=== PATIENT | male | born 1955 | race Caucasian/White ===

== ENCOUNTER → 2017-08-19 09:18 | Outpatient (CLI) | payer MEDICARE, SELFPAY ==
--- NOTE | 2017-08-19 09:24 | STE_ITS ---
Reason For Study: Exercise Intolerance, Hypotension Stress Results Protocol: Karl Protocol Maximum Predicted HR: 161 bpm Target HR: 137 bpm% Max imum Predicted HR: 88 % DurationHeart Rate Stage (mm:ss) (bpm) BPCom ment Baseline 64 134/82 No Chest Pain Karl Protocol Stage I 3:00 10 6 136/74No Chest Pain Karl Protocol Stage II 3:00 12 1 184/80No Chest Pain Karl Protocol Stage III 3:00 14 1 178/76No Chest Pain; Mild to Moderate Dyspnea Recovery 88 130/76 No Chest Pain Stress Duration: 9:00 mm:ss Maximum Stress HR: 141 bpmM ETS: 10 Baseline Echocardiogram Findings Stress Echo Wall motion Data Resting WMIntermediate WMStress WM Resting Wall Motion Wall Motion Stress All segments Normal. All segments Hyperkinetic. Ejection Fraction 55 %. Ejection Fraction 70 %. Stress Results Heart rate response: appropriate Blood pressure response: normal BP - appropriate response Arrhythmias: rare PVC / ventricular couplet during exercise Functional capacity: good Stopped secondary to: dyspnea. EKG Data Baseline ECG: NSR. Peak exercise ECG: somatic / motion artifact with no obvious ECG changes. Symptoms with Stress No c/o chest discomfort during exercise / recovery. Interpretation Summary Negative (adequate) Stress Echocardiogram Ordering Physician: Alina Choi Referring Physician: Alek Hawthorne MD Performed By: Shorty Meng RCS
== END ==
LOC: CVS 09:20
PROVIDERS: Family Provider Family Medicine; PCP Family Medicine; Visit Provider Family Medicine
DX: R68.89 Other general symptoms and signs (principal)
CPT/HCPCS: 93017; 93350

== ENCOUNTER 2017-10-18 05:41 | Day surgery (SDC) | payer MEDICARE, SELFPAY ==
[2017-10-18] VITALS (8 sets, daily range): BP systolic 113–176; BP diastolic 82–101; PULSE 57–61; RESP 16–18; TEMP 36.3–36.5; O2SAT 95–99
--- NOTE | 2017-10-18 06:21 | PCM.HP.STD ---
Problem List (1) Screening for intestinal cancer Status: Acute History of Present Illness Date of Admission: 10/18/17 The patient is a 61 year old M who is here via our open access program for screening colonoscopy. The patient states that he is typically on clopidogrel and aspirin for lower extremity peripheral vascular occlusive disease. States that one year ago I performed an operation to reestablish vascular flow to his right lower extremity. He has not had any follow-up with me since then and has not had any testing and he is remained on his clopidogrel. He did stop that 5 days ago. He has remained on the aspirin. He denies any previous colonoscopy. He denies bright red blood per rectum or melena. No abdominal pain. No weight loss. He describes an episode where his older sister just had a have a emergency colon resection for diverticular disease. The patient is a chronic lifelong cigarette smoker and he continues to smoke cigarettes. He has not had any acute weight change. He has not had a venous deep venous thrombosis. He does not have a family history of colon cancer. Past Medical History Allergies No Known Allergies Allergy (Verified 10/17/17 09:24) Home Medications: Ambulatory Orders Medication Instructions Recorded Esomeprazole Mag Trihydrate 20 mg PO DAILY 11/21/16 [Nexium] Lisinopril [Zestril] 10 mg PO DAILY #30 tablet 11/21/16 Aspirin [Aspirin, Baby] 81 mg PO DAILY@0800 11/30/16 Clopidogrel Bisulfate [Plavix] 75 mg PO DAILY #30 tablet 11/30/16 Atorvastatin Calcium [Lipitor] 40 mg PO QHS 10/17/17 Tamsulosin HCl [Flomax] 0.4 mg PO DAILY 10/17/17 Surgical History: - - 11/30/2016 abdominal pelvic right lower extremity arteriogram with turbo Hawk atherectomy and angioplasty for distal right superficial femoral artery occlusion Smoking Status: Current every day smoker Tobacco Use: Cigarettes Review of Systems Constitutional: Denies: Anorexia Cardiovascular: Denies: Chest Pain Respiratory: Reports: - - Chronic nonproductive cough Gastrointestinal: Denies: Abdominal Pain Genitourinary: Denies: Dysuria Neurological: Denies: Balance problems Psychiatric: Denies: Anxiety Endocrine: Denies: Change in Body Habitus VTE Information - Inpt Only VTE Present on Admission: No Patient Problems: Active and Suspected Problems Screening for intestinal cancer (Acute) - Physical Exam General: Alert, Oriented x3, Cooperative, - - Patient appears older than stated age HEENT: Atraumatic Oral: Moist Mucosa Neck: Supple Lungs: - - Notably increased anterior posterior diameter. Clear to auscultation. Diminished respiratory excursion Cardiovascular: Regular rate, Regular Rhythm Abdomen: Bowel Sounds Present, Soft, Non Tender Extremities: - - 3+ bilateral femoral and popliteal pulses Musculoskeletal: No Tenderness to Palpation of Joints or Extremities Neurological: Cranial nerves II-XII grossly intact Psych/Mental Status: Normal Affect Vital Signs Pulse Resp BP Pulse Ox 61 16 146/94 H 97 10/18/17 06:09 10/18/17 06:09 10/18/17 06:09 10/18/17 06:09 Oxygen Delivery Method Room Air Weight: 158 lb 8.198 oz Assessment/Plan All Active Problems Screening for intestinal cancer (Acute) The patient is encouraged to establish a office appointment for PVRs and outpatient follow-up of his peripheral vascular status with re-review of the requirement of his aspirin and clopidogrel Today I discussed with him the technique, benefits, risks and alternatives of a screening colonoscopy. He has had an opportunity to ask and have questions answered including the possibility of biopsy or polypectomy. This point he would like to proceed as noted. Cc: Dr. Steph García M.D., F.A.C.S.
--- NOTE | 2017-10-18 06:30 | COLBX_PTH ---
PATIENT: ERIC KRAUSE LOC: EN U#:[id number] AGE/SX: 61/M ROOM: RE10/18/[address]: Dr. Michelet García MD : 1955 BED: DIS: 10/18/2017 SPEC #: [id number] RECD: 10/18/17 12:48 STATUS: DARON GENNA #: [id number] ARELIS: 10/18/17 06:[address]: Michelet García DEPT: SURGICAL PATHOLOGY RECD BY: Prieto Sharma ENTERED: 10/18/17 13:56 SP TYPE: COLON BX HEATHER DR: Dr. Alina Choi MD Tissues: A - Cecum, NOS B - Transverse colon C - Transverse colon D - Descending colon E - Sigmoid colon biopsy Procedures: Surgery Specimen Level IV HEADER OPERATION: Colonoscopy PRE-OP DIAGNOSIS: Screening TISSUE SUBMITTED: A ? Cecal polyp, B ? Proximal transverse polyp, C ? Distal transverse polyp, D ? Descending polyps (2), E ? Sigmoid polyp MICROSCOPIC DIAGNOSIS A. Cecal polyp, biopsy: Fragments of tubular adenoma. B. Proximal transverse colon polyp, biopsy: Fragments of hyperplastic polyp. Tubular adenoma. See comment. C. Distal transverse colon polyp, biopsy: Fragments of tubular adenoma. D. Descending colon polyps, biopsy: Fragments of tubular adenoma. E. Sigmoid colon polyp, biopsy: Hyperplastic polyp. AM:nellie 10/19/17 COMMENT B. A single fragment contains adenomatous change. The remainder of the specimen consists of fragments of hyperplastic polyp. MICROSCOPIC DESCRIPTION Slides are reviewed. GROSS DESCRIPTION A - Received in fixative is one container labeled with the patient's name and designated cecal polyp. The specimen consists of multiple irregular fragments of light avila soft tissue that in aggregate measure 1 x 0.5 x 0.1 cm. The specimen is totally submitted in one cassette. B - Received in fixative is one container labeled with the patient's name and designated proximal transverse colon. The specimen consists of multiple irregular fragments of light avila soft tissue that in aggregate measure 1.5 x 0.5 x 0.1 cm. The specimen is totally submitted in one cassette. C - Received in fixative is one container labeled with the patient's name and designated distal transverse polyp. The specimen consists of two irregular fragments of light avila soft tissue that in aggregate measure 0.6 x 0.3 x 0.1 cm. The specimen is totally submitted in one cassette. D - Received in fixative is one container labeled with the patient's name and designated descending polyp. The specimen consists of two irregular fragments of light avila soft tissue that in aggregate measure 0.7 x 0.3 x 0.1 cm. The specimen is totally submitted in one cassette. E - Received in fixative is one container labeled with the patient's name and designated sigmoid polyps. The specimen consists of one irregular fragment of light avila soft tissue that measures 0.7 x 0.4 x 0.2 cm. The specimen is totally submitted in one cassette. / SJ:rg 10/18/17 TC:5 CPT: 85398 x5
--- NOTE | 2017-10-18 07:01 | PCM.OPRPT ---
Problem List (1) Screening for intestinal cancer Status: Acute Report of Operation Date of Procedure: 10/18/17 Pre-Operative Diagnosis: Screening for intestinal cancer Post-Operative Diagnosis: Multiple colonic polyps. Sigmoid diverticulosis Surgery/Procedure Performed:: Colonoscopy with multiple cold snare polypectomy and hemostatic clip placement Description of Surgical Findings:: Timeout and informed consent was obtained. 61-year-old gentleman with no previous colonoscopy experience have been taken to the procedure room. He was placed in a left lateral decubitus position. Throughout the procedure he received a total of 100 mg of Demerol and 4 milligrams of versed as intravenous sedation. Because of COPD carbon dioxide was not used but room air was used for insufflation. Digital rectal exam performed. Normal anal tone. Mild hemorrhoidal changes. 2+ smooth prostate. Flexible colonoscope inserted the rectum advanced through the colon with relative ease. Transabdominal pressure was required to get the scope to go to the cecum. Bowel prep was good. The cecum ileocecal valve area was nicely achieved. The scope was carefully withdrawn and then the cecum a sessile 8 mm diameter polyp identified. Cold snare was used to resect and retrieved. The scope was then further withdrawn and the proximal transverse colon a 6 mm polyp identified this too was removed with cold snare and retrieved. The scope was further withdrawn in the distal transverse colon a very similar appearing 6 mm polyp was identified cold snare resected and retrieved. In the descending colon there were additional 2 sessile 6 mm polyps both of these were treated with cold snare resected and retrieved. In the sigmoid colon there was more of this polypoid lesion looking like lax mucosa rather than a true polyp. I took a fraction of this with a cold snare and then placed a hemostatic clip on the base to assure hemostasis. That tissue was retrieved. The scope was withdrawn the rectum retroflex the anorectal verge inspected this was not remarkable excess fluid and air was aspirated free. He was taken to the recovery area in sagittal condition no apparent complication. Impression Sessile polyp of the cecum. Sessile polyp with proximal transverse colon. Sessile polyp of the distal transverse colon. 2 sessile polyps of the descending colon. Polypoid lesion of the sigmoid colon Sigmoid diverticulosis The patient will be notified of pathology results as they become available. Next colonoscopy recommended in 1 year. It is of note that the patient had air rather than carbon dioxide use as the insufflating agent. He performed well with the procedure. Cc: Dr Alina Choi Medications were given at 0634. The scope was inserted 0637. The cecum was reached at 0639. The procedure was completed at 0657. Michelet García M.D., F.A.C.S. Type of Anesthesia:: IV Sedation
== END 2017-10-18 07:55 | disposition home or self-care (01) ==
LOC: EN 05:41 → AC 05:42
PROVIDERS: Family Provider Family Medicine; PCP Family Medicine; Visit Provider Surgery
PROC: 0DJD8ZZ Inspection of Lower Intestinal Tract, Via Natural or Artificial Opening Endoscopic (ICD-10-PCS; CPT 45378; principal; 2017-10-18 06:25)
DX: Z12.11 Encounter for screening for malignant neoplasm of colon (principal); K57.30 Diverticulosis of large intestine without perforation or abscess without bleeding; K63.5 Polyp of colon; J44.9 Chronic obstructive pulmonary disease, unspecified; F17.200 Nicotine dependence, unspecified, uncomplicated
CPT/HCPCS: 45385; 88305; 99152; 99153; J7120

== ENCOUNTER → 2017-12-16 10:32 | Outpatient (CLI) | payer MEDICARE, SELFPAY ==
[2017-12-16 12:59] LABS: AST(SGOT) 14 U/L (15-37); Alanine Aminotransfer ALT/SGPT 26 U/L (16-61); Anion Gap 4 (5-15); BUN 20 mg/dL (7-18); BUN/Creat Ratio 18.3 RATIO (10-20); Calcium,Total 8.9 mg/dL (8.5-10.1); Chloride 107 mmol/L (98-107); Cholesterol 133 mg/dL (200); Creatinine, Serum 1.09 mg/dL (0.70-1.30); EST Glomerular Filtration Rate 73 mL/min (>60); Est Glom Filt Rate - Afr Amer 89 mL/min (>60); Glucose 102 mg/dL (74-106); High Density Lipoprotein 49 mg/dL; Potassium 4.1 mmol/L (3.5-5.1); Sodium Level 138 mmol/L (136-145); Triglycerides 90 mg/dL; Very Low Density Lipoprotein 18 mg/dL (5-40)
== END ==
PROVIDERS: Family Provider Family Medicine; PCP Family Medicine; Visit Provider Family Medicine
DX: I10 Essential (primary) hypertension (principal)
CPT/HCPCS: 36415; 80048; 80061; 84450; 84460

== ENCOUNTER → 2018-04-28 12:02 | Outpatient (CLI) | payer MEDICARE, SELFPAY ==
--- NOTE | 2018-04-28 12:06 | US_ITS ---
STUDY: SCROTUM ULTRASOUND REASON FOR EXAM: Male, 62 years old. Articular swelling. TECHNIQUE: Ultrasound evaluation of the scrotum was performed with color Doppler and static olivarez-scale imaging. COMPARISON: None. FINDINGS: RIGHT TESTICLE INTRATESTICULAR: There is a normal size of the right testicle. The right testicle measures 6 x 3.8 x 3.3 cm. There is a homogenous echotexture. There is normal arterial and normal venous vascularity. There is no demonstrated right testicular mass or cyst. EXTRATESTICULAR: The epididymis is prominent in size. The epididymis head measures 1.4 cm. There is normal vascularity of the epididymis. There is no demonstrated epididymal cystic structure. There is a moderate size hydrocele. There is no demonstrated varicocele. There is no demonstrated extratesticular mass or cyst. LEFT TESTICLE INTRATESTICULAR: There is a normal size of the left testicle. The left testicle measures 5.9 x 3.7 x 2.7 cm. There is a homogenous echotexture. There is normal arterial and normal venous vascularity. There is no demonstrated left testicular mass or cyst. EXTRATESTICULAR: The epididymis is prominent in size. The epididymis head measures 1.5 cm. There is normal vascularity of the epididymis. There is a small cyst in the left femoral head measuring about 4 mm. There is a another large cyst in the left epididymal head measuring about 2 cm. There is a moderate size hydrocele. There is no demonstrated varicocele. There is no demonstrated extratesticular mass or cyst. US/Testicular with Arterial Flow IMPRESSION: 1. No evidence of testicular torsion at the time this examination was performed. 2. Moderate bilateral hydroceles. 3. Large left epididymal cyst. Electronically Signed: Cipriano Crocker MD at 13:41 EST Tel , Service support ,
== END ==
LOC: US 12:05
PROVIDERS: Family Provider Family Medicine; PCP Family Medicine; Referring Provider Family Medicine; Visit Provider Family Medicine
DX: N50.89 Other specified disorders of the male genital organs (principal)
CPT/HCPCS: 76870; 93976

== ENCOUNTER → 2018-05-11 10:48 | Outpatient (CLI) | payer MEDICARE, SELFPAY ==
[2018-05-11 11:58] LABS: PSA,Total - Annual Screen 0.48 ng/mL (0.00-4.00)
== END ==
PROVIDERS: Family Provider Family Medicine; PCP Family Medicine; Referring Provider Nurse Practitioner Adult Health; Visit Provider Nurse Practitioner Adult Health
DX: Z12.5 Encounter for screening for malignant neoplasm of prostate (principal)
CPT/HCPCS: 36415; 84153; G0103

== ENCOUNTER → 2018-11-07 15:20 | Outpatient (CLI) | payer MEDICARE, SELFPAY ==
[2018-11-07 17:52] LABS: AST(SGOT) 15 U/L (15-37); Alanine Aminotransfer ALT/SGPT 27 U/L (16-61); Anion Gap 6 (5-15); BUN 20 mg/dL (7-18); BUN/Creat Ratio 18.3 RATIO (10-20); Calcium,Total 8.7 mg/dL (8.5-10.1); Chloride 107 mmol/L (98-107); Cholesterol 143 mg/dL (200); Creatinine, Serum 1.09 mg/dL (0.70-1.30); EST Glomerular Filtration Rate 73 mL/min (>60); Est Glom Filt Rate - Afr Amer 89 mL/min (>60); Glucose 122 mg/dL (74-106); High Density Lipoprotein 47 mg/dL; Potassium 4.1 mmol/L (3.5-5.1); Sodium Level 139 mmol/L (136-145); Triglycerides 207 mg/dL; Very Low Density Lipoprotein 41 mg/dL (5-40)
== END ==
PROVIDERS: Family Provider Family Medicine; PCP Family Medicine; Referring Provider Family Medicine; Visit Provider Family Medicine
DX: I10 Essential (primary) hypertension (principal); I73.9 Peripheral vascular disease, unspecified
CPT/HCPCS: 36415; 80048; 80061; 84450; 84460

== ENCOUNTER → 2020-02-12 15:47 | Outpatient (CLI) | payer MEDICARE, SELFPAY ==
[2020-02-12 18:41] LABS: AST(SGOT) 15 U/L (15-37); Alanine Aminotransfer ALT/SGPT 34 U/L (16-61); Anion Gap 6 (5-15); BUN 18 mg/dL (7-18); BUN/Creat Ratio 19.3 RATIO (10-20); Calcium,Total 9.1 mg/dL (8.5-10.1); Chloride 106 mmol/L (98-107); Cholesterol 162 mg/dL (200); Creatinine, Serum 0.93 mg/dL (0.70-1.30); EST Glomerular Filtration Rate 87 mL/min (>60); Est Glom Filt Rate - Afr Amer 105 mL/min (>60); Glucose 122 mg/dL (74-106); High Density Lipoprotein 41 mg/dL; Potassium 4.1 mmol/L (3.5-5.1); Sodium Level 136 mmol/L (136-145); Triglycerides 367 mg/dL; Very Low Density Lipoprotein 73 mg/dL (5-40)
== END ==
PROVIDERS: PCP Family Medicine; Visit Provider Family Medicine
DX: I10 Essential (primary) hypertension (principal); E78.5 Hyperlipidemia, unspecified
CPT/HCPCS: 36415; 80048; 80061; 84450; 84460

== ENCOUNTER 2020-07-11 20:14 | Inpatient (IN) | payer MEDICARE, SELFPAY ==
[2020-07-11 20:15] VITALS: BP 99/71; PULSE 122; RESP 18; TEMP 36.6; O2SAT 100; BMI 24.5
--- NOTE | 2020-07-11 20:35 | EKG12_ITS ---
Test Reason : DYSRHYTHMIA Blood Pressure : / mmHG Vent. Rate : 093 BPM Atrial Rate : 093 BPM P-R Int : 144 ms QRS Dur : 088 ms QT Int : 338 ms P-R-T Axes : 082 065 065 degrees QTc Int : 420 ms Normal sinus rhythm Normal ECG Confirmed by BRYSON OCONNOR, GARETH ([id number]), book or script editor GLENIS REDD ([id number]) on 07/14/2020 12:59:59 PM Referred By: BB Confirmed By:GARETH MASSEY MD
--- NOTE | 2020-07-11 20:37 | EX.ED.DYSGE1 ---
HPI History of Present Illness Chief Complaint: GI Bleed Informant: patient Onset/Context/Timing Onset: Yesterday Context: Gradual Onset Timing: Continuous Quality: Weak, dyspnea with exertion Current Severity: Moderate Maximum Severity: Moderate Worsened by: Exertion Relieved by: Rest Associated Symptoms Associated Symptoms: Melena without bright red blood per rectum, nausea, lightheadedness Narrative Narrative: Patient noticed all the symptoms that started yesterday and progressed today. He is on Nexium 20 mg daily and has been compliant with that, he also takes aspirin and Plavix. He has no heart or lung problems that he knows of, but states that he had peripheral arterial disease in his right lower extremity, he had a procedure to remove this, not a bypass, and has been on aspirin and Plavix since. He denies any vomiting. No abdominal pain. No syncope but he has come close to couple times. When he rests he feels a lot better, but still very weak. [facility] Medical History (Updated 07/11/20 @ 22:[address] Edwin Concepcion MD) DVT (deep venous thrombosis) GERD (gastroesophageal reflux disease) Hyperlipidemia Hypertension Home Medications esomeprazole magnesium [Nexium] 20 mg PO DAILY 11/21/16 [History Last Taken 11/30/16] lisinopril [Zestril] 10 mg PO DAILY #30 tab 11/21/16 [Rx Last Taken 11/30/16] aspirin 81 mg PO DAILY@0800 11/30/16 [History Last Taken 11/30/16] clopidogrel 75 mg PO DAILY #30 tablet 11/30/16 [Rx Last Taken 10/13/17] atorvastatin 40 mg PO QHS 10/17/17 [History Last Taken Unknown] tamsulosin 0.4 mg PO DAILY 10/17/17 [History Last Taken Unknown] Allergy/AdvReac Type Severity Reaction Status Date / Time No Known Allergies Allergy Verified 07/11/20 20:17 Social History Smoking Status: Current every day smoker ROS ROS ED Constitutional Constitutional ED: Reports malaise and weakness; Denies chills or fever(s) Eyes Eyes: Denies change in vision or diplopia ENT ENT ED: Denies rhinorrhea or sore throat Cardiovascular Cardiovascular: Denies chest pain or palpitations Respiratory/Chest Respiratory/Chest: Denies cough Gastrointestinal Gastrointestinal: Reports as per HPI and melena; Denies abdominal pain or vomiting Genitourinary Genitourinary ED: Denies dysuria or hematuria Musculoskeletal Musculoskeletal: Denies back pain or neck pain Integumentary Denies abscess or rash Neurologic Neurologic: Denies headache(s), paresthesias or weakness Psychiatric Psychiatric: Denies anxiety or suicidal thoughts EXAM Physical Exam Const Vital Signs: 07/11/20 20:15 07/11/20 21:29 07/11/20 21:50 Temperature 98 F Temperature Source Temporal Pulse Rate 122 H 104 H Pulse Rate [Lying] 93 Pulse Rate [Sitting] 102 H Respiratory Rate 18 20 H Respiratory Pattern Normal Blood Pressure 99/71 Blood Pressure [Lying] 103/73 Blood Pressure [Sitting] 113/72 Blood Pressure Mean 80 Blood Pressure Mean [Lying] 83 Blood Pressure Mean [Sitting] 85 Pulse Ox 100 Oxygen Delivery Method Room Air Positive well nourished and well developed General Appearance ED: well developed and NAD HEENT Reports moist mucous membranes normocephalic and atraumatic Eyes PERRL and EOMs intact bilaterally Neck full ROM and supple Resp normal respiratory effort Auscultation: wheezes expiratory wheezes and throughout; Negative for crackles, rales or rhonchi Cardio regular rate, regular rhythm and no murmurs Rate: tachycardic GI non-tender and non-distended GI Narrative: melanotic stool, no gross blood Auscultation: normoactive bowel sounds Palpation: soft Rectal Exam: heme positive stool Back/Spine no CVA tenderness General Back: other FROM Extremity normal to inspection General Extremety ED: Negative for edema, pulses abnormal or tenderness General Extremity: Negative for edema or pulses abnormal Neuro oriented x3, CN's II-XII intact bilaterally, no sensory deficits noted and gait normal Sensorium / Orientation: awake and alert Motor Exam: strength 5/5 throughout Psych mental status grossly normal and thought process normal Skin no rashes or lesions noted and no wounds MDM MDM MDM Narrative Medical decision making narrative: Work-up is consistent with upper GI bleeding, with significantly elevated BUN and heme positive melanotic stool. His hemoglobin however is excellent at 13.7. The most recent measurement that we have on him is from 2017 at 15.5. Given that these numbers are fairly good, we gave him a liter of fluid and then an albuterol treatment since he had some wheezes, and then did orthostatics which he failed, becoming near syncopal when he stood up so he sat back down. Vital signs with sitting and lying were not bad, but he was very positive clinically. His blood pressure remained stable, he was very dyspneic with just walking across the [place], therefore he was given IV Protonix, fluids, and will be admitted to the hospital. Lab Data Attestation: I reviewed the patient's lab results. Labs: Laboratory Results - last 24 hr 07/11/20 07/11/20 07/11/20 20:25 20:25 20:25 WBC 12.9 H RBC 4.75 Hgb 13.7 Hct 41.1 MCV 86.5 MCH 28.8 MCHC 33.3 RDW Std Deviation 40.3 RDW Coeff of Nikkie 12.8 Plt Count 450 MPV 9.7 Immature Gran % (Auto) 0.800 Neut % (Auto) 58.4 Lymph % (Auto) 32.5 Hill % (Auto) 7.7 Eos % (Auto) 0.4 Baso % (Auto) 0.2 Absolute Neuts (auto) 7.5 Absolute Lymphs (auto) 4.19 Nucleated RBC % 0 Sodium 136 Potassium 4.1 Chloride 105 Carbon Dioxide 23.0 Anion Gap 8 BUN 64 H Creatinine 1.19 Estim Creat Clear Calc 66.46 Est GFR (MDRD) Af Amer 80 Est GFR (MDRD) Non-Af 66 BUN/Creatinine Ratio 53.8 H Glucose 146 H Calcium 9.1 Total Bilirubin 0.30 AST 8 L ALT 23 Alkaline Phosphatase 82 Troponin I < 0.015 Total Protein 7.3 Albumin 3.7 Globulin 3.6 Albumin/Globulin Ratio 1.0 Blood Type O POSITIVE Antibody Screen NEGATIVE Radiography Chest X-Ray - ED: 1 View, Read by ED Physician and No Acute Disease Diagnostic Testing: Radiology Impression Chest X-Ray 07/11/20 21:20 IMPRESSION: Normal x-ray examination of the chest. Electronically Signed: Brooke Adan MD at 21:45 EDT Tel , Service support , EKG Initial EKG: Attestation: I personally reviewed and interpreted this EKG as follows: Interpretation: Sinus Rhythm and No Acute Injury Pattern (normal EKG) Treatment and Re-Evaluation Vital Sign Attestation:: While resting, blood pressure 113/72, heart rate 102, which is improved after IV fluids, I do not think patient needs ICU at this time. Discharge Plan Dx/Rx/DC Orders Clinical Impression: Acute upper gastrointestinal bleeding, Orthostatic hypotension Disposition Disposition: Acute Care Hospital [facility]
[2020-07-11] MEDS: Ondansetron 4 MG/2 ML Vial IV (20:45)
[2020-07-11] MEDS: 0.9% Normal Saline 1,000 ML 1000 ML IV (20:45)
[2020-07-11 20:59] LABS: Absolute Lymphocyte Count 4.19 X10^3/uL (0.83-4.51); Absolute Neutrophil Count 7.5 X10^3/uL (2.0-7.7); Basophil# 0.03 X10^3/uL; Basophil% 0.2 % (0-1); Eosinophil# 0.05 X10^3/uL; Eosinophils% 0.4 % (0-5); Hematocrit 41.1 % (40-54); Hemoglobin 13.7 g/dL (13.0-16.5); Lymphocyte # 4.19 X10^3/ul (0.83-4.51); Lymphocyte % 32.5 % (19-41); Mean Corp Hgb Conc 33.3 g/dL (32-36); Mean Corpuscular Hgb 28.8 pg (27.0-32.0); Mean Corpuscular Volume 86.5 fL (80-94); Mean Platelet Vol. 9.7 fl (6.2-12.0); Monocyte# 0.99 X10^3/uL; Monocyte% 7.7 % (0-10); NRBC Flagged by Analyzer 0 % (0-5); Neutrophil # 7.52 X10^3/uL (2.7-7.7); Neutrophil % 58.4 % (47-70); Platelet Count 450 K/mm3 (150-450); RBC Distribution Width CV 12.8 % (11.6-14.6); RBC Distribution Width SD 40.3 fl (35.1-43.9); Red Blood Count 4.75 M/mm3 (4.6-6.2); White Blood Count 12.9 K/mm3 (4.4-11.0)
[2020-07-11 21:05] LABS: AST(SGOT) 8 U/L (15-37); Alanine Aminotransfer ALT/SGPT 23 U/L (16-61); Albumin, Serum 3.7 g/dL (3.2-5.0); Alkaline Phosphatase 82 U/L (45-117); Anion Gap 8 (5-15); BUN 64 mg/dL (7-18); BUN/Creat Ratio 53.8 RATIO (10-20); Calcium,Total 9.1 mg/dL (8.5-10.1); Chloride 105 mmol/L (98-107); Creatinine, Serum 1.19 mg/dL (0.70-1.30); EST Glomerular Filtration Rate 66 mL/min (>60); Est Glom Filt Rate - Afr Amer 80 mL/min (>60); Estimated Creatinine Clearance 66.46 ml/min; Globulin 3.6 g/dL (2.2-4.2); Glucose 146 mg/dL (74-106); Potassium 4.1 mmol/L (3.5-5.1); Protein, Total 7.3 g/dL (6.4-8.2); Sodium Level 136 mmol/L (136-145)
--- NOTE | 2020-07-11 21:20 | RAD_ITS ---
STUDY: X-RAY CHEST REASON FOR EXAM: Male, 64 years old. sob TECHNIQUE: Single AP portable view of the chest. COMPARISON: None. FINDINGS: The lungs are clear and expanded. There is no demonstrated pleural abnormality. Normal size heart. Normal mediastinum and tariq. Normal visualized pulmonary arteries. Normal visualized aortic arch and descending thoracic aorta. Normal visualized thoracic spine. Normal visualized ribs, clavicles, and shoulders. There is no demonstrated abnormality of the visualized soft tissue structures of the upper abdomen. RAD/Chest 1 View (Portable) IMPRESSION: Normal x-ray examination of the chest. Electronically Signed: Brooke Adan MD at 21:45 EDT Tel , Service support ,
[2020-07-11 21:29] VITALS: PULSE 104; RESP 20
[2020-07-11] MEDS: Albuterol 2.5 MG/3 ML VIAL.NEB. INHALATION (21:29)
[2020-07-11] MEDS: 0.9% Normal Saline 1,000 ML 150 ML IV (21:49)
[2020-07-11 21:50] VITALS: BP 103/73; BP 113/72; PULSE 102; PULSE 93
[2020-07-11] MEDS: Mag Hydrox/Al Hydrox/Simeth 30 ML UDC PO (22:32)
[2020-07-11 22:35] VITALS: BP 109/88; PULSE 91; RESP 16; TEMP 36.6; O2SAT 99
--- NOTE | 2020-07-11 22:37 | PCM.HP.STD ---
[facility] - General General Date of Admission: 07/11/20 HPI Narrative ERIC KRAUSE, is a 64 M who presents with questionable DVT/PAD; GERD; hyperlipidemia; and hypertension who presented to emergency department with a 2-day history of melena. Reportedly he is color blind and could not tell whether there was blood in the stool. Associated with his symptoms is nausea and coffee-ground emesis. Further he has increased dyspnea on exertion above her baseline; lightheadedness and disequilibrium. Of note patient was very dyspneic on exertion the emergency department and was given albuterol inhalation. Also reportedly patient had wheezes on examination. Orthostatic vitals was attempted at the emergency department.. However patient had near syncope and so standing blood pressure could not be obtained. Emergent department doctor reported on rectal examination patient had melena and was occult positive. Patient takes Plavix at home because of history of blood clots in his right leg. He thinks that the blood clots was in his artery and it was extracted although in his medical history DVT is listed. [facility] Medical History DVT (deep venous thrombosis) GERD (gastroesophageal reflux disease) Hyperlipidemia Hypertension Screening for intestinal cancer Home Medications esomeprazole magnesium [Nexium] 20 mg PO DAILY 11/21/16 [History Last Taken 11/30/16] aspirin 81 mg PO DAILY@0800 11/30/16 [History Last Taken 11/30/16] clopidogrel 75 mg PO DAILY #30 tablet 11/30/16 [Rx Last Taken 10/13/17] atorvastatin 40 mg PO QHS 10/17/17 [History Last Taken Unknown] lisinopril [Zestril] 5 mg PO DAILY 07/11/20 [History Last Taken Unknown] Allergy/AdvReac Type Severity Reaction Status Date / Time No Known Allergies Allergy Verified 07/11/20 20:17 Family History Other Heart disease Surgical History History of tonsillectomy Social History Smoking Status: Current every day smoker alcohol intake: current alcohol intake frequency: 3 or more drinks per day Alcohol type: beer, wine, hard liquor and other ROS ROS Narrative 12 point review of system is negative except as stated in HPI. Vital Signs Vital Signs Vital Signs: 07/11/20 20:15 07/11/20 21:29 07/11/20 21:50 Temperature 98 F Temperature Source Temporal Pulse Rate 122 H 104 H Pulse Rate [Lying] 93 Pulse Rate [Sitting] 102 H Respiratory Rate 18 20 H Respiratory Pattern Normal Blood Pressure 99/71 Blood Pressure [Lying] 103/73 Blood Pressure [Sitting] 113/72 Blood Pressure Mean 80 Blood Pressure Mean [Lying] 83 Blood Pressure Mean [Sitting] 85 Pulse Ox 100 Oxygen Delivery Method Room Air Physical Exam Narrative Alert and oriented x3 Nontraumatic; normocephalic Lung clear to auscultate Heart sounds S1-S2. No murmur, gallop or rubs. Abdomen bowel sounds present soft, nontender nondistended Extremity without edema cyanosis or clubbing. Lab / Micro Data Result Diagrams: 07/12/20 01:35 07/12/20 01:35 Labs: Laboratory Results - last 24 hr 07/11/20 07/11/20 07/11/20 20:25 20:25 20:25 WBC 12.9 H RBC 4.75 Hgb 13.7 Hct 41.1 MCV 86.5 MCH 28.8 MCHC 33.3 RDW Std Deviation 40.3 RDW Coeff of Nikkie 12.8 Plt Count 450 MPV 9.7 Immature Gran % (Auto) 0.800 Neut % (Auto) 58.4 Lymph % (Auto) 32.5 [place] % (Auto) 7.7 Eos % (Auto) 0.4 Baso % (Auto) 0.2 Absolute Neuts (auto) 7.5 Absolute Lymphs (auto) 4.19 Nucleated RBC % 0 Sodium 136 Potassium 4.1 Chloride 105 Carbon Dioxide 23.0 Anion Gap 8 BUN 64 H Creatinine 1.19 Estim Creat Clear Calc 66.46 Est GFR (MDRD) Af Amer 80 Est GFR (MDRD) Non-Af 66 BUN/Creatinine Ratio 53.8 H Glucose 146 H Calcium 9.1 Total Bilirubin 0.30 AST 8 L ALT 23 Alkaline Phosphatase 82 Troponin I < 0.015 Total Protein 7.3 Albumin 3.7 Globulin 3.6 Albumin/Globulin Ratio 1.0 Blood Type O POSITIVE Antibody Screen NEGATIVE Micro: Microbiology 07/11/20 20:40 SARS-CoV-2 Antigen (Rapid) - Final Nasal Secretion 07/11/20 20:25 Stool Occult Blood (LISET) - Final Stool Occult Blood Positive Radiology Impression Chest X-Ray 07/11/20 21:20 IMPRESSION: Normal x-ray examination of the chest. Electronically Signed: Brooke Adan MD at 21:45 EDT Tel , Service support , Assessment & Plan Assessment/Plan (1) Acute upper gastrointestinal bleeding: (2) Orthostatic hypotension: (3) Tobacco abuse: (4) Alcoholism: PLAN: Acute upper GI bleed/orthostatic hypotension Hemoglobin presentation was 13.7. Review of records show that hemoglobin on 11/30/2016 was 15.5. Because of patient history of smoking he may have baseline erythrocytosis. BUN elevated at 64. Review of records show that on 02/12/2020 BUN was 18. Creatinine is 1.19. BUN over creatinine is 53.8. Received normal saline bolus at emergency department and started on maintenance infusion. Normal saline 100 mL/h ordered. Received Protonix 40 mg IV at the emergency department. Hold home Nexium. Protonix 40 mg IV twice daily ordered. Keep n.p.o. Trend H&H Avoid chemical thromboprophylaxis. Home Plavix held. General surgery consult. Tobacco abuse Patient smokes pipe Counselled Declined nicotine patch. Alcoholism Drinks about 12 packs of beer on some days. Also drinks wine and liquor. Last time he drank was about 4 days ago. Patient and son who was with patient at the bedside does not think that he will withdrawal. Clinical monitoring. Visit Charges Inpatient E&M: 67625 Init Hosp L3
[2020-07-11 23:04] VITALS: BP 121/69; PULSE 93; RESP 17; TEMP 36.7; O2SAT 93
[2020-07-11 23:07] VITALS: BMI 23.6
[2020-07-11] MEDS: 0.9% Normal Saline 1,000 ML 100 ML IV (23:21)
[2020-07-11 23:32] VITALS: PULSE 89
[2020-07-12] VITALS (15 sets, daily range): BP systolic 86–116; BP diastolic 47–68; PULSE 68–93; RESP 16–18; TEMP 36.2–36.9; O2SAT 94–100; BMI 23.6
--- NOTE | 2020-07-12 | GASB_PTH ---
PATIENT: ERIC KRAUSE LOC: [facility] U#:[id number] AGE/SX: 64/M ROOM: [facility] RE07/11/[address]: Dr. Meghann Dowell MD : 1955 BED: 1 DIS: 07/14/2020 SPEC #: [id number] RECD: 07/12/20 09:36 STATUS: DARON VAIL #: [id number] ARELIS: 07/12/20 00:[address]: Shelia Ricks DEPT: SURGICAL PATHOLOGY RECD BY: Carlito Hawley ENTERED: 07/14/20 07:54 SP TYPE: Gastric Bx OTHR DR: MD Dr. Meghann Hernandez MD Dr. Joseph Agyepong, MD Dr. Tamera Robotham, MD Tissues: A - Gastric mucous membrane B - Gastric mucous membrane Procedures: Surgery Specimen Level IV Comments: @ Ordering doctor for SUIV edited from to @ by DEBBIE at 07/14/20 0950 @ Submitting doctor edited from to @ by RGOOD at 07/14/20 0950 HEADER OPERATION: [place] PRE-OP DIAGNOSIS: Acute upper GI bleeding TISSUE SUBMITTED: A - Antrum biopsy, B - GE junction biopsy MICROSCOPIC DIAGNOSIS A. Antrum, biopsy: Mild gastritis. See microscopic description and comment. B. GE junction, biopsy: Well differentiated invasive adenocarcinoma. See comment. SJ:nellie 07/15/2020 COMMENT A. The results of immunohistochemistry for Helicobacter pylori will be reported separately ([id number]). B. Immunohistochemistry ([id number]) for microsatellite instability will be performed and the results will be reported separately. MICROSCOPIC DESCRIPTION Slides are reviewed. A. The specimen shows fragments of gastric mucosa with chronic inflammatory cell infiltrates in the lamina propria consisting of lymphocytes and plasma cells, consistent with mild chronic gastritis. GROSS DESCRIPTION A - Received in fixative is one container labeled with the patient's name and designated antrum biopsy. The specimen consists of one irregular fragment of light avila soft tissue that measures 0.3 x 0.3 x 0.1 cm. The specimen is totally submitted in one cassette. B - Received in fixative is one container labeled with the patient's name and designated GE junction biopsy. The specimen consists of multiple irregular fragments of light avila soft tissue that in aggregate measure 1 x 0.5 x 0.1 cm. The specimen is totally submitted in one cassette. / SJ:rg 07/14/20 TC:0 CPT: 34402 x2
[2020-07-12 01:41] LABS: Hematocrit 33.6 % (40-54); Hemoglobin 11.3 g/dL (13.0-16.5)
[2020-07-12 02:06] LABS: Anion Gap 6 (5-15); BUN 48 mg/dL (7-18); Chloride 112 mmol/L (98-107); Creatinine, Serum 0.81 mg/dL (0.70-1.30); EST Glomerular Filtration Rate 102 mL/min (>60); Est Glom Filt Rate - Afr Amer 123 mL/min (>60); Estimated Creatinine Clearance 97.63 ml/min; Glucose 110 mg/dL (74-106); Potassium 4.2 mmol/L (3.5-5.1); Sodium Level 139 mmol/L (136-145)
[2020-07-12] MEDS: 0.9% Normal Saline 1,000 ML 100 ML IV ×3 (06:03→19:26)
--- NOTE | 2020-07-12 07:20 | EX.PCM.CON.S ---
Assessment & Plan Assessment/Plan (1) Acute upper gastrointestinal bleeding: (2) Alcoholism: PLAN: Discussed with patient that alcohol can definitely outdo his medication of the generic Nexium 20 mg p.o. daily. Also recommend as patient states he had a history of an ulcer previously he should prior be on 40 mg daily will likely plan to send him home on Protonix 40 mg daily or twice daily depending on his EGD results. I have discussed the above with the patient. I have offered the patient EGD for evaluation. I have explained the risks/benefits of the procedure and described the procedure. I have discussed the risks with the patient, including but not limited to: infection, bleeding, perforation of the GI tract requiring emergency surgery, inability to complete the procedure, injury to any internal organs, complications of anesthesia, etc. - the patient understands and agrees to proceed. I have answered all the patient's questions to the patient's satisfaction and the patient has no further questions. Shelia Ricks M.D. Pager: [phone] [facility] [address] [place] [address], [facility], [address] [place] [address] Office: [phone] HPI Consult Data Date of Consult: 07/12/20 HPI Narrative HPI Narrative: ERIC KRAUSE, is a 64 M who presents to the ER due to black stools x2 days. Patient is color blind unable to to see red well. Unsure if there could have been any red stool with the black or brown stool previously. Patient denies any abdominal pain nausea/vomiting/fever/chills/reflux. Patient did have a colonoscopy in 2018 per patient he had multiple polyps at that time was recommended to come back in a year per patient; however due to financial reasons patient has not had a repeat colonoscopy. Patient does take the generic Nexium 20 mg p.o. daily. However patient also drinks 12 beers daily. Patient states he is on Plavix due to history of right leg DVT status post sounds like angioplasty. [facility] Medical History DVT (deep venous thrombosis) GERD (gastroesophageal reflux disease) Hyperlipidemia Hypertension Screening for intestinal cancer Home Medications esomeprazole magnesium [Nexium] 20 mg PO DAILY 11/21/16 [History Last Taken 11/30/16] aspirin 81 mg PO DAILY@0800 11/30/16 [History Last Taken 11/30/16] clopidogrel 75 mg PO DAILY #30 tablet 11/30/16 [Rx Last Taken 10/13/17] atorvastatin 40 mg PO QHS 10/17/17 [History Last Taken Unknown] lisinopril [Zestril] 5 mg PO DAILY 07/11/20 [History Last Taken Unknown] Allergy/AdvReac Type Severity Reaction Status Date / Time No Known Allergies Allergy Verified 07/11/20 20:17 Family History Other Heart disease Surgical History (Updated 07/12/20 @ 07:[address] Shelia Ricks MD) History of angioplasty of peripheral vessel History of tonsillectomy Social History Smoking Status: Current every day smoker alcohol intake: current alcohol intake frequency: 3 or more drinks per day Alcohol type: beer, wine, hard liquor and other ROS Constitutional Constitutional: Reports daytime sleepiness ENT HEENT: Denies dizziness Cardiovascular Cardiovascular: Denies chest pain Respiratory/Chest Respiratory/Chest: Denies shortness of breath at rest Gastrointestinal Gastrointestinal: Reports melena; Denies abdominal pain, constipation, diarrhea, heartburn or hematemesis Genitourinary Genitourinary: Denies burning urination Musculoskeletal Musculoskeletal: Denies joint pain Integumentary Integumentary: Denies rash Neurologic Neurologic: Denies focal weakness Endocrine Endocrinology: Denies palpitations Hematologic/Lymphatic Hematologic/Lymphatic: Reports anemia; Denies easy bleeding or easy bruising Physical Exam Const alert, oriented x3 and no apparent distress HEENT normocephalic and head/scalp atraumatic Resp normal respiratory effort Cardio regular rate GI soft to palpation and non-tender; Negative for non-distended Palpation: Negative for guarding Extremity no clubbing, cyanosis or edema Neuro CN's II-XII intact bilaterally Psych mental status grossly normal Lab / Micro Data Result Diagrams: 07/12/20 01:35 07/12/20 01:35 Labs: Laboratory Results - last 24 hr 07/11/20 07/11/20 07/11/20 20:25 20:25 20:25 WBC 12.9 H RBC 4.75 Hgb 13.7 Hct 41.1 MCV 86.5 MCH 28.8 MCHC 33.3 RDW Std Deviation 40.3 RDW Coeff of Nikkie 12.8 Plt Count 450 MPV 9.7 Immature Gran % (Auto) 0.800 Neut % (Auto) 58.4 Lymph % (Auto) 32.5 [place] % (Auto) 7.7 Eos % (Auto) 0.4 Baso % (Auto) 0.2 Absolute Neuts (auto) 7.5 Absolute Lymphs (auto) 4.19 Nucleated RBC % 0 Sodium 136 Potassium 4.1 Chloride 105 Carbon Dioxide 23.0 Anion Gap 8 BUN 64 H Creatinine 1.19 Estim Creat Clear Calc 66.46 Est GFR (MDRD) Af Amer 80 Est GFR (MDRD) Non-Af 66 BUN/Creatinine Ratio 53.8 H Glucose 146 H Calcium 9.1 Total Bilirubin 0.30 AST 8 L ALT 23 Alkaline Phosphatase 82 Troponin I < 0.015 Total Protein 7.3 Albumin 3.7 Globulin 3.6 Albumin/Globulin Ratio 1.0 Blood Type O POSITIVE Antibody Screen NEGATIVE 07/12/20 07/12/20 01:35 01:35 WBC RBC Hgb 11.3 L Hct 33.6 L MCV MCH MCHC RDW Std Deviation RDW Coeff of Nikkie Plt Count MPV Immature Gran % (Auto) Neut % (Auto) Lymph % (Auto) [place] % (Auto) Eos % (Auto) Baso % (Auto) Absolute Neuts (auto) Absolute Lymphs (auto) Nucleated RBC % Sodium 139 Potassium 4.2 Chloride 112 H Carbon Dioxide 21.0 Anion Gap 6 BUN 48 H Creatinine 0.81 Estim Creat Clear Calc 97.63 Est GFR (MDRD) Af Amer 123 Est GFR (MDRD) Non-Af 102 BUN/Creatinine Ratio 59.0 H Glucose 110 H Calcium 8.0 L Total Bilirubin AST ALT Alkaline Phosphatase Troponin I Total Protein Albumin Globulin Albumin/Globulin Ratio Blood Type Antibody Screen Micro: Microbiology 07/11/20 20:40 SARS-CoV-2 Antigen (Rapid) - Final Nasal Secretion 07/11/20 20:25 Stool Occult Blood (LISET) - Final Stool Occult Blood Positive Radiology Impression Chest X-Ray 07/11/20 21:20 IMPRESSION: Normal x-ray examination of the chest. Electronically Signed: Brooke Adan MD at 21:45 EDT Tel , Service support , Procedure Criteria Procedure Type: Elective COVID Risk Discussion: The surgeon/proceduralist and patient have discussed in detail the risk of exposure to and/or potential harm posed by the COVID-19 virus with having a surgery/procedure at this time versus the risk of delaying the surgery/procedure. It is not possible to know either the risk of delaying the surgery or procedure or chance of getting an infection with perfect accuracy, but a joint decision was made between the patient and the surgeon/proceduralist to proceed at this time with the scheduled surgery/procedure as indicated on the consent form. Charges/Coding Visit Charges Inpatient E&M: 88429 Init Hosp L2
[2020-07-12 08:11] LABS: Hematocrit 31.7 % (40-54); Hemoglobin 10.6 g/dL (13.0-16.5)
[2020-07-12 08:25] LABS: AST(SGOT) 10 U/L (15-37); Alanine Aminotransfer ALT/SGPT 19 U/L (16-61); Albumin, Serum 2.9 g/dL (3.2-5.0); Alkaline Phosphatase 64 U/L (45-117); Bilirubin, Direct 0.07 mg/dL (0.00-0.30); Globulin 2.7 g/dL (2.2-4.2); Protein, Total 5.6 g/dL (6.4-8.2)
--- NOTE | 2020-07-12 08:35 | IMM_PTH ---
PATIENT: ERIC KRAUSE LOC: [facility] U#:[id number] AGE/SX: 64/M ROOM: [facility] RE07/11/[address]: Dr. Meghann Dowell MD : 1955 BED: 1 DIS: 07/14/2020 SPEC #: [id number] RECD: 07/14/20 09:30 STATUS: DARON REQ #: [id number] ARELIS: 07/12/20 08:[address]: Shelia Ricks DEPT: IMMUNOHISTOCHEMISTRY RECD BY: Brigida Mireles ENTERED: 07/14/20 09:31 SP TYPE: IMMUNO OTHR DR: MD Dr. Meghann Hernandez MD Dr. Joseph Agyepong, MD Tissues: A - Stomach, NOS B - Gastric mucous membrane Procedures: H Pylori (initial) MSH2 (add) MLH-1 (add) MSH6 (add) Anti-PMS2 (add) CK20 (add) CK7 (add) CK8 (add) LA-2 (add) KI-67 (add) P53 (add) Pankeratin (add) HER-2-JANES (initial) PHYSICIAN & [place] [address] SPECIMEN INFORMATION: Tissue Source: A ? Antrum biopsy, B ? GE junction biopsy Clinical Info: Acute upper GI bleeding Specimen Number: [id number] A & B CPT code: 41233 x2, 09031 x12 METHODOLOGY: Deparaffinized sections of prefer/formalin-fixed tissue or PAP/DQ stained slides are incubated with monoclonal/polyclonal antibodies/oligonucleotide probes. Localization is made via biotin free immunoperoxidase method. Appropriate controls are performed and reacted as expected. Results on target cell population are indicated in the following table: RESULTS: ANTIBODY / CLONE RESULT Block A H Pylori (polyclonal) negative Block B AE1-3 (AE1/AE3/PCK26) positive CK7 (OV-TL12/30) positive CK8 (63fqovF38) positive CK20 (KS20.8) positive, rare cells Ki-67 (30-9) positive, high P53 (DO-7) positive LA-2 (SP21) positive CDX2 (NKT4776H) positive MLH-1 (M1) positive MSH2 (25D12) positive MSH6 (44) positive PMS2 (BNN2202) positive Her-2neu (CB11) positive (3+) These tests were developed and their performance characteristics determined by [facility]. They may not have been cleared or approved by the U.S. Food and Drug Administration. The FDA has determined that such clearance or approval is not necessary. INTERPRETATION: A. Antrum biopsy: Negative for Helicobacter pylori organisms. B. GE junction, biopsy: Invasive adenocarcinoma. Result of Microsatellite Instability Study: Negative (no loss of mismatch protein; no microsatellite instability detected). SJ:nellie 07/16/2020
--- NOTE | 2020-07-12 09:07 | OP.CCLET_ITS ---
07/12/2020 [address] [place] [address] Re : Upper GI endoscopy procedure for Juan C Vela Dear Dr. Choi This procedure was performed on Sunday, July 12, 2020. My impressions and recommendations are as follows: Impressions : - Esophageal tumor was found at the gastroesophageal junction. Biopsied. - Erythematous mucosa in the antrum. - Normal examined duodenum. Recommendations : - Await pathology results. - Return patient to hospital [facility] for ongoing care. - Clear liquid diet. - Continue present medications. - Use Protonix (pantoprazole) 40 mg PO daily. My findings are described in the full procedure note, which is enclosed. If I can be of further assistance, please feel free to contact me at Doctor phone number(s): , Work: . Sincerely, MD Shelia Linares MD 07/12/2020 9:07:21 AM This report has been signed electronically.
--- NOTE | 2020-07-12 09:07 | OP.EGD_ITS ---
Patient Name: Juan C eVla Procedure Date: 07/12/2020 8:29 AM Date of : 1955 Age: 64 Procedure: Upper GI endoscopy Indications: Iron deficiency anemia, Melena Providers: Shelia Ricks MD Medicines: Monitored Anesthesia Care Patient Profile: This is a 64 year old male. Complications: No immediate complications. Procedure: Pre-Anesthesia Assessment: - Prior to the procedure, a History and Physical was performed, and patient medications and allergies were reviewed. The patient's tolerance of previous anesthesia was also reviewed. The risks and benefits of the procedure and the sedation options and risks were discussed with the patient. All questions were answered, and informed consent was obtained. Prior Anticoagulants: The patient has taken Plavix (clopidogrel), last dose was 1 day prior to procedure. ASA Grade Assessment: Per anesthesia. After reviewing the risks and benefits, the patient was deemed in satisfactory condition to undergo the procedure. After obtaining informed consent, the endoscope was passed under direct vision. Throughout the procedure, the patient's blood pressure, pulse, and oxygen saturations were monitored continuously. The gastroscope was introduced through the mouth, and advanced to the second part of duodenum. The upper GI endoscopy was accomplished without difficulty. The patient tolerated the procedure well. Scope In: 8:43:48 AM Scope Out: 8:56:34 AM Total Procedure Duration Time 0 hours 12 minutes 46 seconds Findings: A medium-sized, fungating mass with no bleeding was found at the gastroesophageal junction, 38 cm from the incisors. The mass was non-obstructing and 1/4 circumferential. Biopsies were taken with a cold forceps for histology. Mildly erythematous mucosa without bleeding was found in the gastric antrum. Biopsies were taken with a cold forceps for histology. Biopsies were taken with a cold forceps for Helicobacter pylori cultures. The examined duodenum was normal. The cardia and gastric fundus were normal on retroflexion. Impression: - Esophageal tumor was found at the gastroesophageal junction. Biopsied. - Erythematous mucosa in the antrum. - Normal examined duodenum. Recommendation: - Await pathology results. - Return patient to hospital [facility] for ongoing care. - Clear liquid diet. - Continue present medications. - Use Protonix (pantoprazole) 40 mg PO daily. Procedure Code(s): --- Professional --- 57203, Esophagogastroduodenoscopy, flexible, transoral; with biopsy, single or multiple Diagnosis Code(s): --- Professional --- D49.0, Neoplasm of unspecified behavior of digestive system K31.89, Other diseases of stomach and duodenum D50.9, Iron deficiency anemia, unspecified K92.1, Melena (includes Hematochezia) CPT copyright 2017 [employer]. All rights reserved. The codes documented in this report are preliminary and upon footwear sales associate review may be revised to meet current compliance requirements. MD Shelia Linares MD 07/12/2020 9:07:21 AM This report has been signed electronically. Number of Addenda: 0 Note Initiated On: 07/12/2020 8:29 AM
--- NOTE | 2020-07-12 12:12 | CASEMGMT ---
MARLEEN GALE Assessment: Face to Face with pt for initial transition planning/care coordination assessment. RN BALJINDER introduced self and role at [facility], pt voices understanding and consents to assessment. Pt is A/O x4 and answers all questions appropriately at this time. Pt lying in bed in no distress. Care providers, pharmacy, and demographics verified/updated. Admitting Dx:Acute GIB PCP: Steph Specialists: Denies any specialists. Preferred [facility]acy: [facility] Insurance: [facility] Prescription Benefit: no LW/HPOA: Pt denies having a LW/DPOA. LNOK: Maribel Vela; Vishnu Vela, son Living Arrangements: Pt lives with in two story house with 15 steps to enter with a rail on both sides. Pt reports being I in ADL's and denies concerns at home. Transportation: Pt drives self and denies concerns with transportation. DME/HHC/SNF: Pt has a cane at home. Denies any previous HHC or SNF stays. Pt states no concerns with going home at time of dc. Pt states no further concerns/needs. Advised pt to ask CM if any further question/concerns/needs arise, voices understanding. Pt Goal: Home Plan: Home with family support.
--- NOTE | 2020-07-12 13:07 | PCM.PN.HOSP ---
Objective Data Objective Data Vital Signs: Vital Signs Temp Pulse Resp BP Pulse Ox 98.2 F 78 16 113/56 L 100 07/12/20 09:45 07/12/20 11:55 07/12/20 09:45 07/12/20 09:45 07/12/20 09:45 Oxygen Delivery Method Room Air Weight: 164 lb 14.492 oz Body Mass Index (BMI) 23.6 Intake & Output: Intake and Output for Last 24 Hours 07/10/20 07/11/20 07/12/20 23:59 23:59 23:59 Intake Total 1407.5 / 1407.5 1143.33 / 1143.33 Output Total 950 / 950 Balance 1407.5 / 1057.5 193.33 / 193.33 Lab / Micro Data Result Diagrams: 07/12/20 08:01 07/12/20 01:35 Labs: Laboratory Results - last 24 hr 07/11/20 07/11/20 07/11/20 20:25 20:25 20:25 WBC 12.9 H RBC 4.75 Hgb 13.7 Hct 41.1 MCV 86.5 MCH 28.8 MCHC 33.3 RDW Std Deviation 40.3 RDW Coeff of Nikkie 12.8 Plt Count 450 MPV 9.7 Immature Gran % (Auto) 0.800 Neut % (Auto) 58.4 Lymph % (Auto) 32.5 [place] % (Auto) 7.7 Eos % (Auto) 0.4 Baso % (Auto) 0.2 Absolute Neuts (auto) 7.5 Absolute Lymphs (auto) 4.19 Nucleated RBC % 0 Sodium 136 Potassium 4.1 Chloride 105 Carbon Dioxide 23.0 Anion Gap 8 BUN 64 H Creatinine 1.19 Estim Creat Clear Calc 66.46 Est GFR (MDRD) Af Amer 80 Est GFR (MDRD) Non-Af 66 BUN/Creatinine Ratio 53.8 H Glucose 146 H Calcium 9.1 Total Bilirubin 0.30 Direct Bilirubin AST 8 L ALT 23 Alkaline Phosphatase 82 Troponin I < 0.015 Total Protein 7.3 Albumin 3.7 Globulin 3.6 Albumin/Globulin Ratio 1.0 Blood Type O POSITIVE Antibody Screen NEGATIVE 07/12/20 07/12/20 07/12/20 01:35 01:35 08:01 WBC RBC Hgb 11.3 L 10.6 L Hct 33.6 L 31.7 L MCV MCH MCHC RDW Std Deviation RDW Coeff of Nikkie Plt Count MPV Immature Gran % (Auto) Neut % (Auto) Lymph % (Auto) [place] % (Auto) Eos % (Auto) Baso % (Auto) Absolute Neuts (auto) Absolute Lymphs (auto) Nucleated RBC % Sodium 139 Potassium 4.2 Chloride 112 H Carbon Dioxide 21.0 Anion Gap 6 BUN 48 H Creatinine 0.81 Estim Creat Clear Calc 97.63 Est GFR (MDRD) Af Amer 123 Est GFR (MDRD) Non-Af 102 BUN/Creatinine Ratio 59.0 H Glucose 110 H Calcium 8.0 L Total Bilirubin Direct Bilirubin AST ALT Alkaline Phosphatase Troponin I Total Protein Albumin Globulin Albumin/Globulin Ratio Blood Type Antibody Screen 07/12/20 08:01 WBC RBC Hgb Hct MCV MCH MCHC RDW Std Deviation RDW Coeff of Nikkie Plt Count MPV Immature Gran % (Auto) Neut % (Auto) Lymph % (Auto) [place] % (Auto) Eos % (Auto) Baso % (Auto) Absolute Neuts (auto) Absolute Lymphs (auto) Nucleated RBC % Sodium Potassium Chloride Carbon Dioxide Anion Gap BUN Creatinine Estim Creat Clear Calc Est GFR (MDRD) Af Amer Est GFR (MDRD) Non-Af BUN/Creatinine Ratio Glucose Calcium Total Bilirubin 0.30 Direct Bilirubin 0.07 AST 10 L ALT 19 Alkaline Phosphatase 64 Troponin I Total Protein 5.6 L Albumin 2.9 L Globulin 2.7 Albumin/Globulin Ratio Blood Type Antibody Screen Micro: Microbiology 07/11/20 20:40 Nasal Secretion SARS-CoV-2 Antigen (Rapid) - Final 07/11/20 20:25 Stool Stool Occult Blood (LISET) - Final Occult Blood Positive Radiography Diagnostic Testing: Radiology Impression Chest X-Ray 07/11/20 21:20 IMPRESSION: Normal x-ray examination of the chest. Electronically Signed: Brooke Adan MD at 21:45 EDT Tel , Service support ,
--- NOTE | 2020-07-12 13:16 | PN.HOSP_ITS ---
Documented by User: Liz Swartz NP, [employer] 07/12/20 13:29 Subjective Subjective: Patient seen and examined. Underwent EGD this a.m. Asking if he can have a colonoscopy while he is in the hospital. Denies current symptoms or complaints. Objective Data Objective Data Vital Signs: Vital Signs Temp Pulse Resp BP Pulse Ox 98.2 F 78 16 113/56 L 100 07/12/20 09:45 07/12/20 11:55 07/12/20 09:45 07/12/20 09:45 07/12/20 09:45 Oxygen Delivery Method Room Air Weight: 164 lb 14.492 oz Body Mass Index (BMI) 23.6 Intake & Output: Intake and Output for Last 24 Hours 07/10/20 07/11/20 07/12/20 23:59 23:59 23:59 Intake Total 1407.5 / 1407.5 1143.33 / 1143.33 Output Total 950 / 950 Balance 1407.5 / 1057.5 193.33 / 193.33 Lab / Micro Data Result Diagrams: 07/12/20 08:01 07/12/20 01:35 Labs: Laboratory Results - last 24 hr 07/11/20 07/11/20 07/11/20 20:25 20:25 20:25 WBC 12.9 H RBC 4.75 Hgb 13.7 Hct 41.1 MCV 86.5 MCH 28.8 MCHC 33.3 RDW Std Deviation 40.3 RDW Coeff of Nikkie 12.8 Plt Count 450 MPV 9.7 Immature Gran % (Auto) 0.800 Neut % (Auto) 58.4 Lymph % (Auto) 32.5 [place] % (Auto) 7.7 Eos % (Auto) 0.4 Baso % (Auto) 0.2 Absolute Neuts (auto) 7.5 Absolute Lymphs (auto) 4.19 Nucleated RBC % 0 Sodium 136 Potassium 4.1 Chloride 105 Carbon Dioxide 23.0 Anion Gap 8 BUN 64 H Creatinine 1.19 Estim Creat Clear Calc 66.46 Est GFR (MDRD) Af Amer 80 Est GFR (MDRD) Non-Af 66 BUN/Creatinine Ratio 53.8 H Glucose 146 H Calcium 9.1 Total Bilirubin 0.30 Direct Bilirubin AST 8 L ALT 23 Alkaline Phosphatase 82 Troponin I < 0.015 Total Protein 7.3 Albumin 3.7 Globulin 3.6 Albumin/Globulin Ratio 1.0 Blood Type O POSITIVE Antibody Screen NEGATIVE 07/12/20 07/12/20 07/12/20 01:35 01:35 08:01 WBC RBC Hgb 11.3 L 10.6 L Hct 33.6 L 31.7 L MCV MCH MCHC RDW Std Deviation RDW Coeff of Nikkie Plt Count MPV Immature Gran % (Auto) Neut % (Auto) Lymph % (Auto) [place] % (Auto) Eos % (Auto) Baso % (Auto) Absolute Neuts (auto) Absolute Lymphs (auto) Nucleated RBC % Sodium 139 Potassium 4.2 Chloride 112 H Carbon Dioxide 21.0 Anion Gap 6 BUN 48 H Creatinine 0.81 Estim Creat Clear Calc 97.63 Est GFR (MDRD) Af Amer 123 Est GFR (MDRD) Non-Af 102 BUN/Creatinine Ratio 59.0 H Glucose 110 H Calcium 8.0 L Total Bilirubin Direct Bilirubin AST ALT Alkaline Phosphatase Troponin I Total Protein Albumin Globulin Albumin/Globulin Ratio Blood Type Antibody Screen 07/12/20 08:01 WBC RBC Hgb Hct MCV MCH MCHC RDW Std Deviation RDW Coeff of Nikkie Plt Count MPV Immature Gran % (Auto) Neut % (Auto) Lymph % (Auto) [place] % (Auto) Eos % (Auto) Baso % (Auto) Absolute Neuts (auto) Absolute Lymphs (auto) Nucleated RBC % Sodium Potassium Chloride Carbon Dioxide Anion Gap BUN Creatinine Estim Creat Clear Calc Est GFR (MDRD) Af Amer Est GFR (MDRD) Non-Af BUN/Creatinine Ratio Glucose Calcium Total Bilirubin 0.30 Direct Bilirubin 0.07 AST 10 L ALT 19 Alkaline Phosphatase 64 Troponin I Total Protein 5.6 L Albumin 2.9 L Globulin 2.7 Albumin/Globulin Ratio Blood Type Antibody Screen Micro: Microbiology 07/11/20 20:40 Nasal Secretion SARS-CoV-2 Antigen (Rapid) - Final 07/11/20 20:25 Stool Stool Occult Blood (LISET) - Final Occult Blood Positive Radiography Diagnostic Testing: Radiology Impression Chest X-Ray 07/11/20 21:20 IMPRESSION: Normal x-ray examination of the chest. Electronically Signed: Brooke Adan MD at 21:45 EDT Tel , Service support , Physical Exam Const alert, oriented x3 and no apparent distress Orientation / Consciousness: awake, oriented to person, oriented to place and oriented to time HEENT normocephalic and moist oral mucous membranes Eyes PERRL, EOMs intact bilaterally and conjunctivae normal Neck no lymphadenopathy Resp normal respiratory effort and clear to auscultation bilaterally Cardio regular rate, regular rhythm and no murmurs Peripheral Pulses: pulses 2+ throughout GI normal to inspection, nondistended, normoactive bowel sounds, non-tender and non-distended Extremity normal to inspection Skin no rashes or lesions noted Lesions: no lesions Rashes: no rashes Trauma: no lacerations or abrasions Neuro oriented x3 Sensorium / Orientation: awake and alert Psych affect normal Assessment & Plan Assessment/Plan (1) Alcoholism: (2) Acute upper gastrointestinal bleeding: (3) Orthostatic hypotension: PLAN: 1. Acute GI bleed- general surgery consulted. IV PPI. Plavix on hold. 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 No active bleeding or bleeding source noted. Trend CBC. 2. Orthostatic hypotension, secondary to #1-improved. 3. Alcohol dependence- CIWA protocol. Denies withdrawal symptoms. 4. Tobacco dependence- encouraged cessation. 5. PAD- asa, plavix on hold. Continue statin. DVT prophylaxis- SCDs. This patient was seen by DARIAN Chirinos under the supervision of Dr. Ramos. Documented by User: Dr. Fidel Ramos MD 07/12/20 14:34 Subjective Subjective: Patient admitted with upper GI bleed with black stool. Patient was attributing to bismuth sulfate for his black stool at home. EGD showed mass at GE junction but no active bleeding. Patient also has chronic alcohol use disorder and drinks 12 bottles of beer every few days. Objective Data Lab / Micro Data Result Diagrams: 07/12/20 08:01 07/12/20 01:35 Physical Exam Narrative General: Alert, Oriented x3, Cooperative HEENT: Atraumatic, PERRLA, EOMI, Normocephalic Oral: No Gingival or Mucosal Lesions/ Ulcerations Neck: Supple, No JVD, Negative Carotid Bruits Lungs: Air entry diminished in bilateral lung bases. No crepitation/rhonchi Cardiovascular: Regular rate, Regular Rhythm, Normal S1, Normal S2, No murmurs Abdomen: Bowel Sounds Present, Soft, Non Tender, Non-Distended : No renal angle tenderness. No suprapubic tenderness. Extremities: No edema, Capillary Refill Less than 3 Seconds. No tremors Skin: No rashes, No breakdown Musculoskeletal: No Tenderness to Palpation of Joints or Extremities Neurological: Cranial nerves II-XII grossly intact, Deep Tendon Reflexes 2+/4 and Symmetrical, Neuro grossly intact Psych/Mental Status: Normal Affect, Appropriate. Assessment & Plan Assessment/Plan (1) Alcoholism: (2) Acute upper gastrointestinal bleeding: (3) Orthostatic hypotension: PLAN: This patient was seen in conjunction with Liz HINES. I have independently interviewed and examined the patient and reviewed pertinent history, examination findings, laboratory and plan of management. I have reviewed the note and agree with the documented findings with the few additional points. In brief, patient is admitted for upper GI bleed with orthostatic hypotension. Patient had EGD which showed GE junction mass which was biopsied. No active bleeding. Discussed with the surgeon. Patient has history of chronic alcohol use and had EGD about 30 years ago and was found ulcers at that time as per patient. Patient had a screening colonoscopy in October 2017 and found sessile p olyp of cecum, proximal, distal transverse colon and descending and sigmoid colon with sigmoid diverticulosis. Patient continues to drink heavy amount of alcohol about 12 bottles in few days. Currently patient not on DT. 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 García in November 2016. I have discussed my assessment with Liz HINES and orders have been reviewed. Visit Charges Inpatient E&M: 07255 Subs Hosp L2
[2020-07-12 14:35] LABS: Hematocrit 29.4 % (40-54); Hemoglobin 9.8 g/dL (13.0-16.5)
[2020-07-12 20:21] LABS: Hematocrit 28.6 % (40-54); Hemoglobin 9.5 g/dL (13.0-16.5)
[2020-07-12] MEDS: Atorvastatin Calcium 40 MG Tablet PO (22:17)
[2020-07-13] VITALS (11 sets, daily range): BP systolic 100–131; BP diastolic 56–76; PULSE 64–82; RESP 18; TEMP 36.6–36.7; O2SAT 96–99
[2020-07-13 02:01] LABS: Hematocrit 26.7 % (40-54)
[2020-07-13] MEDS: 0.9% Normal Saline 1,000 ML 100 ML IV ×2 (05:32→16:00)
[2020-07-13 06:49] LABS: Hematocrit 27.6 % (40-54); Hemoglobin 9.2 g/dL (13.0-16.5); Mean Corp Hgb Conc 33.3 g/dL (32-36); Mean Corpuscular Hgb 29.1 pg (27.0-32.0); Mean Corpuscular Volume 87.3 fL (80-94); Mean Platelet Vol. 9.6 fl (6.2-12.0); Platelet Count 255 K/mm3 (150-450); RBC Distribution Width CV 12.7 % (11.6-14.6); RBC Distribution Width SD 40.7 fl (35.1-43.9); Red Blood Count 3.16 M/mm3 (4.6-6.2)
[2020-07-13 07:24] LABS: Anion Gap 8 (5-15); BUN 15 mg/dL (7-18); BUN/Creat Ratio 18.8 RATIO (10-20); Calcium,Total 8.1 mg/dL (8.5-10.1); Chloride 108 mmol/L (98-107); EST Glomerular Filtration Rate 104 mL/min (>60); Est Glom Filt Rate - Afr Amer 126 mL/min (>60); Estimated Creatinine Clearance 98.85 ml/min; Glucose 94 mg/dL (74-106); Potassium 4.2 mmol/L (3.5-5.1); Sodium Level 139 mmol/L (136-145)
--- NOTE | 2020-07-13 08:12 | PCM.PN.SRG ---
Subjective Subjective: Patient's EGD did show GE junction mass no obvious bleeding at that time. We will plan for colonoscopy tomorrow as patient last colonoscopy was 2 and 18 and he had 9 polyps at that time was recommended to come back in 1 year. Objective Data Objective Data Vital Signs: Vital Signs Temp Pulse Resp BP Pulse Ox 98 F 64 18 100/58 L 96 07/13/20 02:05 07/13/20 07:00 07/13/20 02:05 07/13/20 02:05 07/13/20 07:04 Oxygen Delivery Method Room Air Weight: 164 lb 14.492 oz Body Mass Index (BMI) 23.6 Intake & Output: Intake and Output for Last 24 Hours 07/11/20 07/12/20 07/13/20 23:59 23:59 23:59 Intake Total 1407.5 / 1407.5 3206.66 / 3446.66 1518.33 / 1518.33 Output Total 1675 / 2125 1600 / 1600 Balance 1407.5 / 1057.5 1531.66 / 1321.66 -81.67 / -81.67 Lab / Micro Data Result Diagrams: 07/13/20 06:13 07/13/20 06:13 Labs: Laboratory Results - last 24 hr 07/12/20 07/12/20 07/12/20 08:01 14:15 20:07 WBC RBC Hgb 9.8 L 9.5 L Hct 29.4 L 28.6 L MCV MCH MCHC RDW Std Deviation RDW Coeff of Nikkie Plt Count MPV Sodium Potassium Chloride Carbon Dioxide Anion Gap BUN Creatinine Estim Creat Clear Calc Est GFR (MDRD) Af Amer Est GFR (MDRD) Non-Af BUN/Creatinine Ratio Glucose Calcium Total Bilirubin 0.30 Direct Bilirubin 0.07 AST 10 L ALT 19 Alkaline Phosphatase 64 Total Protein 5.6 L Albumin 2.9 L Globulin 2.7 07/13/20 07/13/20 07/13/20 01:49 06:13 06:13 WBC 7.0 RBC 3.16 L Hgb 9.0 L 9.2 L Hct 26.7 L 27.6 L MCV 87.3 MCH 29.1 MCHC 33.3 RDW Std Deviation 40.7 RDW Coeff of Nikkie 12.7 Plt Count 255 MPV 9.6 Sodium 139 Potassium 4.2 Chloride 108 H Carbon Dioxide 23.0 Anion Gap 8 BUN 15 Creatinine 0.80 Estim Creat Clear Calc 98.85 Est GFR (MDRD) Af Amer 126 Est GFR (MDRD) Non-Af 104 BUN/Creatinine Ratio 18.8 Glucose 94 Calcium 8.1 L Total Bilirubin Direct Bilirubin AST ALT Alkaline Phosphatase Total Protein Albumin Globulin Micro: Microbiology 07/11/20 20:40 Nasal Secretion SARS-CoV-2 Antigen (Rapid) - Final 07/11/20 20:25 Stool Stool Occult Blood (LISET) - Final Occult Blood Positive Physical Exam Const alert, oriented x3 and no apparent distress HEENT normocephalic and head/scalp atraumatic Resp normal respiratory effort Cardio regular rate GI soft to palpation and non-tender; Negative for non-distended Inspection: Negative for abdominal distention Palpation: Negative for guarding Extremity no clubbing, cyanosis or edema Neuro CN's II-XII intact bilaterally Psych mental status grossly normal Assessment & Plan Assessment/Plan (1) Acute upper gastrointestinal bleeding: (2) Alcoholism: PLAN: Discussed with patient that alcohol can definitely outdo his medication of the generic Nexium 20 mg p.o. daily. Also recommend as patient states he had a history of an ulcer previously he should prior be on 40 mg daily will likely plan to send him home on Protonix 40 mg daily or twice daily depending on his EGD results. I have discussed the above with the patient. I have offered the patient colonoscopy for evaluation. I have explained the risks/benefits of the procedure and described the procedure. I have discussed the risks with the patient, including but not limited to: infection, bleeding, perforation of the GI tract requiring emergency surgery, inability to complete the procedure, injury to any internal organs, complications of anesthesia, etc. - the patient understands and agrees to proceed. I have answered all the patient's questions to the patient's satisfaction and the patient has no further questions. Bowel prep ordered Shelia Ricks M.D. Pager: [phone] [facility] [address] [place] [address], [facility], [address] [place] [address] Office: [phone] Visit Charges Inpatient E&M: 38224 Subs Hosp L2
--- NOTE | 2020-07-13 09:35 | PCM.PN.HOSP ---
Documented by User: Liz Swartz NP, [employer] 07/13/20 09:48 Subjective Subjective: Patient seen and examined. Denies lightheadedness, shortness of breath. Denies abdominal pain. Denies blood in stool, black stools. Plan for colonoscopy in a.m. Objective Data Objective Data Vital Signs: Vital Signs Temp Pulse Resp BP Pulse Ox 97.9 F 69 18 110/67 98 07/13/20 08:00 07/13/20 08:00 07/13/20 08:00 07/13/20 08:00 07/13/20 08:00 Oxygen Delivery Method Room Air Weight: 164 lb 14.492 oz Body Mass Index (BMI) 23.6 Intake & Output: Intake and Output for Last 24 Hours 07/11/20 07/12/20 07/13/20 23:59 23:59 23:59 Intake Total 1407.5 / 1407.5 3206.66 / 3446.66 1885.00 / 1885.00 Output Total 1675 / 2125 1600 / 1600 Balance 1407.5 / 1057.5 1531.66 / 1321.66 285.00 / 285.00 Lab / Micro Data Result Diagrams: 07/13/20 10:00 07/13/20 06:13 Labs: Laboratory Results - last 24 hr 07/12/20 07/12/20 07/13/20 14:15 20:07 01:49 WBC RBC Hgb 9.8 L 9.5 L 9.0 L Hct 29.4 L 28.6 L 26.7 L MCV MCH MCHC RDW Std Deviation RDW Coeff of Nikkie Plt Count MPV Sodium Potassium Chloride Carbon Dioxide Anion Gap BUN Creatinine Estim Creat Clear Calc Est GFR (MDRD) Af Amer Est GFR (MDRD) Non-Af BUN/Creatinine Ratio Glucose Calcium 07/13/20 07/13/20 06:13 06:13 WBC 7.0 RBC 3.16 L Hgb 9.2 L Hct 27.6 L MCV 87.3 MCH 29.1 MCHC 33.3 RDW Std Deviation 40.7 RDW Coeff of Nikkie 12.7 Plt Count 255 MPV 9.6 Sodium 139 Potassium 4.2 Chloride 108 H Carbon Dioxide 23.0 Anion Gap 8 BUN 15 Creatinine 0.80 Estim Creat Clear Calc 98.85 Est GFR (MDRD) Af Amer 126 Est GFR (MDRD) Non-Af 104 BUN/Creatinine Ratio 18.8 Glucose 94 Calcium 8.1 L Micro: Microbiology 07/11/20 20:40 Nasal Secretion SARS-CoV-2 Antigen (Rapid) - Final 07/11/20 20:25 Stool Stool Occult Blood (LISET) - Final Occult Blood Positive Physical Exam Const alert, oriented x3 and no apparent distress Orientation / Consciousness: awake, oriented to person, oriented to place and oriented to time HEENT normocephalic and moist oral mucous membranes Eyes PERRL, EOMs intact bilaterally and conjunctivae normal Neck no lymphadenopathy Resp normal respiratory effort and clear to auscultation bilaterally Cardio regular rate, regular rhythm and no murmurs Peripheral Pulses: pulses 2+ throughout GI normal to inspection, nondistended, normoactive bowel sounds, non-tender and non-distended Extremity normal to inspection Skin no rashes or lesions noted Lesions: no lesions Rashes: no rashes Trauma: no lacerations or abrasions Neuro oriented x3 Sensorium / Orientation: awake and alert Psych affect normal Assessment & Plan Assessment/Plan (1) Acute upper gastrointestinal bleeding: PLAN: 1. Acute GI bleed- general surgery consulted. IV PPI. Plavix on hold. 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 No active bleeding or bleeding source noted. Trend CBC. Plan for colonoscopy in a.m. 2. Orthostatic hypotension, secondary to #1-improved. 3. Alcohol dependence- CIWA protocol. Denies withdrawal symptoms. 4. Tobacco dependence- encouraged cessation. 5. PAD- asa, plavix on hold. Continue statin. DVT prophylaxis- SCDs. This patient was seen by DARIAN Chirinos under the supervision of Dr. Ramos. Documented by User: Dr. Fidel Ramos MD 07/13/20 12:24 Subjective Subjective: No acute symptoms overnight. No abdominal pain. Scheduled for colonoscopy in a.m. tomorrow Objective Data Lab / Micro Data Result Diagrams: 07/13/20 10:00 07/13/20 06:13 Physical Exam Narrative General: Alert, Oriented x3, Cooperative HEENT: Atraumatic, PERRLA, EOMI, Normocephalic Oral: No Gingival or Mucosal Lesions/ Ulcerations Neck: Supple, No JVD, Negative Carotid Bruits Lungs: Air entry equal in bilateral lung bases. No crepitation/rhonchi Cardiovascular: Regular rate, Regular Rhythm, Normal S1, Normal S2, No murmurs Abdomen: Bowel Sounds Present, Soft, Non Tender, Non-Distended : No renal angle tenderness. No suprapubic tenderness. Extremities: No edema, Capillary Refill Less than 3 Seconds. No tremors Skin: No rashes, No breakdown Musculoskeletal: No Tenderness to Palpation of Joints or Extremities Neurological: Cranial nerves II-XII grossly intact, Deep Tendon Reflexes 2+/4 and Symmetrical, Neuro grossly intact Psych/Mental Status: Normal Affect, Appropriate. Assessment & Plan Assessment/Plan (1) Acute upper gastrointestinal bleeding: PLAN: This patient was seen in conjunction with Liz HINES. I have independently interviewed and examined the patient and reviewed pertinent history, examination findings, laboratory and plan of management. I have reviewed the note and agree with the documented findings with the few additional points. In brief, patient is admitted for upper GI bleed with orthostatic hypotension. Patient had EGD which showed GE junction mass which was biopsied. No active bleeding. Discussed with the surgeon. Patient has history of chronic alcohol use and had EGD about 30 years ago and was found ulcers at that time as per patient. Patient had a screening colonoscopy in October 2017 and found sessile polyp of cecum, proximal, distal transverse colon and descending and sigmoid colon with sigmoid diverticulosis. Plan for colonoscopy tomorrow a.m. Bowel prep to start today. Patient continues to drink heavy amount of alcohol about 12 bottles in few days. Currently patient not on DT. 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 García in November 2016. I have discussed my assessment with Liz HINES and orders have been reviewed. Visit Charges Inpatient E&M: 10699 Subs Hosp L2
[2020-07-13 10:15] LABS: Hematocrit 31.4 % (40-54); Hemoglobin 10.1 g/dL (13.0-16.5)
[2020-07-13] MEDS: Bisacodyl 5 MG Tablet 20 MG PO (14:13)
[2020-07-13] MEDS: Polyethylene Glycol 3350 BOWEL PREP PO (16:31)
[2020-07-13] MEDS: Atorvastatin Calcium 40 MG Tablet PO (22:01)
[2020-07-14] VITALS (13 sets, daily range): BP systolic 97–118; BP diastolic 58–77; PULSE 63–74; RESP 16–18; TEMP 36.3–36.6; O2SAT 96–100; BMI 23.6
--- NOTE | 2020-07-14 | COLBX_PTH ---
PATIENT: ERIC KRAUSE LOC: [facility] U#:[id number] AGE/SX: 64/M ROOM: [facility] RE07/11/[address]: Dr. Meghann Dowell MD : 1955 BED: 1 DIS: 07/14/2020 SPEC #: [id number] RECD: 07/14/20 13:21 STATUS: DARON VAIL #: [id number] ARELIS: 07/14/20 00:[address]: Shelia Ricks DEPT: SURGICAL PATHOLOGY RECD BY: Carlito Hawley ENTERED: 07/14/20 13:22 SP TYPE: COLON BX OTHR DR: MD Dr. Meghann Hernandez MD Dr. Joseph Agyepong, MD Dr. Tamera Robotham, MD Tissues: A - Cecum, NOS B - Descending colon C - Sigmoid colon biopsy D - Sigmoid colon biopsy E - Sigmoid colon biopsy F - Rectum, NOS Procedures: Surgery Specimen Level IV Comments: @ Ordering doctor for SUIV edited from to @ by DEBBIE at 07/14/20 1439 @ Submitting doctor edited from to @ by RGOOD at 07/14/20 1439 HEADER OPERATION: Colonoscopy (MAC) PRE-OP DIAGNOSIS: GI bleed TISSUE SUBMITTED: A - Biopsy of cecum polyp, B - Biopsy of descending colon polyp, C - Biopsy of sigmoid colon polyp, D - Biopsy of sigmoid colon polyp #2, E - Biopsy of sigmoid colon polyp #3, F - Biopsy of rectum polyp MICROSCOPIC DIAGNOSIS A. Cecum polyp, biopsy: Tubular adenoma. Focal acute colitis. See microscopic description and comment. B. Descending colon polyp, biopsy: Fragments of tubular adenoma. C. Sigmoid colon polyp, biopsy: Fragments of tubular adenoma. D. Sigmoid colon polyp #2, biopsy: Fragments of colonic mucosa, no pathologic diagnosis. E. Sigmoid colon polyp #3, biopsy: Fragments of colonic mucosa, no pathologic diagnosis. F. Rectum polyp, biopsy: Fragments of hyperplastic polyp. SJ:nellie 07/15/2020 COMMENT Correlation with clinical, endoscopic findings and appropriate follow up are necessary. 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 MICROSCOPIC DESCRIPTION Slides are reviewed. A. The specimen shows fragments of colonic mucosa with one fragment of tubular adenoma. One additional fragment also shows focal crypt abscesses consistent with focal acute colitis. GROSS DESCRIPTION A - Received in fixative is one container labeled with the patient's name and designated biopsy of cecum polyp. The specimen consists of multiple irregular fragments of light avila soft tissue that in aggregate measure 1 x 0.8 x 0.1 cm. The specimen is totally submitted in one cassette. B - Received in fixative is one container labeled with the patient's name and designated biopsy of descending colon polyp. The specimen consists of multiple irregular fragments of light avila soft tissue that in aggregate measure 1 x 0.3 x 0.1 cm. The specimen is totally submitted in one cassette. C - Received in fixative is one container labeled with the patient's name and designated biopsy of sigmoid colon polyp. The specimen consists of multiple irregular fragments of light avila soft tissue that in aggregate measure 1 x 0.3 x 0.1 cm. The specimen is totally submitted in one cassette. D - Received in fixative is one container labeled with the patient's name and designated biopsy of sigmoid colon polyp #2. The specimen consists of multiple irregular fragments of light avila soft tissue that in aggregate measure 0.8 x 0.3 x 0.1 cm. The specimen is totally submitted in one cassette. E - Received in fixative is one container labeled with the patient's name and designated biopsy of sigmoid colon polyp #3. The specimen consists of multiple irregular fragments of light avila soft tissue that in aggregate measure 1 x 0.2 x 0.1 cm. F - Received in fixative is one container labeled with the patient's name and designated biopsy of rectum polyp. The specimen consists of multiple irregular fragments of light avila soft tissue that in aggregate measure 1 x 0.3 x 0.1 cm. The specimen is totally submitted in one cassette. / SJ:rg 07/14/20 TC:1 CPT: 92484 x6
[2020-07-14] MEDS: 0.9% Normal Saline 1,000 ML 100 ML IV (02:26)
[2020-07-14 05:58] LABS: Absolute Lymphocyte Count 2.97 X10^3/uL (0.83-4.51); Basophil# 0.01 X10^3/uL; Basophil% 0.1 % (0-1); Eosinophil# 0.21 X10^3/uL; Eosinophils% 3.1 % (0-5); Hematocrit 27.8 % (40-54); Hemoglobin 9.3 g/dL (13.0-16.5); Lymphocyte # 2.97 X10^3/ul (0.83-4.51); Lymphocyte % 43.7 % (19-41); Mean Corp Hgb Conc 33.5 g/dL (32-36); Mean Corpuscular Volume 86.6 fL (80-94); Mean Platelet Vol. 9.7 fl (6.2-12.0); Monocyte# 0.64 X10^3/uL; Monocyte% 9.4 % (0-10); NRBC Flagged by Analyzer 0 % (0-5); Neutrophil # 2.95 X10^3/uL (2.7-7.7); Neutrophil % 43.4 % (47-70); Platelet Count 286 K/mm3 (150-450); RBC Distribution Width CV 12.8 % (11.6-14.6); Red Blood Count 3.21 M/mm3 (4.6-6.2); White Blood Count 6.8 K/mm3 (4.4-11.0)
[2020-07-14 06:22] LABS: Anion Gap 4 (5-15); BUN 11 mg/dL (7-18); BUN/Creat Ratio 11.2 RATIO (10-20); Calcium,Total 8.2 mg/dL (8.5-10.1); Chloride 110 mmol/L (98-107); Creatinine, Serum 0.98 mg/dL (0.70-1.30); EST Glomerular Filtration Rate 82 mL/min (>60); Est Glom Filt Rate - Afr Amer 100 mL/min (>60); Glucose 97 mg/dL (74-106); Potassium 3.9 mmol/L (3.5-5.1); Sodium Level 140 mmol/L (136-145)
--- NOTE | 2020-07-14 12:27 | OP.COLON_ITS ---
Patient Name: Juan C Vela Procedure Date: 07/14/2020 11:29 AM Date of : 1955 Age: 64 Procedure: Colonoscopy Indications: Heme positive stool, Melena Providers: Shelia Ricks MD Medicines: Monitored Anesthesia Care Patient Profile: This is a 64 year old male. Last Colonoscopy: 3 years ago. Complications: No immediate complications. Procedure: Pre-Anesthesia Assessment: - Prior to the procedure, a History and Physical was performed, and patient medications and allergies were reviewed. The patient's tolerance of previous anesthesia was also reviewed. The risks and benefits of the procedure and the sedation options and risks were discussed with the patient. All questions were answered, and informed consent was obtained. Prior Anticoagulants: The patient has taken Plavix (clopidogrel), last dose was 4 days prior to procedure. ASA Grade Assessment: Per anesthesia. After reviewing the risks and benefits, the patient was deemed in satisfactory condition to undergo the procedure. After I obtained informed consent, the scope was passed under direct vision. Throughout the procedure, the patient's blood pressure, pulse, and oxygen saturations were monitored continuously. The Colonoscope was introduced through the anus and advanced to the cecum, identified by the appendiceal orifice, ileocecal valve and palpation. The colonoscopy was performed without difficulty. The patient tolerated the procedure well. The quality of the bowel preparation was good. Scope In: 11:42:17 AM Scope Withdrawal Time 0 hours 32 minutes 14 seconds Scope Out: 12:18:45 PM Total Procedure Duration Time 0 hours 36 minutes 28 seconds Findings: The perianal and digital rectal examinations were normal. Seven sessile polyps were found in the rectum, sigmoid colon, descending colon and cecum. The polyps were less than 5 mm in size. These polyps were removed with a cold biopsy forceps. Resection and retrieval were complete. No additional abnormalities were found on retroflexion. Impression: - Seven less than 5 mm polyps in the rectum, in the sigmoid colon, in the descending colon and in the cecum, removed with a cold biopsy forceps. Resected and retrieved. Recommendation: - Return patient to [facility] for possible discharge same day. - Resume previous diet. - Continue present medications. - Await pathology results. - Repeat colonoscopy in 3 years for surveillance based on pathology results. Procedure Code(s): --- Professional --- 20119, Colonoscopy, flexible; with biopsy, single or multiple Diagnosis Code(s): --- Professional --- K62.1, Rectal polyp D12.5, Benign neoplasm of sigmoid colon D12.4, Benign neoplasm of descending colon D12.0, Benign neoplasm of cecum R19.5, Other fecal abnormalities K92.1, Melena (includes Hematochezia) CPT copyright 2017 [employer]. All rights reserved. The codes documented in this report are preliminary and upon book mender review may be revised to meet current compliance requirements. MD Shelia Linares MD 07/14/2020 12:26:52 PM This report has been signed electronically. Number of Addenda: 1 Note Initiated On: 07/14/2020 11:29 AM Addendum Number: 1 Addendum Date: 07/14/2020 12:28:34 PM There was also noted to be small sigmoid diverticulosis MD Shelia Linares MD 07/14/2020 12:28:58 PM This report has been signed electronically.
--- NOTE | 2020-07-14 12:27 | OP.CCLET_ITS ---
07/14/2020 Alina Choi [address] [place] [address] Re : Colonoscopy procedure for Juan C Vela Dear Dr. Choi This procedure was performed on Tuesday, July 14, 2020. My impressions and recommendations are as follows: Impressions : - Seven less than 5 mm polyps in the rectum, in the sigmoid colon, in the descending colon and in the cecum, removed with a cold biopsy forceps. Resected and retrieved. Recommendations : - Return patient to hospital [facility] for possible discharge same day. - Resume previous diet. - Continue present medications. - Await pathology results. - Repeat colonoscopy in 3 years for surveillance based on pathology results. My findings are described in the full procedure note, which is enclosed. If I can be of further assistance, please feel free to contact me at Doctor phone number(s): , Work: . Sincerely, MD Shelia Linares MD 07/14/2020 12:26:52 PM This report has been signed electronically.
--- NOTE | 2020-07-14 13:00 | CASEMGMT ---
[facility] palliative screening completed and pt does not meet criteria at this time. SStmartha RN CM
--- NOTE | 2020-07-14 13:09 | PCM.DC ---
Discharge Instructions Diet Discharge Diet: No restrictions Activity Discharge Activity: Return to Normal Activity Dressing / Incision Call your doctor if you observe: Shortness of breath, Dizziness, Chest pain and - (Lightheadedness, blood in stool) Follow Up Care Test Results: Test results from this visit will be discussed in further detail at your follow-up appointment, if applicable. Discharge Plan Admission Admit Date/Time: 07/11/20 22:16 Attending Provider: Meghann Dowell Primary Care Provider: Alina Choi Consulting Providers: Shelia Ricks Discharge Orders/Prescriptions Prescriptions: New pantoprazole [Protonix] 40 mg tablet,delayed release (DR/EC) 40 mg PO DAILY Qty: 30 RF: 0 Continued atorvastatin 40 MG tablet 40 mg PO QHS RF: 0 lisinopril [Zestril] 5 mg tablet 5 mg PO DAILY RF: 0 Discontinued esomeprazole magnesium [Nexium] 40 MG capsule 20 mg PO DAILY RF: 0 aspirin 81 MG tablet,chewable 81 mg PO DAILY@0800 RF: 0 clopidogrel 75 MG tablet 75 mg PO DAILY Qty: 30 RF: 0 Referrals / Follow Up: Alina Choi MD [Primary Care Provider] - In 1 Week Shelia Ricks MD [STAFF PHYSICIAN] - Within 1 Week Disposition Disposition (needs filled in before D/C Order can be placed): Home, self care
--- NOTE | 2020-07-14 13:12 | PCM.DC.SUM ---
Documented by User: Liz Swartz NP, GEOTHERMAL SYSTEM INSTALLER-C 07/14/20 13:18 Providers Date of Admission: 07/11/20 Primary Care Physician: Dr. Alina Choi MD Consultations 07/11/20 23:05 Consult: General Surgery Routine Consulting Provider: Shelia Ricks Reason for Consult: Symptomatic GI bleed EMERGENT Consult: No MD Notified: Yes Date Notified:: 07/11/20 Time Notified: 22:35 Method of Notification: Verbal Reason For Visit: ACUTE GI BLEED Diagnosis Discharge Diagnosis (1) Acute upper gastrointestinal bleeding: Status: Acute Code(s): K92.2 - Gastrointestinal hemorrhage, unspecified Medications at Discharge Home Medications atorvastatin 40 mg PO QHS 10/17/17 lisinopril [Zestril] 5 mg PO DAILY 07/11/20 pantoprazole [Protonix] 40 mg PO DAILY #30 tab 07/14/20 Hospital Course Operations None Procedures Colonoscopy and EGD Summary of Care Provided Minutes Spent on Discharge: 35 Hospital Course: Patient is a 64-year-old male admitted 07/11/2020 due to melena. 1. Acute GI bleed- general surgery consulted. 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 No active bleeding or bleeding source noted. Patient further underwent colonoscopy which demonstrated 7 polyps, removed. No other source of bleeding or abnormalities. Hemoglobin stable at discharge. Continue Protonix 40 mg daily. Follow-up with general surgery for esophageal tumor biopsy results, pending results General surgery will provide appropriate referral. Follow-up with PCP in 1 week. Hold aspirin, Plavix. 2. Orthostatic hypotension, secondary to #1-resolved. 3. Alcohol dependence- CIWA protocol. Denies withdrawal symptoms. 4. Tobacco dependence- encouraged cessation. 5. PAD, questionable DVT history?- asa, plavix on hold. Continue statin. Continue to hold aspirin, Plavix until okay to resume per surgery. Patient is documented to be taking Plavix due to suspected DVT? Follow-up with PCP. Physical Exam Const alert, oriented x3 and no apparent distress Orientation / Consciousness: awake, oriented to person, oriented to place and oriented to time HEENT normocephalic and moist oral mucous membranes Eyes PERRL, EOMs intact bilaterally and conjunctivae normal Neck no lymphadenopathy Resp normal respiratory effort and clear to auscultation bilaterally Cardio regular rate, regular rhythm and no murmurs Peripheral Pulses: pulses 2+ throughout GI normal to inspection, nondistended, normoactive bowel sounds, non-tender and non-distended Extremity normal to inspection Skin no rashes or lesions noted Lesions: no lesions Rashes: no rashes Trauma: no lacerations or abrasions Neuro oriented x3 Sensorium / Orientation: awake and alert Psych affect normal Patient seen and examined prior to discharge. Physical assessment as noted above. Patient is stable for discharge with follow up recommendations as noted above. This patient was seen by DARIAN Chirinos under the supervision of Dr. Dowell. ABG / Lab / Microbiology Data Result Diagrams: 07/14/20 05:04 07/14/20 05:04 Laboratory: Laboratory Results - last 24 hr 07/14/20 07/14/20 05:04 05:04 WBC 6.8 RBC 3.21 L Hgb 9.3 L Hct 27.8 L MCV 86.6 MCH 29.0 MCHC 33.5 RDW Std Deviation 40.0 RDW Coeff of Nikkie 12.8 Plt Count 286 MPV 9.7 Immature Gran % (Auto) 0.300 Neut % (Auto) 43.4 L Lymph % (Auto) 43.7 H [place] % (Auto) 9.4 Eos % (Auto) 3.1 Baso % (Auto) 0.1 Absolute Neuts (auto) 3.0 Absolute Lymphs (auto) 2.97 Nucleated RBC % 0 Sodium 140 Potassium 3.9 Chloride 110 H Carbon Dioxide 26.0 Anion Gap 4 L BUN 11 Creatinine 0.98 Estim Creat Clear Calc 80.70 Est GFR (MDRD) Af Amer 100 Est GFR (MDRD) Non-Af 82 BUN/Creatinine Ratio 11.2 Glucose 97 Calcium 8.2 L Microbiology: Microbiology 07/11/20 20:40 Nasal Secretion SARS-CoV-2 Antigen (Rapid) - Final 07/11/20 20:25 Stool Stool Occult Blood (LISET) - Final Occult Blood Positive D/C Instructions Discharge Diet: No restrictions Discharge Activity: Return to Normal Activity Call your doctor if you observe: Shortness of breath, Dizziness, Chest pain and - (Lightheadedness, blood in stool) Meaningful Use Info Meaningful Use Diagnoses (Choose all that apply): None applicable Discharge Plan Admission Admit Date/Time: 07/11/20 22:16 Attending Provider: Meghann Dowell Primary Care Provider: Alina Choi Consulting Providers: Shelia Ricks Discharge Orders/Prescriptions Prescriptions: New pantoprazole [Protonix] 40 mg tablet,delayed release (DR/EC) 40 mg PO DAILY Qty: 30 RF: 0 Continued atorvastatin 40 MG tablet 40 mg PO QHS RF: 0 lisinopril [Zestril] 5 mg tablet 5 mg PO DAILY RF: 0 Discontinued esomeprazole magnesium [Nexium] 40 MG capsule 20 mg PO DAILY RF: 0 aspirin 81 MG tablet,chewable 81 mg PO DAILY@0800 RF: 0 clopidogrel 75 MG tablet 75 mg PO DAILY Qty: 30 RF: 0 Referrals / Follow Up: Alina Choi MD [Primary Care Provider] - 07/22/20 2:30 pm Shelia Ricks MD [STAFF PHYSICIAN] - 07/21/20 3:00 pm Disposition Disposition (needs filled in before D/C Order can be placed): Home, self care Documented by User: Dr. Meghann Dowell MD 07/15/20 08:26 Providers Date of Admission: 07/11/20 Reason For Visit: ACUTE GI BLEED Medications at Discharge Home Medications atorvastatin 40 mg PO QHS 10/17/17 lisinopril [Zestril] 5 mg PO DAILY 07/11/20 pantoprazole [Protonix] 40 mg PO DAILY #30 tab 07/14/20 ABG / Lab / Microbiology Data Result Diagrams: 07/14/20 05:04 07/14/20 05:04 Discharge Plan Admission Admit Date/Time: 07/11/20 22:16 Attending Provider: Meghann Dowell Primary Care Provider: Alina Choi Consulting Providers: Shelia Ricks Discharge Orders/Prescriptions Prescriptions: New pantoprazole [Protonix] 40 mg tablet,delayed release (DR/EC) 40 mg PO DAILY Qty: 30 RF: 0 Continued atorvastatin 40 MG tablet 40 mg PO QHS RF: 0 lisinopril [Zestril] 5 mg tablet 5 mg PO DAILY RF: 0 Discontinued esomeprazole magnesium [Nexium] 40 MG capsule 20 mg PO DAILY RF: 0 aspirin 81 MG tablet,chewable 81 mg PO DAILY@0800 RF: 0 clopidogrel 75 MG tablet 75 mg PO DAILY Qty: 30 RF: 0 Referrals / Follow Up: Alina Choi MD [Primary Care Provider] - 07/22/20 2:30 pm Shelia Ricks MD [STAFF PHYSICIAN] - 07/21/20 3:00 pm Disposition Disposition (needs filled in before D/C Order can be placed): Home, self care Addendum Addendum: This patient was seen in conjunction with Liz Swartz NP. I have independently interviewed and examined the patient and reviewed pertinent historical, laboratory, and other data. Please refer to her note for patient's presentation, findings, and recommendations. 64-year-old male with multiple comorbidities who comes in with a 2-day history of melena. Patient also had dyspnea on exertion. He was seen in the ED and had a near syncopal episode. Rectal exam in the ED was positive for melena stools. Stool occult blood was positive. Patient is on Plavix for blood clots in his legs. He was admitted to the telemetry floor. General surgery was consulted. EGD was done on 07/12/20 and showed a medium-sized fungating mass with no bleeding was found at the gastrojejunal junction, 38 cm from the incisors, the mass was nonobstructing and one fourth circumferential, this was biopsied. Mild erythematous mucosa without bleeding was found in the gastric antrum. This was also biopsied. Colonoscopy was done on 07/14/20 that showed 7 less than 5 mm polyps in the rectum and the sigmoid and the descending colon and cecum that were removed. Patient was discharged and asked to hold aspirin and Plavix. He was continued on Protonix. He will follow up with general surgery for biopsy results. On the day of discharge, patient was seen and examined. No new complaints. No acute events overnight. Vitals were reviewed -stable Physical Exam: Gen: Comfortable, not pale, not jaundiced, alert oriented x3 CVS:HS I +II, regular, no murmurs RESP: CTA GI: BS present and normal, nontender, no palpable organs EXT:No edema Visit Charges Inpatient E&M: 96266 Disch Hosp
--- NOTE | 2020-07-14 14:16 | PHA.DC.MC ---
Pharmacy Service has performed discharge medication reconciliation and counseling for this patient. 1. PANTOPRAZOLE 40MG PO DAILY The patient's discharge medication list was reviewed for discrepancies and discrepancies were resolved. Prescription for pantoprazole initially sent to [facility] in [place]. Pt request to have medication sent to [facility] due to cost. This [facility] notified [facility] Swartz. Cinda to send new prescription. Pharmacy updated on patient profile. Home Medications atorvastatin 40 mg PO QHS 10/17/17 lisinopril [Zestril] 5 mg PO DAILY 07/11/20 pantoprazole [Protonix] 40 mg PO DAILY #30 tab 07/14/20 The patient was counseled on the following discharge medications and changes in medications for homegoing were reviewed. The Reason for Use, instructions for use, and potential side effects were reviewed for all new medications. The patient's questions regarding all of their medications were answered. The patient was able to verbally demonstrate an understanding of their discharge medications.
--- NOTE | 2020-07-15 13:40 | CASEMGMT ---
RN CM Discharge F/U Phone Call LACE: 11 Strata: 3 Discharge date: 07/14/20 Call date: 07/15/20 Call time: 1341 Attempted to reach pt without success, message left for pt to call this RN CM back if/when able. SStaten RN CM Admission dx: Acute GI Bleed
== END 2020-07-14 14:40 | disposition home or self-care (01) | DRG 378 ==
LOC: ED 22:12 → PCU 22:30
PROVIDERS: Anesthesiology; Nurse Practitioner Family; Surgery; Admitting Provider Hospitalist; Emergency Provider Emergency Medicine; PCP Family Medicine; Visit Provider Internal Medicine
PROC: 0DJ08ZZ Inspection of Upper Intestinal Tract, Via Natural or Artificial Opening Endoscopic (ICD-10-PCS; CPT 43235; principal; 2020-07-12 08:30)
PROC: 0DJD8ZZ Inspection of Lower Intestinal Tract, Via Natural or Artificial Opening Endoscopic (ICD-10-PCS; CPT 45378; principal; 2020-07-14 11:55)
DX: K92.2 Gastrointestinal hemorrhage, unspecified (principal); C16.0 Malignant neoplasm of cardia; I95.1 Orthostatic hypotension; F10.20 Alcohol dependence, uncomplicated; K29.50 Unspecified chronic gastritis without bleeding; D12.0 Benign neoplasm of cecum; D12.4 Benign neoplasm of descending colon; D12.5 Benign neoplasm of sigmoid colon; K62.1 Rectal polyp; I73.9 Peripheral vascular disease, unspecified; F17.210 Nicotine dependence, cigarettes, uncomplicated; Z79.02 Long term (current) use of antithrombotics/antiplatelets; Z86.718 Personal history of other venous thrombosis and embolism
CPT/HCPCS: 36415; 71045; 80048; 80053; 80076; 82274; 84484; 85014; 85018; 85025; 85027; 86850; 86900; 86901; 87426; 88305; 88341; 88342; 93005; 94640; 97802; 99285; J7030; A4216; J2405

== ENCOUNTER → 2020-09-09 13:28 | Outpatient (CLI) | payer MEDICARE, SELFPAY ==
[2020-08-29 09:44] VITALS: BMI 22.5
[2020-09-09 08:16] VITALS: BMI 22.1
[2020-09-09 14:01] VITALS: PULSE 100; PULSE 103; PULSE 104; PULSE 109; PULSE 94; PULSE 99; O2SAT 94; O2SAT 95; O2SAT 96; O2SAT 97
--- NOTE | 2020-09-10 05:22 | PCM.PSN.6M ---
PSN 6 Minute Walk Test 6 Minute Walk Test 6 Minute Walk Test: 6 Minute Walk Test PSN:6-Minute Walk Test Start: 09/09/20 14:00 Freq: Status: Active Protocol: RESP.6MINW Document 09/09/20 14:01 [place] (Rec: 09/09/20 14:02 [place] [id number]) 6 Minute Walk Test Date Performed 09/09/20 Time Performed 13:30 Height 5 ft 10 in Weight: 69.853 kg Weight in Pounds 154.[address]: Karl Mason Assistive device used: None Pre-test Oxygen Delivery Method Room Air Pulse Ox (%) 96 Pulse Rate (60-100 beats/min) 94 Dyspnea Haris Scale (0-10) 0 Exertion Haris Scale (6-20) 6 1st minute Oxygen Delivery Method Room Air Pulse Ox (%) 94 Pulse Rate (60-100 beats/min) 104 H 2nd minute Oxygen Delivery Method Room Air Pulse Ox (%) 95 Pulse Rate (60-100 beats/min) 99 3rd minute Oxygen Delivery Method Room Air Pulse Ox (%) 95 Pulse Rate (60-100 beats/min) 103 H 4th minute Oxygen Delivery Method Room Air Pulse Ox (%) 95 Pulse Rate (60-100 beats/min) 109 H 5th minute Oxygen Delivery Method Room Air Pulse Ox (%) 95 Pulse Rate (60-100 beats/min) 109 H 6th minute Oxygen Delivery Method Room Air Pulse Ox (%) 95 Pulse Rate (60-100 beats/min) 104 H Dyspnea Haris Scale (0-10) 1 Exertion Haris Scale (6-20) 11 Post-test Oxygen Delivery Method Room Air Pulse Ox (%) 97 Pulse Rate (60-100 beats/min) 100 Full Laps Walked 22 Partial Lap, Number of Tiles Walked 21 Total Distance Walked (ft) 1319 Interpretation Interpretation: The patient was able to ambulate 1319 feet over the course of 6 minutes on room air with no assistive devices or breaks. The patient did experience tachycardia as high as 109 bpm, but did not have any significant desaturation. These findings are consistent with a normal walking oximetry. Recommendations Recommendations: No supplemental oxygen is indicated at this time.
== END ==
LOC: PSN 13:32
PROVIDERS: PCP Family Medicine; Referring Provider Internal Medicine Critical Care Medicine; Visit Provider Internal Medicine Critical Care Medicine
DX: Z51.0 Encounter for antineoplastic radiation therapy (principal); Z51.11 Encounter for antineoplastic chemotherapy; C16.0 Malignant neoplasm of cardia; R06.02 Shortness of breath
CPT/HCPCS: 36591; 77386; 80053; 83615; 83735; 85025; 94618; 96367; 96376; 96413; 96417; J7050; J9045; J9267; A4216; J2405; J3490

== ENCOUNTER → 2020-09-11 12:32 | Outpatient (CLI) | payer MEDICARE, SELFPAY ==
[2020-08-29 09:44] VITALS: BMI 22.5
[2020-09-09 08:16] VITALS: BMI 22.1
--- NOTE | 2020-09-11 14:38 | PFTCOMP_ITS ---
COMPLETE PULMONARY FUNCTION TEST INTERPRETATION Brief HPI: Patient is a 64 year old male, currently under the care of myself, who presents to [facility] for complete pulmonary function tests secondary to diagnosis of esophageal cancer. Respiratory therapist reports good effort and reproducible results. Interpretation: Forced expiration spirometry shows a mild large airways obstructive ventilatory defect with an FEV1 of 83% predicted. There is no significant bronchodilator response by strict ATS criteria. Spirograms are of good quality and plateau slowly, indicating slowly emptying areas of the lungs. The respiratory flow volume loop shows decreased expiratory flow rates at high lung volumes consistent with small airways obstruction. Lung volumes by body plethysmography show a normal total lung capacity at 6.38 L, 96% predicted. All other lung volumes are within normal limits. Diffusion capacity by carbon monoxide is normal at 91% predicted. The airway resistance is elevated. No previous pulmonary function tests were available for review. Impression: Irreversible mild large airways obstructive ventilatory defect with preserved lung volumes and diffusion capacity, in a pattern consistent with chronic bronchitis.
== END ==
LOC: PSN 12:32
PROVIDERS: PCP Family Medicine; Referring Provider Internal Medicine Critical Care Medicine; Visit Provider Internal Medicine Critical Care Medicine
DX: R06.02 Shortness of breath (principal)
CPT/HCPCS: 77386; 94060; 94726; 94729

== ENCOUNTER → 2020-10-07 15:00 | Outpatient (CLI) | payer MEDICARE, SELFPAY ==
[2020-10-03 14:25] VITALS: BMI 21.2
--- NOTE | 2020-10-07 14:30 | PET_ITS ---
EXAMINATION: FDG PET-CT INDICATIONS: A 64-year-old male with history of primary esophageal carcinoma presenting for restaging examination. COMPARISON EXAMINATION: FDG PET study dated 08/05/20 INDEX LESION SIZE SUV INTERPRETATION PERSISTENT: distal esophagus, nodular 8.7-mm (frame 145) comp. to 24.5-mm (08/05/20) 2.9 comp. to 11.1 (08/05/20) Fulfills quantitative criteria for viable neoplasm, interim metabolic improvement-significant quantitative partial metabolic response NON-INDEX LESION SIZE SUV INTERPRETATION PERSISTENT: bilateral thoracic perihilum 2.2 (max) comp. to 2.0 (08/05/20) Quantitative criteria for viable neoplasm are not fulfilled, no definitive interim metabolic change NEW: proximal-distal gastric body, segmental Most consistent with physiologic tracer uptake TECHNIQUE: Following the intravenous administration of 13.32 mCi of F-18 deoxyglucose via the left antecubital fossa, multiplanar image acquisitions of the neck, chest, abdomen and pelvis to level of mid thigh, obtained at one hour post radiopharmaceutical administration contemporaneously interpreted with the current CT of the neck, chest, abdomen and pelvis, to level of mid thigh, dated 10/07/20 via coregistration and FDG PET study dated 08/05/20 reveals: BLOOD GLUCOSE LEVEL:?? 109 mg/dl?HEIGHT:?70 inches?WEIGHT: 145 lbs. FINDINGS: 1. Redefined enhanced FDG uptake is noted at the level of the distal esophagus, gastroesophageal junction generating a current calculated maximal standard uptake value of 2.9, compared to 11.1 defined on the FDG PET study dated 10/07/20. The maximal axial diameter of the corresponding metabolic abnormality is 8.7-mm (transverse). 2. Persistent increased glucose metabolism is manifest in the bilateral thoracic perihilum registering a calculated maximal standard uptake value of 2.2, compared to 2.0 defined on the previous examination. Quantitative criteria for viable neoplasm are not fulfilled. 3. An increase in tracer distribution is current visualized in the proximal-distal gastric body, segmental in presentation in the axial plane, generating a calculated maximal standard uptake value of 4.0. 4. Normal physiologic distribution of the radiopharmaceutical is apparent in the hepatic (2.9/3.0) and splenic parenchyma, both renal units, bladder and visualized intestinal tract. The visualized portion of the cerebral cortical-subcortical structures demonstrate symmetric and preserved glucose metabolism. Diffuse radiopharmaceutical concentration is noted in all four quadrants of the abdomen and pelvis. Prominent uptake is defined in the anterior neck, laryngeal structures extending from the anterior commissure to the cricopharyngeus musculature most consistent with physiologic tracer uptake. Feeding tube placement remains apparent in the left lower anterior abdominal wall. Mat-cath placement is noted. Previously defined morphologic-anatomic changes noted on review of CT of the neck, chest, abdomen and pelvis on the FDG PET-CT report dated 08/05/20, are essentially unchanged on the current examination. PET/PET/CT Tumor Base -Thigh Subs IMPRESSION: 1. ABNORMAL EXAMINATION INDICATIVE OF MALIGNANT-VIABLE NEOPLASM. 2. The increase in FDG distribution remaining apparent in the distal esophagus fulfills quantitative criteria for viable neoplasm with single point technique. 3. Facilitated uptake observed in the proximal-distal gastric body is most consistent with physiologic tracer uptake or potentially post-therapeutic change. 4. Enhanced tracer distribution observed in the bilateral thoracic perihilum does not fulfill quantitative criteria for viable neoplasm. (Mark et al, Journal of Clinical Oncology 16:2142, 1998). 5. Overall, compared to the previous FDG PET study dated 08/05/20, there is apparent continued demonstration of viable neoplasm noted at the level of the distal esophagus manifesting a significant interval quantitative partial metabolic response. Electronic Signature Dustin Cardenas D.O. Accurate Quantification of SUVs for this report are calculated using the exclusive [employer], (U.S. Patent No. [id number]). Standardization and correction of the FDG SUV metric exclusively available with [employer] intellectual property, allow for vendor non-specific objective quantitative sequential FDG PET-CT comparison and otherwise unobtainable optimization of the sensitivity and specificity of the examination. Electronically Signed: Dustin Cardenas DO at 11:29 EDT Tel , Service support ,
== END ==
LOC: ONC 15:01
PROVIDERS: PCP Family Medicine; Referring Provider Surgery; Visit Provider Surgery
DX: C15.5 Malignant neoplasm of lower third of esophagus (principal)
CPT/HCPCS: 78815; A9588

== ENCOUNTER → 2021-01-02 12:38 | Outpatient (CLI) | payer MEDICARE, SELFPAY ==
--- NOTE | 2021-01-02 14:10 | SP.MBSS_ITS ---
Modified Barium Swallow - Patient Information Study Date: 01/02/21 Study Time: 13:00 Direct Billable Minutes: 120 Total Minutes procedure & reportin Diagnosis: Dysphagia 13.10 Referring Physician: Alina Choi Reason for Referral: Pt. was referred for an objective videofluoroscopy swallow study due to patient complaints of difficulty swallowing, gagging and food sticking in his throat Medical History: Pt. presents with medical history of esophageal cancer. On 11/06/2020, pt. had his esophagus removed and his stomach stretched and attached to pharynx. Pt. currently received his main source of nutrition through a continuous tube feed and is allowed po intake as tolerated. Current Diet Ordered: diet as tolerated Dentition: Upper Dentures - Pt. did not wear dentures during swallow study due to ill fit Respiratory Status: Oxygenating on Room Air - Penetration-Aspiration Scale Penetration-Aspiration Scale: OBJECTIVE ASSESSMENT OF SWALLOW FUNCTION (QUANTITATIVE ? PER TRIAL): PENETRATION / ASPIRATION SCALE (BABIN): 1 = does not enter airway 2 = enters airway/above vocal folds/ejected 3 = enters airway/above vocal folds/not ejected 4 = enters airway/contacts vocal folds/ejected 5 = enters airway/contacts vocal folds/not ejected 6 = enters airway/below vocal folds/ejected 7 = enters airway/below vocal folds/not ejected despite effort 8 = enters airway/below vocal folds/no effort - Penetration-Aspiration Scale Score Thin Liquid via teaspoon Result: 1= does not enter airway Thin Liquid via teaspoon Trial 2 Result: 1= does not enter airway Thin Liquid via small single sip from cup Result: 1= does not enter airway Thin Liquid via sequential sips from cup Result: 2= enter airway/above vocal folds/ejected - minimal penetration Thin Liquid via single sip from straw Result: 1= does not enter airway Thin Liquid via sequential sips from straw Result: 2= enter airway/above vocal folds/ejected - minimal penetration [place] Thick Liquid via small single sip from cup Result: 1= does not enter airway Honey Thick Liquid via small single sip from cup Result: 1= does not enter airway - unable to determine due to poor positioning Honey Thick Liquid via small single sip from cup Trial 2 Result: 1= does not enter airway Pudding via teaspoon Result: 1= does not enter airway Pudding via teaspoon Trial 2 Result: 1= does not enter airway - esophageal scan Cookie via teaspoon Result: 1= does not enter airway Thin Liquid via small single sip from cup Trial 2 Result: 1= does not enter airway - Oral Phase Labial Seal: No Labial Escape Tongue Control During Bolus Hold: Cohesive bolus between tongue to palatal seal Bolus Preparation/Mastication: Slow prolonged chewing/mashing with complete recollection Bolus Transport/Lingual Motion: Delayed initiation of tongue motion Oral Residue: Residue collection on oral structures - Pharyngeal Phase Initiation of Pharyngeal Swallow: Bolus head in valleculae - with thin liquids Soft Palate Elevation: Trace column of contrast/air between soft palate and pharyngeal wall Laryngeal Elevation: Comp. Superior move thyroid cart w/comp. apprx arytenoid cart-epig pet Anterior Hyoid Excursion: Partial anterior movement Epiglottic Movement: Complete inversion Laryngeal Vestibule Closure at Height of Swallow: Complete; no air/contrast in laryngeal vestibule Pharyngeal Stripping Wave: Present - diminished Pharyngoesophageal Segment Opening: Complete distension and complete duration; no obstruction of flow Tongue Base Retraction: Trace column of contrast between tongue base & post. pharyngeal wall Pharyngeal Residue: Trace residue within or on pharyngeal structures - Esophageal Phase Esophageal Clearance: Esophageal retention w/ retrograde flow through pharyngoesophageal seg - Esophagus has been removed and retrograde flow from stomach - Treatment Strategies Effects of treatment strategies attemped:: Pt. independently implements swallow strategy of second re-swallow to clear oral and pharyngeal residue with success. - Diagnosis/Impression Diagnosis: mild oropharyngeal dysphagia R13.12 Impression: Pt. presents with oral phase dysphagia marked by decreased anterior to posterior transfer of bolus and slow and prolonged mastication resulting in oral residues. Pt. mastication was effective and bolus was fully formed. Pt. presented with pharyngeal phase dysphagia marked by delayed initiation of swallow, decreased anterior hyoid excursion, decreased tongue base retraction and mildly decreased pharyngeal constriction resulting in mild posterior pooling to vallecula with thin liquids and pharyngeal residues. Pt. independently implemented and vocalized need for a second swallow to clear oral and pharyngeal residues. Residuals were cleared with a second re-swallow. Pt. presented with retrograde flow after initial pudding trial that had to be spit out. Pt. presented with hesitance with trialing solid textures due to concerns for choking, and throughout the assessment complained of food being stuck in his throat when pharynx was clear of trialed boluses. Pt. presented with minimal penetration with sequential sips via cup and straw with thin liquids. Penetration was ejected. No aspiration was observed during the study. Pt. remains hesitate and has low confidence in his ability to tolerate solid food textures. Pt. was educated on the results of the MBSs and diet recommendation. - Recommendations Diet: Mechanical Soft Textures - minced and moistened per pt. comfort level; advance as tolerated, Thin Liquids Comment: reflux precautions Compensatory Strategies: Small Bites, Small Sips, Slow Rate, Multiple Swallows, Alternate bites/solids and sips/liquids, Sitting upright, Remain sitting upright for 30 minutes after PO intake Supervision: 1:1 Close Supervision Recommend Repeat Modified Barium Swallow: No Need for Skilled Speech Therapy Services: Yes - Outpatient ST services warrented Comment: Pt. would benefit from outpatient speech therapy to educate patient on diet textures, train safe swallow strategies and advance diet texture as appropriate. Recommended Referrals: GI Consult - as doctor deems appropriate due to reflux concerns Education Completed: 1. Described result of evaluation., 2. Pt understands evaluation & agrees with goals and treatment plan. - Status Active ST Patient: Not Active - Contact Information [facility] Speech Therapy:: [id number] [place], [place] [address] Kizzy Molina M.A., CCC-CLASS C TRUCK DRIVER [email or web address] 01/02/21 14:27
== END ==
LOC: RAD 12:40
PROVIDERS: PCP Family Medicine; Referring Provider Family Medicine; Visit Provider Family Medicine
DX: R13.10 Dysphagia, unspecified (principal)
CPT/HCPCS: 74230; 92611

== ENCOUNTER 2021-06-04 12:41 | Outpatient (CLI) | payer MEDICARE, SELFPAY ==
--- NOTE | 2021-06-04 12:45 | CT_ITS ---
STUDY: CT CHEST WITH CONTRAST REASON FOR EXAM: Male, 65 years old. MONITOR ESOPHAGEAL CANCER RADIATION DOSAGE (If Supplied By Facility): CTDIvol = ( 7.85 ) mGy, DLP = ( 233.94 ) mGycm TECHNIQUE: Transaxial imaging was performed following intravenous administration of IV 100mL Isovue-300. Multiplanar coronal and sagittal images were reformatted. Individualized dose optimization techniques were used for this CT. COMPARISON: None. FINDINGS: A left-sided portacatheter is seen with the tip in the superior vena cava. Emphysematous changes seen in the lungs more prominent in the upper lobes. Mild increased linear markings at the left lung base suggestive of mild scarring. There is no demonstrated pleural abnormality. Normal heart and pericardium. There are multiple small lymph nodes within the mediastinum, which are normal in size and morphology most compatible with reactive lymph hyperplasia. Normal hilar regions. Normal enhanced pulmonary arteries. Normal aorta arch and descending thoracic aorta. There are degenerative changes of the thoracic spine. The patient is status post esophagectomy with gastric pull-through procedure. Fluid is seen within the esophagus/gastric pull-through. CT/Chest WITH Contrast IMPRESSION: Status post esophagectomy with gastric pull-through procedure. Emphysematous changes. Mild degree of increased linear markings at the left lung base suggestive of mild scarring. Electronically Signed: Satnam Sapp MD at 13:35 EDT ,
[2021-06-04] MEDS: 0.9% Saline Lock 10 ML Syringe IV (12:55)
[2021-06-04 13:01] LABS: CREATININE FINGERSTICK 1.3 mg/dL (0.70-1.30); EGFR FINGERSTICK > 60.0000 mL/min (>60)
== END 2021-06-04 23:59 | disposition home or self-care (01) ==
LOC: CT 12:44
PROVIDERS: PCP Family Medicine; Referring Provider Internal Medicine Medical Oncology; Visit Provider Internal Medicine Medical Oncology
DX: C15.9 Malignant neoplasm of esophagus, unspecified (principal); Z93.4 Other artificial openings of gastrointestinal tract status
CPT/HCPCS: 71260; Q9967; A4216

== ENCOUNTER 2021-10-07 23:08 | Emergency (ER) | payer MEDICARE, SELFPAY ==
[2021-10-07 23:08] VITALS: BP 176/87; PULSE 58; RESP 15; TEMP 36.8; O2SAT 97; BMI 18.6
[2021-10-07 23:48] LABS: Absolute Lymphocyte Count 0.91 X10^3/uL (0.83-4.51); Absolute Neutrophil Count 8.4 X10^3/uL (2.0-7.7); Basophil# 0.01 X10^3/uL; Basophil% 0.1 % (0-1); Eosinophil# 0.03 X10^3/uL; Eosinophils% 0.3 % (0-5); Lymphocyte # 0.91 X10^3/ul (0.83-4.51); Lymphocyte % 9.2 % (19-41); Mean Corp Hgb Conc 32.5 g/dL (32-36); Mean Corpuscular Hgb 26.9 pg (27.0-32.0); Mean Corpuscular Volume 82.6 fL (80-94); Mean Platelet Vol. 9.7 fl (6.2-12.0); Monocyte# 0.52 X10^3/uL; Monocyte% 5.3 % (0-10); NRBC Flagged by Analyzer 0 % (0-5); Neutrophil # 8.36 X10^3/uL (2.7-7.7); Neutrophil % 84.7 % (47-70); Platelet Count 227 K/mm3 (150-450); RBC Distribution Width CV 15.1 % (11.6-14.6); RBC Distribution Width SD 45.7 fl (35.1-43.9); Red Blood Count 4.84 M/mm3 (4.6-6.2); White Blood Count 9.9 K/mm3 (4.4-11.0)
--- NOTE | 2021-10-07 23:51 | CT_ITS ---
STUDY: CT CHEST, ABDOMEN T PELVIS WITH CONTRAST REASON FOR EXAM: Male, 65 years old. Esophageal cancer with possible obstruction RADIATION DOSAGE (If Supplied By Facility): CTDIvol = ( 11.45 ) mGy, DLP = ( 894.44 ) mGycm TECHNIQUE: Transaxial imaging was performed following intravenous administration of IV 100mL Isovue-300. Individualized dose optimization techniques were used for this CT. COMPARISON: No relevant priors. FINDINGS: CHEST Mild centrilobular emphysema in both lungs. There is no demonstrated pleural abnormality. Normal heart and pericardium. Normal mediastinum. Normal hilar regions. Normal unenhanced pulmonary arteries. Normal aorta arch and descending thoracic aorta. Normal osseous structures. There is a large diaphragmatic hernia on the left side containing parts of the stomach, small bowel and colon without evidence of incarceration. ABDOMEN The visualized lung bases are unremarkable. The visualized portions of the heart are within normal limits. Normal liver. Normal gallbladder and extrahepatic biliary system. Normal spleen. Normal pancreas. Normal bilateral adrenal glands. Normal right kidney. Normal left kidney. Normal visualized stomach. Normal small intestine. Normal colon. There is non-visualization of the appendix. There is diffuse atherosclerotic calcification of the abdominal aorta, without a demonstrated aneurysm. Normal inferior vena cava. Normal retroperitoneum. Normal abdominal wall. Normal osseous structures. PELVIS Normal urinary bladder. Normal visualized small intestine. Normal visualized colon. There is no pelvic fluid. There is no pelvic lymphadenopathy or mass lesion. Normal visualized pelvic arteries. Normal abdominal wall. Normal osseous structures. CT/CT Chest, Abd, Pel w/Contrast IMPRESSION: There is a large diaphragmatic hernia on the left side containing parts of the stomach, small bowel and colon without evidence of incarceration. Electronically Signed: Jeremy Horvath MD at 0:57 EDT ,
[2021-10-08] MEDS: Morphine 4 MG/ML Syringe IV (00:01)
[2021-10-08] MEDS: 0.9% Normal Saline 1,000 ML 999 ML IV (00:02)
[2021-10-08] MEDS: Ondansetron 4 MG/2 ML Vial IV (00:03)
[2021-10-08 00:05] LABS: Anion Gap 8 (5-15); BUN 15 mg/dL (7-18); BUN/Creat Ratio 15.9 RATIO (10-20); Calcium,Total 8.9 mg/dL (8.5-10.1); Chloride 112 mmol/L (98-107); Creatinine, Serum 0.94 mg/dL (0.70-1.30); EST Glomerular Filtration Rate 86 mL/min (>60); Est Glom Filt Rate - Afr Amer 104 mL/min (>60); Estimated Creatinine Clearance 67.09 ml/min; Glucose 137 mg/dL (74-106); Potassium 3.3 mmol/L (3.5-5.1); Sodium Level 141 mmol/L (136-145)
[2021-10-08 00:15] LABS: AST(SGOT) 18 U/L (15-37); Alanine Aminotransfer ALT/SGPT 22 U/L (16-61); Albumin, Serum 3.6 g/dL (3.2-5.0); Alkaline Phosphatase 118 U/L (45-117); Bilirubin, Direct 0.12 mg/dL (0.00-0.30); Globulin 3.2 g/dL (2.2-4.2); Lipase 40 U/L (73-393); Protein, Total 6.8 g/dL (6.4-8.2)
[2021-10-08 00:26] LABS: Lactic Acid 1.8 mmol/L (0.4-1.9)
[2021-10-08] MEDS: HYDROmorphone 1 MG/ML Syringe IV (00:37)
[2021-10-08] MEDS: fentaNYL 100 MCG/2 ML Ampul 50 MCG IV (01:28)
--- NOTE | 2021-10-08 01:55 | EX.ED.DYSGE1 ---
HPI History of Present Illness Chief Complaint: Abd Pain Narrative Narrative: Patient is a 65-year-old male with past medical history of esophageal cancer status post esophageal resection and also has COPD. Patient states he was at home when he was eating dinner about 3 hours prior to arrival and developed generalized abdominal discomfort with bouts of vomiting. He states that he could not even swallow fluid or his pills without developing retching/vomiting. He states with his history of cancer as well as surgery he is concerned for a blockage and therefore comes in for evaluation [facility] Medical History (Updated 10/08/21 @ 01:[address] Sammy Wang, ) DVT (deep venous thrombosis) Encounter for chemotherapy management GERD (gastroesophageal reflux disease) Hernia, diaphragmatic Hyperlipidemia Hypertension Screening for intestinal cancer Smoker Weight loss Allergy/AdvReac Type Severity Reaction Status Date / Time No Known Allergies Allergy Verified 10/07/21 23:14 Family History Other Heart disease Surgical History H/O colonoscopy H/O endoscopy History of angioplasty of peripheral vessel History of esophagectomy History of tonsillectomy Social History adopted: No household members: spouse number of children: 5 current occupational status: retired and disabled current occupational exposures/hazards: No Smoking Status: Current some day smoker tobacco type: cigarettes Tobacco: How many years used: 40 how long ago did patient quit smokin WEEKS alcohol intake: former details: HEAVY DRINKER OFF AND ON do you feel safe at home: Yes ROS ROS ED Constitutional Constitutional ED: Denies chills or fever(s) ENT ENT ED: Denies rhinorrhea Cardiovascular Cardiovascular: Denies chest pain Respiratory/Chest Respiratory/Chest: Denies cough or dyspnea Gastrointestinal Gastrointestinal: Reports abdominal pain, nausea and vomiting; Denies diarrhea Genitourinary Genitourinary ED: Denies dysuria Musculoskeletal Musculoskeletal: Denies myalgias Integumentary Denies rash Neurologic Neurologic: Denies headache(s) Hematologic/Lymphatic Hematologic/Lymphatic: Denies easy bleeding or easy bruising EXAM Physical Exam Const Vital Signs: 10/07/21 23:08 10/08/21 02:09 Temperature 98.3 F Temperature Source Temporal Pulse Rate 58 L 50 L Respiratory Rate 15 18 Blood Pressure 176/87 H 151/86 H Blood Pressure Mean 116 Pulse Ox 97 96 Oxygen Delivery Method Room Air Positive cachectic General Appearance ED: cachectic Nutritional Appearance: cachectic HEENT Reports dry mucous membranes Mouth ED: Yes dry mucous membranes Mouth: dry mucous membranes Eyes PERRL and EOMs intact bilaterally Neck supple Chest Wall palpation of chest normal Resp normal respiratory effort Resp Narrative: Mild diffuse wheeze consistent with history of COPD but no signs of respiratory distress Cardio regular rhythm Rate: bradycardia and other Other Details: Radial pulses are plus 2 out of 4 bilaterally are equal and symmetric GI non-distended GI Narrative: Abdomen is soft and nondistended with hypoactive bowel sounds. There is mild diffuse pain on palpation without voluntary guarding or rigidity. No pulsatile mass Auscultation: hypoactive bowel sounds Palpation: soft Extremity normal to inspection Neuro oriented x3 and CN's II-XII intact bilaterally Sensorium / Orientation: alert Psych mental status grossly normal Skin no rashes or lesions noted and No skin turgor normal MDM MDM MDM Narrative Medical decision making narrative: Patient presented to the ER hypertensive but otherwise afebrile. With the sudden onset of his symptoms and his previous esophageal cancer status postresection there is concern he is developed some type of bowel obstruction and with his reported diaphragmatic hernia there is also concern he developed a an incarcerated internal hernia. Therefore elected to perform basic labs with CT of the chest abdomen and pelvis. Labs revealed no clinically significant findings and CT scan showed diaphragmatic hernia with contents in the chest wall but no signs of obstruction perforation or infection. On reevaluation the patient is resting comfortably and reports resolution of symptoms. He was able to tolerate an oral challenge without difficulty. Therefore at this time with resolution of his symptoms and a negative work-up I do not feel he needs to be kept in the hospital and is otherwise safe for discharge Lab Data Attestation: I reviewed the patient's lab results. Labs: Laboratory Results - last 24 hr 10/07/21 10/07/21 10/07/21 23:43 23:43 23:43 WBC 9.9 RBC 4.84 Hgb 13.0 Hct 40.0 MCV 82.6 MCH 26.9 L MCHC 32.5 RDW Std Deviation 45.7 H RDW Coeff of [place] 15.1 H Plt Count 227 MPV 9.7 Immature Gran % (Auto) 0.400 Neut % (Auto) 84.7 H Lymph % (Auto) 9.2 L [place] % (Auto) 5.3 Eos % (Auto) 0.3 Baso % (Auto) 0.1 Absolute Neuts (auto) 8.4 H Absolute Lymphs (auto) 0.91 Nucleated RBC % 0 Sodium 141 Potassium 3.3 L Chloride 112 H Carbon Dioxide 21.0 Anion Gap 8 BUN 15 Creatinine 0.94 Estim Creat Clear Calc 67.09 Est GFR (MDRD) Af Amer 104 Est GFR (MDRD) Non-Af 86 BUN/Creatinine Ratio 15.9 Glucose 137 H Lactic Acid Calcium 8.9 Total Bilirubin 0.40 Direct Bilirubin 0.12 AST 18 ALT 22 Alkaline Phosphatase 118 H Total Protein 6.8 Albumin 3.6 Globulin 3.2 Lipase 40 L 10/07/21 23:56 WBC RBC Hgb Hct MCV MCH MCHC RDW Std Deviation RDW Coeff of Nik[place] Plt Count MPV Immature Gran % (Auto) Neut % (Auto) Lymph % (Auto) [place] % (Auto) Eos % (Auto) Baso % (Auto) Absolute Neuts (auto) Absolute Lymphs (auto) Nucleated RBC % Sodium Potassium Chloride Carbon Dioxide Anion Gap BUN Creatinine Estim Creat Clear Calc Est GFR (MDRD) Af Amer Est GFR (MDRD) Non-Af BUN/Creatinine Ratio Glucose Lactic Acid 1.8 Calcium Total Bilirubin Direct Bilirubin AST ALT Alkaline Phosphatase Total Protein Albumin Globulin Lipase Radiography Diagnostic Testing: Clinical Impression(s) from Imaging Studies Chest/Abdomen/Pelvis CT 10/07/21 23:51 IMPRESSION: There is a large diaphragmatic hernia on the left side containing parts of the stomach, small bowel and colon without evidence of incarceration. Electronically Signed: Jeremy Horvath MD at 0:57 EDT , Discharge Plan Triage Chief Complaint: Abd Pain ED Provider: Sammy Wang Dx/Rx/DC Orders Clinical Impression: Diaphragmatic hernia, Nausea with vomiting Instructions: ED Diet for Vomiting or ..., ED Vomiting (Adult) Primary Care Provider: Alina Choi Referrals: Alina Choi MD [Primary Care Provider] - Activity Restrictions/Additional Instructions: Please continue your medications as previously directed and return to the ER should you have any further concerns or worsening of symptoms Disposition Disposition: Home, Self Care Discharge Date/Time: 10/08/21 02:10
[2021-10-08 02:09] VITALS: BP 151/86; PULSE 50; RESP 18; O2SAT 96
== END 2021-10-08 02:10 | disposition home or self-care (01) ==
PROVIDERS: Emergency Provider Emergency Medicine; PCP Family Medicine; Visit Provider Emergency Medicine
DX: K44.9 Diaphragmatic hernia without obstruction or gangrene (principal); J44.9 Chronic obstructive pulmonary disease, unspecified; I10 Essential (primary) hypertension; R11.2 Nausea with vomiting, unspecified; F17.210 Nicotine dependence, cigarettes, uncomplicated; E78.5 Hyperlipidemia, unspecified; Z85.01 Personal history of malignant neoplasm of esophagus; Z90.49 Acquired absence of other specified parts of digestive tract
CPT/HCPCS: 36591; 71260; 74177; 80048; 80076; 83605; 83690; 85025; 96361; 96374; 96375; 99282; J7030; Q9967; A4216; J2405

== ENCOUNTER → 2021-10-27 | Outpatient (CLI) | payer MEDICARE, SELFPAY ==
[2021-10-27 16:33] LABS: Cholesterol 157 mg/dL (200); High Density Lipoprotein 45 mg/dL; Triglycerides 73 mg/dL; Very Low Density Lipoprotein 15 mg/dL (5-40)
== END | disposition home or self-care (01) ==
LOC: MFPLAB 11:27
PROVIDERS: PCP Family Medicine; Visit Provider Family Medicine
DX: E78.5 Hyperlipidemia, unspecified (principal)
CPT/HCPCS: 36415; 80061

== ENCOUNTER → 2021-11-23 | Outpatient (CLI) | payer MEDICARE, SELFPAY ==
--- NOTE | 2021-11-23 07:53 | CT_ITS ---
STUDY: CT CHEST T ABDOMEN WITH CONTRAST REASON FOR EXAM: Male, 65 years old. Known esophageal cancer, restaging RADIATION DOSAGE (If Supplied By Facility): CTDIvol = ( 8.67 ) mGy, DLP = ( 730.86 ) mGycm TECHNIQUE: Transaxial imaging was performed following intravenous administration of IV 100mL Isovue-370. Individualized dose optimization techniques were used for this CT. COMPARISON: 10/08/2021 FINDINGS: CHEST Lung windows show stable underlying emphysema without a superimposed process. Specifically, no organized infiltrate, no suspicious noncalcified mass or nodule. There is no demonstrated pleural abnormality. Normal heart and pericardium. There are calcifications of the coronary arteries. Normal mediastinum. Normal hilar regions. Normal unenhanced pulmonary arteries. Normal aorta arch and descending thoracic aorta. Normal osseous structures. The patient has history of esophageal CA and has undergone esophageal pull-through surgery. Stable dilatation of the visualized esophagus with stable hiatal hernia. There is debris within the visualized esophagus likely a combination of reflux and motility issues. No new suspicious mass lesion or interval change since the previous study. ABDOMEN Normal liver. Normal gallbladder and extrahepatic biliary system. Normal spleen. Normal pancreas. Normal bilateral adrenal glands. Normal right kidney. Normal left kidney. Again, the patient has undergone esophageal pull-through surgery and there is a stable retrocardiac hiatal hernia with evidence of GE reflux. No suspicious mass or adenopathy in the GE junction. Normal small intestine. Normal colon. There is non-visualization of the appendix. There is diffuse atherosclerotic calcification of the abdominal aorta, without a demonstrated aneurysm. Normal inferior vena cava. Normal retroperitoneum. Normal abdominal wall. There are diffuse degenerative changes of the visualized lumbar spine. CT/CT Chest AND Abd W/ Contrast IMPRESSION: Underlying emphysema without a superimposed pulmonary process or suspicious noncalcified mass or nodule. No suspicious adenopathy Calcified coronary vessels Stable postsurgical changes consistent with esophageal pull-through surgery. Debris noted within the visualized esophagus likely combination of reflux and motility issues. No suspicious solid organ abnormality No free intraperitoneal fluid, air, or suspicious adenopathy Degenerative bony changes Electronically Signed: Uriel Beltre MD at 8:53 EDT ,
--- NOTE | 2021-11-23 07:53 | CT_ITS ---
STUDY: CT SOFT TISSUE NECK WITH CONTRAST REASON FOR EXAM: Male, 65 years old. restaging esophageal ca RADIATION DOSAGE (If Supplied By Facility): CTDIvol = ( 8.67 ) mGy, DLP = ( 730.86 ) mGycm TECHNIQUE: The patient was scanned in a multi-detector CT scanner. High resolution transaxial imaging was performed following intravenous administration of IV 100mL Isovue-370. Sagittal and coronal images were reconstructed. Individualized dose optimization techniques were used for this CT. COMPARISON: Previous PET studies FINDINGS: The esophagus is again noted to be dilated with postsurgical changes noted in the upper esophagus likely from an esophageal pull-through. There is debris within the esophagus suggesting reflux and/or motility issues likely related to the surgery. Normal bilateral parotid glands. Normal bilateral base filler spaces. Normal bilateral parapharyngeal spaces. Normal bilateral carotid spaces. Normal bilateral sublingual and submandibular glands and spaces. Normal visualized nasopharynx. Normal retropharyngeal space. Normal perivertebral space. Normal visualized bilateral faucial tonsils. The visualized tongue, tongue base and oropharynx are normal. The visualized cervical lymph nodes (levels I-) are within normal size limits, and maintain normal morphology. There is no demonstrated solid or cystic mass lesion. There is no abnormal contrast enhancement. Normal epiglottis, bilateral vallecula and hypopharynx. The pre-epiglottic and paraglottic adipose spaces are normal. Normal visualized bilateral piriform sinuses, aryepiglottic folds, vocal cords, and arytenoid-cricoid articulations. Normal subglottic trachea. Normal bilateral lobes of the thyroid gland. Normal visualized paranasal sinuses. There is multilevel degenerative changes of the cervical spine. CT/Soft Tissue Neck WITH Contrast IMPRESSION: Nonspecific dilatation of the visualized esophagus with postsurgical changes noted in the lower neck/upper chest likely from esophageal pull-through surgery. There is debris within the esophagus suggesting a likely combination of reflux and/or motility issues. No suspicious enhancing lesion, no suspicious bulky adenopathy. No CT evidence of an acute inflammatory process, or disruption of the fat planes Degenerative bony changes Electronically Signed: Uriel Beltre MD at 8:48 EDT ,
[2021-11-23] MEDS: 0.9% Saline Lock 10 ML Syringe IV (08:17)
[2021-11-23 08:21] LABS: CREATININE FINGERSTICK < 0.9 mg/dL (0.70-1.30); EGFR FINGERSTICK > 60.0000 mL/min (>60)
== END | disposition home or self-care (01) ==
LOC: CT 07:52
PROVIDERS: PCP Family Medicine; Referring Provider Internal Medicine Medical Oncology; Visit Provider Internal Medicine Medical Oncology
DX: C15.9 Malignant neoplasm of esophagus, unspecified (principal)
CPT/HCPCS: 70491; 71260; 74160; Q9967; A4216

== ENCOUNTER → 2022-05-24 | Outpatient (CLI) | payer MEDICARE, SELFPAY ==
--- NOTE | 2022-05-24 07:45 | CT_ITS ---
STUDY: CT CHEST T ABDOMEN WITH CONTRAST REASON FOR EXAM: Male, 66 years old. MONITOR ESOPHAGEAL CA- IV ONLY. 65 pound weight loss. RADIATION DOSAGE (If Supplied By Facility): CTDIvol = ( 8.07 ) mGy, DLP = ( 441.36 ) mGycm TECHNIQUE: Transaxial imaging was performed following intravenous administration of IV 100mL Isovue-370. Multiplanar coronal and sagittal images were reformatted. Individualized dose optimization techniques were used for this CT. COMPARISON: Comparison is made with prior study dated November 24, 2019 FINDINGS: A left-sided Port-A-Cath is seen with the tip in the superior vena cava. CHEST Hyperinflation. Diffuse emphysematous changes worse in the upper lobes with centrilobular emphysema. No pulmonary nodules are seen. Stable mild linear scarring at the left lung base. There is no demonstrated pleural abnormality. There are calcifications of the coronary arteries. Normal mediastinum. Normal hilar regions. Normal unenhanced pulmonary arteries. Normal aorta arch and descending thoracic aorta. There are multi-level degenerative changes of the thoracic spine. Once again, the patient is status post esophageal pull-through surgery. Stable dilatation of the visualized portion of esophagus. Stable appearance of the ischial hernia. Stable hypodensity in the peripheral aspect of the spleen. ABDOMEN Normal liver. Normal gallbladder and extrahepatic biliary system. Stable well-defined hypodensity in the peripheral aspect of the spleen along its inferior portion. Normal pancreas. Normal bilateral adrenal glands. Normal right kidney. Normal left kidney. Status post gastric pull-through examination. Normal small intestine. Normal colon. The appendix is visualized and appears normal. There is diffuse atherosclerotic calcification of the abdominal aorta, without a demonstrated aneurysm. Normal inferior vena cava. Normal retroperitoneum. Normal abdominal wall. There are diffuse degenerative changes of the visualized lumbar spine. CT/CT Chest AND Abd W/ Contrast IMPRESSION: Stable examination. Electronically Signed: Satnam Sapp MD at 14:47 EDT ,
[2022-05-24] MEDS: 0.9% Saline Lock 10 ML Syringe IV (08:15)
[2022-05-24 08:25] LABS: CREATININE FINGERSTICK < 0.9 mg/dL (0.70-1.30); EGFR FINGERSTICK > 60.0000 mL/min (>60)
== END | disposition home or self-care (01) ==
LOC: CT 07:45
PROVIDERS: PCP Family Medicine; Visit Provider Internal Medicine Medical Oncology
DX: C15.9 Malignant neoplasm of esophagus, unspecified (principal)
CPT/HCPCS: 71260; 74160; Q9967; A4216

== ENCOUNTER → 2022-11-24 | Outpatient (CLI) | payer MEDICARE, SELFPAY ==
--- NOTE | 2022-11-24 07:56 | CT_ITS ---
STUDY: CT CHEST WITH CONTRAST REASON FOR EXAM: Male, 66 years old. MONITOR ESOPHAGEAL CA RADIATION DOSAGE (If Supplied By Facility): CTDIvol = ( 88.86 ) mGy, DLP = ( 177.87 ) mGycm TECHNIQUE: Transaxial imaging was performed following intravenous administration of IV 100mL Isovue-300. Multiplanar coronal and sagittal images were reformatted. Individualized dose optimization techniques were used for this CT. COMPARISON: Comparison is made with prior study of May 24, 2022. FINDINGS: CHEST A left-sided portacatheter is seen with the tip in the superior vena cava. Hyperinflation. Once again, there is evidence of emphysematous changes more prominent in the upper lobes. No pulmonary nodule or mass lesion is seen. Stable mild linear scarring at the left lung base. There is no demonstrated pleural abnormality. There are calcifications of the coronary arteries. Normal mediastinum. Normal hilar regions. Normal unenhanced pulmonary arteries. Normal aorta arch and descending thoracic aorta. There are multi-level degenerative changes of the thoracic spine. Once again, the patient is status post gastric esophageal pull-through surgery for resection. Stable appearance of the newly created esophagus. Moderate-sized hiatal hernia. There has been no change. CT/Chest WITH Contrast IMPRESSION: Stable examination. Electronically Signed: Satnam Sapp MD at 15:01 EDT ,
[2022-11-24] MEDS: 0.9% Saline Lock 10 ML Syringe IV (08:22)
[2022-11-24 08:30] LABS: CREATININE FINGERSTICK 1.4 mg/dL (0.70-1.30)
== END | disposition home or self-care (01) ==
LOC: CT 07:55
PROVIDERS: PCP Family Medicine; Referring Provider Internal Medicine Medical Oncology; Visit Provider Internal Medicine Medical Oncology
DX: C15.5 Malignant neoplasm of lower third of esophagus (principal)
CPT/HCPCS: 71260; Q9967; A4216

== ENCOUNTER → 2023-05-23 | Outpatient (CLI) | payer MEDICARE, SELFPAY ==
--- NOTE | 2023-05-23 07:54 | CT_ITS ---
STUDY: CT CHEST T ABDOMEN WITH CONTRAST REASON FOR EXAM: Male, 67 years old. MONITOR ESOPHAGEAL CA-IV ONLY RADIATION DOSAGE (If Supplied By Facility): CTDIvol = ( 9.25 ) mGy, DLP = ( 444.10 ) mGycm TECHNIQUE: Transaxial imaging was performed following intravenous administration of IV 100mL Isovue-370. Multiplanar coronal and sagittal images were reformatted. Individualized dose optimization techniques were used for this CT. COMPARISON: Comparison is made with prior study dated November 24, 2022. FINDINGS: CHEST A left-sided portacatheter is seen with the tip in the superior vena cava. Hyperinflation. Emphysematous changes with centrilobular emphysema more prominent in the upper lobes. No pulmonary infiltration or mass lesion is seen. Stable mild linear scarring at the left lung base. There is no demonstrated pleural abnormality. There are calcifications of the coronary arteries. Normal mediastinum. Normal hilar regions. Normal unenhanced pulmonary arteries. There is atherosclerotic calcification of the aortic arch. There are multi-level degenerative changes of the thoracic spine. The patient is status post gastric pull-through surgical procedure due to esophageal carcinoma. This is unchanged. ABDOMEN Normal liver. Normal gallbladder and extrahepatic biliary system. Stable cystic changes in the spleen. There is diffuse atrophy of the pancreas. Normal bilateral adrenal glands. Normal right kidney. Normal left kidney. Status post gastric pull-through examination for esophageal carcinoma. Normal small intestine. Fecal material is seen throughout the colon. The appendix is visualized and appears normal. There is diffuse atherosclerotic calcification of the abdominal aorta, without a demonstrated aneurysm. Normal inferior vena cava. Normal retroperitoneum. Normal abdominal wall. There are degenerative changes of the visualized lumbar spine. Loss of the normal lumbar lordosis. CT/CT Chest AND Abd W/ Contrast IMPRESSION: Status post gastric pull-through examination for esophageal carcinoma. This is unchanged. Hyperinflation and emphysema of the lungs. Stable cystic changes seen in the spleen. Electronically Signed: Satnam Sapp MD at 13:24 EDT ,
[2023-05-23] MEDS: 0.9% Saline Lock 10 ML Syringe IV (08:13)
[2023-05-23 08:21] LABS: CREATININE FINGERSTICK < 1.0 mg/dL (0.70-1.30); EGFR FINGERSTICK > 60.0000 mL/min (>60)
== END | disposition home or self-care (01) ==
PROVIDERS: PCP Family Medicine; Referring Provider Internal Medicine Medical Oncology; Visit Provider Internal Medicine Medical Oncology
DX: C15.5 Malignant neoplasm of lower third of esophagus (principal)
CPT/HCPCS: 71260; 74160; Q9967; A4216

== ENCOUNTER → 2024-05-21 | Outpatient (CLI) | payer MEDICARE, SELFPAY ==
--- NOTE | 2024-05-21 08:30 | CT_ITS ---
PROCEDURE: CT CHEST AND ABDOMEN WITH CONTRAST REASON FOR EXAM: MONITOR-HX OF ESOPHAGEAL CA. TECHNIQUE: Contiguous axial scans of 2.5 mm slice thicknesses. Sagittal and coronal reconstruction images were obtained. One or more dose reduction techniques were used (e.g., automated exposure control, adjustment of mA and/or kv according to patient size, use of iterative reconstruction technique). CONTRAST: ISOVUE-300 AMOUNT INJECTED: 99 ML. COMPARISON: CT CHEST AND ABDOMEN DATED 05/23/2023. FINDINGS: CT CHEST: Mediastinum: Postoperative findings are noted related to gastric pull-through procedure. Lymph nodes: No mediastinal, hilar, or axillary lymphadenopathy. Heart and Vasculature: Normal heart size. No pericardial effusion. Thoracic aorta and pulmonary arteries are unremarkable. Lungs and Airways: Centrilobular emphysematous changes are redemonstrated. Pleura: No pleural effusion. No pneumothorax. CT ABDOMEN: Liver: Small subcentimeter hypodense nodules are scattered throughout the liver. Gallbladder: Unremarkable. Spleen: Hypodense areas are redemonstrated in the spleen. Pancreas: Unremarkable. Adrenals: Unremarkable. Kidneys: Unremarkable. Bowel: Visualized loops of bowel in the upper abdomen are unremarkable. Lymph nodes: No suspicious lymph node enlargement at the upper abdomen. Vasculature: Severe atherosclerotic calcific disease of the aortoiliac arteries. Peritoneum / Retroperitoneum: No ascites or free air at the upper abdomen. Anterior abdominal wall: Unremarkable. Bones: Multilevel spondylosis. Multilevel degenerative disc disease. CT/CT Chest AND Abd W/ Contrast IMPRESSION: 1. Status post gastric pull-through procedure is redemonstrated and is stable. 2. Centrilobular emphysematous changes are redemonstrated. 3. Subcentimeter nodules in the liver most likely cysts. 4. Hypodense areas in the spleen, cysts or hemangiomas. 5. Other nonacute findings detailed above. Reading Location: [facility]
== END | disposition home or self-care (01) ==
LOC: CT 07:57
PROVIDERS: PCP Family Medicine; Referring Provider Internal Medicine Medical Oncology; Visit Provider Internal Medicine Medical Oncology
DX: C15.5 Malignant neoplasm of lower third of esophagus (principal)
CPT/HCPCS: 71260; 74160; Q9967; A4216

== ENCOUNTER → 2024-07-12 | Outpatient (CLI) | payer MEDICARE, SELFPAY ==
--- NOTE | 2024-07-12 06:43 | ECHODONC_ITS ---
Reason For Study Reason For Study: ANTINEOPLASTIC CHEMO Procedure This was a 2D Doppler, Color Flow transthoracic echocardiogram. Myocardial strain analysis was performed in this exam to aid in the assessment of cardiac function. Exam performed in department. Left Ventricle Normal LV size. Left ventricular systolic function is normal. The left ventricular ejection fraction is 60 %. No regional wall motion abnormalities noted. Right Ventricle Normal RV size. Normal systolic function. Atria Normal left atrium. Normal right atrium. Mitral Valve Normal mitral valve. Tricuspid Valve Normal tricuspid valve. Aortic Valve Trisinus/trileaflet aortic valve. Pulmonic Valve Normal pulmonic valve. Great Vessels Normal aortic root. The pulmonary artery is normal size. Normal inferior vena cava. Pericardium/Pleural No pericardial effusion. MMode/2D Measurements & Calculations LVIDd: 4.3 cm IVSd: 0.77 cm LAV(MOD- bp): 51.8 ml LVIDs: 3.1 cm LVPWd: 0.79 cm LAV(MOD- bp) Indexed: 31.4 ml/m2 RVDd: 2.6 cm FS: 26.0 % LAV(MOD- sp2): 50.3 ml LAV(MOD- sp4): 51.2 ml SV(MOD- sp4): 41.8 ml LVAd ap4: 25.9 cm2 LVAd ap2: 27.2 cm2 LVLd ap4: 7.9 cm LVLd ap2: 8.0 cm SI(MOD- sp4): 25.4 ml/m2 EDV(MOD-sp4): 73.4 ml EDV(MOD-sp2): 80.4 ml EDV(sp4-el): 71.9 ml EDV(sp2-el): 78.7 ml LVAs ap4: 15.1 cm2 LVAs ap2: 15.5 cm2 LVLs ap4: 6.3 cm LVLs ap2: 6.2 cm ESV(MOD-sp4): 31.6 ml ESV(MOD-sp2): 34.5 ml ESV(sp4-el): 30.9 ml ESV(sp2-el): 32.9 ml EF(MOD-sp4): 57.0 % EF(MOD-sp2): 57.1 % EF(sp4-el): 57.1 % SV(MOD-sp2): 45.9 ml SV(sp4-el): 41.1 ml LA A4 area: 17.8 cm2 SI(MOD-sp2): 27.8 ml/m2 LA dimension(2D): 3.2 cm TAPSE: 2.2 cm RA A4 area: 13.1 cm2 Time Measurements MV dec time: 0.21 sec Doppler Measurements & Calculations MV E max dimitri: 88.0 cm/sec Lat Peak E' Dimitri: 11.0 cm/sec Med Peak E' Dimitri: 10.9 cm/sec MV A max dimitri: 69.7 cm/sec E/E' lat: 8.0 E/E' med: 8.1 MV E/A: 1.3 MV V2 max: 95.8 cm/sec MV P1/2t max dimitri: 93.8 cm/sec Ao V2 max: 123.7 cm/sec MV max P.7 mmHg MV P1/2t: 65.0 msec Ao max P.1 mmHg MV V2 mean: 41.8 cm/sec MV dec slope: 423.1 cm/sec2 Ao V2 mean: 84.3 cm/sec MV mean P.96 mmHg Ao mean P.2 mmHg MV V2 VTI: 33.5 cm MVA(P1/2t): 3.4 cm2 Ao V2 VTI: 34.4 cm AV (velocity ratio): 0.66 LV V1 max: 102.9 cm/sec PA V2 max: 62.3 cm/sec TR max dimitri: 224.7 cm/sec LV V1 max P.2 mmHg PA V2 mean: 39.7 cm/sec TR max P.2 mmHg LV V1 mean P.2 mmHg LV V1 mean: 69.6 cm/sec LV V1 VTI: 22.8 cm ECHO/ONC Echo Complete Interpretation Summary Normal LV size. Left ventricular systolic function is normal. The left ventricular ejection fraction is 60 %. The global longitudinal strain is normal. The global longitudinal strain = -18. 1 % (normal). Ordering Physician: Ric Lockhart Referring Physician: HETAL PCP Performed By: Kayla Clemons RDCS, RVT
== END | disposition home or self-care (01) ==
LOC: CVS 06:43
PROVIDERS: Referring Provider Internal Medicine Cardiovascular Disease; Visit Provider Internal Medicine Cardiovascular Disease
DX: I34.0 Nonrheumatic mitral (valve) insufficiency (principal)
CPT/HCPCS: 93306; 93356

== ENCOUNTER 2024-10-18 18:26 | Emergency (ER) | payer MEDICARE, SELFPAY ==
[2024-10-18 18:29] VITALS: BP 175/99; PULSE 86; RESP 18; TEMP 36.9; O2SAT 100; BMI 16.5
--- NOTE | 2024-10-18 19:19 | US_ITS ---
PROCEDURE: LEFT LOWER EXTREMITY VENOUS DUPLEX IMAG/LIMITED/UNI 10/18/2024 REASON FOR EXAM: Left leg pain/swelling TECHNIQUE: Venous Doppler ultrasound of the left lower extremity. COMPARISON: None. FINDINGS: No intraluminal echogenicity to suggest the presence of a deep venous thrombosis. Appropriate respiratory variation, augmentation and venous compression is noted. US/Venous Duplex Imag/Limited/Uni IMPRESSION: No evidence for DVT in the left lower extremity. Reading Location: [id number]
--- NOTE | 2024-10-18 20:28 | ED.VIS.LOWEX ---
HPI History of Present Illness HPI Narrative: Patient is a 68-year-old male presenting to the emergency department for left leg pain. Patient has a past medical history as below including peripheral vascular disease and DVTs. Patient states that over the past few weeks the pain is worsened in his leg and he thinks he has a blood clot. Denies any swelling to the leg. States that when he is at rest his leg does not hurt but when he ambulates he does have some pain in the back of his leg. Denies any injuries to his leg. Denies any midline back pain. Denies any fever or chills. Denies any urinary or bowel incontinence or retention. Denies any saddle anesthesia. Chief Complaint: Lower Extremity Injury [facility] Medical History Chronic deep vein thrombosis (DVT) PVD (peripheral vascular disease) Opacity of lung on imaging study Leukopenia Stage 1 mild COPD by GOLD classification SOB (shortness of breath) Gastroesophageal cancer Primary adenocarcinoma of distal third of esophagus Alcoholism Orthostatic hypotension Hernia, diaphragmatic Weight loss Encounter for chemotherapy management GERD (gastroesophageal reflux disease) Hyperlipidemia Hypertension Home Medications ?Medication ?Instructions ?Recorded ?Last Taken ?Type lidocaine-prilocaine 2.5 %-2.5 % 1 applic topical ONCE PRN port 04/09/24 Unknown Rx topical cream access 30 days #30 grams Allergy/AdvReac Type Severity Reaction Status Date / Time No Known Allergies Allergy Verified 10/18/24 18:29 Family History Father Heart disease COPD (chronic obstructive pulmonary disease) Mother Heart disease Surgical History History of carpal tunnel surgery Hx of hernia repair History of esophagectomy History of angioplasty of peripheral vessel History of tonsillectomy Social History adopted: No household members: spouse number of children: 5 current occupational status: retired and disabled current occupational exposures/hazards: No Smoking Status: Current every day smoker tobacco type: cigarettes Tobacco: How many years used: 40 how long ago did patient quit smokin WEEKS alcohol intake: former details: HEAVY DRINKER OFF AND ON substance use type: marijuana do you feel safe at home: Yes ROS ROS ED ROS Narrative See HPI EXAM Physical Exam Narrative Exam Narrative: Vital signs: Reviewed General: Alert and oriented. No acute distress, cachectic appearing HEENT: Head is normocephalic and atraumatic, sinuses nontender, pupils equal round and reactive. Nares are patent. Oropharynx and throat exams normal. Neck: Supple without lymphadenopathy nontender Cardiovascular: Regular rate and rhythm, no murmurs. No rubs or gallops. Normal S1 and S2 Respiratory: Clear to auscultation bilaterally. No wheezes, rales, rhonchi Abdominal: Soft and nontender. Normal bowel sounds. No guarding or rebound. Nonsurgical abdomen Extremities: Extremities are nonedematous. Pulses were slightly difficult to feel in the DP and PT bilaterally, Doppler was used with a strong pulse bilaterally heard. Sensation intact in the bilateral lower extremities. Motor intact in bilateral lower extremities. No midline thoracic or lumbar spinal tenderness to palpation. No step-offs or deformities. No erythema or warmth to the leg. No paleness to the leg. Temperature of both feet and legs feel the same. Skin: No rash or redness. Neurological: Cranial nerves II through XII are grossly intact. Normal strength and sensation. Normal cerebellar function The rest of the physical exam is unremarkable Const Vital Signs: 10/18/24 18:29 10/18/24 20:35 Temperature 98.4 F 98.2 F Temperature Source Temporal Pulse Rate 86 77 Respiratory Rate 18 17 Blood Pressure 175/99 H 144/89 H Blood Pressure Mean 124 107 Pulse Ox 100 99 Oxygen Delivery Method Room Air MDM MDM MDM Narrative Medical decision making narrative: Patient is a 68-year-old male presenting to the emergency department for left leg pain. Patient was seen and examined. Vitals are stable. Patient resting bed comfortably no acute distress. Differential includes but is not limited to: DVT, peripheral artery disease, ischemic limb Patient has mild to no pain at rest. There are no signs of acute ischemic limb. Pulses were strong on Doppler. Sensation intact. Feet are not cool to the touch. Venous ultrasound shows no evidence of DVT. Patient had no trauma to the leg. No midline back pain or red flag back pain signs. With the patient's description of the pain worsening with any ambulation it is likely peripheral vascular disease. I instructed the patient to follow-up with his vascular surgeon as soon as possible and gave him strict return precautions. Patient discharged from the Emergency Department. I do not feel that the patient's evaluation reveals any acute reason for admission at this time. I instructed them to either follow-up with their primary care physician or promptly return to the Emergency Department for reevaluation should symptoms worsen or new symptoms develop. I explained what symptoms would indicate the need to return to the emergency department. Shared decision making was used. The patient voiced understanding of the treatment plan and is agreeable with it. Clinical impression Leg pain Peripheral vascular disease Radiography Diagnostic Testing: Clinical Impression(s) from Imaging Studies Venous Duplex 10/18/24 19:19 IMPRESSION: No evidence for DVT in the left lower extremity. Reading Location: [facility] Discharge Plan Triage Chief Complaint: Lower Extremity Injury ED Provider: Silvia Velasquez Dx/Rx/DC Orders Clinical Impression: Peripheral vascular disease Instructions: ED Peripheral Artery Disease (PAD) Prescriptions: No Action lidocaine-prilocaine 2.5-2.5 % cream 1 applic topical ONCE PRN (Reason: port access) 30 Days Qty: 30 2RF Primary Care Provider: Care Physician,No Primary Referrals: Michelet García MD [Med Staff - Active Staff] - 1 Day Care Physician,No Primary [Primary Care Provider] - Activity Restrictions/Additional Instructions: Call your vascular surgeon tomorrow to see if they have any available appointments. Your evaluation in the Emergency Department did not reveal any acute reason for admission. However, I want to emphasize that you may be early in the course of a disease process or illness even if it is not present. For this reason you should follow-up within 24 hours for reevaluation with either your primary care physician or if necessary back here in the Emergency Department. You should return to the Emergency Department immediately if your symptoms worsen or new symptoms develop. Print Language: Bahamian Disposition Disposition: Home, Self Care Discharge Date/Time: 10/18/24 20:36
[2024-10-18 20:35] VITALS: BP 144/89; PULSE 77; RESP 17; TEMP 36.8; O2SAT 99
== END 2024-10-18 20:36 | disposition home or self-care (01) ==
PROVIDERS: Emergency Provider Student in an Organized Health Care Education/Training Program; Visit Provider Student in an Organized Health Care Education/Training Program
DX: I73.9 Peripheral vascular disease, unspecified (principal); F17.210 Nicotine dependence, cigarettes, uncomplicated
CPT/HCPCS: 93971; 99282

== ENCOUNTER → 2024-11-02 | Outpatient (CLI) | payer MEDICARE, SELFPAY ==
--- NOTE | 2024-11-02 10:50 | ART_ITS ---
Reason For Study Reason For Study: Claudication Procedure A bilateral lower extremity continuous wave Doppler with analog waveform analysis,segmental pressures,and ankle brachial indexes without exercise. Left Segmental Pressures Left brachial= 144mmHg. Left high thigh = 107mmHg. Left low thigh = 100mmHg. Left calf = 91mmHg. Left posterior tibial artery = 83mmHg. Left dorsalis pedis artery = 74mmHg. Left digit = 25 mmHg. The left dorsalis pedis waveforms are biphasic. The left posterior tibial artery waveforms are monophasic. Right Segmental Pressures Right brachial= 139mmHg. Right posterior tibial artery = 140mmHg. Right dorsalis pedis artery = 158mmHg. Right digit = 126 mmHg. The right dorsalis pedis waveforms are triphasic. The right posterior tibial artery waveforms are triphasic. Indices The right ankle brachial index by the dorsalis pedis is 1.10. The right ankle brachial index by the posterior tibial artery is 0.97. The right digital-brachial index is 0.88. The left ankle brachial index by the dorsalis pedis is 0.51. The left ankle brachial index by the posterior tibial artery is 0.58. The left digital-brachial index is 0.17. VL/Lower Ext Art Exam w/o Exercis Interpretation Summary Right FACUNDO 1.1, normal. TBI and Doppler/PVR waveforms of the right leg normal at rest. Left FACUNDO 0.58, moderate arterial insufficiency. Doppler/PVR waveforms and segme ntal pressures reveal aorto-iliac disease. Ordering Physician: Navya Chaudhari Performed By: DENEEN BENJAMIN T
== END | disposition home or self-care (01) ==
PROVIDERS: Referring Provider Physician Assistant; Visit Provider Physician Assistant
DX: I73.9 Peripheral vascular disease, unspecified (principal)
CPT/HCPCS: 93923

== ENCOUNTER → 2024-12-10 | Outpatient (CLI) | payer MEDICARE, SELFPAY ==
[2024-12-10] MEDS: 0.9 % NaCl (Sterile) Posiflush 10 mL IV (14:30)
--- NOTE | 2024-12-10 14:37 | CT_ITS ---
PROCEDURE: CTA ABD W/RUNOFF W/WO CONTRAST 12/10/2024 REASON FOR EXAM: LLE ATHEROSCLEROSIS WITH CLAUDICATION TECHNIQUE: Procedure Code: [id number] Modality: CT Procedure: CTA ABD W/RUNOFF W/WO CONTRAST Multiplanar Sagittal and Coronal images were obtained. 3D and or MIPS post processing was performed CONTRAST: Isovue 370 VOLUME: 100 mL One or more dose reduction techniques were used (e.g., Automated exposure control, adjustment of the mA and/or kV according to patient size, use of iterative reconstruction technique). RADIATION DOSE SUMMARY: CTDlvol: 20 mGy DLP: 927 mGycm COMPARISON: May 21, 2024 FINDINGS: Aorta: The timing and quality of the contrast bolus is diagnostic. There is no evidence of aortic rupture aortic dissection. No aneurysm is seen. Severe calcified and noncalcified atherosclerotic plaque is shown. Thoracoabdominal aorta is 20 mm Infrarenal aorta is 18 mm Aorta above the bifurcation: 15 mm Iliac Arteries: Severe plaque is present bilaterally. No dissection, aneurysm is seen. Complete thrombosis is present involving left common iliac artery primarily from soft plaque. This extends into the external iliac artery. The deep iliac artery is thrombosed. Flow-limiting stenosis is seen over a short segment of the proximal right common iliac artery. The remainder is atherosclerotic but patent without flow-limiting stenosis. Heavy atherosclerotic plaque is shown at the right deep iliac artery and there is likely flow limitation there. Celiac: Circumferential plaque of the origin is 50-69% stenosis. SMA: Mild plaque. No stenosis. WHITLEY : Patent. Right Renal: Patent Left Renal: Patent Lower Extremity Runoff (Bilateral): Common Femoral Arteries: Short segment atherosclerotic plaque bilaterally is 50- 69% stenotic. Superficial Femoral Arteries: Irregular plaque is shown along the length of the superficial femoral arteries bilaterally. Short segment stenosis in the left proximal thigh is likely flow-limiting a few cm beyond the takeoff of the profunda. Profunda Femoris Arteries: Patent in the proximal thigh. The more distal portions are not well seen. Popliteal Arteries: Atherosclerosis without stenosis. Tibial and Peroneal Arteries: Atherosclerotic plaque. Small caliber but patent. Distal Runoff: Very small caliber. Extravascular Findings: Gastric pull-through. In the liver, adrenals, pancreas, kidneys are unremarkable. Complex cyst involving the spleen is 2.3 x 2.1 cm and benign. No free fluid, free air or mass. Bowel loops are not dilated. Urinary bladder is unremarkable. Prostate is unremarkable. CT/CTA Abd w/Runoff W/WO Contrast IMPRESSION: 1. Advanced atherosclerotic plaque. 50-69% stenosis celiac axis 2. Complete thrombosis left common iliac, left external iliac, left deep iliac . Likely flow-limiting stenosis right deep iliac. 50-69% stenosis common femoral arteries bilaterally. 3. Short segment stenosis proximal thigh superficial femoral artery Reading Location: [id number]
[2024-12-10] MEDS: 0.9% Saline Lock 10 ML Syringe IV (14:40)
== END | disposition home or self-care (01) ==
LOC: CT 14:18
PROVIDERS: Referring Provider Physician Assistant; Visit Provider Physician Assistant
DX: I70.212 Atherosclerosis of native arteries of extremities with intermittent claudication, left leg (principal)
CPT/HCPCS: 75635; Q9967; A4216

== ENCOUNTER 2025-02-25 13:00 | Inpatient (IN) | payer MEDICARE, SELFPAY ==
--- NOTE | 2025-02-15 07:12 | EKG12_ITS ---
Test Reason : PREOP Blood Pressure : */* mmHG Vent. Rate : 50 BPM Atrial Rate : 50 BPM P-R Int : 156 ms QRS Dur : 94 ms QT Int : 420 ms P-R-T Axes : 82 76 73 degrees QTcB Int : 382 ms Sinus bradycardia Otherwise normal ECG Confirmed by MAIRA OCONNOR, REJI ([id number]), commissioning editor BARRY RHOADES ([id number]) on 02/18/2025 6:13:14 AM Referred By: ELENI Confirmed By: REJI RAO MD
[2025-02-15 08:06] LABS: Hematocrit 45.7 % (40-54); Hemoglobin 14.6 g/dL (13.0-16.5); Mean Corp Hgb Conc 31.9 g/dL (32-36); Mean Corpuscular Volume 88.7 fL (80-94); Mean Platelet Vol. 10.5 fl (6.2-12.0); Platelet Count 258 K/mm3 (150-450); RBC Distribution Width CV 13.7 % (11.6-14.6); RBC Distribution Width SD 44.6 fl (35.1-43.9); Red Blood Count 5.15 M/mm3 (4.6-6.2); White Blood Count 5.6 K/mm3 (4.4-11.0)
[2025-02-15 08:25] LABS: Prothrombin Time (Protime)PT. 13.6 SECONDS (11.7-14.9)
[2025-02-15 08:26] LABS: Partial Thromboplast Time 28.2 Seconds (24.1-36.2)
[2025-02-15 08:39] LABS: Anion Gap 10 (5-15); BUN 14 mg/dL (4-19); BUN/Creat Ratio 13.8 RATIO (10-20); Calcium,Total 9.0 mg/dL (7.6-11.0); Carbon Dioxide 26.5 mmol/L (21.0-32.0); Chloride 106 mmol/L (98-108); Glucose 141 mg/dL (70-99); Potassium 4.1 mmol/L (3.3-5.1)
[2025-02-15 08:40] LABS: AST(SGOT) 18 U/L (<=37); Alanine Aminotransfer ALT/SGPT 6 U/L (<=46); Albumin, Serum 4.0 g/dL (3.4-4.8); Alkaline Phosphatase 111 U/L (40-129); Bilirubin, Direct 0.11 mg/dL (0.00-0.30); Globulin 3.2 g/dL (2.2-4.2)
--- NOTE | 2025-02-15 15:31 | PAT.ANESEVAL ---
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 When Was Last Pacemaker Check QUESTION #4 FULL TEXT: You/Your Family Experience fever (hyperthermia) with Anesthesia Last Oral Intake Last Oral intake: Last Oral Intake NPO since Meds taken in AM with sips of water? Meds patient instructed to take am of surgery PONV PONV - insect control inspector: PONV - insect control inspector Female No 02/11/25 08:22 HX of Motion Sickness No 02/11/25 08:22 HX of N/V After Surgery No 02/11/25 08:22 Non-Smoker No 02/11/25 08:22 Duration of Surgery greater Yes 02/11/25 08:22 than 60 minutes Number of Risk Factors 1 02/11/25 08:22 PONV Score Low Risk 02/11/25 08:22 Height & Weight Height & Weight: Anesthesia: Height & Weight Height 5 ft 10 in 10/18/24 18:29 Respiratory Assessment Respiratory Assessment - insect control inspector: Respiratory Tract Infection Hx - insect control inspector Hx Respiratory Tract Infection No 02/11/25 08:22 STOP Sleep Apnea STOP Sleep Apnea - insect control inspector: STOP Sleep Apnea - insect control inspector Hx Hypertension Yes: H/O, NO MEDS NOW, 02/11/25 08:22 CONTROLLED Hx Sleep Apnea No 02/11/25 08:22 CPAP No 02/11/25 08:22 BIPAP Do you snore loudly (louder No 02/11/25 08:22 than talking or can be heard Do you often feel tired/ No 02/11/25 08:22 fatigued/ sleepy during daytime? Has anyone observed you stop No 02/11/25 08:22 breathing during sleep? STOP Results Negative 02/11/25 08:22 QUESTION #5 FULL TEXT : Do you snore loudly (louder than talking or can be heard through closed doors)? 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 Specify any problems Hx of Preganancy in last 3 N/A 02/11/25 08:22 Months Nurse Filling Out Transfusion [facility]WIN 02/11/25 08:22 & Questions: Date: 02/11/25 02/11/25 08:22 Time: 08:26 02/11/25 08:22 Patient unable to answer at this time (ie. confused, unrespo /Reproduction History /Reproductive History - insect control inspector: /Reproductive Hx- insect control inspector Hx Now Gestational Age (in weeks): EDC: Hx Hx Para Hx Section SAB Does the father of the baby or his family experience fever w Father of the baby Malignant Hypertension history comment [facility] Medical History (Updated 02/11/25 @ 08:38 by Marina Castillo) Wears glasses Wears dentures Marijuana use Easy bruising Back pain Difficulty swallowing History of ulceration Smoker Shortness of breath on exertion Leg cramps History of stress test History of echocardiogram Cardiology follow-up encounter Chronic deep vein thrombosis (DVT) PVD (peripheral vascular disease) Opacity of lung on imaging study Leukopenia Hernia, diaphragmatic Stage 1 mild COPD by GOLD classification Weight loss SOB (shortness of breath) Encounter for chemotherapy management Gastroesophageal cancer Primary adenocarcinoma of distal third of esophagus Alcoholism Orthostatic hypotension GERD (gastroesophageal reflux disease) Hyperlipidemia Hypertension Home Medications ?Medication ?Instructions ?Recorded ?Last Taken ?Type clopidogrel 75 mg tablet (Plavix) 75 mg PO DAILY BLOOD THINNER #90 01/16/25 Unknown Rx tabs Allergy/AdvReac Type Severity Reaction Status Date / Time No Known Allergies Allergy Verified 02/11/25 08:20 Family History Father Heart disease COPD (chronic obstructive pulmonary disease) Mother Heart disease Surgical History (Updated 02/11/25 @ 08:38 by Marina Castillo) History of colonoscopy History of surgery History of carpal tunnel surgery Hx of hernia repair History of esophagectomy History of angioplasty of peripheral vessel History of tonsillectomy Social History adopted: No household members: spouse number of children: 5 current occupational status: retired and disabled current occupational exposures/hazards: No Smoking Status: Heavy Smoker (>10/day) Tobacco: How many years used: 40 how long ago did patient quit smokin WEEKS alcohol intake: former details: HEAVY DRINKER OFF AND ON substance use type: marijuana do you feel safe at home: Yes Audit: Pertinent Findings Pertinent Findings EKG Perinent findings: Sinus bradycardia. Consider old anterior infarct. Poor R wave progression. Echo (EF%) pertinent findings: 07/12/2024. EF 60%. Normal size and function. Consult pertinent findings: Cardiology 07/06/2024. Generalized atherosclerosis. Obtain echo. Recommendation Anesthesia Recommendation Anesthesia recommendation: OPTIMIZED for anesthesia
[2025-02-25] VITALS (23 sets, daily range): BP systolic 86–164; BP diastolic 0–108; PULSE 47–87; RESP 11–18; TEMP 36.1–36.7; O2SAT 96–100; BMI 17.0; BMI 16.9
--- OUTSIDE RECORDS SUMMARY | 2025-02-25 05:37 | XMS RPT_ITS | CCD ---
Author Organization [facility] Care Team Providers Care Equine Intern Name Role Phone Alina Choi Primary Care Provider [phone] Joselito OCONNOR, Anirudh Unavailable [phone] Mark Gold MD Unavailable Dr. Alina Choi Primary Care Provider Dr. Alina Choi Referring Provider Dr. Mark Combs Attending Provider Alina Choi Primary Care Provider [phone] Anirudh Yee MD Unavailable [phone] Mark Gold MD Unavailable EDIS CALL Attending Unavailable ALINA CHOI Primary Care Unavailable EDIS CALL Referring Unavailable EDIS CALL Attending Unavailable ALINA CHOI Primary Care Unavailable Dr. Alina Choi Primary Care Provider Dr. Alina Choi Referring Provider Dr. Mark Combs Attending Provider Alina Choi Primary Care Provider [phone] ALINA CHOI Primary Care Unavailable LIZ PRITCHETT Referring Unavailable ALINA CHOI Primary Care Unavailable ALINA CHOI Primary Care Unavailable Dr. Alina Choi MD Primary Care Provider [phone] Dr. Mark Combs MD Attending Provider Dr. Mark Combs MD Referring Provider [phone] Tony Bynum DO Attending Provider Dr. Tony Bynum DO Referring Provider Steph OCONNOR, Dr. Alina Grider Referring Provider Fletcher DO, Dr. Jimenez Attending Provider Fletcher DO, Dr. Jimenez Referring Provider Richy OCONNOR, Dr. Larios Attending Provider Care Physician, No Primary Primary Care Provider Unavailable Richy OCONNOR, Dr. Larios Referring Provider Steph OCONNOR, Dr. Alina Grider Referring Provider Steph OCONNOR, Dr. Alina Grider Primary Care Provider Fletcher DO, Dr. Jimenez Attending Provider Falcon DO, Dr. Jimenez Referring Provider Dr. Silvia Velasquez MD Emergency Provider Unavailab le Care Physician, No Primary Referring Provider Un available Navya Nye Attending Provider Care Physician, No Primary Primary Care Provider Unavailable Richy OCONNOR, Dr. Larios Attending Provider Eva OCONNOR, Dr. Vega Attending Provider Unavailab le Navya Nye Referring Provider Dr. Joon Koch MD Attending Provider Steph OCONNOR, Dr. Alina Grider Primary Care Provider Falcon , Dr. Jimenez Attending Provider Falcon , Dr. Jimenez Referring Provider Care Physician, No Primary Primary Care Physicia n Unavailable Dr. Silvia Velasquez MD Attending Physician Unavaila ble Eva OCONNOR, Dr. Vega Emergency Department Physici an Unavailable Navya Nye Attending Physician Dr. Joon Koch MD Attending Physician Steph OCONNOR, Dr. Alina Grider Primary Care Physician Fletcher HIDALGO, Dr. Jimenez Attending Physician Dr. Alina Choi MD Primary Care Physician Dr. Tony Bynum DO Attending Physician Dr. Tony Bynum DO Referring Provider [phone] Alina Choi S Primary Care Unavailable Tony Bynum Attending Unavailable Tony Bynum Referring Unavailable Fara, Navya Attending Unavailable Chaudhari, Navya Referring Unavailable Care Physician, No Primary Primary Care Unava ilable Jolliff, Alina S Primary Care Unavailable Prah, Mark Attending Unavailable Prah, Mark Referring Unavailable RichyRic morales Attending Unavailable Richy, Cary Referring Unavailable Care Physician, No Primary Primary Care Unava ilable Care Physician, No Primary Primary Care Unava ilable Chaudhari, Navya Attending Unavailable Chaudhari, Navya Referring Unavailable Silvia Velasquez Attending Unavailable Care Physician, No Primary Primary Care Unava ilable Jolliff, Alina S Primary Care Unavailable Jolliff, Alina S Referring Unavailable Prah, Mark Attending Unavailable Jolliff, Alina S Referring Unavailable Richy, Ric Attending Unavailable Care Physician, No Primary Primary Care Unava ilable Chaudhari, Navya Referring Unavailable Joon Koch Attending Unavailable Care Physician, No Primary Primary Care Unava ilable Richy, Ric Attending Unavailable Care Physician, No Primary Primary Care Unava ilable Joon Koch Attending Unavailable Care Physician, No Primary Referring Unava ilable Care Physician, No Primary Primary Care Unava ilable Care Physician, No Primary Primary Care Unava ilable Chaudhari, Navya Attending Unavailable Care Physician, No Primary Referring Unava ilable Chaudhari, Navya Attending Unavailable Care Physician, No Primary Referring Unava ilable Medications Current Medications Medication Drug Class(es) Dates Sig (Normalized) Sig (Original) [id number] 200 actuat albuterol 0.09 mg/actuat metered dose inhaler (18 sources) beta2-Adrenergic Agonist Start: 05-11-2023 take 2 puff(s) by inhalation every four hours as needed for wheezing albuterol HFA (PROVENTIL HFA, VENTOLIN HFA) 90 mcg/actuation inhaler Inhale 2 Puffs as instructed every 4 hours as needed for wheezing/shortnes s of breath. 8 g 05/11/2023 Active Start: 05-24-2022 take 2 puff(s) by in halation every six hours as needed for wheezing albuterol HFA (PROVENTIL HFA, VENTOLIN HFA) 90 mcg/actuation inhaler Indications: Acute cough Inhale 2 Puffs as instructed every 6 hours as needed for wheezing/shortness of breath. 1 Each 05/24/2022 Active Start: 01-13-2021 take 2 puff(s) by in halation every six hours as needed albuterol HFA (PROVENTIL HFA, VENTOLIN HFA) 90 mcg/actuation inhaler inhale 2 (TWO) puffs EVERY 6 HOURS NEEDED 0 01/13/2021 Active Comment on above: inhale 2 (TWO) puffs EVERY 6 HOURS NEEDED Inhale 2 Puffs as in structed every 6 hours as needed for wheezing/shortness of breath. Inhale 2 Puffs as in structed every 4 hours as needed for wheezing/shortness of breath. amoxicillin 80 mg/ml / clavulanate 11.4 mg/ml oral suspension (4 sources) Penicillin-class Antibacterial Start: End: take 11 mL by mouth twice daily amoxicillin-clavula aspen acid (AUGMENTIN) 400-57 mg/5 mL suspension Take 11 mL by mouth two times a day for 5 days. 110 mL 03/16/2024 03/21/2024 Active Start: 04-26-2022 End: 05-06-2022 take 11 mL by mouth twice daily amoxicillin-clavulanate (AUGMENTIN) 400- 57 mg/5 mL suspension Take 11 mL by mouth twice daily for 10 days. 220 mL 0 04/26/2022 05/06/2022 Active Start: 04-23-2022 End: 04-30-2022 take 1 tablet by mouth twice daily amoxicillin-clavulanic acid (AUGMENTIN) 875-125 mg per tablet Take 1 tablet by mouth twice daily for 7 days. 14 tablet 0 04/23/2022 04/26/2022 Discontinued Comment on above: Take 1 tablet by mary twice daily for 7 days. Take 11 mL by mouth twice daily for 10 days. amylase [id number] unt / lipase 24606 unt / protease [id number] unt delayed release oral capsule (15 sources) Start: End: take 1 capsule by mouth at bedtime bshvlr-mdeflspx-ueqz ase (CREON) 36,000-114,000- 180,000 unit delayed release capsule Indications: Esophageal adenocarcinoma (HCC) , Severe protein-calorie malnutrition (HCC) , Esophageal dysphagia Take 1 capsule by mouth with meals and at bedtime. 120 capsule 2 04/29/2021 Active Comment on above: Take 1 capsule by mo [facility] with meals and at bedtime. atorvastatin 40 mg oral tablet (17 sources) HMG-CoA Reductase Inhibitor take 1 tablet by mouth once daily atorvastatin (LIPITOR) 40 mg tablet Take 40 mg by mouth once daily. Active Comment on above: Take 40 mg by mouth once daily. cilostazol 50 mg oral tablet (4 sources) Phosphodiesterase 3 Inhibitor Start: 025 End: 025 take 1 tablet by mouth twice daily dronabinol 5 mg oral capsule (13 sources) Cannabinoid Start: take 1 capsule by mouth twice daily before mealtime dronabinol (MARINOL) 5 mg capsule Indications: Esophageal adenocarcinoma (HCC) , Severe protein-calorie malnutrition (HCC) , Esophageal dysphagia , Nicotine use disorder Take 1 capsule by mouth twice daily before meals for 90 days. 60 capsule 2 02/03/2021 Active Comment on above: Take 1 capsule by [facility] twice daily before meals for 90 days. Inhalational Spacing Device (1 source) Start: End: Inhalational Spacing Device 1 Device one time only for 1 dose. 1 Each 0 05/11/2023 05/11/2023 Active Comment on above: 1 Device one time on ly for 1 dose. iv contrast (will be provided with radiology test) (2 sources) Start: 023 End: 023 iv contrast (will be provided with radiology test) Indications: Esophageal adenocarcinoma (HCC) , Status post repair of paraesophageal diaphragmatic hernia , H/O esophagectomy CT Chest ABD/PEL-Inject, intravenously, once for 1 dose.No IV access, insert saline lock prior to the beginning of sedation, infusion, injection of imaging exam. Discontinue saline lock post exam. If Pt. has a central line or IVAD, may access for administration according to line specific nursing protocol. Once exam is complete flush line and de-access according to line specific nursing protocol in the CT contrast administration guidelines link. 1 Each 0 11/17/2022 11/18/2022 Active Start: 06-25-2021 End: 06-26-2021 iv contrast (will be provide d with radiology test) Indications: Esophageal adenocarcinoma (HCC) , H/O esophagectomy , Diaphragmatic hernia without obstruction or gangrene CT ABD/PEL -Inject, intravenously, once for 1 dose.No IV access, insert saline lock prior to the beginning of sedation, infusion, injection of imaging exam. Discontinue saline lock post exam. If Pt. has a central line or IVAD, may access for administration according to line specific nursing protocol. Once exam is complete flush line and de-access according to line specific nursing protocol in the CT contrast administration guidelines link. 1 Each 0 06/25/2021 06/26/2021 Active Comment on above: CT ABD/PEL -Inject, intravenously, once for 1 dose.No IV access, insert saline lock prior to the beginning of sedation, infusion, injection of imaging exam. Discontinue saline lock post exam. If Pt. has a central line or IVAD, may access for administration according to line specific nursing protocol. Once exam is complete flush line and de-access according to line specific nursing protocol in the CT contrast administration guidelines link. CT Chest ABD/PEL-Inj ect, intravenously, once for 1 dose.No IV access, insert saline lock prior to the beginning of sedation, infusion, injection of imaging exam. Discontinue saline lock post exam. If Pt. has a central line or IVAD, may access for administration according to line specific nursing protocol. Once exam is complete flush line and de-access according to line specific nursing protocol in the CT contrast administration guidelines link. lisinopril 5 mg oral tablet (17 sources) Angiotensin Converting Enzyme Inhibitor Start: 021 take 1 tablet by mouth once daily lisinopril (ZESTRIL, PRINIVIL) 5 mg tablet Take 5 mg by mouth once daily. 02/04/2021 Active Comment on above: Take 5 mg by mouth o nce daily. megestrol acetate 40 mg oral tablet (15 sources) Progestin Start: 022 End: 023 megestrol (MEGACE) 40 mg tablet Indications: Esophageal adenocarcinoma (HCC) , Severe protein-calorie malnutrition (HCC) , Esophageal dysphagia TAKE 1/2 (ONE-HALF) OF A TABLET TWICE DAILY 30 tablet 3 03/10/2021 Active Comment on above: TAKE 1/2 (ONE-HALF) OF A TABLET TWICE DAILY ondansetron 8 mg disintegrating oral tablet (17 sources) Serotonin-3 Receptor Antagonist Start: take 1 tablet by mouth every eight hours as needed ondansetron orally disintegrating (ZOFRAN ODT) 8 mg disintegrating tablet Take 8 mg by mouth every 8 hours as needed for nausea/vomiting. 09/24/2020 Active Comment on above: Take 8 mg by mouth e very 8 hours as needed for nausea/vomiting. pantoprazole 40 mg delayed release oral tablet (20 sources) Proton Pump Inhibitor Start: End: pantoprazole (PROTONIX) 2 mg/mL oral liquid Indications: Esophageal adenocarcinoma (HCC) , Severe protein-calorie malnutrition (HCC) , Esophageal dysphagia Take 20 mL by mouth DAILY (6 AM). 600 mL 2 04/29/2021 07/28/2021 Active Start: 07-14-2020 take 1 tablet by mary once daily pantoprazole DR (PROTONIX) 40 mg tablet Take 40 mg by mouth once daily. 07/14/2020 Active Comment on above: Take 20 mL by mouth DAILY (6 AM). Take 40 mg by mouth once daily. polyethylene glycol 3350 56447 mg powder for oral solution (1 source) Osmotic Laxative Start: 10-20-19 End: 10-27-19 polyethylene glycol 3350 (MIRALAX, GLYCOLAX) 17 gram packet Take 1 Packet by mouth twice daily for 7 days. Dissolve dose in 4 - 8 ounces of liquid and take as directed. 14 Packet 0 10/19/2021 10/26/2021 Active Comment on above: Take 1 Packet by mary twice daily for 7 days. Dissolve dose in 4 - 8 ounces of liquid and take as directed. prednisoLONE 3 mg/ml oral solution (1 source) Corticosteroid Start: 05-11-19 End: 05-16-19 take 18.2 mL by mouth once daily prednisoLONE sodium phosphate (ORAPRED) 15 mg/5 mL (3 mg/mL) oral liquid Take 18.2 mL by mouth once daily for 5 days. 91 mL 0 05/11/2023 05/16/2023 Active Comment on above: Take 18.2 mL by mout h once daily for 5 days. Completed/Discontinued Medications Medication Drug Class(es) Dates Sig (Normalized) Sig (Original) 8 hr acetaminophen 650 mg extended release oral tablet (12 sources) Start: 07-31-2020 End: 08-14-2020 take 1 tablet by mouth every twelve hours Acetaminophen (Tylenol Arthritis Pain) 650 mg tablet extended release Discontinued 650 mg PO Q12H July 31, 2020 12:00am August 14, 2020 3:26pm aspirin 81 mg chewable tablet (12 sources) Platelet Aggregation Inhibitor, Nonsteroidal Anti-inflammatory Drug Start: 11-30-2016 End: 07-14-2020 take 1 tablet by mouth once daily Aspirin 81 MG tablet,chewable Discontinued 81 mg PO DAILY@0800 November 30, 2016 12:00am July 14, 2020 1:11pm [facility] azithromycin 40 mg/ml oral suspension (10 sources) Macrolide Antimicrobial Start: 07-23-2023 End: 05-28-2024 Azithromycin (Zithromax) 200 mg/5 mL suspension for reconstitution Discontinued 0 PO .COMPLEX 40 0 July 23, 2023 12:00am May 28, 2024 9:36am take 12.5 mL (500 mg) by mouth today (day 1), then 6.25 mL (250 mg) daily for 4 days (days 2-5) PO Start: 05-11-2023 End: 05-16-2023 take 12.5 mL by mouth once daily, then take 6.8 mL by mouth once daily azithromycin (ZITHROMAX) 200 mg/5 mL suspension Take 12.5 mL by mouth once daily for 1 day, THEN 6.8 mL once daily for 4 days. 39.7 mL 0 05/11/2023 05/16/2023 Active Start: 04-23-2022 End: 04-28-2022 take 2 tablets by mouth once daily, then take 1 tablet by mouth once daily azithromycin (ZITHROMAX) 250 mg tablet Take 2 tablets by mouth once daily for 1 day, THEN 1 tablet once daily for 4 days. 6 tablet 0 04/23/2022 04/28/2022 Active Comment on above: Take 2 tablets by mo uth once daily for 1 day, THEN 1 tablet once daily for 4 days. Take 12.5 mL by mout h once daily for 1 day, THEN 6.8 mL once daily for 4 days. clopidogrel 75 mg oral tablet (20 sources) P2Y12 Platelet Inhibitor Start: 7 End: take 1 tablet by mouth once daily Clopidogrel 75 MG tablet Discontinued 75 mg PO DAILY 30 November 30, 2016 12:00am July 14, 2020 1:11pm started on d/t blood clot in leg Comment on above: Take 75 mg by mouth once daily. docusate sodium 100 mg oral capsule (20 sources) Start: End: take 1 capsule by mouth twice daily Docusate Sodium 100 mg capsule Discontinued 100 mg PO TWICE A DAY August 14, 2020 12:00am August 29, 2020 10:32am take 1 capsule by mouth once richard ly docusate sodium (COLACE) 100 mg capsule Take 100 mg by mouth once daily. Active Comment on above: Take 100 mg by mouth once daily. 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 08/14/2020 Active Comment on above: Apply to affected ar ea. Tiotropium-Olodaterol (12 sources) Anticholinergic, beta2-Adrenergic Agonist Start: 08-29-2020 End: 01-13-2021 Tiotropium-Olodaterol (Stiolto Respimat) 2.5-2.5 mcg/actuation mist Discontinued 2 NMA INHALATION DAILY 4 August 29, 2020 12:00am January 13, 2021 12:18pm Start: 08-29-2020 End: 01-13-2021 Tiotropium-Olodaterol (Stiol to Respimat) 2.5-2.5 mcg/actuation mist Discontinued 2 NMA INHALATION DAILY August 29, 2020 12:00am January 13, 2021 12:18pm Start: 08-29-2020 End: 01-13-2021 Tiotropium-Olodaterol (Stiol to Respimat) 2.5-2.5 mcg/actuation mist Discontinued 2 PUFF INHALATION DAILY August 29, 2020 12:00am January 13, 2021 12:18pm oxyCODONE hydrochloride 5 mg oral capsule (12 sources) Opioid Agonist Start: 07-31-2020 End: 08-14-2020 take 1 capsule by mouth every eight hours as needed Oxycodone 5 mg capsule Discontinued 5 mg PO Q8H as needed 0 July 31, 2020 12:00am August 14, 2020 3:26pm predniSONE 10 mg oral tablet (7 sources) Start: 07-23-2023 End: 05-28-2024 Prednisone 10 mg tablet Discontinued 10 mg PO .COMPLEX 30 0 July 23, 2023 12:00am May 28, 2024 9:36am Take 4 pills for 3 days, 3 pills for 3 days, 2 pills for 3 days, take 1 pill for 3 days Problems Active Problems Problem Classification Problem Date Documented Da te Episodic/Chronic Abdominal hernia (20 sources) Diaphragmatic hernia; Translations: [Diaphragmatic hernia without obstruction or gangrene] Onset: Episodic Alcohol-related disorders (12 sources) Alcoholism; Translations: [Alcohol dependence, uncomplicated] 07-11-2020 Chronic Cancer of esophagus (20 sources) Adenocarcinoma of esophagus; Translations: [Malignant neoplasm of esophagus, unspecified] Onset: 1 Chronic Cancer of stomach (18 sources) 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 Started weekly Taxol and Carboplatin on 08/18/2020 with Radiation therapy. Finished C5 chemotherapy on 09/15/2020 and Radiation therapy on 09/23/2020. Tolerated therapy. Had laparoscopic esophagectomy on 11/06/2020. Pathology shows ypT0 N0.CT 11/23/2021 show no evidence of disease, + surgical changes, + diaphragmatic hernia resolved after repair.CT c/a 05/24/2022 reviewed, no evidence of metastatic disease.Comes for follow up.CT c/a on 05/21/2024 shows no evidence of metastatic disease, CBC and chemistry reviewed and WNL.No evidence of disease clinically. Chronic obstructive pulmonary disease and bronchiectasis (12 sources) Mild chronic obstructive pulmonary disease; Translations: [Chronic obstructive pulmonary disease, unspecified] 10-10-2020 Chronic Diseases of white blood cells (13 sources) Leukopenia; Translations: [Decreased white blood cell count, unspecified] 05-27-2022 Chronic Comment on above: No abnormal cells. Disorders of lipid metabolism (20 sources) Hyperlipidemia; Translations: [Hyperlipidemia, unspecified] Onset: 1 07-22-2020 Chronic Disorders of teeth and jaw (1 source) Infection of tooth; Translations: [Periapical abscess without sinus] 03-16-2024 Episodic Esophageal disorders (20 sources) Gastro-esophageal reflux disease with esophagitis; Translations: [Gastroesophageal reflux disease with esophagitis] Onset: 1 07-22-2020 Chronic Esophageal disorders (1 source) Esophageal disorders; Translations: [Gastroesophageal reflux disease with esophagitis, unspecified whether hemorrhage] Onset: 1 Essential hypertension (20 sources) Hypertensive disorder; Translations: [Essential (primary) hypertension] Onset: 1 07-22-2020 Chronic Gastrointestinal hemorrhage (12 sources) Acute upper gastrointestinal hemorrhage; Translations: [Gastrointestinal hemorrhage, unspecified] 07-11-2020 Episodic Heart valve disorders (1 source) Nonrheumatic mitral (valve) insufficiency; Translations: [Nonrheumatic mitral (valve) insufficiency] Onset: 5 Chronic Maintenance chemotherapy; radiotherapy (12 sources) Patient encounter status; Translations: [Encounter for antineoplastic chemotherapy] 08-18-2020 Chronic Nausea and vomiting (13 sources) Nausea and vomiting; Translations: [Nausea with vomiting, unspecified] 10-16-2021 Episodic Nutritional deficiencies (18 sources) Malnutrition (calorie); Translations: [Moderate protein-calorie malnutrition] Onset: 1 11-07-2020 Chronic Other aftercare (1 source) Encounter for adjustment and management of vascular access device; Translations: [Encounter for adjustment and management of vascular access device] Onset: 5 Episodic Other circulatory disease (12 sources) Orthostatic hypotension; Translations: [Orthostatic hypotension] 07-11-2020 Episodic Other connective tissue disease (1 source) Pain in left leg; Translations: [Pain in left leg] Onset: 5 Episodic Other gastrointestinal disorders (1 source) Other dysphagia; Translations: [Esophageal dysphagia] Onset: 3 Episodic Other lower respiratory disease (12 sources) Dyspnea; Translations: [Shortness of breath] 08-29-2020 Episodic Other lower respiratory disease (3 sources) Cough; Translations: [Acute cough] Episodic Other lower respiratory disease (8 sources) Abnormal findings on diagnostic imaging of lung; Translations: [Other nonspecific abnormal finding of lung field] 05-25-2023 Episodic Comment on above: CT c/a on 05/23/2023 reviewed, + scarring LLL, no evidence of metastatic disease. Other lower respiratory disease (2 sources) Other nonspecific abnormal finding of lung field; Translations: [Other nonspecific abnormal finding of lung field] 05-18-2023 Episodic Other lower respiratory disease (2 sources) Cough; Translations: [Acute cough] 05-24-2022 Episodic Other nutritional; endocrine; and metabolic disorders (12 sources) Loss of appetite; Translations: [Anorexia] 09-01-2020 Episodic Comment on above: Improving. Other nutritional; endocrine; and metabolic disorders (5 sources) Weight loss; Translations: [Abnormal weight loss] 09-15-2020 Episodic Other nutritional; endocrine; and metabolic disorders (7 sources) Weight decreased; Translations: [Abnormal weight loss] 09-15-2020 Episodic Comment on above: Had loose stools ove r the weekend, may be due to Ensure. Other screening for suspected conditions (not mental disorders or infectious disease) (1 source) Imaging of thorax abnormal; Translations: [Abnormal findings on diagnostic imaging of other specified body structures] 05-11-2023 Chronic Other screening for suspected conditions (not mental disorders or infectious disease) (12 sources) Patient encounter status; Translations: [Encounter for screening for malignant neoplasm of intestinal tract, unspecified] 07-11-2020 Episodic Other upper respiratory infections (1 source) Acute upper respiratory infection; Translations: [Acute upper respiratory infection, unspecified] 05-11-2023 Episodic Peripheral and visceral atherosclerosis (20 sources) Atherosclerosis of artery ; Translations: [Unspecified atherosclerosis] Onset: 5 07-06-2024 Chronic Phlebitis; thrombophlebitis and thromboembolism (20 sources) Chronic deep venous thrombosis of thigh; Translations: [Chronic embolism and thrombosis of unspecified deep veins of unspecified proximal lower extremity] Onset: 1 07-22-2020 Chronic Pneumonia (except that caused by tuberculosis or sexually transmitted disease) (7 sources) Pneumonia; Translations: [Pneumonia, unspecified organism] 07-23-2023 Episodic Residual codes; unclassified (5 sources) History of esophagectomy; Translations: [Other specified postprocedural states] Episodic Residual codes; unclassified (6 sources) Tobacco user; Translations: [Tobacco use] 07-11-2020 Episodic Residual codes; unclassified (3 sources) History of hernia repair; Translations: [Other specified postprocedural states] Episodic Substance-related disorders (19 sources) Nicotine dependence; Translations: [Nicotine dependence, unspecified, uncomplicated] Onset: 1 07-28-2020 Chronic Unclassified (1 source) Acute cough; Translations: [Acute cough] Onset: 4 Past or Other Problems Problem Classification Problem Date Documented Da te Episodic/Chronic Other gastrointestinal disorders (5 sources) Esophageal dysphagia; Translations: [Other dysphagia] Onset: 12-13-2022 12-13-2022 Episodic Other lower respiratory disease (1 source) Shortness of breath; Translations: [Shortness of breath] Onset: 07-06-2024 Episodic Results Test Name Value Interpretation Reference Range Facility CTA Abd w/Runoff W/WO Sera cheek 12-10-2024 CTA Abd w/Runoff W/WO Contrast [facility] Imaging [place] [place] [address] CTA Abd w/Runoff W/WO Contrast MR#: [id number] Acct: [id number] Name: ERIC VELA Rep #: [id number] : 1955 68 From: Victorino Mora MD PCP: Care Physician,No Primary Status: REG CLI Study: CTA Abd w/Runoff W/WO Contrast Date of Exam: 1 Exam# [id number] Ordering Dr: Navya Chaudhari PROCEDURE: CTA ABD W/RUNOFF W/WO CONTRAST 12/10/2024 REASON FOR EXAM: LLE ATHEROSCLEROSIS WITH CLAUDICATION TECHNIQUE: Procedure Code: [id number] Modality: CT Procedure: CTA ABD W/RUNOFF W/WO CONTRAST Multiplanar Sagittal and Coronal images were obtained. 3D and or MIPS post processing was performed CONTRAST: Isovue 370 VOLUME: 100 mL One or more dose reduction techniques were used (e.g., Automated exposure control, adjustment of the mA and/or kV according to patient size, use of iterative reconstruction technique). RADIATION DOSE SUMMARY: CTDlvol: 20 mGy DLP: 927 mGycm COMPARISON: May 21, 2024 FINDINGS: Aorta: The timing and quality of the contrast bolus is diagnostic. There is no evidence of aortic rupture aortic dissection. No aneurysm is seen. Severe calcified and noncalcified atherosclerotic plaque is shown. Thoracoabdominal aorta is 20 mm Infrarenal aorta is 18 mm Aorta above the bifurcation: 15 mm Iliac Arteries: Severe plaque is present bilaterally. No dissection, aneurysm is seen. Complete thrombosis is present involving left common iliac artery primarily from soft plaque. This extends into the external iliac artery. The deep iliac artery is thrombosed. Flow-limiting stenosis is seen over a short segment of the proximal right common iliac artery. The remainder is atherosclerotic but patent without flow-limiting stenosis. Heavy atherosclerotic plaque is shown at the right deep iliac artery and there is likely flow limitation there. Celiac: Circumferential plaque of the origin is 50-69% stenosis. SMA: Mild plaque. No stenosis. WHITLEY : Patent. Right Renal: Patent Left Renal: Patent Lower Extremity Runoff (Bilateral): Common Femoral Arteries: Short segment atherosclerotic plaque bilaterally is 50-69% stenotic. Superficial Femoral Arteries: Irregular plaque is shown along the length of the superficial femoral arteries bilaterally. Short segment stenosis in the left proximal thigh is likely flow-limiting a few cm beyond the takeoff of the profunda. Profunda Femoris Arteries: Patent in the proximal thigh. The more distal portions are not well seen. Popliteal Arteries: Atherosclerosis without stenosis. Tibial and Peroneal Arteries: Atherosclerotic plaque. Small caliber but patent. Distal Runoff: Very small caliber. Extravascular Findings: Gastric pull-through. In the liver, adrenals, pancreas, kidneys are unremarkable. Complex cyst involving the spleen is 2.3 x 2.1 cm and benign. No free fluid, free air or mass. Bowel loops are not dilated. Urinary bladder is unremarkable. Prostate is unremarkable. CT/CTA Abd w/Runoff W/WO Contrast IMPRESSION: 1. Advanced atherosclerotic plaque. 50-69% stenosis celiac axis 2. Complete thrombosis left common iliac, left external iliac, left deep iliac. Likely flow- limiting stenosis right deep iliac. 50-69% stenosis common femoral arteries bilaterally. 3. Short segment stenosis proximal thigh superficial femoral artery Reading Location: [id number] CC: NAZ Almanzar; No Primary Care Physician Service Center Assistant: Signed Normal [facility] MR/BMS.BVSon 11-21-2024 MR/BMS.BVS [facility] [address] [place] [address]. [address] [place] [address] OFFICE VISIT Date of Service: 11/21/24 MR#: [id number] Acct: [id number] Name: ERIC VELA Gideon Rep #: [id number] : 1955 Provider: NAZ Almanzar Age/Sex: 68/M Location: BMS.BVS Status: Signed Intake Vital Signs 10/18/24 18:29 11/21/24 15:34 Height 5 ft 10 in Weight: 115 lb BP 135/86 H Blood Pressure Location Lt radial Position Sitting Respiration 16 Pulse 78 Pulse Source Monitor Temp 98.4 F Temp Source Temporal Pulse Oximetry (%) 98 Oxygen Delivery Method room air Intake Visit Reasons: 6-8 WK FU Is patient in pain?: Yes Allergies No Known Allergies Allergy (Verified 11/21/24 15:35) Medications ???Medication ???Instructions ???Recorded ???Confirmed ???Type lidocaine-prilocaine 2.5 %-2.5 % 1 applic topical ONCE PRN port 05/2911/21/24 Rx topical cream access 30 days #30 grams cilostazol 50 mg tablet 100 mg (2 x 50 mg) PO BID #60 tabs 11/21/24 11/21/24 Rx Have you fallen in the past year?: Yes PFSH Medical History Chronic deep vein thrombosis (DVT) PVD (peripheral vascular disease) Opacity of lung on imaging study Leukopenia Stage 1 mild COPD by GOLD classification SOB (shortness of breath) Gastroesophageal cancer Primary adenocarcinoma of distal third of esophagus Alcoholism Orthostatic hypotension Hernia, diaphragmatic Weight loss Encounter for chemotherapy management GERD (gastroesophageal reflux disease) Hyperlipidemia Hypertension Surgical History History of carpal tunnel surgery Hx of hernia repair History of esophagectomy History of angioplasty of peripheral vessel History of tonsillectomy Family History Father Heart disease COPD (chronic obstructive pulmonary disease) Mother Heart disease Social History (Updated 11/21/24 @ 15:34 by Maritza Avalos) adopted: No household members: spouse number of children: 5 current occupational status: retired and disabled current occupational exposures/hazards: No Smoking Status: Heavy Smoker (>10/day) Tobacco: How many years used: 40 how long ago did patient quit smokin WEEKS alcohol intake: former details: HEAVY DRINKER OFF AND ON substance use type: marijuana do you feel safe at home: Yes HPI HPI HPI: ERIC VELA, is a 68 M who presents to the office today for follow-up regarding his PAD. He reports he has had no improvement in his LLE claudication with cilostazol to this point, if anything it is worse. He reports he fell the other day trying to carry groceries into his house because his LLE was so fatigued that he couldn't lift it to make the step. He has been having severe nocturnal leg cramps though this is occurring equally bilaterally and notably he has no recurrent RLE claudication and he does have known degenerative disc disease as well as admittedly does not stay well hydrated. He does sleep at an incline due to s/p partial esophagectomy and gastrectomy and often will sleep on the incline on his stomach which can aggravate his back. Recall that has remotely had prior R SFA atherectomy/angioplasty by Dr. García in 2017 and his RLE claudication has remained resolved ever since. Pre-procedure arterial study showed R FACUNDO 0.48 with monophasic waveforms and L FACUNDO 0.94 with triphasic waveforms; post-procedure arterial study (2016) R FACUNDO 1.0, L FACUNDO 0.95. He'd had no follow-up after this until his last OV here. We did obtain updated LEAS which demonstrated R FACUNDO 1.1 with triphasic waveforms and L FACUNDO 0.58 with bi/monophasic waveforms. He does continue to smoke. ROS General General: Yes weight change; No appetite, fatigue, colon cancer, breast cancer or weakness HEENT HEENT: Yes difficulty swallowing; No eye injury, eye surgery, swollen glands or hoarseness Endo Endocrine: No thyroid disease, diabetes mellitus, thyroid cancer, Hair loss, heat intolerance or cold intolerance Skin Skin: No rash or changing moles Musc Musculoskeletal: Yes back problems; No arthritis, rheumatoid arthritis, gout or joint pain Cardio Cardiovascular: Yes high blood pressure; No murmur, pacemaker, heart disease, atrial fibrillation, heart attack, heart stent, palpitations, shortness of breath with exertion or chest pain Psych Psychiatric: No depression, anxiety or hearing voices Resp Respiratory: Yes shortness of breath, No sleep apnea, No cough, No COPD, No asthma, Yes emphysema and No wheezing Gastro Gastrointestinal: Yes abdominal pain, No nausea or vomiting, No diarrhea, No constipation, No blood in stool, No acid reflux, No hemorrhoids, Yes ulcers, No gal (more content not included)... Normal [facility] Arterial study reportOrdered By: Joon Koch on 11-06-2024 Noninvasive arteriosclerosis study report [facility] [address] [place] [address] Lower Ext Art Exam w/o Exercis 11/02/24 1051 MR#: [id number] Acct: [id number] Name: ERIC VELA Rep #:[id number] : 1955 68 From: Joon Lynne Attending Dr: NAZ Almanzar Stat us: REG CLI Ordering Dr: Navya Chaudhari Date: Location: [facility] Sex: M C Admitted: Reason For Study Reason For Study: Claudication Procedure A bilateral lower extremity continuous wave Doppler with analog waveform analysis,segmental pressures,and ankle brachial indexes without exercise. Left Segmental Pressures Left brachial= 144mmHg. Left high thigh = 107mmHg. Left low thigh = 100mmHg. Left calf = 91mmHg. Left posterior tibial artery = 83mmHg. Left dorsalis pedis artery = 74mmHg. Left digit = 25 mmHg. The left dorsalis pedis waveforms are biphasic. The left posterior tibial artery waveforms are monophasic. Right Segmental Pressures Right brachial= 139mmHg. Right posterior tibial artery = 140mmHg. Right dorsalispedis artery = 158mmHg. Right digit = 126 mmHg. The right dorsalis pedis waveforms are triphasic. The right posterior tibial artery waveforms are triphasic. Indices The right ankle brachial index by the dorsalis pedis is 1.10. The right ankle brachial index by the posterior tibial artery is 0.97. The right digital-brachial index is 0.88. The left ankle brachial index by the dorsalis pedis is 0.51. The left ankle brachial index by the posterior tibial artery is 0.58. The left digital-brachial index is 0.17. VL/Lower Ext Art Exam w/o Exercis Interpretation Summary Right FACUNDO 1.1, normal. TBI and Doppler/PVR waveforms of the right leg normal at rest. Left FACUNDO 0.58, moderate arterial insufficiency. Doppler/PVR waveforms and segmental pressures reveal aorto-iliac disease. Ordering Physician: Navya Chaudhari Performed By: DENEEN BENJAMIN RVT 11/06/24 161 Date _ Joon Koch MD CC: NAZ Almanzar; No Primary Care Physician ~ Date Dictated: 11/02/24 1051 Date Transcribed: 11/06/241611 Service Center Assistant: Signed [facility] Work Phone: Lower Ext Art Exam w/o Exerc corin 11-02-2024 Lower Ext Art Exam w/o Exercis [facility] [address] [place] [address] Lower Ext Art Exam w/o Exercis 11/02/24 105 MR#: [id number] Acct: [id number] Name: ERIC VELA Rep #: [id number] : 1955 68 From: Joon Koch MD Attending Dr: NAZ Almanzar Status: REG CLI Ordering Dr: Navya Chaudhari Date: 11/02/24 Location: [facility] Sex: M C Admitted: Reason For Study Reason For Study: Claudication Procedure A bilateral lower extremity continuous wave Doppler with analog waveform analysis,segmental pressures,and ankle brachial indexes without exercise. Left Segmental Pressures Left brachial= 144mmHg. Left high thigh = 107mmHg. Left low thigh = 100mmHg. Left calf = 91mmHg. Left posterior tibial artery = 83mmHg. Left dorsalis pedis artery = 74mmHg. Left digit = 25 mmHg. The left dorsalis pedis waveforms are biphasic. The left posterior tibial artery waveforms are monophasic. Right Segmental Pressures Right brachial= 139mmHg. Right posterior tibial artery = 140mmHg. Right dorsalis pedis artery = 158mmHg. Right digit = 126 mmHg. The right dorsalis pedis waveforms are triphasic. The right posterior tibial artery waveforms are triphasic. Indices The right ankle brachial index by the dorsalis pedis is 1.10. The right ankle brachial index by the posterior tibial artery is 0.97. The right digital-brachial index is 0.88. The left ankle brachial index by the dorsalis pedis is 0.51. The left ankle brachial index by the posterior tibial artery is 0.58. The left digital-brachial index is 0.17. VL/Lower Ext Art Exam w/o Exercis Interpretation Summary Right FACUNDO 1.1, normal. TBI and Doppler/PVR waveforms of the right leg normal at rest. Left FACUNDO 0.58, moderate arterial insufficiency. Doppler/PVR waveforms and segmental pressures reveal aorto-iliac disease. Ordering Physician: Navya Chaudhari Performed By: DENEEN BENJAMIN RVT 11/06/24 1612 Date Joon Koch MD CC: NAZ Almanzar; No Primary Care Physician Date Dictated: 11/02/24 1051 Date Transcribed: 11/06/241611 Service Center Assistant: Signed Normal [facility] MR/BMS.Dennys 10-23-2024 MR/BMS.BVS [facility] [address] [place] [address] OFFICE VISIT Date of Service: 10/23/24 MR#: [id number] Acct: [id number] Name: ERIC VELA Gideon Rep #: [id number] : 1955 Provider: NAZ Almanzar Age/Sex: 68/M Location: [facility] Status: Signed Intake Vital Signs 07/06/24 10:19 10/18/24 18:29 10/23/24 09:13 Height 5 ft 10 in 5 ft 10 in Weight: 112 lb 8 oz BP 143/81 H Blood Pressure Location Lt radial Position Sitting Respiration 16 Pulse 60 Pulse Source Monitor Temp 97.5 F L Temp Source Temporal Pulse Oximetry (%) 100 Oxygen Delivery Method room air Intake Visit Reasons: Left Leg Pain - Dr. Egan Pt Is patient in pain?: Yes Allergies No Known Allergies Allergy (Verified 10/23/24 09:16) Medications ???Medication ???Instructions ???Recorded ???Confirmed ???Type lidocaine-prilocaine 2.5 %-2.5 % 1 applic topical ONCE PRN port 05/2910/23/24 Rx topical cream access 30 days #30 grams Have you fallen in the past year?: No PFSH Medical History Chronic deep vein thrombosis (DVT) PVD (peripheral vascular disease) Opacity of lung on imaging study Leukopenia Stage 1 mild COPD by GOLD classification SOB (shortness of breath) Gastroesophageal cancer Primary adenocarcinoma of distal third of esophagus Alcoholism Orthostatic hypotension Hernia, diaphragmatic Weight loss Encounter for chemotherapy management GERD (gastroesophageal reflux disease) Hyperlipidemia Hypertension Surgical History History of carpal tunnel surgery Hx of hernia repair History of esophagectomy History of angioplasty of peripheral vessel History of tonsillectomy Family History Father Heart disease COPD (chronic obstructive pulmonary disease) Mother Heart disease Social History (Updated 10/23/24 @ 09:13 by Maritza Avalos) adopted: No household members: spouse number of children: 5 current occupational status: retired and disabled current occupational exposures/hazards: No Smoking Status: Heavy Smoker (>10/day) Tobacco: How many years used: 40 how long ago did patient quit smokin WEEKS alcohol intake: former details: HEAVY DRINKER OFF AND ON substance use type: marijuana do you feel safe at home: Yes HPI HPI HPI: ERIC VELA, is a 68 M who presents to the office today for evaluation of PAD with claudication. He has remotely had prior R SFA atherectomy/angioplasty by Dr. García in 2017. Pre-procedure arterial study showed R FACUNDO 0.48 with monophasic waveforms and L FACUNDO 0.94 with triphasic waveforms; post- procedure arterial study R FACUNDO 1.0, L FACUNDO 0.95. He has had no routine vascular follow-up since 2017 in our system. He was seen in the ER 10/18/24 for LLE claudication; venous doppler was obtained which was negative, no other imaging performed. He reports that over the last few months he has developed progressive LLE claudication to the point that he can only walk about 300 feet before he has to stop and rest due to cramping/aching/burning pain from his thigh down. He reports he can barely make it to his mailbox to get his mail. He does not have any rest pain, nocturnal pain, or wounds. He has not noticed any significant discoloration. His feet and hands are both frequently cold, this has been ongoing many years and stable. He reports that his current LLE symptoms are very similar to what he had in his RLE prior to intervention in 2017. Overall, his RLE has been improved since then, he has had some mild RLE symptoms as well recently but nothing compared to the LLE. He reports no prior LLE or further RLE interventions, has not had any vascular f/u since then. He is a current smoker, about 1 ppd. His history is otherwise significant for esophageal cancer s/p partial esophagectomy and gastrectomy, chemo, and radiation continues to follow with oncology for surveillance. He reports no history of coronary interventions, CVA/TIA, or DVT/PE. He does have swallowing difficulties secondary to his esophagectomy and gastrectomy which limits his abilities to take pills; he can take medications crushed in applesauce. ROS General General: Yes weight change; No appetite, fatigue, colon cancer, breast cancer or weakness HEENT HEENT: Yes difficulty swallowing; No eye injury, eye surgery, swollen glands or hoarseness Endo Endocrine: No thyroid disease, diabetes mellitus, thyroid cancer, Hair loss, heat intolerance or cold intolerance Skin Skin: No rash or changing moles Musc Musculoskeletal: Yes back problems; No arthritis, rheumatoid arthritis, gout or joint pain Cardio Cardiovascular: Yes high blo (more content not included)... Normal [facility] Emergency Department Summary on 10-18-2024 Emergency Department Summary [facility] Medical Records Department [address] [place] [address] Emergency Department Summary 10/18/24 MR#: [id number] Acct: [id number] Name: ERIC VELA Rep #: [id number] : 1955 68 From: Silvia Velasquez MD PCP: Care Physician,No Primary Status:DEP ER Location: ED HPI History of Present Illness HPI Narrative: Patient is a 68-year-old male presenting to the emergency department for left leg pain. Patient has a past medical history as below including peripheral vascular disease and DVTs. Patient states that over the past few weeks the pain is worsened in his leg and he thinks he has a blood clot. Denies any swelling to the leg. States that when he is at rest his leg does not hurt but when he ambulates he does have some pain in the back of his leg. Denies any injuries to his leg. Denies any midline back pain. Denies any fever or chills. Denies any urinary or bowel incontinence or retention. Denies any saddle anesthesia. Chief Complaint: Lower Extremity Injury PFSH PFSH Medical History Chronic deep vein thrombosis (DVT) PVD (peripheral vascular disease) Opacity of lung on imaging study Leukopenia Stage 1 mild COPD by GOLD classification SOB (shortness of breath) Gastroesophageal cancer Primary adenocarcinoma of distal third of esophagus Alcoholism Orthostatic hypotension Hernia, diaphragmatic Weight loss Encounter for chemotherapy management GERD (gastroesophageal reflux disease) Hyperlipidemia Hypertension Home Medications ???Medication ???Instructions ???Recorded ???Last Taken ???Type lidocaine-prilocaine 2.5 %-2.5 % 1 applic topical ONCE PRN port 05/29 Unknown Rx topical cream access 30 days #30 grams Allergy/AdvReac Type Severity Reaction Status Date / Time No Known Allergies Allergy Verified 10/18/24 18:29 Family History Father Heart disease COPD (chronic obstructive pulmonary disease) Mother Heart disease Surgical History History of carpal tunnel surgery Hx of hernia repair History of esophagectomy History of angioplasty of peripheral vessel History of tonsillectomy Social History adopted: No household members: spouse number of children: 5 current occupational status: retired and disabled current occupational exposures/hazards: No Smoking Status: Current every day smoker tobacco type: cigarettes Tobacco: How many years used: 40 how long ago did patient quit smokin WEEKS alcohol intake: former details: HEAVY DRINKER OFF AND ON substance use type: marijuana do you feel safe at home: Yes ROS ROS ED ROS Narrative See HPI EXAM Physical Exam Narrative Exam Narrative: Vital signs: Reviewed General: Alert and oriented. No acute distress, cachectic appearing HEENT: Head is normocephalic and atraumatic, sinuses nontender, pupils equal round and reactive. Nares are patent. Oropharynx and throat exams normal. Neck: Supple without lymphadenopathy nontender Cardiovascular: Regular rate and rhythm, no murmurs. No rubs or gallops. Normal S1 and S2 Respiratory: Clear to auscultation bilaterally. No wheezes, rales, rhonchi Abdominal: Soft and nontender. Normal bowel sounds. No guarding or rebound. Nonsurgical abdomen Extremities: Extremities are nonedematous. Pulses were slightly difficult to feel in the DP and PT bilaterally, Doppler was used with a strong pulse bilaterally heard. Sensation intact in the bilateral lower extremities. Motor intact in bilateral lower extremities. No midline thoracic or lumbar spinal tenderness to palpation. No step-offs or deformities. No erythema or warmth to the leg. No paleness to the leg. Temperature of both feet and legs feel the same. Skin: No rash or redness. Neurological: Cranial nerves II through XII are grossly intact. Normal strength and sensation. Normal cerebellar function The rest of the physical exam is unremarkable Const Vital Signs: 10/18/24 18:29 10/18/24 20:35 Temperature 98.4 F 98.2 F Temperature Source Temporal Pulse Rate 86 77 Respiratory Rate 18 17 Blood Pressure 175/99 H 144/89 H Blood Pressure Mean 124 107 Pulse Ox 100 99 Oxygen Delivery Method Room Air MDM MDM MDM Narrative Medical decision making narrative: Patient is a 68-year-old male presenting to the emergency department for left leg pain. Patient was seen and examined. Vitals are stable. Patient resting bed comfortably no acute distress. Differential includes but is not limited to: DVT, peripheral artery disease, ischemic limb Patient has mild to no pain at rest. There are no signs of acute ischemic limb. Pulses were st (more content not included)... Normal [facility] Venous Duplex Imag/Limited/U nion 10-18-2024 Venous Duplex Imag/Limited/Uni [facility] Imaging Services [address] [place] [address] Venous Duplex Imag/Limited/Uni MR#: [id number] Acct: [id number] Name: ERIC VELA Rep #: [id number] : 1955 M 68 From: Douglas Bearden MD PCP: Care Physician,No Primary Status: PRE ER Study: Venous Duplex Imag/Limited/Uni Date of Exam: 0 10/18/24 Exam# [id number] Ordering Dr: Silvia Velasquez MD PROCEDURE: LEFT LOWER EXTREMITY VENOUS DUPLEX IMAG/LIMITED/UNI 10/18/2024 REASON FOR EXAM: Left leg pain/swelling TECHNIQUE: Venous Doppler ultrasound of the left lower extremity. COMPARISON: None. FINDINGS: No intraluminal echogenicity to suggest the presence of a deep venous thrombosis. Appropriate respiratory variation, augmentation and venous compression is noted. US/Venous Duplex Imag/Limited/Uni IMPRESSION: No evidence for DVT in the left lower extremity. Reading Location: [facility] CC: Dr. Silvia Velasquez MD; No Primary Care Physician Service Center Assistant: Signed Normal [facility] Echocardiogram study reportO rdered By: Ric Lockhart on 07-12-2024 Study report [facility] [address] [place] [address] ONC Echo Complete 07/12/24 0657 MR#: [id number] Acct: [id number] Name: ERIC VELA Rep #:[id number] : 1955 68 From: Ric Lynne Attending Dr: Dr. Ric Lockhart MD S tatus: REG CLI Ordering Dr: Ric Lockhart MD Date: 10/29 Location: [facility] Sex: M C Admitted: Reason For Study Reason For Study: ANTINEOPLASTIC CHEMO Procedure This was a 2D Doppler, Color Flow transthoracic echocardiogram. Myocardial strain analysis was performed in this exam to aid in the assessment of cardiac function. Exam performed in department. Left Ventricle Normal LV size. Left ventricular systolic function is normal. The left ventricular ejection fraction is 60 %. No regional wall motion abnormalities noted. Right Ventricle Normal RV size. Normal systolic function. Atria Normal left atrium. Normal right atrium. Mitral Valve Normal mitral valve. Tricuspid Valve Normal tricuspid valve. Aortic Valve Trisinus/trileaflet aortic valve. Pulmonic Valve Normal pulmonic valve. Great Vessels Normal aortic root. The pulmonary artery is normal size. Normal inferior vena cava. Pericardium/Pleural No pericardial effusion. MMode/2D Measurements & Calculations LVIDd: 4.3 cm IVSd: 0.77 cm LAV(MOD-bp): 51.8 ml LVIDs: 3.1 cm LVPWd: 0.79 cm LAV(MOD-bp) Indexed: 31.4 ml/m2 RVDd: 2.6 cm FS: 26.0 % LAV(MOD-sp2): 50.3 ml LAV(MOD-sp4): 51.2 ml SV(MOD-sp4): 41.8 ml LVAd ap4: 25.9 cm2 LVAd ap2: 27.2 cm2 LVLd ap4: 7.9 cm LVLd ap2: 8.0 cm SI(MOD-sp4): 25.4 ml/m2 EDV(MOD-sp4): 73.4 ml EDV(MOD-sp2): 80.4 ml EDV(sp4-el): 71.9 ml EDV(sp2-el): 78.7 ml LVAs ap4: 15.1 cm2 LVAs ap2: 15.5 cm2 LVLs ap4: 6.3 cm LVLs ap2: 6.2 cm ESV(MOD-sp4): 31.6 ml ESV(MOD-sp2): 34.5 ml ESV(sp4-el): 30.9 ml ESV(sp2-el): 32.9 ml EF(MOD-sp4): 57.0 % EF(MOD-sp2): 57.1 % EF(sp4-el): 57.1 % SV(MOD-sp2): 45.9 ml SV(sp4-el): 41.1 ml LA A4 area: 17.8 cm2 SI(MOD-sp2): 27.8 ml/m2 __ LA dimension(2D): 3.2 cm TAPSE: 2.2 cm RA A4 area: 13.1 cm2 Time Measurements MV dec time: 0.21 sec Doppler Measurements & Calculations MV E max nadira: 88.0 cm/sec Lat Peak E' Nadira: 11.0 cm/sec Med Peak E' Nadira: 10.9 cm/sec MV A max nadira: 69.7 cm/sec E/E' lat: 8.0 E/E' med: 8.1 MV E/A: 1.3 MV V2 max: 95.8 cm/sec MV P1/2t max nadira: 93.8 cm/sec Ao V2 max: 123.7 cm/sec MV max P.7 mmHg MV P1/2t: 65.0 msec Ao max P.1 mmHg MV V2 mean: 41.8 cm/sec MV dec slope: 423.1 cm/sec2 Ao V2 mean: 84.3 cm/sec MV mean P.96 mmHg Ao mean P.2 mmHg MV V2 VTI: 33.5 cm MVA(P1/2t): 3.4 cm2 Ao V2 VTI: 34.4 cm AV (velocity ratio): 0.66 __ LV V1 max: 102.9 cm/sec PA V2 max: 62.3 cm/sec TR max nadira: 224.7 cm/sec LV V1 max P.2 mmHg PA V2 mean: 39.7 cm/sec TR max P.2 mmHg LV V1 mean P.2 mmHg LV V1 mean: 69.6 cm/sec LV V1 VTI: 22.8 cm ECHO/ONC Echo Complete Interpretation Summary Normal LV size. Left ventricular systolic function is normal. The left ventricular ejection fraction is 60 %. The global longitudinal strain is normal. The global longitudinal strain = -18.1% (normal). Ordering Physician: Ric Lockhart Referring Physician: HETAL PCP Performed By: Kayla Clemons, MIKALCS, RVT 07/12/24 1440 Date _ Ric Lockhart MD CC: Dr. Ric Lockhart MD; No Primary Care Physician ~ Date Dictated: 07/12/24656 Date Transcribed: 07/12/24 1440 Service Center Assistant: Signed [facility] Work Phone: ONC Echo Completeon 07-13-19 ONC Echo Complete [facility] [address] [place] [address] ONC Echo Complete 07/12/24656 MR#: [id number] Acct: [id number] Name: ERIC VELA Rep #: [id number] : 1955 68 From: Ric Lockhart MD Attending Dr: Dr. Ric Lockhart MD Status: [facility] Ordering Dr: Ric Lockhart MD Date: 07/12/24 Location: [facility] Sex: M C Admitted: Reason For Study Reason For Study: ANTINEOPLASTIC CHEMO Procedure This was a 2D Doppler, Color Flow transthoracic echocardiogram. Myocardial strain analysis was performed in this exam to aid in the assessment of cardiac function. Exam performed in department. Left Ventricle Normal LV size. Left ventricular systolic function is normal. The left ventricular ejection fraction is 60 %. No regional wall motion abnormalities noted. Right Ventricle Normal RV size. Normal systolic function. Atria Normal left atrium. Normal right atrium. Mitral Valve Normal mitral valve. Tricuspid Valve Normal tricuspid valve. Aortic Valve Trisinus/trileaflet aortic valve. Pulmonic Valve Normal pulmonic valve. Great Vessels Normal aortic root. The pulmonary artery is normal size. Normal inferior vena cava. Pericardium/Pleural No pericardial effusion. MMode/2D Measurements Calculations LVIDd: 4.3 cm IVSd: 0.77 cm LAV(MOD-bp): 51.8 ml LVIDs: 3.1 cm LVPWd: 0.79 cm LAV(MOD-bp) Indexed: 31.4 ml/m2 RVDd: 2.6 cm FS: 26.0 % LAV(MOD-sp2): 50.3 ml LAV(MOD-sp4): 51.2 ml SV(MOD-sp4): 41.8 ml LVAd ap4: 25.9 cm2 LVAd ap2: 27.2 cm2 LVLd ap4: 7.9 cm LVLd ap2: 8.0 cm SI(MOD-sp4): 25.4 ml/m2 EDV(MOD-sp4): 73.4 ml EDV(MOD-sp2): 80.4 ml EDV(sp4-el): 71.9 ml EDV(sp2-el): 78.7 ml LVAs ap4: 15.1 cm2 LVAs ap2: 15.5 cm2 LVLs ap4: 6.3 cm LVLs ap2: 6.2 cm ESV(MOD-sp4): 31.6 ml ESV(MOD-sp2): 34.5 ml ESV(sp4-el): 30.9 ml ESV(sp2-el): 32.9 ml EF(MOD-sp4): 57.0 % EF(MOD-sp2): 57.1 % EF(sp4-el): 57.1 % SV(MOD-sp2): 45.9 ml SV(sp4-el): 41.1 ml LA A4 area: 17.8 cm2 SI(MOD-sp2): 27.8 ml/m2 LA dimension(2D): 3.2 cm TAPSE: 2.2 cm RA A4 area: 13.1 cm2 Time Measurements MV dec time: 0.21 sec Doppler Measurements Calculations MV E max nadira: 88.0 cm/sec Lat Peak E' Nadira: 11.0 cm/sec Med Peak E' Nadira: 10.9 cm/sec MV A max nadira: 69.7 cm/sec E/E' lat: 8.0 E/E' med: 8.1 MV E/A: 1.3 MV V2 max: 95.8 cm/sec MV P1/2t max nadira: 93.8 cm/sec Ao V2 max: 123.7 cm/sec MV max P.7 mmHg MV P1/2t: 65.0 msec Ao max P.1 mmHg MV V2 mean: 41.8 cm/sec MV dec slope: 423.1 cm/sec2 Ao V2 mean: 84.3 cm/sec MV mean P.96 mmHg Ao mean P.2 mmHg MV V2 VTI: 33.5 cm MVA(P1/2t): 3.4 cm2 Ao V2 VTI: 34.4 cm AV (velocity ratio): 0.66 LV V1 max: 102.9 cm/sec PA V2 max: 62.3 cm/sec TR max nadira: 224.7 cm/sec LV V1 max P.2 mmHg PA V2 mean: 39.7 cm/sec TR max P.2 mmHg LV V1 mean P.2 mmHg LV V1 mean: 69.6 cm/sec LV V1 VTI: 22.8 cm ECHO/ONC Echo Complete Interpretation Summary Normal LV size. Left ventricular systolic function is normal. The left ventricular ejection fraction is 60 %. The global longitudinal strain is normal. The global longitudinal strain = -18.1 % (normal). Ordering Physician: Ric Lockhart Referring Physician: NO PCP Performed By: Kayla Clemons, [place], RVT 07/12/24 1440 Date Ric Lockhart MD CC: Dr. Ric Lcokhart MD; No Primary Care Physician Date Dictated: 07/12/2457 Date Transcribed: 07/12/24 144 Service Center Assistant: Signed Normal [facility] 12 Lead EKG performed by [facility] on 07-06-2024 12 Lead EKG performed [place] [address] [place] [address] 12 Lead EKG performed by [facility] 07/06/24 1019 MR#: [id number] Acct: [id number] Name: ERIC VELA Rep #: [id number] : 1955 68 From: Ric Lockhart MD Attending Dr: Dr. Ric Lockhart MD Status: DEP Lizzy MB Ordering Dr: Ric Lockhart MD Date: 07/06/24 Location: [facility] Sex: M C Admitted: BMS/12 Lead EKG performed by [facility] ECG Report Interpretation Sinus Bradycardia -Poor R-wave progression -nonspecific -consider old anterior infarct. BORDERLINEElectronically signed on 07/09/2024 at 17:33 by Ric Lockhart [employer] Version [id number] 07/09/24 1736 Date Ric Lockhart MD CC: No Primary Care Physician Date Dictated: 07/06/24 1019 Date Transcribed: 07/06/24 1019 Service Center Assistant: CO Signed Normal [facility] Cardiology Visit Reporton Cardiology Visit Report [facility] [address] [place] [address] OFFICE VISIT Date of Service: 07/06/24 MR#: [id number] Acct: [id number] Name: ERIC VELA Rep #: [id number] : 1955 Provider: Dr. Ric Lockhart MD Age/Sex: 68/M Location: [facility] Status: Signed HPI HPI History of Present Illness Details: 68-year-old man with a history of gastroesophageal cancer status post esophagectomy at [facility] in November 2020. He has been seeing the oncologist and has been on standard therapy. The plan is to continue him with observation he has no evidence of disease clinically. He denies any chest pain or shortness of breath or paroxysmal nocturnal dyspnea pedal edema a CT scan of his chest and abdomen demonstrated atherosclerotic calcification especially of the descending aorta. 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 He has had no dizziness or diaphoresis no near-syncope or syncope. His physical exam is unremarkable his electrocardiogram demonstrates sinus bradycardia with a rate of 55 bpm. 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 Accompanied by: Significant Other Is patient in pain?: No Allergies No Known Allergies Allergy (Verified 07/06/24 10:25) Medications ???Medication ???Instructions ???Recorded ???Confirmed ???Type lidocaine-prilocaine 2.5 %-2.5 % 1 applic topical ONCE PRN port 05/2907/06/24 Rx topical cream access 30 days #30 grams Have you fallen in the past year?: No PFSH Medical History Chronic deep vein thrombosis (DVT) PVD (peripheral vascular disease) Opacity of lung on imaging study Leukopenia Stage 1 mild COPD by GOLD classification SOB (shortness of breath) Gastroesophageal cancer Primary adenocarcinoma of distal third of esophagus Alcoholism Orthostatic hypotension Hernia, diaphragmatic Weight loss Encounter for chemotherapy management GERD (gastroesophageal reflux disease) Hyperlipidemia Hypertension Surgical History History of carpal tunnel surgery Hx of hernia repair History of esophagectomy History of angioplasty of peripheral vessel History of tonsillectomy Family History Father Heart disease COPD (chronic obstructive pulmonary disease) Mother Heart disease Social History adopted: No household members: spouse number of children: 5 current occupational status: retired and disabled current occupational exposures/hazards: No Smoking Status: Current some day smoker tobacco type: cigarettes Tobacco: How many years used: 40 how long ago did patient quit smokin WEEKS alcohol intake: former details: HEAVY DRINKER OFF AND ON substance use type: marijuana do you feel safe at home: Yes ROS Const Const: Positive for fatigue; Negative for weakness, headache(s), daytime sleepiness or difficulty sleeping ENT ENT: Negative for headache(s), dizziness or Nosebleed/epistaxis Cardio Chest Pain: No Palpitations: No Edema: None Resp Respiratory: Positive for SOB with activity; Negative for SOB at rest, SOB orthopnea SOB lying down or Cough GI GI: Negative nausea, vomiting or heartburn Neuro Neuro: Negative for dizziness, lightheadedness, near syncope, headache(s) or weakness Endo Endo: Positive for fatigue Cardiology Exam Const Appearance: cooperative, healthy appearing, no acute distress, well developed and well groomed Nutritional Appearance: average body habitus and well nourished Orientation: alert, awake and oriented x3 Head Head: normal to inspection, normocephalic and atraumatic Ears: hearing grossly normal bilaterally and external ears normal Nose: external nose normal, nares normal, nasal mucous membranes and turbinates normal, septum normal and no nasal discharge Face and Sinus: face symmetric Mouth: oral mucosae normal, tongue normal, oropharynx normal and moist mucous membranes Teeth and gingiva: dentition normal Throat: posterior oropharynx normal, tonsils normal and uvula midline Eyes General: appearance normal, both eyes and all related structures Eyelids: eyelids normal Conjunctivae: conjunctivae normal Pupils: PERRL, normal by confrontation and accommodation normal EOM: EOM intact bilaterally Neck Neck: normal visual inspection, trachea midline and no JVD JVD: +5 Carotids: normal carotid up (more content not included)... Normal [facility] Oncology Visit Reporton 05-06 Oncology Visit Report [facility] [address] [place] [address] OFFICE VISIT Date of Service: 05/28/24 0936 MR#: [id number] Acct: [id number] Name: ERIC VELA Rep #: [id number] : 1955 From: Mark Combs MD Age/Sex: 68/M Location: [facility] Status: Signed HPI Subjective Date of Service 05/28/24 Chief Complaint F/u for Lower esophageal/GEJ cancer. History of Present Illness 68 y.o.man 07/11/2020: Patient was admitted for melena without bright red blood per rectum as well as nausea and lightheadedness. 07/12/2020: EGD was performed. This demonstrated a medium-sized fungating mass with no bleeding found at the GE junction 38 cm from the incisors. The mass was nonobstructing and covered about one fourth of the circumference. Biopsies were taken. Mildly erythematous mucosa without bleeding is found in the gastric antrum and biopsies were also taken, cardia and gastric fundus normal on retroflexion. Pathology demonstrated well-differentiated invasive adenocarcinoma. Gastric antrum biopsy showed mild gastritis. 07/14/2020: Patient underwent colonoscopy. On colonoscopy there were 7 polyps all less than 5 mm in the rectum and sigmoid colon as well as in the descending colon and in the cecum they were removed with cold biopsy forceps resected and retrieved. Pathology demonstrated evidence for tubular adenomas with no evidence of other malignancy. 07/23/2020: Patient was seen by general surgery at [facility] [place]. Plan was made to complete staging with CT and PET scans as well as consideration laparoscopy. 07/26/2020 - 07/29/2020: Patient was admitted to the hospital due to findings on EGD which showed esophageal mass. During hospitalization patient had a Mediport placement completed as well as J- tube placement completed. 07/26/2020: CT chest with contrast was performed. There is noted to be slight thickening of the distal esophagus just above the GE junction. There is a 2 mm subpleural nodule in the left upper lobe and recommend continued follow-up in the future. 07/26/2020: CT abdomen/pelvis with contrast was performed. This demonstrated 2 low-attenuation lesions within the spleen measuring 1.7 and 0.7 cm, these measure slightly greater than fluid density. Recommend further characterization with contrast-enhanced MRI of the abdomen. No other evidence of disease identified. 08/18/2020 Started chemotherapy and radiation therapy. Got C1 weekly Taxol and Carboplatin. 08/25/2020. Got C2 weekly Taxol + Carboplatin. 09/01/2020 Got C3 09/09/2020 Got C4 09/15/2020 Got C5. 09/23/2020 Finished Radiation therapy. 11/06/2020 Had transhiatal esophagectomy at [facility], Pathology showed ypT0 N0. 06/04/2021 CT showed L diaphragmatic hernia with no evidence of disease. 10/08/2022 He had Diaphragmatic hernia repair on 10/08/2021 at [facility]. 11/25/2021 He is on observation. On observation. 12/01/2022 On observation, 05/18/2023 On observation, came for follow up because CXR at [facility] on 05/11/2023 showed L lower lobe density. 05/23/2023 CT showed no evidence of disease. 05/28/2024 Comes for follow up after CT[facility] Medical History Hernia, diaphragmatic Smoker Weight loss Encounter for chemotherapy management GERD (gastroesophageal reflux disease) Hyperlipidemia Hypertension DVT (deep venous thrombosis) Screening for intestinal cancer Surgical History History of esophagectomy H/O colonoscopy H/O endoscopy History of angioplasty of peripheral vessel History of tonsillectomy Family History Other Heart disease Social History adopted: No household members: spouse number of children: 5 current occupational status: retired and disabled current occupational exposures/hazards: No Smoking Status: Current some day smoker tobacco type: cigarettes Tobacco: How many years used: 40 how long ago did patient quit smokin WEEKS alcohol intake: former details: HEAVY DRINKER OFF AND ON do you feel safe at home: Yes Intake Vital Signs 07/23/23 11:25 05/28/24 09:39 05/28/24 09:42 Height 5 ft 10 in 5 ft 10 in 5 ft 10 in Weight: 55.508 kg BMI 17.5 BP 137/85 H Blood Pressure Location Rt brachial Position Sitting Respiration 18 Pulse 52 L Pulse Source Monitor Temp 98.4 F Temperature Source Temporal Artery Pulse Oximetry (%) 100 Oxygen Delivery Method room air Intake Is patient in pain?: No Allergies No Known Allergies Allergy (Verified 05/28/24 09:38) Medications ???Medication ???Instructions ???Recorded ???Confirmed ???Type lidoc (more content not included)... Normal [facility] Absolute lymphocyte countOrd ered By: Mark Combs on 05-21-2024 Lymphocytes Auto (Unsp spec) [#/Vol] 1.17 10*3/uL 0.83-4.51 [facility] Absolute neutrophil countOrd ered By: Mark Combs on 05-21-2024 Neutrophils (Bld) [#/Vol] 5.2 10*3/uL 2.0-7.7 [facility] Anion gap in Serum or Plasma Ordered By: Mark Guzmáncarroll on 05-21-2024 Anion gap [Moles/Vol] 10 mmol/L 5- [facility] Automated lymphocyte count a s percentage of total leukocytesOrdered By: Mark Guzmáncarroll on 05-21-2024 Lymphocytes/100 WBC Auto (Unsp spec) 16.0 % Low - [facility] BUN/creatinine ratioOrdered By: [facility] on 05-21-2024 Urea nitrogen/Creatinine [Mass ratio] 16.8 mg/mg 10- [facility] Basophil percentageOrdered B y: Mark Guzmáncarroll on 05-21-2024 Basophils/100 WBC (Bld) 0.3 % 0- [facility] Bilirubin, totalOrdered By: Mark Ariellecarroll on 05-21-2024 Bilirubin [Mass/Vol] 0.23 mg/dL 0.00-1.30 [facility] CBC W/Diff, Automatedon 05-05 Absolute Lymph 1.17 X10 3/uL Normal 0.83-4.51 [facility] Comment on above: Performed By: #### L 100.0100, L504.2610, L500.4050 #### [facility] [address] [place], [address] Absolute Neut 5.2 X10 3/uL Normal 2.0-7.7 [facility] Comment on above: Performed By: #### L 100.0100, L504.2610, L500.4050 #### [facility] [address] [place], [address] Basophils/100 WBC (Bld) 0.3 % Normal 0-1 [facility] Comment on above: Performed By: #### L 100.0100, L504.2610, L500.4050 #### [facility] [address] [place], [address] Eosinophils/100 WBC (Bld) 1.0 % Normal 0-5 [facility] Comment on above: Performed By: #### L 100.0100, L504.2610, L500.4050 #### [facility] [address] [place], [address] Erythrocyte distribution width (RBC) [Ratio] 14.2 % Normal 11.6-14.6 [facility] Comment on above: Performed By: #### L 100.0100, L504.2610, L500.4050 #### [facility] [address] [place], [address] Hematocrit (Bld) [Volume fraction] 41.5 % Normal 40-54 [facility] Comment on above: Performed By: #### L 100.0100, L504.2610, L500.4050 #### [facility] [address] [place], [address] Hemoglobin (Bld) [Mass/Vol] 13.7 g/dL Normal 13.0-16.5 [facility] Comment on above: Performed By: #### L 100.0100, L504.2610, L500.4050 #### [facility] [address] [place], [address] IG% 0.100 Normal 0.0-0.9 [facility] Comment on above: Result Comment: IG% - Immature Granulocytes (promyelocytes, myelocytes and metamyelocytes) > 1% indicates that a LEFT SHIFT is Present. Performed By: #### L 100.0100, L504.2610, L500.4050 #### [facility] [address] [place], [address] Lymphocytes/100 WBC (Bld) 16.0 % Low 19-41 [facility] Comment on above: Performed By: #### L 100.0100, L504.2610, L500.4050 #### [facility] [address] [place], [address] MCH (RBC) [Entitic mass] 27.9 pg Normal 27.0-32.0 [facility] Comment on above: Performed By: #### L 100.0100, L504.2610, L500.4050 #### [facility] [address] [place], [address] MCHC (RBC) [Mass/Vol] 33.0 g/dL Normal 32-36 [facility] Comment on above: Performed By: #### L 100.0100, L504.2610, L500.4050 #### [facility] [address] [place], [address] MCV (RBC) [Entitic vol] 84.5 fL Normal 80-94 [facility] Comment on above: Performed By: #### L 100.0100, L504.2610, L500.4050 #### [facility] [address] [place], [address] Monocytes/100 WBC (Bld) 12.0 % High 0-10 [facility] Comment on above: Performed By: #### L 100.0100, L504.2610, L500.4050 #### [facility] [address] [place], [address] Neutrophils/100 WBC (Bld) 70.6 % High 47-70 [facility] Comment on above: Performed By: #### L 100.0100, L504.2610, L500.4050 #### [facility] [address] [place], [address] Nucleated RBC (Bld) [#/Vol] 0 10*3/uL Normal 0-5 [facility] Comment on above: Performed By: #### L 100.0100, L504.2610, L500.4050 #### [facility] [address] [place], [address] Platelet mean volume (Bld) [Entitic vol] 9.4 fL Normal 6.2-12.0 [facility] Comment on above: Performed By: #### L 100.0100, L504.2610, L500.4050 #### [facility] [address] [place], [address] Platelets (Bld) [#/Vol] 243 10*3/uL Normal 150-450 [facility] Comment on above: Performed By: #### L 100.0100, L504.2610, L500.4050 #### [facility] [address] [place], [address] RBC (Bld) [#/Vol] 4.91 10*6/uL Normal 4.6-6.2 [facility] Comment on above: Performed By: #### L 100.0100, L504.2610, L500.4050 #### [facility] [address] [place], [address] RDW SD 43.6 fl Normal 35.1-43.9 [facility] Comment on above: Performed By: #### L 100.0100, L504.2610, L500.4050 #### [facility] [address] [place], [address] WBC (Bld) [#/Vol] 7.3 10*3/uL Normal 4.4-11.0 [facility] Comment on above: Performed By: #### L 100.0100, L504.2610, L500.4050 #### [facility] [address] [place], [address] CT Chest AND Abd W/ Contrast on 05-21-2024 CT Chest AND Abd W/ Contrast [facility] Imaging Services [address] [place] [address] CT Chest AND Abd W/ Contrast MR#: [id number] Acct: [id number] Name: ERIC VELA Rep #: [id number] : 1955 M 68 From: Joon Hutchison MD PCP: Dr. Alina Choi MD Status: REG CLI Study: CT Chest AND Abd W/ Contrast Date of Exam: Exam# [id number] Ordering Dr: Mark Combs MD PROCEDURE: CT CHEST AND ABDOMEN WITH CONTRAST REASON FOR EXAM: MONITOR-HX OF ESOPHAGEAL CA. TECHNIQUE: Contiguous axial scans of 2.5 mm slice thicknesses. Sagittal and coronal reconstruction images were obtained. One or more dose reduction techniques were used (e.g., automated exposure control, adjustment of mA and/or kv according to patient size, use of iterative reconstruction technique). CONTRAST: ISOVUE-300 AMOUNT INJECTED: 99 ML. COMPARISON: CT CHEST AND ABDOMEN DATED 05/23/2023. FINDINGS: CT CHEST: Mediastinum: Postoperative findings are noted related to gastric pull-through procedure. Lymph nodes: No mediastinal, hilar, or axillary lymphadenopathy. Heart and Vasculature: Normal heart size. No pericardial effusion. Thoracic aorta and pulmonary arteries are unremarkable. Lungs and Airways: Centrilobular emphysematous changes are redemonstrated. Pleura: No pleural effusion. No pneumothorax. CT ABDOMEN: Liver: Small subcentimeter hypodense nodules are scattered throughout the liver. Gallbladder: Unremarkable. Spleen: Hypodense areas are redemonstrated in the spleen. Pancreas: Unremarkable. Adrenals: Unremarkable. Kidneys: Unremarkable. Bowel: Visualized loops of bowel in the upper abdomen are unremarkable. Lymph nodes: No suspicious lymph node enlargement at the upper abdomen. Vasculature: Severe atherosclerotic calcific disease of the aortoiliac arteries. Peritoneum / Retroperitoneum: No ascites or free air at the upper abdomen. Anterior abdominal wall: Unremarkable. Bones: Multilevel spondylosis. Multilevel degenerative disc disease. CT/CT Chest AND Abd W/ Contrast IMPRESSION: 1. Status post gastric pull-through procedure is redemonstrated and is stable. 2. Centrilobular emphysematous changes are redemonstrated. 3. Subcentimeter nodules in the liver most likely cysts. 4. Hypodense areas in the spleen, cysts or hemangiomas. 5. Other nonacute findings detailed above. Reading Location: [facility] CC: Dr. Alina Choi MD; Dr. Mark Combs MD Service Center Assistant: Signed Normal [facility] Carbon dioxide, total [Moles /volume] in Central venous bloodOrdered By: Mark Combs on 05-21-2024 CO2 [Moles/Vol] 22.1 mmol/L 21.0-32.0 [facility] Chloride assayOrdered By: Magdalena Combs on 05-21-2024 Chloride [Moles/Vol] 106 mmol/L 98-108 [facility] Comprehensive Metabolic Prof ilon 05-21-2024 BUN/CRE 16.8 RATIO Normal 10-20 [facility] Comment on above: Performed By: #### L 100.0100, L504.2610, L500.4050 #### [facility] Laboratory [address] [place], [address] Urea nitrogen [Mass/Vol] 15 mg/dL Normal 4-19 [facility] Comment on above: Performed By: #### L 100.0100, L504.2610, L500.4050 #### [facility] [address] [place], [address] Eosinophil percentageOrdered By: Mark Combs on 05-21-2024 Eosinophils/100 WBC (Bld) 1.0 % 0-5 [facility] Erythrocyte distribution wid th ratioOrdered By: Mark Combs on 05-21-2024 Erythrocyte distribution width (RBC) [Ratio] 14.2 % 11.6-14.6 [facility] Erythrocyte distribution wid th standard deviationOrdered By: Mark Combs on 05-21-2024 Erythrocyte distribution width (RBC) [Entitic vol] 43.6 fL 35.1-43.9 [facility] Erythrocyte distribution width (RBC) [Ratio] 43.6 fl 35.1-43.9 [facility] Estimation of creatinine erlin aranceOrdered By: Mark Combs on 05-21-2024 Estimated Creatinine Clearance Calc 65.96 ml/min 50-250 [facility] GFR/1.73 sq M.predicted christel g non-blacks MDRD (S/P/Bld) [Vol rate/Area]Ordered By: Mark Combs on 05-21-2024 Estimated GFR (MDRD) Non-Af Amer 95 >60 [facility] Comment on above: mL/min/1.73m2 CKD-EP I Creatinine Equation (2020) Glomerular filtration rate ( GFR) estimation/1.73 sq m using serum, plasma, or whole bOrdered By: Mark Combs on 05-21-2024 GFR/1.73 sq M.predicted among non-blacks MDRD (S/P/Bld) [Vol rate/Area] 95 mL/min/{1.73_m2} >60 [facility] Comment on above: mL/min/1.73m2 CKD-EP I Creatinine Equation (2020) Hematocrit Auto (Bld) [Volum e fraction]Ordered By: Mark Combs on 05-21-2024 Hematocrit (Bld) [Volume fraction] 41.5 % 40-54 [facility] Hemoglobin measurementOrdere d By: Mark Combs on 05-21-2024 Hemoglobin (Bld) [Mass/Vol] 13.7 g/dL 13.0-16.5 [facility] Immature granulocytes/100 WB C Auto (Bld)Ordered By: Mark Combs on 05-21-2024 Immature granulocytes/100 WBC (Bld) 0.100 % 0.0-0.9 [facility] Comment on above: IG% - Immature Granu locytes (promyelocytes, myelocytes and metamyelocytes) > 1% indicates that a LEFT SHIFT is Present. LDHon 05-21-2024 LDH 121 U/L Normal 87-241 [facility] Comment on above: Order Comment: 1 Performed By: #### L 100.0100, L504.2610, L500.4050 #### [facility] [address] [facility] [place], [place], [id number] Laboratory - Chemistry and C hemistry - challengeOrdered By: Mark Combs on 05-21-2024 AST [Catalytic activity/Vol] 15 U/L <38 [facility] Lactate dehydrogenase (LDH) measurementOrdered By: Mark Combs on 05-21-2024 LDH [Catalytic activity/Vol] 121 U/L 87-241 [facility] Lymphocytes Auto (Unsp spec) [#/Vol]Ordered By: Mark Combs on 05-21-2024 Lymphocytes (Bld) [#/Vol] 1.17 10*3/uL 0.83-4.51 [facility] Lymphocytes/100 WBC Auto (Un sp spec)Ordered By: Mark Combs on 05-21-2024 Lymphocytes/100 WBC (Bld) 16.0 % Low 19-41 [facility] MCV (mean corpuscular volume ) determinationOrdered By: Mark Combs on 05-21-2024 MCV (RBC) [Entitic vol] 84.5 fL 80-94 [facility] Mean corpuscular hemoglobin (MCH) determinationOrdered By: Mark Combs on 05-21-2024 MCH (RBC) [Entitic mass] 27.9 pg 27.0-32.0 [facility] Mean corpuscular hemoglobin concentration (MCHC) determinationOrdered By: Mark Combs on 05-21-2024 MCHC (RBC) [Mass/Vol] 33.0 g/dL 32-36 [facility] Mean platelet volume determi nationOrdered By: Mark Combs on 05-21-2024 Platelet mean volume (Bld) [Entitic vol] 9.4 fL 6.2-12.0 [facility] Monocyte percentageOrdered B y: Mark Combs on 05-21-2024 Monocytes/100 WBC (Bld) 12.0 % High 0-10 [facility] Neutrophil percentageOrdered By: Mark Combs on 05-21-2024 Neutrophils/100 WBC (Bld) 70.6 % High 47-70 [facility] Nucleated red blood cell per centageOrdered By: Mark Combs on 05-21-2024 Nucleated RBC/100 WBC (Bld) [Ratio] 0 % 0-5 [facility] Platelet countOrdered By: Magdalena Combs on 05-21-2024 Platelets (Bld) [#/Vol] 243 10*3/uL 150-450 [facility] Potassium (Unsp spec) [Mass/ Vol]Ordered By: Mark Combs on 05-21-2024 Potassium [Moles/Vol] 3.9 mmol/L 3.3-5.1 [facility] Potassium measurement (mass/ volume)Ordered By: Mark Combs on 03-17-2025 Potassium (Unsp spec) [Mass/Vol] 3.9 mmol/L 3.3-5.1 [facility] RBC Auto (Bld) [#/Vol]Ordere d By: Mark Combs on 05-21-2024 RBC (Bld) [#/Vol] 4.91 10*6/uL 4.6-6.2 [facility] Serum creatinine measurement (mass/volume)Ordered By: Mark Combs on 05-21-2024 Creatinine [Mass/Vol] 0.88 mg/dL 0.70-1.20 [facility] Serum globulin measurementOr dered By: Mark Combs on 05-21-2024 Globulin (S) [Mass/Vol] 2.8 g/dL 2.2-4.2 [facility] Serum glucose measurement (m ass/volume)Ordered By: Mark Combs on 05-21-2024 Glucose [Mass/Vol] 90 mg/dL 70-99 [facility] Serum or plasma alanine schultz otransferase (ALT) measurementOrdered By: Mark Combs on 05-21-2024 ALT [Catalytic activity/Vol] 7 U/L <47 [facility] Serum or plasma albumin tara urement (mass/volume)Ordered By: Mark Combs on 05-21-2024 Albumin [Mass/Vol] 3.9 g/dL 3.4-4.8 [facility] Serum or plasma albumin/glob ulin mass ratioOrdered By: Mark Combs on 05-21-2024 Albumin/Globulin [Mass ratio] 1.4 {ratio} 0.9-2.4 [facility] Serum or plasma alkaline patricia sphatase measurementOrdered By: Mark Combs on 05-21-2024 ALP [Catalytic activity/Vol] 114 U/L 40-129 [facility] Serum or plasma calcium tara urement (mass/volume)Ordered By: Mark Combs on 05-21-2024 Calcium [Mass/Vol] 8.9 mg/dL 7.6-11.0 [facility] Serum or plasma urea nitroge n measurement (mass/volume)Ordered By: Mark Combs on 05-21-2024 Urea nitrogen [Mass/Vol] 15 mg/dL 4-19 [facility] Sodium levelOrdered By: Mandeep Combs on 05-21-2024 Sodium [Moles/Vol] 137 mmol/L 133-145 [facility] Total proteinOrdered By: Bienvenido eid Ariellecarroll on 05-21-2024 Protein [Mass/Vol] 6.7 g/dL 5.9-8.4 [facility] White blood cell (WBC) count Ordered By: Mark Lauryn on 05-21-2024 WBC (Bld) [#/Vol] 7.3 10*3/uL 4.4-11.0 [facility] CNOVon 03-16-2024 CNOV Office Visit ([facility] ) -- ERIC VELA ([id number]) 1955 M Date Time Provider Department 03/16/24 2:45 PM MICHAEL ROGERS [facility] [place] During your visit today, we recorded the following information about you: Temperature Pulse Respiration Blood pressure 98.5 degrees 100/minute 22/minute 165/90 Weight 53.8 kg Michael Rogers PA 03/16/2024 2:35 PM Signed This note was created using Emunamedicariter. Subjective Eric Vela is a 68 year old male. HPI 68-year-old male presents for concern for dental infection. Patient states he has a broken front tooth which he broke about a month ago. He states it has had increased pain for the past 3 days. He states several weeks ago he took amoxicillin and started hurting and the pain resolved, but now it has returned. He does have a dental appointment next week. He states that he has no drainage from the area. It is difficult to eat due to pain. No fevers. No difficulty swallowing or breathing. No other complaint. 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 MEDICATIONS amoxicillin-clavulanic acid (AUGMENTIN) 400-57 mg/5 mL suspension Take 11 mL by mouth two times a day for 5 days. albuterol HFA (PROVENTIL HFA, VENTOLIN HFA) 90 mcg/actuation inhaler Inhale 2 Puffs as instructed every 4 hours as needed for wheezing/shortness of breath. (Patient not taking: Reported on 03/16/2024) albuterol HFA (PROVENTIL HFA, VENTOLIN HFA) 90 mcg/actuation inhaler Inhale 2 Puffs as instructed every 6 hours as needed for wheezing/shortness of breath. (Patient not taking: Reported on 03/16/2024) jhnpxk-zynvthsh-lnabans (CREON) 36,000-114,000- 180,000 unit delayed release capsule Take 1 capsule by mouth with meals and at bedtime. (Patient not taking: Reported on 12/13/2022) megestrol (MEGACE) 40 mg tablet TAKE 1/2 (ONE-HALF) OF A TABLET TWICE DAILY (Patient not taking: Reported on 12/13/2022) lisinopril (ZESTRIL, PRINIVIL) 5 mg tablet Take 5 mg by mouth once daily. (Patient not taking: Reported on 05/24/2022) dronabinol (MARINOL) 5 mg capsule Take 1 capsule by mouth twice daily before meals for 90 days. (Patient not taking: Reported on 02/25/2021) docusate sodium (COLACE) 100 mg capsule Take 100 mg by mouth once daily. (Patient not taking: Reported on 05/24/2022) lidocaine-prilocaine (EMLA) 2.5-2.5 % cream Apply to affected area. (Patient not taking: Reported on 05/24/2022) ondansetron orally disintegrating (ZOFRAN ODT) 8 mg disintegrating tablet Take 8 mg by mouth every 8 hours as needed for nausea/vomiting. (Patient not taking: Reported on 05/24/2022) pantoprazole DR (PROTONIX) 40 mg tablet Take 40 mg by mouth once daily. (Patient not taking: Reported on 05/24/2022) atorvastatin (LIPITOR) 40 mg tablet Take 40 mg by mouth once daily. (Patient not taking: Reported on 05/24/2022) clopidogrel (PLAVIX) 75 mg tablet Take 75 mg by mouth once daily. (Patient not taking: Reported on 05/24/2022) FAMILY HISTORY Problem Relation Age of Onset Hypertension Mother Heart disease Mother heart ablations Cancer Father Skin cancer Heart disease Father Emphysema Father Social History Tobacco Use Smoking status: Every Day Current packs/day: 0.25 Average packs/day: 0.3 packs/day for 40.0 years (10.0 ttl pk-yrs) Types: Cigarettes Start date: 07/05/2021 Smokeless tobacco: Never Vaping Use Vaping status: Never Used Substance Use Topics Alcohol use: Not Currently Alcohol/week: 6.0 standard drinks of alcohol Types: 6 Cans of Beer (12oz) per week Comment: Hasn't drank for over a month 07/13/2020 Drug use: Not Currently Frequency: 7.0 times per week Types: Marijuana Comment: last use yesterday Review of Systems Constitutional: Negative for chills and fever. HENT: Positive for dental problem. Negative for congestion and sore throat. Respiratory: Negative for cough and shortness of breath. Gastrointestinal: Negative for diarrhea and vomiting. Objective BP 165/90 Pulse 100 Temp 36.9 ?C (98.5 ?F) Resp 22 Wt 53.8 kg (118 lb 9.7 oz) SpO2 98% BMI 17.02 kg/m? Physical Exam Vitals and nursing note reviewed. Constitutional: General: He is not in acute distress. Appearance: Normal appearance (more content not included)... Normal [facility] Basophil percentageOrdered B y: Mark Combs on 05-23-2023 Basophil percentage < 1.0 mg/dL 0.70-1.30 [facility] No Panel InformationOrdered By: Mark Combs on 05-23-2023 Bedside Estimated GFR (eGFR) > 60.0000 mL/min >60 [facility] Absolute lymphocyte countOrd ered By: Mark Combs on 05-20-2023 Lymphocytes Auto (Unsp spec) [#/Vol] 1.23 10*3/uL 0.83-4.51 [facility] Automated lymphocyte count a s percentage of total leukocytesOrdered By: Mark Combs on 05-20-2023 Lymphocytes/100 WBC Auto (Unsp spec) 16.7 % 19-41 [facility] Basophil percentageOrdered B y: Mark Combs on 05-20-2023 Basophils/100 WBC (Bld) 0.5 % 0-1 [facility] Bilirubin [Mass/Vol] 0.40 mg/dL 0.20-1.00 [facility] Comment on above: For patients on eltr ombopag therapy, use of Dimension [place] TBIL is not recommended. Chloride [Moles/Vol] 107 mmol/L 98-107 [facility] Eosinophils/100 WBC (Bld) 1.2 % 0-5 [facility] Glucose [Mass/Vol] 180 mg/dL 74-106 [facility] Comment on above: Fasting Glucose resu lt greater than or equal to 126 mg/dL suggests DIABETES MELLITUS per A.D.A. criteria. Hemoglobin (Bld) [Mass/Vol] 12.1 g/dL 13.0-16.5 [facility] LDH [Catalytic activity/Vol] 110 U/L 87-241 [facility] Monocytes/100 WBC (Bld) 11.8 % 0-10 [facility] Neutrophils (Bld) [#/Vol] 5.1 10*3/uL 2.0-7.7 [facility] Neutrophils/100 WBC (Bld) 68.8 % 47-70 [facility] Potassium [Moles/Vol] 3.7 mmol/L 3.5-5.1 [facility] Protein [Mass/Vol] 6.5 g/dL 6.4-8.2 [facility] Sodium [Moles/Vol] 137 mmol/L 136-145 [facility] WBC (Bld) [#/Vol] 7.4 10*3/uL 4.4-11.0 [facility] Determination of erythrocyte mean corpuscular volume (MCV)Ordered By: Mark Guzmáncarroll on 05-20-2023 MCV (RBC) [Entitic vol] 82.0 fL 80-94 [facility] Erythrocyte distribution wid th ratioOrdered By: Mark Combs on 05-20-2023 Erythrocyte distribution width (RBC) [Ratio] 15.0 % 11.6-14.6 [facility] Erythrocyte distribution wid th standard deviationOrdered By: Mark Combs on 05-20-2023 Erythrocyte distribution width (RBC) [Entitic vol] 44.0 fL 35.1-43.9 [facility] Estimated glomerular filtrat ion rate (GFR) AmericanOrdered By: Mark Combs on 05-20-2023 Estimated GFR (MDRD) Amer 99 mL/min >60 [facility] Comment on above: GFR Calc Ferritin measurementOrdered By: Mark Combs on 05-20-2023 Ferritin [Mass/Vol] 46 ng/mL 26-388 [facility] Folic acid measurementOrdere d By: Mark Combs on 05-20-2023 Folate 3.60 ng/mL 3.1-55.4 [facility] Hematocrit Auto (Bld) [Volum e fraction]Ordered By: Mark Combs on 05-20-2023 Hematocrit (Bld) [Volume fraction] 38.7 % 40-54 [facility] Immature granulocytes/100 WB C Auto (Bld)Ordered By: Mark Combs on 05-20-2023 Immature granulocytes/100 WBC (Bld) 1.000 % 0.0-0.9 [facility] Comment on above: IG% - Immature Granu locytes (promyelocytes, myelocytes and metamyelocytes) > 1% indicates that a LEFT SHIFT is Present. Iron (Unsp spec) [Mass/Mass] Ordered By: Mark Combs on 05-20-2023 Iron [Mass/Vol] 37 ug/dL Low 65-175 [facility] Iron measurement (mass/mass) Ordered By: Mark Combs on 05-20-2023 Iron (Unsp spec) [Mass/Mass] 37 ug/dL Low 65-175 [facility] Iron saturation [Mass fracti on]Ordered By: Mark Combs on 05-20-2023 Iron Saturation 13.9 % Low 15.0-55.0 [facility] Laboratory - Chemistry and C hemistry - challengeOrdered By: Mark Combs on 05-20-2023 Albumin/Globulin [Mass ratio] 0.7 {ratio} 0.9-2.4 [facility] ALP [Catalytic activity/Vol] 98 U/L 45-117 [facility] ALT [Catalytic activity/Vol] 13 U/L 16-61 [facility] CO2 [Moles/Vol] 24.0 mmol/L 21.0-32.0 [facility] Globulin (S) [Mass/Vol] 3.9 g/dL 2.2-4.2 [facility] Urea nitrogen/Creatinine [Mass ratio] 14.3 mg/mg 10-20 [facility] Laboratory - Hematology and Cell countsOrdered By: Mark Combs on 05-20-2023 MCH (RBC) [Entitic mass] 25.6 pg 27.0-32.0 [facility] MCHC (RBC) [Mass/Vol] 31.3 g/dL 32-36 [facility] Nucleated RBC/100 WBC (Bld) [Ratio] 0 % 0-5 [facility] Platelet mean volume (Bld) [Entitic vol] 9.1 fL 6.2-12.0 [facility] Platelets (Bld) [#/Vol] 390 10*3/uL 150-450 [facility] No Panel InformationOrdered By: Mark Combs on 05-20-2023 Estimated Creatinine Clearance Calc 60.39 ml/min [facility] Estimated GFR (MDRD) Non-Af Amer 82 mL/min >60 [facility] Comment on above: Non- GFR Calc RBC Auto (Bld) [#/Vol]Ordere d By: Mark Combs on 05-20-2023 RBC (Bld) [#/Vol] 4.72 10*6/uL 4.6-6.2 [facility] Serum or plasma calcium tara urement (mass/volume)Ordered By: Mark Combs on 05-20-2023 Calcium [Mass/Vol] 8.2 mg/dL 8.5-10.1 [facility] Serum or plasma carcinoembry onic antigen measurement (mass/volume)Ordered By: Mark Combs on 05-20-2023 Carcinoembryonic Ag [Mass/Vol] 2.8 ng/mL 0.0-4.7 [facility] Comment on above: Nonsmokers <3.9 Smok ers <5.6[employer] Electrochemiluminescence Immunoassay(ECLIA)Values obtained with different assay methods or kitscannot be used interchangeably. Results cannot beinterpreted as absolute evidence of the presence orabsence of malignant disease.Performed at: [facility] [id number] Director: Asad Urena PhD, Phone: [phone] Serum or plasma creatinine m easurement (mass/volume)Ordered By: Mark Comsb on 05-20-2023 Creatinine [Mass/Vol] 0.98 mg/dL 0.70-1.30 [facility] Comment on above: The validity of the calculated GFR & GFRAA in patients over 70 years has not been determined. Clinical correlation is essential. Serum or plasma iron saturat ion measurement (mass fraction)Ordered By: Mark Combs on 05-20-2023 Iron saturation [Mass fraction] 13.9 % Low 15.0-55.0 [facility] Serum or plasma urea nitroge n measurement (mass/volume)Ordered By: Mark Combs on 05-20-2023 Urea nitrogen [Mass/Vol] 14 mg/dL 7-18 [facility] TIBCOrdered By: aMrk Combs on 05-20-2023 Total Iron Binding Capacity 267 ug/dL 250-450 [facility] Thin prep Papanicolaou smear with manual screeningOrdered By: Mark Combs on 05-20-2023 Thin prep Papanicolaou smear with manual screening 2.6 g/dL 3.2-5.0 [facility] Thin prep Papanicolaou smear with manual screening 9 U/L 15-37 [facility] Thin prep Papanicolaou smear with manual screening 6 5-15 [facility] Vitamin B12 measurementOrder ed By: Mark Combs on 05-20-2023 Cobalamin (Vitamin B12) [Mass/Vol] 214 pg/mL 211-911 [facility] CNOVon 05-11-2023 CNOV Office Visit ([facility] ) -- ERIC VELA ([id number]) 1955 M Date Time Provider Department 05/11/23 11:30 AM LIZ PRITCHETTJEMIMA During your visit today, we recorded the following information about you: Temperature Pulse Respiration Blood pressure 97.2 degrees 85/minute 18/minute 122/78 Weight 54.6 kg Liz Pritchett APRN.CNP 05/11/2023 12:37 PM Signed This note was created using Emunamedicariter. Subjective Eric Vela is a 67 year old male. 67 year old male with HTN, GERD, esophageal CA (3 years remission), asthma/COPD presents for illness. Acute onset 2 weeks ago + cough +productive +green sputum +chest congestion +headache + fever Denies hemoptysis Denies CP Denies feelings of dizziness and lightheaded +tobacco usage +cannabis usage Has home albuterol He is scheduled for CT imaging next week related to his history of esophageal carcinoma. The history is provided by the patient. 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 Cough This is a new problem. The current episode started more than 1 week ago. The problem occurs constantly. The problem has been gradually worsening. The cough is Productive of sputum. There has been no fever. Associated symptoms include chills, rhinorrhea, shortness of breath and wheezing. Pertinent negatives include no chest pain, no sweats, no weight loss, no ear congestion, no ear pain, no headaches, no sore throat, no myalgias and no eye redness. He has tried nothing for the symptoms. The treatment provided no relief. He is a smoker. His past medical history is significant for COPD and asthma. His past medical history does not include bronchitis, pneumonia, bronchiectasis or emphysema. PAST MEDICAL HISTORY Diagnosis Date COPD (chronic obstructive pulmonary disease) (HCC) DVT of popliteal vein (HCC) 2018 Essential hypertension GERD (gastroesophageal reflux disease) Hyperlipemia Malignant neoplasm of overlapping sites of esophagus (HCC) PAST SURGICAL HISTORY Procedure Laterality Date COLONOSCOPY GEN ANES 2020 X2 2017 AND 2020 EGD - BALLOON DILATION <30MM 01/22/2021 EGD W/O BRSH SPEC VARICIES INJ 2020 PAST SURGICAL HISTORY OF 07/2020 Laparoscopic jejunostomy tube placement with mediport PAST SURGICAL HISTORY OF 11/2020 ESOPHAGECTOMY REVISE MEDIAN N/CARPAL TUNNEL SURG Left IN EARLY 1999' TONSILLECTOMY AND ADENOIDECTOMY A CHILD ALLERGIES Patient has no known allergies. MEDICATIONS prednisoLONE sodium phosphate (ORAPRED) 15 mg/5 mL (3 mg/mL) oral liquid Take 18.2 mL by mouth once daily for 5 days. azithromycin (ZITHROMAX) 200 mg/5 mL suspension Take 12.5 mL by mouth once daily for 1 day, THEN 6.8 mL once daily for 4 days. albuterol HFA (PROVENTIL HFA, VENTOLIN HFA) 90 mcg/actuation inhaler Inhale 2 Puffs as instructed every 4 hours as needed for wheezing/shortness of breath. Inhalational Spacing Device 1 Device one time only for 1 dose. albuterol HFA (PROVENTIL HFA, VENTOLIN HFA) 90 mcg/actuation inhaler Inhale 2 Puffs as instructed every 6 hours as needed for wheezing/shortness of breath. ouredb-zoyqlgsl-ngaqmgx (CREON) 36,000-114,000- 180,000 unit delayed release capsule Take 1 capsule by mouth with meals and at bedtime. (Patient not taking: Reported on 12/13/2022) megestrol (MEGACE) 40 mg tablet TAKE 1/2 (ONE-HALF) OF A TABLET TWICE DAILY (Patient not taking: Reported on 12/13/2022) lisinopril (ZESTRIL, PRINIVIL) 5 mg tablet Take 5 mg by mouth once daily. (Patient not taking: Reported on 05/24/2022) dronabinol (MARINOL) 5 mg capsule Take 1 capsule by mouth twice daily before meals for 90 days. (Patient not taking: Reported on 02/25/2021) docusate sodium (COLACE) 100 mg capsule Take 100 mg by mouth once daily. (Patient not taking: Reported on 05/24/2022) lidocaine-prilocaine (EMLA) 2.5-2.5 % cream Apply to affected area. (Patient not taking: Reported on 05/24/2022) ondansetron orally disintegrating (ZOFRAN ODT) 8 mg disintegrating tablet Take 8 mg by mouth every 8 hours as needed for nausea/vomiting. (Patient not taking: Reported on 05/24/2022) pantoprazole DR (PROTONIX) 40 mg tablet Take 40 mg by mouth once daily. (Patient not taking: Reported on 05/24/2022) atorvastatin (LIPITOR) 40 mg tablet Take 40 mg by mouth once daily. (Patient not taking: Reported on 05/24/2022) clopidogrel (PLAVIX) 75 mg tablet Take 75 mg by mouth once daily. (Patient not taking: Reported on 05/24/2022) FAMILY HISTORY Problem Relation Age of Onset Hypertension Mother Heart disease Mother heart ablations Cancer Father Skin cancer Heart disease Father Emphysema Father Social History Tobacco Use Smoking status: Every Day Packs/day: 0.25 Years: 40.00 Additional pack years: 0.00 Total pack years: 10.00 Types: Cigarettes Start date: 07/05/2021 Smokeless tobacco: Never Vaping Use Vaping Use: Never used Substance Use Topic (more content not included)... Normal [facility] XR CHEST 2V FRONTAL/LATon XR CHEST 2V FRONTAL/LAT * * *Final Report* * * DATE OF EXAM: May 11 2023 12:05PM WOX [id number] - XR CHEST 2V FRONTAL/LAT / PROCEDURE REASON: Acute cough * * * * Physician Interpretation * * * * EXAMINATION: CHEST RADIOGRAPH (2 VIEW FRONTAL and LATERAL) CLINICAL HISTORY: Acute cough MQ: XC2_6 EXAM DATE/TIME: 05/11/2023 12:05 PM COMPARISON: 05/24/2022. RESULT: Lines, tubes, and devices: A left portacatheter remains in place. Lungs and pleura: There is bilateral pulmonary emphysema. There are increased bronchovascular markings in both lower lungs suggestive of mild pulmonary fibrosis. Chronic changes of bronchitis in the left lower lung cannot be excluded. There is a small metallic foreign body in the anterior aspect of the left lower chest. No consolidation. No lung mass. No pleural effusion. No pneumothorax. Cardiomediastinal silhouette: Normal cardiomediastinal silhouette. Bones and soft tissues: Unremarkable. IMPRESSION: Chronic and nonspecific parenchymal changes in the lung bases and predominantly on the left. A follow-up exam is recommended. Service Center Assistant: SHANE Transcribe Date/Time: May 11 2023 12:07P Dictated by : NIMISHA MIMS MD This examination was interpreted and the report reviewed and electronically signed by: NIMISHA MIMS MD on May 11 2023 12:09PM EST [id number] Normal [facility] XR Chest PA and Lateralon IMPRESSION: Chronic and nonspecific parenchymal changes in the lung bases and predominantly on the left. A follow-up exam is recommended. Service Center Assistant: SHANE Transcribe Date/Time: May 11 2023 12:07P Dictated by : NIMISHA MIMS MD This examination was interpreted and the report reviewed and electronically signed by: NIMISHA MIMS MD on May 11 2023 12:09PM EST DIVISION OF RADIOLOGY * * *Final Report* * * DATE OF EXAM: May 11 2023 12:05PM WOX [id number] - XR CHEST 2V FRONTAL/LAT / PROCEDURE REASON: Acute cough * * * * Physician Interpretation * * * * EXAMINATION: CHEST RADIOGRAPH (2 VIEW FRONTAL & LATERAL) CLINICAL HISTORY: Acute cough MQ: XC2_6 EXAM DATE/TIME: 05/11/2023 12:05 PM COMPARISON: 05/24/2022. RESULT: Lines, tubes, and devices: A left portacatheter remains in place. Lungs and pleura: There is bilateral pulmonary emphysema. There are increased bronchovascular markings in both lower lungs suggestive of mild pulmonary fibrosis. Chronic changes of bronchitis in the left lower lung cannot be excluded. There is a small metallic foreign body in the anterior aspect of the left lower chest. No consolidation. No lung mass. No pleural effusion. No pneumothorax. Cardiomediastinal silhouette: Normal cardiomediastinal silhouette. Bones and soft tissues: Unremarkable. DIVISION OF RADIOLOGY Provider, [facility] - 05/11/2023 * * *Final Report* * * DATE OF EXAM: May 11 2023 12:05PM WOX [id number] - XR CHEST 2V FRONTAL/LAT / PROCEDURE REASON: Acute cough * * * * Physician Interpretation * * * * EXAMINATION: CHEST RADIOGRAPH (2 VIEW FRONTAL & LATERAL) CLINICAL HISTORY: Acute cough MQ: XC2_6 EXAM DATE/TIME: 05/11/2023 12:05 PM COMPARISON: 05/24/2022. RESULT: Lines, tubes, and devices: A left portacatheter remains in place. Lungs and pleura: There is bilateral pulmonary emphysema. There are increased bronchovascular markings in both lower lungs suggestive of mild pulmonary fibrosis. Chronic changes of bronchitis in the left lower lung cannot be excluded. There is a small metallic foreign body in the anterior aspect of the left lower chest. No consolidation. No lung mass. No pleural effusion. No pneumothorax. Cardiomediastinal silhouette: Normal cardiomediastinal silhouette. Bones and soft tissues: Unremarkable. IMPRESSION IMPRESSION: Chronic and nonspecific parenchymal changes in the lung bases and predominantly on the left. A follow-up exam is recommended. Service Center Assistant: PSCMac Transcribe Date/Time: May 11 2023 12:07P Dictated by : NIMISHA MIMS MD This examination was interpreted and the report reviewed and electronically signed by: NIMISHA MIMS MD on May 11 2023 12:09PM EST [facility] Radiology Study observation (narrative) [facility] XR Chest PA and LateralOrder ed By: [facility] Provider on 05-11-2023 [facility] ANES POSTPROC EVALon 023 ANES POSTPROC EVAL HNO ID: [id number] Author: Makr Jeffery MD Service: Anesthesiology Author Type: Physician Type: Anesthesia Postprocedure Evaluation Filed: 12/13/2022 10:24 AM Note Text: POST ANESTHESIA EVALUATION NOTE : 1955 Procedure Summary Date: 12/13/22 Room / Location: MD ENDO Anesthesia Start: 813 Anesthesia Stop: 841 Procedure: EGD - THERAPEUTIC, EUS, OR TUBE INTERVENTIONS Diagnosis: Esophageal dysphagia (Dysphagia) Scheduled Providers: Edis Call MD Responsible Provider: Mark Jeffery MD Anesthesia Type: MAC ASA Status: 3 Anesthesia Type: MAC Last Vitals Vitals Value Taken Time BP 113/76 12/13/22 0854 Temp 36.4 ?C (97.5 ?F) 12/13/22 0838 Pulse 52 12/13/22 0854 Resp 20 12/13/22 0854 SpO2 97 % 12/13/22 0854 Post Anesthesia Patient Status Patient Evaluation: bedside. Pulmonary Status: breathing comfortably on supplemental oxygen Cardiovascular Status: stable. Intraoperative Events: no significant anesthesia events Recommendation: continue current plan of care. Anesthesia Observations No Documentation SIGNATURE: Mark Jeffery MD PATIENT NAME: Eric Vela DATE: December 13, 2022 TIME: 10:24 AM CSN: [id number] Normal [facility] ANES PRE-OPon 12-13-2022 ANES PRE-OP HNO ID: [id number] Author: Mark Jeffery MD Service: Anesthesiology Author Type: Physician Type: Anesthesia Preprocedure Evaluation Filed: 12/13/2022 8:18 AM Note Text: ANESTHESIOLOGY DAY OF SURGERY NOTE : 1955 Procedure Information Date/Time: 12/13/22 08 Scheduled providers: Edis Call MD Procedure: EGD - THERAPEUTIC, EUS, OR TUBE INTERVENTIONS Location: [facility] Estimated body mass index is 17.79 kg/m? as calculated from the following: Height as of this encounter: 177.8 cm (5' 10). Weight as of this encounter: 56.2 kg (124 lb). Most recent hematocrit and potassium results: Hematocrit 35.3 10/19/2021 Hematocrit (POCT) 36 11/06/2020 Potassium 4.0 10/19/2021 Potassium (POCT) 4.7 11/06/2020 Relevant Problems CARDIO (+) Chronic deep vein thrombosis (DVT) of proximal vein of lower extremity (HCC) (+) Hypertension GI (+) Gastroesophageal reflux disease with esophagitis (+) Hiatal hernia I - PHYSICAL EVALUATION AIRWAY Patient intubated: No. Tracheostomy tube not present Mallampati: III. TM distance: >3 FB. Neck ROM: full ROM without neurological symptoms. Mouth opening: adequate. Short neck: no. Thick neck: no Newton present: yes DENTAL Normal dental observations. II - ANESTHESIA PLAN ASA Score: 3 Anesthetic Plan: MAC NPO Status: adequate Beta Beverly Administration of chronic beta beverly medication not planned. Reasons for not administering beta beverly perioperatively: other Monitoring Plan Monitoring plan: standard ASA. Post Procedure Analgesic Plan Postoperative analgesic plan: parenteral or oral opioids and per surgical service. Informed Consent Anesthetic risks, benefits, alternatives, personnel and consent discussed: yes. Patient / Responsible Green Party agrees to proceed: yes Patient / Surrogate agrees to blood products: blood products not planned Discussed the possibility of lip / dental damage: yes Vitals Value Taken Time BP 145/83 12/13/22 0741 Pulse 48 10/09/23 0741 Resp 15 12/13/22740 Temp 36.7 ?C (98.1 ?F) 12/13/22740 SpO2 100 % 12/13/22740 Outpatient Medications as of 12/13/2022 Medication Sig - albuterol HFA (PROVENTIL HFA, VENTOLIN HFA) 90 mcg/actuation inhaler Inhale 2 Puffs as instructed every 6 hours as needed for wheezing/shortness of breath. - utgwpc-qvqgwupd-ztyxdze (CREON) 36,000-114,000- 180,000 unit delayed release capsule Take 1 capsule by mouth with meals and at bedtime. (Patient not taking: Reported on 12/13/2022) - megestrol (MEGACE) 40 mg tablet TAKE 1/2 (ONE-HALF) OF A TABLET TWICE DAILY (Patient not taking: Reported on 12/13/2022) - lisinopril (ZESTRIL, PRINIVIL) 5 mg tablet Take 5 mg by mouth once daily. (Patient not taking: Reported on 05/24/2022) - dronabinol (MARINOL) 5 mg capsule Take 1 capsule by mouth twice daily before meals for 90 days. (Patient not taking: Reported on 02/25/2021) - docusate sodium (COLACE) 100 mg capsule Take 100 mg by mouth once daily. (Patient not taking: Reported on 05/24/2022) - lidocaine-prilocaine (EMLA) 2.5-2.5 % cream Apply to affected area. (Patient not taking: Reported on 05/24/2022) - ondansetron orally disintegrating (ZOFRAN ODT) 8 mg disintegrating tablet Take 8 mg by mouth every 8 hours as needed for nausea/vomiting. (Patient not taking: Reported on 05/24/2022) - pantoprazole DR (PROTONIX) 40 mg tablet Take 40 mg by mouth once daily. (Patient not taking: Reported on 05/24/2022) - atorvastatin (LIPITOR) 40 mg tablet Take 40 mg by mouth once daily. (Patient not taking: Reported on 05/24/2022) - clopidogrel (PLAVIX) 75 mg tablet Take 75 mg by mouth once daily. (Patient not taking: Reported on 05/24/2022) Facility-Administered Medications as of 12/13/2022 Medication Dose Route Frequency - lactated ringers iv infusion 30 mL/hr INTRAVENOUS CONTINUOUS I have interviewed and examined the patient. I have reviewed the medical record and/or the pre-anesthesia evaluation, pertinent labs, and test results. This contains updated information obtained within 48 hours of Surgery/Procedure. SIGNATURE: Mark Jeffery MD PATIENT NAME: Eric Vela DATE: December 13, 2022 TIME: 8:11 AM CSN: [id number] Normal [facility] EGD - THERAPEUTIC, EUS, OR T UBE INTERVENTIONSon 12-13-2022 [facility] HISTORY PHYSICALon HISTORY PHYSICAL HNO ID: [id number] Author: Mamta Jimenez APRN.DRAFTING DETAILER Service: ? Author Type: Nurse Practitioner Type: HANDP Filed: 12/13/2022 8:06 AM Note Text: HISTORY AND PHYSICAL EXAMINATION SERVICE DATE: 12/13/2022 SERVICE TIME: 7:38 AM PRIMARY CARE PHYSICIAN: Alina Choi MD REASON FOR VISIT: Eric Vela is a 66 year old male who is scheduled for EGD at the request of Dr. Call for routine HANDP. The reason for this visit is to perform a comprehensive review of the patient's past medical history, assess their current health status and obtain any additional testing required based on anesthesia guidelines. We will also identify any potential anesthesia problems or contraindications to the planned procedure. The patient has the following: ACTIVE PROBLEM LIST Hypertension Hyperlipidemia Gastroesophageal Reflux Disease With Esophagitis Chronic Deep Vein Thrombosis (Dvt) of Proximal Vein of Lower Extremity (Hcc) Esophageal Cancer (Hcc) Nicotine use disorder, F17.2 Esophageal Adenocarcinoma (Hcc) Malnutrition of Moderate Degree (Hcc) Hiatal Hernia Subjective CHIEF COMPLAINT: Dysphagia HPI: Patient is a 66 year old male who presents to endo for the above procedure. Pt complaint of difficulty swallowing solids and liquids. His last EGD was 1 year ago with dilation. He has a H/O esophageal cancer. Denies abdominal pain, Nausea, vomiting, constipation, diarrhea, hemtochezia at this time. Patient agrees to proceed with procedure. PAST MEDICAL HISTORY Diagnosis Date COPD (chronic obstructive pulmonary disease) (HCC) DVT of popliteal vein (HCC) 2017 Essential hypertension GERD (gastroesophageal reflux disease) Hyperlipemia Malignant neoplasm of overlapping sites of esophagus (HCC) PAST SURGICAL HISTORY Procedure Laterality Date COLONOSCOPY GEN ANES 2020 X2 2017 AND 2020 EGD - BALLOON DILATION <30MM 01/22/2021 EGD W/O BRSH SPEC VARICIES INJ 2020 PAST SURGICAL HISTORY OF 07/2020 Laparoscopic jejunostomy tube placement with mediport PAST SURGICAL HISTORY OF 11/2020 ESOPHAGECTOMY REVISE MEDIAN N/CARPAL TUNNEL SURG Left IN EARLY TONSILLECTOMY AND ADENOIDECTOMY A CHILD FAMILY HISTORY Problem Relation Age of Onset Hypertension Mother Heart disease Mother heart ablations Cancer Father Skin cancer Heart disease Father Emphysema Father SOCIAL HISTORY: Social History Tobacco Use Smoking status: Every Day Packs/day: 0.25 Years: 40.00 Additional pack years: 0.00 Total pack years: 10.00 Types: Cigarettes Start date: 07/05/2021 Smokeless tobacco: Never Substance Use Topics Alcohol use: Not Currently Alcohol/week: 15.0 standard drinks of alcohol Types: 6 Cans of Beer (12oz) per week Comment: Hasn't drank for over a month 07/13/2020 Drug use: Not Currently Types: Marijuana Comment: not for a month Prior to Admission medications as of 12/13/22 0738 Medication Sig Last Dose Taking albuterol HFA (PROVENTIL HFA, VENTOLIN HFA) 90 mcg/actuation inhaler Inhale 2 Puffs as instructed every 6 hours as needed for wheezing/shortness of breath. sqskid-nkcfurvr-rlgidhz (CREON) 36,000-114,000- 180,000 unit delayed release capsule Take 1 capsule by mouth with meals and at bedtime. Patient not taking: Reported on 12/13/2022 Not Taking megestrol (MEGACE) 40 mg tablet TAKE 1/2 (ONE-HALF) OF A TABLET TWICE DAILY Patient not taking: Reported on 12/13/2022 Not Taking lisinopril (ZESTRIL, PRINIVIL) 5 mg tablet Take 5 mg by mouth once daily. Patient not taking: Reported on 05/24/2022 dronabinol (MARINOL) 5 mg capsule Take 1 capsule by mouth twice daily before meals for 90 days. Patient not taking: Reported on 02/25/2021 docusate sodium (COLACE) 100 mg capsule Take 100 mg by mouth once daily. Patient not taking: Reported on 05/24/2022 lidocaine-prilocaine (EMLA) 2.5-2.5 % cream Apply to affected area. Patient not taking: Reported on 05/24/2022 ondansetron orally disintegrating (ZOFRAN ODT) 8 mg disintegrating tablet Take 8 mg by mouth every 8 hours as needed for nausea/vomiting. Patient not taking: Reported on 05/24/[address] (PROTONIX) 40 mg tablet Take 40 mg by mouth once daily. Patient not taking: Reported on 05/24/2022 atorvastatin (LIPITOR) 40 mg tablet Take 40 mg by mouth once daily. Patient not taking: Reported on 05/24/2022 clopidogrel (PLAVIX) 75 mg tablet Take 75 mg by mouth once daily. Patient not taking: Reported on 05/24/2022 No medication comments found. ALLERGIES No Known Allergies REVIEW OF SYSTEMS: PAIN ASSESSMENT: Pain Pain Level: 0 Pain Assessment: Assessment Tool: Verbal (Numeric Rating or Visual Analog Scale) General: Denies fever, chills, and unexpected weight change. Neuro: Denies dizziness and headaches. Respiratory: SOB/exertion or productive cough. +COPD, +smoker Cardiovascular: Denies CP and palpitations. +HTN, +HLD GI: see HPI : Denies dysuria. Endocrine: No history (more content not included)... Normal [facility] Upper GI endoscopyon 023 Upper GI endoscopy [facility] Gastrointestinal Endoscopy Patient Name: Eric Vela Procedure Date: 12/13/2022 7:48 AM Date of : 1955 Admit Type: Outpatient Room: [place] [address] Gender: Male Note Status: Finalized Attending MD: Edis Call MD Procedure: Upper GI endoscopy Indications: Dysphagia, Personal history of malignant esophageal neoplasm Providers: Edis Call MD Patient Profile: Refer to note in patient chart for documentation of history and physical. Referring Physician: Edis Call MD (Referring MD) Medicines: Monitored Anesthesia Care Complications: No immediate complications. Procedure: Pre-Anesthesia Assessment: - Meredith Protocol: - Pre-procedure Verification: Prior to the procedure, the patient's identity was verified by full name and date of . The patient's identity was verified on all pertinent medical records, including History and Physical and pre-anesthesia assessment. Also prior to the procedure, a History and Physical was performed, and patient medications, allergies and sensitivities were reviewed. The patient's tolerance of previous anesthesia was reviewed. The patient is competent. The risks and benefits of the procedure and the sedation options and risks were discussed with the patient. All questions were answered and informed consent was obtained. - Marking: The endoscopic procedure was visually marked on a patient wrist band delineating the patient name, proposed procedure and endoscopist's initials. - Time-Out: Prior to the start of the procedure, the patient's identification, proposed procedure, accurate signed consent, correctly labeled images and records, and need for prophylactic antibiotics were verified by the physician, the nurse, the bench machine operator and the nail technician teacher in the endoscopy suite. - This assessment was completed at 08:00 AM, prior to the administration of sedation. After obtaining informed consent, the endoscope was passed under direct vision. Throughout the procedure, the patient's blood pressure, pulse, and oxygen saturations were monitored continuously. The Endoscope was introduced through the mouth, and advanced to the duodenal bulb. I was present and participated during the entire procedure, including non-guzman portions, and during the administration and monitoring of Moderate Sedation. The upper GI endoscopy was accomplished with ease. The patient tolerated the procedure well. Moderate Sedation: An independent trained observer was present and continuously monitored the patient. Exam was performed under monitored anesthesia care (MAC) Findings: Anastomosis at approximately 18 cm with slight stricture and scar. No obvious signs of recurrence A TTS dilator was passed through the scope. Dilation with a 15-16.5-18 mm anastomotic balloon dilator was performed. Estimated blood loss was minimal. Gastric conduit was normal with no significant retained fluid/food. Pylorus was widely patent The in the duodenum was normal. Estimated Blood Loss: Estimated blood loss was minimal. Impression: - Normal. - No specimens collected. - Esophageal stenosis. Dilated. Recommendation: - Written discharge instructions were provided to the patient. - Resume previous diet. - The patient is not currently taking anticoagulant or antiplatelet agents. Procedure Code(s): --- Professional --- 03898, Esophagogastroduodenoscopy , flexible, transoral; with transendoscopic balloon dilation of esophagus (less than 30 mm diameter) --- Technical --- 30508, Esophagogastroduodenoscopy , flexible, transoral; with transendoscopic balloon dilation of esophagus (less than 30 mm diameter) CPT copyright 2020 [employer]. All rights reserved. The codes documented in this report are preliminary and upon combat systems operator mine warfare review may be revised to meet current compliance requirements. Attending Participation: I personally performed the entire procedure. Scope In: 8:19:13 AM Scope Out: 8:31:54 AM MD Edis Kingsley MD 12/13/2022 8:45:18 AM This report has been signed electronically by Edis Call MD Number of Addenda: 0 Note Initiated On: 12/13/2022 7:48 AM Normal [facility] Basophil percentageOrdered B y: Mark Combs on 11-24-2022 Creatinine [Mass/Vol] 1.4 mg/dL 0.70-1.30 [facility] Laboratory - Chemistry and C hemistry - challengeOrdered By: Mark Combs on 11-24-2022 GFR/1.73 sq M.predicted among non-blacks MDRD (S/P/Bld) [Vol rate/Area] 52.0000 mL/min/{1.73_m2} >60 [facility] Absolute lymphocyte countOrd ered By: Dr. Combs on 05-27-2022 Lymphocytes Auto (Unsp spec) [#/Vol] 1.21 10*3/uL 0.83-4.51 [facility] Basophil percentageOrdered B y: Dr. Combs on 05-27-2022 Basophils/100 WBC (Bld) 0.6 % 0-1 [facility] Bilirubin [Mass/Vol] 0.40 mg/dL 0.20-1.00 [facility] Comment on above: For patients on eltr ombopag therapy, use of Dimension [place] TBIL is not recommended. Chloride [Moles/Vol] 107 mmol/L 98-107 [facility] Eosinophils/100 WBC (Bld) 2.6 % 0-5 [facility] Glucose [Mass/Vol] 96 mg/dL 74-106 [facility] LDH [Catalytic activity/Vol] 144 U/L 87-241 [facility] Neutrophils (Bld) [#/Vol] 1.8 10*3/uL 2.0-7.7 [facility] Neutrophils/100 WBC (Bld) 50.5 % 47-70 [facility] Potassium [Moles/Vol] 4.1 mmol/L 3.5-5.1 [facility] Protein [Mass/Vol] 7.4 g/dL 6.4-8.2 [facility] Sodium [Moles/Vol] 140 mmol/L 136-145 [facility] WBC (Bld) [#/Vol] 3.5 10*3/uL 4.4-11.0 [facility] Blood erythrocytes count (nu mber/volume)Ordered By: Dr. Combs on 05-27-2022 RBC (Bld) [#/Vol] 5.20 10*6/uL 4.6-6.2 [facility] Blood hemoglobin measurement (mass/volume)Ordered By: Dr. Combs on 05-27-2022 Hemoglobin (Bld) [Mass/Vol] 13.3 g/dL 13.0-16.5 [facility] Blood lymphocytes/100 leukoc ytesOrdered By: Dr. Combs on 05-27-2022 Lymphocytes/100 WBC (Bld) 34.8 % 19-41 [facility] Blood monocytes/100 leukocyt esOrdered By: Dr. Combs on 05-27-2022 Monocytes/100 WBC (Bld) 11.2 % 0-10 [facility] Blood platelet mean volumeOr dered By: Dr. Combs on 05-27-2022 Platelet mean volume (Bld) [Entitic vol] 9.3 fL 6.2-12.0 [facility] Determination of erythrocyte mean corpuscular volume (MCV)Ordered By: Dr. Combs on 05-27-2022 MCV (RBC) [Entitic vol] 81.5 fL 80-94 [facility] Hematocrit Auto (Bld) [Volum e fraction]Ordered By: Dr. Combs on 05-27-2022 Hematocrit (Bld) [Volume fraction] 42.4 % 40-54 [facility] Laboratory - Chemistry and C hemistry - challengeOrdered By: Dr. Combs on 05-27-2022 ALP [Catalytic activity/Vol] 150 U/L 45-117 [facility] ALT [Catalytic activity/Vol] 18 U/L 16-61 [facility] CO2 [Moles/Vol] 28.0 mmol/L 21.0-32.0 [facility] Globulin (S) [Mass/Vol] 3.9 g/dL 2.2-4.2 [facility] Urea nitrogen/Creatinine [Mass ratio] 13.3 mg/mg 10-20 [facility] Laboratory - Hematology and Cell countsOrdered By: Dr. Combs on 05-27-2022 Erythrocyte distribution width (RBC) [Entitic vol] 47.5 fL 35.1-43.9 [facility] Erythrocyte distribution width (RBC) [Ratio] 16.0 % 11.6-14.6 [facility] Immature granulocytes/100 WBC (Bld) 0.300 % 0.0-0.9 [facility] Comment on above: IG% - Immature Granu locytes (promyelocytes, myelocytes and metamyelocytes) > 1% indicates that a LEFT SHIFT is Present. MCH (RBC) [Entitic mass] 25.6 pg 27.0-32.0 [facility] Nucleated RBC/100 WBC (Bld) [Ratio] 0 % 0-5 [facility] MCHC Auto (RBC) [Mass/Vol]Or dered By: Dr. Combs on 05-27-2022 MCHC (RBC) [Mass/Vol] 31.4 g/dL 32-36 [facility] No Panel InformationOrdered By: Dr. Combs on 05-27-2022 Estimated Creatinine Clearance Calc 75.01 ml/min [facility] Estimated GFR (MDRD) Amer 109 mL/min >60 [facility] Comment on above: GFR Calc Estimated GFR (MDRD) Non-Af Amer 90 mL/min >60 [facility] Comment on above: Non- GFR Calc Platelets bldOrdered By: Dr. Combs on 05-27-2022 Platelets (Bld) [#/Vol] 268 10*3/uL 150-450 [facility] Serum or plasma albumin tara urement (mass/volume)Ordered By: Dr. Combs on 05-27-2022 Albumin [Mass/Vol] 3.5 g/dL 3.2-5.0 [facility] Serum or plasma albumin/glob ulin mass ratioOrdered By: Dr. Combs on 05-27-2022 Albumin/Globulin [Mass ratio] 0.9 {ratio} 0.9-2.4 [facility] Serum or plasma calcium tara urement (mass/volume)Ordered By: Dr. Combs on 05-27-2022 Calcium [Mass/Vol] 9.3 mg/dL 8.5-10.1 [facility] Serum or plasma creatinine m easurement (mass/volume)Ordered By: Dr. Combs on 05-27-2022 Creatinine [Mass/Vol] 0.90 mg/dL 0.70-1.30 [facility] Comment on above: The validity of the calculated GFR & GFRAA in patients over 70 years has not been determined. Clinical correlation is essential. Serum or plasma urea nitroge n measurement (mass/volume)Ordered By: Dr. Combs on 05-27-2022 Urea nitrogen [Mass/Vol] 12 mg/dL 7-18 [facility] Thin prep Papanicolaou smear with manual screeningOrdered By: Dr. Combs on 05-27-2022 Thin prep Papanicolaou smear with manual screening 15 U/L 15-37 [facility] Thin prep Papanicolaou smear with manual screening 5 5-15 [facility] Basophil percentageOrdered B y: Dr. Combs on 05-24-2022 Basophil percentage < 0.9 mg/dL 0.70-1.30 [facility] No Panel InformationOrdered By: Dr. Combs on 05-24-2022 Bedside Estimated GFR (eGFR) > 60.0000 mL/min >60 [facility] XR Chest PA and Lateralon IMPRESSION: Interval improvement of patchy opacities in the lower lung. Service Center Assistant: PSCB Transcribe Date/Time: May 24 2022 9:43A Dictated by : TOMMY LAUREN MD This examination was interpreted and the report reviewed and electronically signed by: TOMMY LAUREN MD on May 24 2022 10:00AM [facility] DIVISION OF RADIOLOGY * * *Final Report* * * DATE OF EXAM: May 24 2022 9:20AM WOX 5291 - XR CHEST 2V FRONTAL/LAT / PROCEDURE REASON: Acute cough * * * * Physician Interpretation * * * * EXAMINATION: CHEST RADIOGRAPH (2 VIEW FRONTAL & LATERAL) CLINICAL HISTORY: Acute cough MQ: XC2_6 EXAM DATE/TIME: 05/24/2022 9:20 AM COMPARISON: Chest x-ray on 04/23/2022 RESULT: Lines, tubes, and devices: No change in position of left chest port catheter. Lungs and pleura: Interval improvement of patchy opacities in the lower lung, visualized on patient's chest x-ray on 04/23/2022. No lung mass. No pleural effusion. No pneumothorax. Cardiomediastinal silhouette: Normal cardiomediastinal silhouette. Bones and soft tissues: Unremarkable. DIVISION OF RADIOLOGY Provider, Martine [facility] - 05/24/2022 * * *Final Report* * * DATE OF EXAM: May 24 2022 9:20AM WOX 5291 - XR CHEST 2V FRONTAL/LAT / PROCEDURE REASON: Acute cough * * * * Physician Interpretation * * * * EXAMINATION: CHEST RADIOGRAPH (2 VIEW FRONTAL & LATERAL) CLINICAL HISTORY: Acute cough MQ: XC2_6 EXAM DATE/TIME: 05/24/2022 9:20 AM COMPARISON: Chest x-ray on 04/23/2022 RESULT: Lines, tubes, and devices: No change in position of left chest port catheter. Lungs and pleura: Interval improvement of patchy opacities in the lower lung, visualized on patient's chest x-ray on 04/23/2022. No lung mass. No pleural effusion. No pneumothorax. Cardiomediastinal silhouette: Normal cardiomediastinal silhouette. Bones and soft tissues: Unremarkable. IMPRESSION IMPRESSION: Interval improvement of patchy opacities in the lower lung. Service Center Assistant: SHANE Transcribe Date/Time: May 24 2022 9:43A Dictated by : TOMMY LAUREN MD This examination was interpreted and the report reviewed and electronically signed by: TOMMY LAUREN MD on May 24 2022 10:00AM EST [facility] Radiology Study observation (narrative) [facility] XR Chest PA and LateralOrder ed By: Ccf Provider on 05-24-2022 [facility] XR CHEST 2V FRONTAL/LATon [facility] XR Chest PA and Lateralon IMPRESSION: There is a small opacity overlying the lower thoracic spine on the lateral radiograph, which may represent a combination of atelectasis or scarring or pneumonia. Service Center Assistant: SHANE Transcribe Date/Time: Apr 23 2022 1:24P Dictated by : PASHA ROSA MD This examination was interpreted and the report reviewed and electronically signed by: PASHA ROSA MD on Apr 23 2022 1:27PM [facility] DIVISION OF RADIOLOGY * * *Final Report* * * DATE OF EXAM: Apr 23 2022 12:50PM WOX 5291 - XR CHEST 2V FRONTAL/LAT / PROCEDURE REASON: Acute cough * * * * Physician Interpretation * * * * EXAMINATION: CHEST RADIOGRAPH (2 VIEW FRONTAL & LATERAL) CLINICAL HISTORY: Acute cough MQ: XC2_6 EXAM DATE/TIME: 04/23/2022 12:50 PM COMPARISON: 10/12/2021 RESULT: Lines, tubes, and devices: Left-sided Port-A-Cath in place with the tip projecting over the SVC.. Lungs and pleura: Small opacity overlying the lower thoracic spine on the lateral radiograph. No pleural effusion. No pneumothorax. Unchanged curvilinear density projecting of the left lower lung anteriorly. Cardiomediastinal silhouette: Normal cardiomediastinal silhouette. Bones and soft tissues: Degenerative changes are present within the thoracic spine. DIVISION OF RADIOLOGY Provider, [facility] - 04/23/2022 * * *Final Report* * * DATE OF EXAM: Apr 23 2022 12:50PM WOX 5291 - XR CHEST 2V FRONTAL/LAT / PROCEDURE REASON: Acute cough * * * * Physician Interpretation * * * * EXAMINATION: CHEST RADIOGRAPH (2 VIEW FRONTAL & LATERAL) CLINICAL HISTORY: Acute cough MQ: XC2_6 EXAM DATE/TIME: 04/23/2022 12:50 PM COMPARISON: 10/12/2021 RESULT: Lines, tubes, and devices: Left-sided Port-A-Cath in place with the tip projecting over the SVC.. Lungs and pleura: Small opacity overlying the lower thoracic spine on the lateral radiograph. No pleural effusion. No pneumothorax. Unchanged curvilinear density projecting of the left lower lung anteriorly. Cardiomediastinal silhouette: Normal cardiomediastinal silhouette. Bones and soft tissues: Degenerative changes are present within the thoracic spine. IMPRESSION IMPRESSION: There is a small opacity overlying the lower thoracic spine on the lateral radiograph, which may represent a combination of atelectasis or scarring or pneumonia. Service Center Assistant: PSCB Transcribe Date/Time: Apr 23 2022 1:24P Dictated by : PASHA ROSA MD This examination was interpreted and the report reviewed and electronically signed by: PASHA ROSA MD on Apr 23 2022 1:27PM EST [facility] Radiology Study observation (narrative) [facility] XR Chest PA and LateralOrder ed By: Ccf Provider on 04-23-2022 [facility] Basophil percentageon 2021 Cholesterol [Mass/Vol] 157 mg/dL <200 [facility] Work Phone: Comment on above: <200 mg/dL Desirable 200-240 mg/dL Borderline >240 mg/dL High Risk Triglyceride [Mass/Vol] 73 mg/dL <199 [facility] Work Phone: Comment on above: The drugs N-Acetylcy steine and Metamizole may falsely depress this assay.Serum Triglycerides Reference Interval Normal <150 mg/dL Borderline high 150 - 199 mg/dL High 200 - 499 mg/dL Very High > or = 500 mg/dL Serum or plasma cholesterol in HDL measurement (mass/volume)on 10-27-2021 Cholesterol in HDL [Mass/Vol] 45 mg/dL >40 [facility] Work Phone: Comment on above: The drugs N-Acetylcy steine and Metamizole may falsely depress this assay. Reference Range HDL <40 mg/dL Low HDL Cholesterol HDL >or= 60 mg/dL High HDL Cholesterol Serum or plasma cholesterol in VLDL measurement (mass/volume)on 10-27-2021 Cholesterol in VLDL [Mass/Vol] 15 mg/dL 5-40 [facility] Work Phone: Serum or plasma low density lipoprotein (LDL) cholesterol measurement (mass/volume)on 10-27-2021 Cholesterol in LDL [Mass/Vol] 97 mg/dL 0-130 [facility] Work Phone: Absolute lymphocyte counton 10-07-2021 Lymphocytes Auto (Unsp spec) [#/Vol] 0.91 10*3/uL 0.83-4.51 [facility] Work Phone: Basophil percentageon 2021 Lactate [Moles/Vol] 1.8 mmol/L 0.4-2.0 [facility] Work Phone: [phone] Basophils/100 WBC (Bld) 0.1 % 0-1 [facility] Work Phone: Bilirubin [Mass/Vol] 0.40 mg/dL 0.20-1.00 [facility] Work Phone: Comment on above: For patients on eltr ombopag therapy, use of Dimension [place] TBIL is not recommended. Chloride [Moles/Vol] 112 mmol/L 98-107 [facility] Work Phone: Eosinophils/100 WBC (Bld) 0.3 % 0-5 [facility] Work Phone: Glucose [Mass/Vol] 137 mg/dL 74-106 [facility] Work Phone: Comment on above: Fasting Glucose resu lt greater than or equal to 126 mg/dL suggests DIABETES MELLITUS per A.D.A. criteria. Neutrophils (Bld) [#/Vol] 8.4 10*3/uL 2.0-7.7 [facility] Work Phone: Neutrophils/100 WBC (Bld) 84.7 % 47-70 [facility] Work Phone: [phone] Potassium [Moles/Vol] 3.3 mmol/L 3.5-5.1 [facility] Work Phone: Protein [Mass/Vol] 6.8 g/dL 6.4-8.2 [facility] Work Phone: Sodium [Moles/Vol] 141 mmol/L 136-145 [facility] Work Phone: WBC (Bld) [#/Vol] 9.9 10*3/uL 4.4-11.0 [facility] Work Phone: Blood erythrocytes count (nu mber/volume)on 10-07-2021 RBC (Bld) [#/Vol] 4.84 10*6/uL 4.6-6.2 [facility] Work Phone: Blood hemoglobin measurement (mass/volume)on 10-07-2021 Hemoglobin (Bld) [Mass/Vol] 13.0 g/dL 13.0-16.5 [facility] Work Phone: Blood lymphocytes/100 leukoc yteson 10-07-2021 Lymphocytes/100 WBC (Bld) 9.2 % 19-41 [facility] Work Phone: Blood monocytes/100 leukocyt eson 10-07-2021 Monocytes/100 WBC (Bld) 5.3 % 0-10 [facility] Work Phone: Blood platelet mean volumeon 10-07-2021 Platelet mean volume (Bld) [Entitic vol] 9.7 fL 6.2-12.0 [facility] Work Phone: Determination of erythrocyte mean corpuscular volume (MCV)on 10-07-2021 MCV (RBC) [Entitic vol] 82.6 fL 80-94 [facility] Work Phone: Direct bilirubinon 2 Bilirubin.direct [Mass/Vol] 0.12 mg/dL 0.00-0.30 [facility] Work Phone: Hematocrit Auto (Bld) [Volum e fraction]on 10-07-2021 Hematocrit (Bld) [Volume fraction] 40.0 % 40-54 [facility] Work Phone: Laboratory - Chemistry and C hemistry - challengeon 10-07-2021 ALP [Catalytic activity/Vol] 118 U/L 45-117 [facility] Work Phone: ALT [Catalytic activity/Vol] 22 U/L 16-61 [facility] Work Phone: CO2 [Moles/Vol] 21.0 mmol/L 21.0-32.0 [facility] Work Phone: Globulin (S) [Mass/Vol] 3.2 g/dL 2.2-4.2 [facility] Work Phone: Lipase [Catalytic activity/Vol] 40 U/L 73-393 [facility] Work Phone: Urea nitrogen/Creatinine [Mass ratio] 15.9 mg/mg 10-20 [facility] Work Phone: Laboratory - Hematology and Cell countson 10-07-2021 Erythrocyte distribution width (RBC) [Entitic vol] 45.7 fL 35.1-43.9 [facility] Work Phone: Erythrocyte distribution width (RBC) [Ratio] 15.1 % 11.6-14.6 [facility] Work Phone: Immature granulocytes/100 WBC (Bld) 0.400 % 0.0-0.9 [facility] Work Phone: Comment on above: IG% - Immature Granu locytes (promyelocytes, myelocytes and metamyelocytes) > 1% indicates that a LEFT SHIFT is Present. MCH (RBC) [Entitic mass] 26.9 pg 27.0-32.0 [facility] Work Phone: Nucleated RBC/100 WBC (Bld) [Ratio] 0 % 0-5 [facility] Work Phone: MCHC Auto (RBC) [Mass/Vol]on 10-07-2021 MCHC (RBC) [Mass/Vol] 32.5 g/dL 32-36 [facility] Work Phone: No Panel Informationon 10-07 Estimated Creatinine Clearance Calc 67.09 ml/min [facility] Work Phone: Estimated GFR (MDRD) Amer 104 mL/min >60 [facility] Work Phone: Comment on above: GFR Calc Estimated GFR (MDRD) Non-Af Amer 86 mL/min >60 [facility] Work Phone: Comment on above: Non- GFR Calc Platelets bldon 10-07-2021 Platelets (Bld) [#/Vol] 227 10*3/uL 150-450 [facility] Work Phone: Serum or plasma albumin tara urement (mass/volume)on 10-07-2021 Albumin [Mass/Vol] 3.6 g/dL 3.2-5.0 [facility] Work Phone: Serum or plasma calcium tara urement (mass/volume)on 10-07-2021 Calcium [Mass/Vol] 8.9 mg/dL 8.5-10.1 [facility] Work Phone: Serum or plasma creatinine m easurement (mass/volume)on 10-07-2021 Creatinine [Mass/Vol] 0.94 mg/dL 0.70-1.30 [facility] Work Phone: Comment on above: The validity of the calculated GFR & GFRAA in patients over 70 years has not been determined. Clinical correlation is essential. Serum or plasma urea nitroge n measurement (mass/volume)on 10-07-2021 Urea nitrogen [Mass/Vol] 15 mg/dL 7-18 [facility] Work Phone: Thin prep Papanicolaou smear with manual screeningon 10-07-2021 Thin prep Papanicolaou smear with manual screening 18 U/L 15-37 [facility] Work Phone: Thin prep Papanicolaou smear with manual screening 8 5-15 [facility] Work Phone: CREATININE BLDon 06-30-2021 Creatinine [Mass/Vol] 0.95 mg/dL 0.73 - 1.22 mg/dL [facility] Estimated Glomerular Filtration Rate 90 mL/min/1.73m >=60 mL/min/1.[address] [facility] CT ABD/PEL W IVCONon 022 [facility] Absolute lymphocyte counton 06-09-2021 Lymphocytes Auto (Unsp spec) [#/Vol] 0.98 10*3/uL 0.83-4.51 [facility] Work Phone: Basophil percentageon 2021 Basophils/100 WBC (Bld) 0.3 % 0-1 [facility] Work Phone: Bilirubin [Mass/Vol] 0.40 mg/dL 0.20-1.00 [facility] Work Phone: Comment on above: For patients on eltr ombopag therapy, use of Dimension [place] TBIL is not recommended. Chloride [Moles/Vol] 110 mmol/L 98-107 [facility] Work Phone: Eosinophils/100 WBC (Bld) 2.1 % 0-5 [facility] Work Phone: [phone] Glucose [Mass/Vol] 101 mg/dL 74-106 [facility] Work Phone: Comment on above: Fasting Glucose resu lt from 100 to 125 mg/dL suggests IMPAIRED HOMEOSTASIS per A.D.A. criteria. Neutrophils (Bld) [#/Vol] 1.9 10*3/uL 2.0-7.7 [facility] Work Phone: Neutrophils/100 WBC (Bld) 56.6 % 47-70 [facility] Work Phone: Potassium [Moles/Vol] 3.6 mmol/L 3.5-5.1 [facility] Work Phone: Protein [Mass/Vol] 6.7 g/dL 6.4-8.2 [facility] Work Phone: Sodium [Moles/Vol] 141 mmol/L 136-145 [facility] Work Phone: WBC (Bld) [#/Vol] 3.4 10*3/uL 4.4-11.0 [facility] Work Phone: Blood erythrocytes count (nu mber/volume)on 06-09-2021 RBC (Bld) [#/Vol] 4.77 10*6/uL 4.6-6.2 [facility] Work Phone: Blood hemoglobin measurement (mass/volume)on 06-09-2021 Hemoglobin (Bld) [Mass/Vol] 12.8 g/dL 13.0-16.5 [facility] Work Phone: Blood lymphocytes/100 leukoc yteson 06-09-2021 Lymphocytes/100 WBC (Bld) 28.7 % 19-41 [facility] Work Phone: Blood monocytes/100 leukocyt eson 06-09-2021 Monocytes/100 WBC (Bld) 12.0 % 0-10 [facility] Work Phone: Blood platelet mean volumeon 06-09-2021 Platelet mean volume (Bld) [Entitic vol] 9.1 fL 6.2-12.0 [facility] Work Phone: Determination of erythrocyte mean corpuscular volume (MCV)on 06-09-2021 MCV (RBC) [Entitic vol] 83.0 fL 80-94 [facility] Work Phone: Hematocrit Auto (Bld) [Volum e fraction]on 06-09-2021 Hematocrit (Bld) [Volume fraction] 39.6 % 40-54 [facility] Work Phone: Laboratory - Chemistry and C hemistry - challengeon 06-09-2021 ALP [Catalytic activity/Vol] 125 U/L 45-117 [facility] Work Phone: ALT [Catalytic activity/Vol] 21 U/L 16-61 [facility] Work Phone: CO2 [Moles/Vol] 26.0 mmol/L 21.0-32.0 [facility] Work Phone: Globulin (S) [Mass/Vol] 3.3 g/dL 2.2-4.2 [facility] Work Phone: Urea nitrogen/Creatinine [Mass ratio] 16.2 mg/mg 10-20 [facility] Work Phone: Laboratory - Hematology and Cell countson 06-09-2021 Erythrocyte distribution width (RBC) [Entitic vol] 46.1 fL 35.1-43.9 [facility] Work Phone: Erythrocyte distribution width (RBC) [Ratio] 15.2 % 11.6-14.6 [facility] Work Phone: Immature granulocytes/100 WBC (Bld) 0.300 % 0.0-0.9 [facility] Work Phone: Comment on above: IG% - Immature Granu locytes (promyelocytes, myelocytes and metamyelocytes) > 1% indicates that a LEFT SHIFT is Present. MCH (RBC) [Entitic mass] 26.8 pg 27.0-32.0 [facility] Work Phone: Nucleated RBC/100 WBC (Bld) [Ratio] 0 % 0-5 [facility] Work Phone: MCHC Auto (RBC) [Mass/Vol]on 06-09-2021 MCHC (RBC) [Mass/Vol] 32.3 g/dL 32-36 [facility] Work Phone: No Panel Informationon 06-09 Estimated Creatinine Clearance Calc 73.55 ml/min [facility] Work Phone: Estimated GFR (MDRD) Amer 106 mL/min >60 [facility] Work Phone: Comment on above: GFR Calc Estimated GFR (MDRD) Non-Af Amer 88 mL/min >60 [facility] Work Phone: Comment on above: Non- GFR Calc Platelets bldon 06-09-2021 Platelets (Bld) [#/Vol] 250 10*3/uL 150-450 [facility] Work Phone: Serum or plasma albumin tara urement (mass/volume)on 06-09-2021 Albumin [Mass/Vol] 3.4 g/dL 3.2-5.0 [facility] Work Phone: Serum or plasma albumin/glob ulin mass ratioon 06-09-2021 Albumin/Globulin [Mass ratio] 1.0 {ratio} 0.9-2.4 [facility] Work Phone: Serum or plasma calcium tara urement (mass/volume)on 06-09-2021 Calcium [Mass/Vol] 8.3 mg/dL 8.5-10.1 [facility] Work Phone: Serum or plasma creatinine m easurement (mass/volume)on 06-09-2021 Creatinine [Mass/Vol] 0.93 mg/dL 0.70-1.30 [facility] Work Phone: Comment on above: The validity of the calculated GFR & GFRAA in patients over 70 years has not been determined. Clinical correlation is essential. Serum or plasma urea nitroge n measurement (mass/volume)on 06-09-2021 Urea nitrogen [Mass/Vol] 15 mg/dL 7-18 [facility] Work Phone: Thin prep Papanicolaou smear with manual screeningon 06-09-2021 Thin prep Papanicolaou smear with manual screening 16 U/L 15-37 [facility] Work Phone: Thin prep Papanicolaou smear with manual screening 5 5-15 [facility] Work Phone: Thin prep Papanicolaou smear with manual screening 117 U/L 87-241 [facility] Work Phone: Pathologist review [place] (Unsp spec) [Interp]on 09-22-2020 Differential Pathologist's Review Reviewed [facility] Comment on above: Previous reported re sult: May foll Edited by: RGOOD on 09/23/20:1237Leukopenia and neutropenia. Clinical correlation necessary.Praneeth Allred M.D. 09/23/20 AMENDED REPORT 09/23/20 1237 PATH REV previously reported as: Brigette landry Review by pathologistdaija 09-04 Pathologist review [place] (Unsp spec) [Interp] Reviewed [facility] Comment on above: Previous reported re sult: May foll Edited by: RGOOD on 09/23/20:1237Leukopenia and neutropenia. Clinical correlation necessary.Praneeth Allred M.D. 09/23/20 AMENDED REPORT 09/23/20 1237 PATH REV previously reported as: Brigette landry Blood manual differential co mment interpretation (narrative result)on 09-15-2020 Manual differential comment [place] (Bld) [Interp] See comment [facility] Comment on above: LYMPHOPENIA NOTED Blood platelet adequacy dete ction by light microscopyon 09-15-2020 Platelets LM Ql (Bld) ADEQUATE ADEQ [facility] Laboratory - Chemistry and C hemistry - challengeon 09-15-2020 Magnesium [Mass/Vol] 1.8 mg/dL 1.6-2.6 [facility] [place] Manual differential comment [place] (Bld) [Interp]on 09-15-2020 Differential Comment See comment [facility] Comment on above: LYMPHOPENIA NOTED Platelets LM Ql (Bld)on 09-04 Platelet Estimate ADEQUATE ADEQ [facility] RBC morphologyon 09-15-2020 RBC morphology finding Nom (Bld) NORM C+C NORMAL NORM C&C [facility] RBC morphology finding Nom ( Bld)on 09-15-2020 Red Blood Cell Morphology NORM C+C NORMAL NORM C&C [facility] Serum or plasma carcinoembry onic antigen measurement (mass/volume)on 08-14-2020 Carcinoembryonic Ag [Mass/Vol] 3.8 ng/mL 0.0-4.7 [facility] Comment on above: Nonsmokers <3.9 Smok ers <5.6[employer] Electrochemiluminescence Immunoassay(ECLIA)Values obtained with different assay methods or kitscannot be used interchangeably. Results cannot beinterpreted as absolute evidence of the presence orabsence of malignant disease.Performed at: [employer] [id number] Director: Asad Urena PhD, Phone: [phone] Vital Signs Date Time Vital Sign Value Performing Clinician Facility 11-21-2024 15:34-0400 Body temperature 98.4 [degF] No Primary Care Physician [facility] 11-21-2024 15:34-0400 Body weight 52.16 kg No Primary Care Physician [facility] 11-21-2024 15:34-0400 Diastolic blood pressure 86 mm[Hg] No Primary Care Physician [facility] 11-21-2024 15:34-0400 Heart rate 78 /min No Primary Care Physician [facility] 11-21-2024 15:34-0400 Respiratory rate 16 /min No Primary Care Physician [facility] 11-21-2024 15:34-0400 SaO2% (BldA) [Mass fraction] 98 % No Primary Care Physician [facility] 11-21-2024 15:34-0400 Systolic blood pressure 135 mm[Hg] No Primary Care Physician [facility] 10-23-2024 09:13-0400 Body temperature 97.5 [degF] Dr. Alina Choi MD Work Phone: [facility] 10-23-2024 09:13-0400 Body weight 51.[address] Alina Choi MD Work Phone: [facility] 10-23-2024 09:13-0400 Diastolic blood pressure 81 mm[Hg] Dr. Alina Choi MD Work Phone: [facility] 10-23-2024 09:13-0400 Heart rate 60 /min Dr. Alina Choi MD Work Phone: [facility] 10-23-2024 09:13-0400 Respiratory rate 16 /min Dr. Alina Choi MD Work Phone: [facility] 10-23-2024 09:13-0400 SaO2% (BldA) [Mass fraction] 100 % Dr. Alina Choi MD Work Phone: [facility] 10-23-2024 09:13-0400 Systolic blood pressure 143 mm[Hg] Dr. Alina Choi MD Work Phone: [facility] 10-18-2024 20:35-0400 Body temperature 98.2 [degF] Dr. Alina Choi MD Work Phone: [facility] 10-18-2024 20:35-0400 Diastolic blood pressure 89 mm[Hg] Dr. Alina Choi MD Work Phone: [facility] 10-18-2024 20:35-0400 Heart rate 77 /min Dr. Alina Choi MD Work Phone: [facility] 10-18-2024 20:35-0400 Respiratory rate 17 /min Dr. Alina Choi MD Work Phone: [facility] 10-18-2024 20:35-0400 SaO2% (BldA) [Mass fraction] 99 % Dr. Alina Choi MD Work Phone: [facility] 10-18-2024 20:35-0400 Systolic blood pressure 144 mm[Hg] Dr. Alina Choi MD Work Phone: 4(981)430-057533 [place] [address] 10-18-2024 18:29-0400 Body height 177.[address] Alina Choi MD Work Phone: 3(297)143-356133 [place] [address] 10-18-2024 18:29-0400 Body mass index (BMI) [Ratio] 16.5 kg/m2 Dr. Alina Choi MD Work Phone: 9(396)650-226033 [place] [address] 10-18-2024 18:29-0400 Body weight 52.[address] Alina Choi MD Work Phone: 1(127)619-637533 [place] [address] 07-06-2024 10:19-0400 Body height 177.[address] Alina Choi MD Work Phone: 3(450)313-712533 [place] [address] 07-06-2024 10:19-0400 Body mass index (BMI) [Ratio] 17.2 kg/m2 Dr. Alina Choi MD Work Phone: 3(144)004-546633 [place] [address] 07-06-2024 10:19-0400 Body weight 54.[address] Alina Choi MD Work Phone: 5(199)156-999721 [place] [address] 07-06-2024 10:19-0400 Diastolic blood pressure 78 mm[Hg] Dr. Alina Choi MD Work Phone: 6(619)491-214133 [place] [address] 07-06-2024 10:19-0400 Heart rate 48 /min Dr. Alina Choi MD Work Phone: 8(680)066-886433 [place] [address] 07-06-2024 10:19-0400 Respiratory rate 16 /min Dr. Alina Choi MD Work Phone: 5(128)895-614221 [place] [address] 07-06-2024 10:19-0400 Systolic blood pressure 147 mm[Hg] Dr. Alina Choi MD Work Phone: [facility] 05-28-2024 09:42-0400 Body height 177.[address] Alina Choi MD Work Phone: [facility] 05-28-2024 09:39-0400 Body mass index (BMI) [Ratio] 17.5 kg/m2 Dr. Alina Choi MD Work Phone: [facility] 05-28-2024 09:39-0400 Body temperature 98.4 [degF] Dr. Alina Choi MD Work Phone: [facility] 05-28-2024 09:39-0400 Body weight 55.[address] Alina Choi MD Work Phone: [facility] 05-28-2024 09:39-0400 Diastolic blood pressure 85 mm[Hg] Dr. Alina Choi MD Work Phone: [facility] 05-28-2024 09:39-0400 Heart rate 52 /min Dr. Alina Choi MD Work Phone: [facility] 05-28-2024 09:39-0400 Respiratory rate 18 /min Dr. Alina Choi MD Work Phone: [facility] 05-28-2024 09:39-0400 SaO2% (BldA) [Mass fraction] 100 % Dr. Alina Choi MD Work Phone: [facility] 05-28-2024 09:39-0400 Systolic blood pressure 137 mm[Hg] Dr. Alina Cohi MD Work Phone: [facility] 03-16-2024 14:25-0500 Body mass index (BMI) [Ratio] 17.02 kg/m2 Michael CHILDS Work Phone: [facility] 03-16-2024 14:25-0500 Body temperature 98.49 [degF] Michael CHILDS Work Phone: [facility] 03-16-2024 14:25-0500 Body weight 53.8 kg Krislyn Aberegg PA Work Phone: [facility] 03-16-2024 14:25-0500 Diastolic blood pressure 90 mm[Hg] Krislyn Aberegg PA Work Phone: [facility] 03-16-2024 14:25-0500 Heart rate 100 /min Krislyn Aberegg PA Work Phone: [facility] 03-16-2024 14:25-0500 Respiratory rate 22 /min Krislyn Aberegg PA Work Phone: [facility] 03-16-2024 14:25-0500 SaO2% (BldA) [Mass fraction] 98 % Krislyn Aberegg PA Work Phone: [facility] 03-16-2024 14:25-0500 Systolic blood pressure 165 mm[Hg] Krislyn Aberegg PA Work Phone: [facility] 05-25-2023 15:01-0400 Body height 177.[address] Alina Choi Work Phone: [facility] 05-25-2023 15:01-0400 Body mass index (BMI) [Ratio] 17.9 kg/m2 Dr. Alina Choi Work Phone: [facility] 05-25-2023 15:01-0400 Body temperature 98.4 [degF] Dr. Alina Choi Work Phone: [facility] 05-25-2023 15:01-0400 Body weight 56.[address] Alina Choi Work Phone: [facility] 05-25-2023 15:01-0400 Diastolic blood pressure 72 mm[Hg] Dr. Alina Choi Work Phone: [facility] 05-25-2023 15:01-0400 Heart rate 87 /min Dr. Alina Choi Work Phone: [facility] 05-25-2023 15:01-0400 Respiratory rate 18 /min Dr. Alina Choi Work Phone: [facility] 05-25-2023 15:01-0400 SaO2% (BldA) [Mass fraction] 97 % Dr. Alina Choi Work Phone: [facility] 05-25-2023 15:01-0400 Systolic blood pressure 119 mm[Hg] Dr. Alina Choi Work Phone: [facility] 05-18-2023 09:41-0400 Body mass index (BMI) [Ratio] 17.9 kg/m2 Dr. Alina Choi Work Phone: [facility] 05-18-2023 09:41-0400 Body temperature 98 [degF] Dr. Alina Choi Work Phone: [facility] 05-18-2023 09:41-0400 Body weight 56.[address] Alina Choi Work Phone: [facility] 05-18-2023 09:41-0400 Diastolic blood pressure 85 mm[Hg] Dr. Alina Choi Work Phone: [facility] 05-18-2023 09:41-0400 Heart rate 69 /min Dr. Alina Choi Work Phone: [facility] 05-18-2023 09:41-0400 Respiratory rate 18 /min Dr. Alina Choi Work Phone: [facility] 05-18-2023 09:41-0400 SaO2% (BldA) [Mass fraction] 98 % Dr. Alina Choi Work Phone: [facility] 05-18-2023 09:41-0400 Systolic blood pressure 165 mm[Hg] Dr. Alina Choi Work Phone: [facility] 05-11-2023 11:35-0500 Body temperature 97.2 [degF] Liz Pritchett APRN.CNP Work Phone: [facility] 05-11-2023 11:35-0500 Body weight 54.61 kg Liz Pritchett [employer]ING DETAILER Work Phone: [facility] 05-11-2023 11:35-0500 Diastolic blood pressure 78 mm[Hg] Liz Pritchett [employer]AFTING DETAILER Work Phone: [facility] 05-11-2023 11:35-0500 Heart rate 85 /min Liz Pritchett [employer]AFTING DETAILER Work Phone: [facility] 05-11-2023 11:35-0500 Respiratory rate 18 /min Liz Pritchett [employer]AFTING DETAILER Work Phone: [facility] 05-11-2023 11:35-0500 SaO2% (BldA) [Mass fraction] 98 % Liz Pritchett [employer].DRAFTING DETAILER Work Phone: [facility] 05-11-2023 11:35-0500 Systolic blood pressure 122 mm[Hg] Liz Pritchett [employer]ER [employer]AFTING DETAILER Work Phone: [facility] 12-13-2022 08:54-0400 Diastolic blood pressure 76 mm[Hg] Edis Call MD Work Phone: [facility] 12-13-2022 08:54-0400 Heart rate 52 /min Edis Call MD Work Phone: [facility] 12-13-2022 08:54-0400 Respiratory rate 20 /min Edis Call MD Work Phone: [facility] 12-13-2022 08:54-0400 SaO2% (BldA) [Mass fraction] 97 % Edis Call MD Work Phone: [facility] 12-13-2022 08:54-0400 Systolic blood pressure 113 mm[Hg] Edis Call MD Work Phone: [facility] 12-13-2022 08:38-0400 Body temperature 97.5 [degF] Edis Call MD Work Phone: [facility] 12-13-2022 07:41-0400 Body height 177.8 cm Edis Call MD Work Phone: [facility] 12-13-2022 07:41-0400 Body weight 56.25 kg Edis Call MD Work Phone: [facility] 05-27-2022 11:30-0400 Body height 177.[address] Alina Choi Work Phone: [facility] 05-27-2022 11:26-0400 Body mass index (BMI) [Ratio] 18.1 kg/m2 Dr. Alina Choi Work Phone: [facility] 05-27-2022 11:26-0400 Body temperature 98.2 [degF] Dr. Alina Choi Work Phone: [facility] 05-27-2022 11:26-0400 Body weight 57.[address] Alina Choi Work Phone: [facility] 05-27-2022 11:26-0400 Diastolic blood pressure 91 mm[Hg] Dr. Alina Choi Work Phone: [facility] 05-27-2022 11:26-0400 Heart rate 60 /min Dr. Alina Choi Work Phone: [facility] 05-27-2022 11:26-0400 Respiratory rate 17 /min Dr. Alina Choi Work Phone: [facility] 05-27-2022 11:26-0400 SaO2% (BldA) [Mass fraction] 98 % Dr. Alina Choi Work Phone: [facility] 05-27-2022 11:26-0400 Systolic blood pressure 158 mm[Hg] Dr. Alina Choi Work Phone: [facility] 04-23-2022 12:18-0500 Body temperature 97.2 [degF] Deirdre Enciso APRN.DRAFTING DETAILER Work Phone: [facility] 04-23-2022 12:18-0500 Body weight 54.34 kg Deirdre Enciso APRN.DRAFTING DETAILER Work Phone: [facility] 04-23-2022 12:18-0500 Diastolic blood pressure 84 mm[Hg] Deirdre Praisler-Wood [employer].[facility] Work Phone: [facility] 04-23-2022 12:18-0500 Heart rate 100 /min Deirdre Praisler-Wood [employer].[facility] Work Phone: [facility] 04-23-2022 12:18-0500 Respiratory rate 20 /min Deirdre Praisler-Wood [employer]AFTING DETAILER Work Phone: [facility] 04-23-2022 12:18-0500 SaO2% (BldA) [Mass fraction] 98 % Deirdre Praisler-Wood [employer].[facility] Work Phone: [facility] 04-23-2022 12:18-0500 Systolic blood pressure 120 mm[Hg] Deirdre Praisler-Wood [employer].[facility] Work Phone: [facility] 11-05-2021 13:09-0400 Body height 177.8 cm Anirudh Yee MD Work Phone: [facility] 11-05-2021 13:09-0400 Body weight 55.7 kg Anirudh Yee MD Work Phone: [facility] 10-08-2021 02:09-0400 Diastolic blood pressure 86 mm[Hg] [facility] Work Phone: 10-08-2021 02:09-0400 Heart rate 50 /min [facility] Work Phone: 10-08-2021 02:09-0400 Respiratory rate 18 /min [facility] Work Phone: 10-08-2021 02:09-0400 SaO2% (BldA) [Mass fraction] 96 % [facility] Work Phone: 10-08-2021 02:09-0400 Systolic blood pressure 151 mm[Hg] [facility] Work Phone: 10-07-2021 23:08-0400 Body height 177.8 cm [facility] Work Phone: 10-07-2021 23:08-0400 Body mass index (BMI) [Ratio] 18.6 kg/m2 [facility] Work Phone: 10-07-2021 23:08-0400 Body temperature 98.3 [degF] [facility] Work Phone: 10-07-2021 23:08-0400 Body weight 58.96 kg [facility] Work Phone: 12-01-2020 10:05-0400 Body mass index (BMI) [Ratio] 20.2 kg/m2 [facility] 12-01-2020 10:05-0400 Body weight 63.95 kg [facility] 09-15-2020 13:22-0400 Diastolic blood pressure 77 mm[Hg] [facility] 09-15-2020 13:22-0400 Heart rate 85 /min [facility] 09-15-2020 13:22-0400 Respiratory rate 16 /min [facility] 09-15-2020 13:22-0400 SaO2% (BldA) [Mass fraction] 97 % [facility] 09-15-2020 13:22-0400 Systolic blood pressure 110 mm[Hg] [facility] Encounters Encounter Date Encounter Type Care Provider Facility Start: 01-16-2025 ambulatory Joon Koch Facility:[facility] Start: 12-21-2024 ambulatory Alina Choi Facility: [facility] Start: 12-21-[address] Tony Romo on [facility] Start: 12-10-2024 End: 12-10-2024 ambulatory No Primary Care Physician -[facility] Start: 12-10-2024 End: 12-10-2024 Patient encounter procedure Navya Chaudhari PA -[facility] Work Phone: Start: 12-10-2024 End: 12-10-2024 ambulatory Navya Chaudhari Facility:[facility] Start: 11-21-2024 End: 11-21-2024 Patient encounter procedure Navya CHILDS -[facility] Work Phone: Start: 11-21-2024 End: 11-21-2024 ambulatory No Primary Care Physician -[facility] Start: 11-07-[address] Tony Romo on DO -[facility] Start: 11-02-2024 Non-patient / Non-visit Dr. Joon swann MD -[facility] Start: 11-02-2024 End: 11-02-2024 ambulatory No Primary Care Physician -[facility] Services Start: 11-02-2024 End: 11-02-2024 Patient encounter procedure Navya CHILDS -[facility] Work Phone: Start: 11-02-2024 End: 11-02-2024 ambulatory No Primary Care Physician Facility:[facility] Start: 10-23-2024 End: 10-23-2024 Patient encounter procedure Navya CHILDS -[facility] Work Phone: Start: 10-23-2024 End: 10-23-[address] Alina Choi MD Work Phone: -[facility] Start: 10-18-2024 End: 10-18-2024 Emergency department patient visit Dr. Alina Choi MD Work Phone: -Emergency Department Work Phone: Start: 09-26-[address] Tony Romo on DO -[facility] Start: 07-12-2024 Non-patient / Non-visit Dr. Shaan OCONNOR -[facility] Start: 07-12-2024 End: 07-12-[address] Alina Choi MD Work Phone: [facility] Work Phone: Start: 07-12-2024 End: 07-12-[address] Ric Lockhart MD -Cardiovascular Services Work Phone: Start: 07-12-2024 End: 07-12-2024 ambulatory Ric Lockhart Facility:[facility] Start: 07-06-2024 End: 07-06-[address] Ric Lockhart MD -[facility] Work Phone: Start: 07-06-2024 End: 07-06-2024 ambulatory Alina Choi Facility:[facility] Start: 07-04-[address] Tony Romo on [facility] Start: 05-28-2024 End: 05-28-[address] Mark Combs MD -[facility] Work Phone: Start: 05-28-2024 End: 05-28-2024 ambulatory Alina Choi Facility:[facility] Start: 05-21-[address] Tony Romo on [facility] Start: 05-21-2024 End: 05-21-[address] Alina Choi MD Work Phone: [facility] Work Phone: Start: 05-21-2024 End: 05-21-[address] Mark Combs MD -[facility] Work Phone: Start: 05-21-2024 End: 05-21-2024 ambulatory Alina Choi Facility:[facility] Start: 03-16-2024 End: 03-16-2024 Patient encounter procedure Michael CHILDS Work Phone: [facility] Comment on above: Dental infection (Pr imary Dx) Start: 03-16-2024 End: 03-16-2024 ambulatory ALINA CHOI Facility:[facility] Start: 05-25-2023 End: 05-25-[address] Alina Choi Work Phone: [facility] Work Phone: Start: 05-23-2023 End: 05-23-[address] Alina Choi Work Phone: [facility] Work Phone: Start: 05-23-2023 End: 05-23-[address] Alina Choi Work Phone: [facility] Work Phone: Start: 05-20-[address] Alina rudd Work Phone: [facility] Start: 05-18-2023 End: 05-18-[address] Alina Choi Work Phone: [facility] Work Phone: Start: 05-11-2023 End: 05-11-2023 Subsequent hospital visit by physician Xr [facility] Work Phone: Radiology Comment on above: Acute cough [R05.1] Start: 05-11-2023 End: 05-11-2023 ambulatory ALINA CHOI Facility:[facility] Start: 05-11-2023 End: 05-11-2023 Patient encounter procedure Liz Pritchett APRN.CNP Work Phone: [facility] Comment on above: Acute cough (Primary Dx); Abnormal finding on chest xray; URI, acute Start: 12-13-2022 Encounter for other preprocedural examination EDIS CALL [facility] Start: 12-13-2022 ambulatory EDIS CALL Facil ity:[facility] Start: 12-13-2022 End: 12-13-2022 Preprocedural examination done Edis Call MD Work Phone: [facility] Work Phone: Start: 12-13-2022 End: 12-13-2022 Subsequent hospital visit by physician Edis Call MD Work Phone: [facility] Comment on above: Esophageal dysphagia [R13.19] Start: 12-02-2022 End: 12-03-2022 ambulatory EDIS CALL Facility:[facility] Start: 11-24-2022 End: 11-24-2022 ambulatory [facility] Work Phone: Start: 11-24-2022 End: 11-24-2022 Patient encounter procedure [facility] Work Phone: Start: 11-17-2022 Orders Only Edis sherman MD Work Phone: [facility] Comment on above: Nausea; Esophageal adenocarcinoma (HCC); Status post repair of paraesophageal diaphragmatic hernia; H/O esophagectomy Start: 09-30-2022 Registered Recurring [facility] Start: 05-27-[address] Alina rudd Work Phone: [facility] Start: 05-27-2022 End: 05-27-[address] Alina Choi Work Phone: [facility] Start: 05-24-2022 End: 05-24-2022 Subsequent hospital visit by physician Xr [facility] Work Phone: Radiology Comment on above: Acute cough [R05.1] Start: 05-24-2022 End: 05-24-[address] Alina Choi Work Phone: [facility] Work Phone: Start: 05-24-2022 End: 05-24-[address] Alina Choi Work Phone: [facility] Start: 04-26-2022 Telephone encounter Deirdre Jean Baptiste APRN.DRAFTING DETAILER Work Phone: [facility] Comment on above: Medication Problem Start: 04-23-2022 End: 04-23-2022 Subsequent hospital visit by physician Xr [facility] Work Phone: Radiology Comment on above: Acute cough [R05.1] Start: 04-23-2022 End: 04-23-2022 Patient encounter procedure Deirdre Enciso APRN.DRAFTING DETAILER Work Phone: [facility] Comment on above: Acute cough (Primary Dx) Start: 11-05-2021 End: 11-05-2021 Patient encounter procedure Anirudh Yee MD Work Phone: [facility] Comment on above: Status post repair o f paraesophageal diaphragmatic hernia (Primary Dx); Esophageal adenocarcinoma (HCC) Start: 10-27-2021 End: 10-27-2021 ambulatory [facility] Work Phone: Start: 10-27-2021 End: 10-27-2021 Patient encounter procedure [facility] Start: 10-26-2021 End: 10-26-2021 Nursing evaluation of patient and report Nurse Alen Acc 374 Work Phone: [facility] Comment on above: S/P hernia repair (P rimary Dx) Start: 10-07-2021 End: 10-08-2021 Emergency department patient visit [facility]-Emergency Department Start: 09-01-2021 Registered Recurring [facility] Start: 07-02-2021 End: 07-02-2021 ambulatory Anirudh Yee MD Work Phone: [facility] Comment on above: Diaphragmatic hernia without obstruction or gangrene (Primary Dx); Esophageal adenocarcinoma (HCC); H/O esophagectomy Start: 07-02-2021 End: 07-02-2021 Telemedicine consultation with patient Anirudh Yee MD Work Phone: [facility] Start: 06-30-2021 End: 06-30-2021 ambulatory Lab/[place] [facility] Work Phone: Hematology/Oncology Comment on above: Esophageal adenocarc inoma (HCC); H/O esophagectomy; Diaphragmatic hernia without obstruction or gangrene Start: 06-30-2021 End: 06-30-2021 Subsequent hospital visit by physician Ct Prep [facility] Wstr Cat Scan Comment on above: Esophageal adenocarc inoma (HCC) [C15.9] Start: 06-29-2021 Telephone encounter Alek brown DO Work Phone: Hematology/Oncology Comment on above: Appointment Start: 06-25-2021 End: 06-25-2021 ambulatory Anirudh Yee MD Work Phone: [facility] Comment on above: Diaphragmatic hernia without obstruction or gangrene (Primary Dx); Esophageal adenocarcinoma (HCC); H/O esophagectomy Start: 06-25-2021 End: 06-25-2021 Telemedicine consultation with patient Anirudh Yee MD Work Phone: [facility] Procedures Date Procedure Procedure Detail Performing Clinician Start: 12-10-2024 CT of abdominal aorta with contrast No Primary Care Physician Start: 07-06-2024 Evaluation of diagnostic study results Dr. Alina Choi MD Work Phone: Start: 05-21-[address] Alina rudd MD Work Phone: Start: 05-21-2024 CT of thorax and abdomen with contrast Dr. Alina Choi MD Work Phone: Start: 05-23-2023 CT of chest and abdomen Dr. Alina Choi Work Phone: Start: 05-20-[address] Alina andrews MD Work Phone: Comment on above: Nonsmokers <3.9 Smokers <5.6Roche [employer] st[employer] Electrochemiluminescence Immunoassay(ECLIA)Values obtained with different assay methods or kitscannot be used interchangeably. Results cannot beinterpreted as absolute evidence of the presence orabsence of malignant disease.Performed at: [place] [id number] Director: Asad Urena PhD, Phone: [phone] Start: 05-20-[address] Alina Lynne Work Phone: Start: 05-20-2023 Measurement of renal function Dr. Alina luque MD Work Phone: Comment on above: GFR Calc Start: 05-20-2023 Total iron binding capacity measurement Dr. Alina Choi MD Work Phone: Start: 05-11-2023 Radiologic exam chest 2 views Liz Ri ggs [employer] Work Phone: Start: 12-13-2022 Esophagoscp rig transoral hypopharynx crv esoph Edis Call MD Work Phone: Start: 11-24-2022 CT of thorax with contrast Start: 05-24-2022 Radiologic exam chest 2 views Cuca Cowan [employer] Work Phone: Start: 05-24-2022 CT of chest and abdomen Dr. Alina Choi Work Phone: Start: 04-23-2022 Radiologic exam chest 2 views Deirdre Ariellefredy Jean Baptiste [employer] Work Phone: Start: 10-07-2021 CT of chest and abdomen Start: 06-30-2021 Ct abdomen & pelvis w/contrast material Anirudh Yee MD Work Phone: Start: 06-30-2021 Creatinine blood Anirudh Yee MD Work Phone: Start: 08-05-2020 Positron emission tomography with computed tomography Start: 07-14-2020 Colonoscopy Anirudh Yee MD Work Phone: Plan of Treatment Date Care Activity Detail Author Start: 12-10-2024 Venous catheter care management [facility] Start: 10-19-2024 DIABETES SCREEN DIABETES SCREEN [facility] Start: 10-19-2024 Diabetes Screening Diabetes Screenin g [facility] Start: 10-18-2024 [facility] Start: 05-21-2024 Venous catheter care management [facility] Start: 05-10-2024 BP Controlled (<130/80) BP Controlle d (<130/80) [facility] Start: 03-07-2024 Advance Directive Discussion Advance Directive Discussion [facility] Start: 11-22-2023 DIABETES SCREEN DIABETES SCREEN [facility] Start: 11-10-2023 Venous catheter care management [facility] Start: 11-06-2023 Covid-19 Vaccine ( season) Covid-19 Vaccine () [facility] Start: 11-06-2023 Covid-19 Vaccine () Covid-19 Vaccine () [facility] Start: 11-06-2023 Influenza vaccination Influenza Vacc ine (#1) [facility] Start: 05-23-2023 Venous catheter care management [facility] Start: 03-07-2023 Advance Directive Discussion Advance Directive Discussion [facility] Start: 03-07-2023 Depression Assessment Depression Ass essment [facility] Start: 11-24-2022 Peripherally inserte d central catheter care [facility] Start: 11-17-2022 End: 01-17-2023 CREATININE BLD CREATININE BLD Lab Routine Esophageal adenocarcinoma (HCC) Status post repair of paraesophageal diaphragmatic hernia H/O esophagectomy Expected: 11/17/2022, Expires: 01/17/2023 [facility] Work Phone: Comment on above: Expected: 11/17/2022 , Expires: 01/17/2023 Start: 11-05-2022 Influenza vaccination Influenza Vacc ine (#1) [facility] Start: 05-24-2022 Venous catheter care management [facility] Start: 03-07-2022 DEPRESSION ASSESSMENT DEPRESSION ASS ESSMENT [facility] Start: 11-05-2021 [facility] Start: 09-24-2021 Influenza vaccination LUNG CANCER SC REENING [facility] Start: 07-14-2021 Colonoscopy COLONOSCOPY [facility] Start: 07-14-2021 COLORECTAL CANCER SCREENING COLORECTAL CANCER SCREENING [facility] Start: 06-25-2021 End: 08-25-2021 CREATININE BLD CREATININE BLD Lab Routine Esophageal adenocarcinoma (HCC) H/O esophagectomy Diaphragmatic hernia without obstruction or gangrene Expected: 06/25/2021, Expires: 08/25/2021 [facility] Work Phone: Comment on above: Expected: 06/25/2021 , Expires: 08/25/2021 Start: 10-22-2020 Venous catheter care management [facility] Start: 09-15-2020 Vital signs measurements [facility] Start: 09-09-2020 Vital signs measurements [facility] Start: 09-01-2020 Vital signs measurements [facility] Start: 08-25-2020 Venous catheter care management [facility] Start: 08-25-2020 Vital signs measurements [facility] Start: 08-18-2020 Vital signs measurements [facility] Start: 2017 RSV Vaccine (1 - 1-d ose 60+ series) RSV Vaccine (1 - 1-dose 60+ series) [facility] Start: 2017 RSV Vaccine (1 - Ris k 60-74 years 1-dose series) RSV Vaccine (1 - Risk 60-74 years 1-dose series) [facility] Start: 2012 PROSTATE CANCER SCREENING DISCUSSION PROSTATE CANCER SCREENING DISCUSSION [facility] Start: 2012 Prostate specific antigen measurement Prostate Cancer Screening Discussion [facility] Start: 12-19-2007 SHINGRIX VACCINE (1 of 2) SHINGRIX VACCINE (1 of 2) [facility] Start: 2002 COLOGUARD (FIT-DNA) COLOGUARD (FIT-D NA) [facility] Start: 2002 Colonoscopy COLONOSCOPY [facility] Start: 2002 COLORECTAL CANCER SCREENING COLORECTAL CANCER SCREENING [facility] Start: [address] COLONOGRAPHY [facility] Start: 2002 FECAL OCCULT BLOOD FECAL OCCULT BLOO D [facility] Start: 2002 Screening for malign ant neoplasm of colon [facility] Start: 2002 SIGMOIDOSCOPY SIGMOIDOSCOPY [facility] Start: 1992 Lipid 1996 panel - Serum or Plasma Lipid Screening [facility] Start: 1992 Lipid panel Lipid Screening [facility] Start: 1992 LIPID SCREEN LIPID SCREEN [facility] Start: 1976 Pneumococcal Vaccine : 50+ (1 of 2 - PCV) Pneumococcal Vaccine: 50+ (1 of 2 - PCV) [facility] Start: 1976 Urine microalbumin profile [facility] Start: 12-19-1975 ANNUAL PCP TEAM CAN LINE EXAMINER ASPEN DISEASE VISIT ANNUAL PCP TEAM CHRONIC DISEASE VISIT [facility] Start: 12-19-1975 Anxiety Screening Anxiety Screening [facility] Start: 12-19-1975 BP CONTROLLED (<130/80) BP CONTROLLE D (<130/80) [facility] Start: 12-19-1975 Depression Screening Depression Scre ening [facility] Start: 12-19-1975 HEPATITIS C SCREENING HEPATITIS C [facility] Start: 12-19-1975 Hepatitis C screening Hepatitis C [facility] Start: 12-19-1975 HIV SCREENING HIV SCREENING [facility] Start: 12-19-1975 HIV screening HIV Screening [facility] Start: 1969 Adult depression screening assessment DEPRESSION SCREENING [facility] Start: 12-19-1963 PNEUMOCOCCAL (1 - PCV) PNEUMOCOCCAL (1 - PCV) [facility] Start: 12-19-1963 Pneumococcal vaccination Pneumococcal Vaccine (1 - PCV) [facility] Start: 12-19-1963 Pneumococcal Vaccine : 65+ (1 of 2 - PCV) Pneumococcal Vaccine: 65+ (1 of 2 - PCV) [facility] Start: 1962 COVID-19 VACCINE (1) COVID-19 VACCIN E (1) [facility] Start: 06-18-1958 COVID-19 VACCINE (#1) COVID-19 VACCI NE (#1) [facility] Start: 1957 Abdominal aortic aneurysm screening Abdominal Aortic Aneurysm Screening [facility] End: 07-25-2022 Ct abdomen & pelvis w/contrast material CT ABD/PEL W IVCON Radiology Routine Esophageal adenocarcinoma (HCC) H/O esophagectomy Diaphragmatic hernia without obstruction or gangrene 1 Occurrences starting 06/25/2021 until 07/25/2022 [facility] Work Phone: Comment on above: 1 Occurrences starti ng 06/25/2021 until 07/25/2022 End: 12-17-2023 Ct abdomen & pelvis w/contrast material CT ABD/PEL W IVCON Radiology Routine Esophageal adenocarcinoma (HCC) Status post repair of paraesophageal diaphragmatic hernia H/O esophagectomy 1 Occurrences starting 11/17/2022 until 12/17/2023 [facility] Work Phone: Comment on above: 1 Occurrences starti ng 11/17/2022 until 12/17/2023 End: 12-17-2023 CT CHEST W IVCON CT CHEST W IVCON Radiology Routine Esophageal adenocarcinoma (HCC) Status post repair of paraesophageal diaphragmatic hernia H/O esophagectomy 1 Occurrences starting 11/17/2022 until 12/17/2023 [facility] Work Phone: Comment on above: 1 Occurrences starti ng 11/17/2022 until 12/17/2023 Patient Education [facility] Work Phone: Patient referral [facility] Work Phone: [facility] Payers Date Payer Category Payer Medicare [id number] 2020 Self-pay [id number] 2020 Unknown [id number] 2016 Medicare MEDICARE MEDICAR E A AND B [id number] 2016-Present [phone] [address] [address] [place] [address] Medicare [id number] 2016 Medicare [id number] 2016 Medicare [id number] Unknown [id number] Unknown [id number] Unknown [id number] Unknown [id number] Unknown [id number] Unknown [id number] Unknown [id number] Unknown [id number] Unknown [id number] Unknown [id number] Unknown [id number] Unknown [id number] Unknown [id number] Social History Date Type Detail Facility Start: 07-23-2020 End: 02-25-2021 Tobacco smoking status NHIS Ex-smoker [facility] End: 07-15-2020 History of tobacco use Current smoker [facility] Start: 07-05-2021 End: 07-15-2020 History of tobacco use Cigarette Smoker [facility] Start: 07-23-2020 End: 12-01-2022 Cigarettes smoked current (pack per day) - Reported 1 [facility] Start: 07-23-2020 End: 03-16-2024 Tobacco use and exposure Smokeless tobacco non-user [facility] Start: 04-29-2021 End: 03-16-2024 Alcohol intake Ex-drinker (finding) [facility] Start: 08-13-2020 History SDOH Alcohol Comment Hasn't drank for over a month 07/13/2020 [facility] Start: 1955 Sex Assigned At Not on file C [facility] Start: 06-15-2021 End: 11-05-2021 Exposure to SARS-CoV-2 (event) Not sure [facility] Start: 10-07-2021 Tobacco smoking stat us OKIS Unknown if ever smoked [facility] Start: 07-11-2020 Cigarettes [facility] Start: 1955 Sex Assigned At Male W [facility] Start: 11-05-2021 End: 10-18-2024 Tobacco smoking status OKIS Smokes tobacco daily [facility] Start: 05-24-2022 End: 12-01-2022 Tobacco use panel [facility] National Score (1-10 0), lower number is lower risk 49 [facility] Start: 10-07-2021 End: 06-25-2024 Tobacco smoking status NHIS Current some day smoker [facility] Start: 05-30-2024 Sex Male (finding) [facility] Start: 10-23-2024 End: 11-21-2024 Tobacco smoking status NHIS Current Heavy tobacco smoker [facility] Medical Equipment Procedure Code Equipment Code Equipment Origin al Text Equipment Identifier Dates Port Chronoflex Powerport Isp Mri 8fr Titanium Implantable Infusion - [id number] Start: 07-28-2020 Tube Shailesh Secur-L ok 18fr Standard Silicone Natural Rubber Jejunostomy - [id number] Start: 11-20-2020 Mesh Bio-A Synth etic 10x7cm Surgical Reinforcement Hernia Repair - [id number] Start: 10-08-2021 Clinical Notes 06-25-2021 to 12-14-2024 Note Date & Type Note Facility 12-14-2024 Radiology Diagnostic study note [facility] Imaging Services [address] [place] [address] CTA Abd w/Runoff W/WO Contrast MR#: [id number] Acct: [id number] Name: ERIC VELA Rep #: [id number] : 1955 M 68 From: Johnathan Mora MD PCP: Care Physician,No Primary Status: REG CLI Study:CTA Abd w/Runoff W/WO Contrast Date of Exam: 12/10/24 Exam# [id number] Ordering Dr: Mick Chaudhari PROCEDURE: CTA ABD W/RUNOFF W/WO CONTRAST 12/10/2024 REASON FOR EXAM: LLE ATHEROSCLEROSIS WITH CLAUDICATION TECHNIQUE: Procedure Code: [id number] Modality: CT Procedure: CTA ABD W/RUNOFF W/WO CONTRAST Multiplanar Sagittal and Coronal images were obtained. 3D and or MIPS post processing was performed CONTRAST: Isovue 370 VOLUME: 100 mL One or more dose reduction techniques were used (e.g., Automated exposure control, adjustment of the mA and/or kV according to patient size, use of iterative reconstruction technique). RADIATION DOSE SUMMARY: CTDlvol: 20 mGy DLP: 927 mGycm COMPARISON: May 21, 2024 FINDINGS: Aorta: The timing and quality of the contrast bolus is diagnostic. There is no evidence of aortic rupture aortic dissection. No aneurysm is seen. Severe calcified and noncalcified atherosclerotic plaque is shown. Thoracoabdominal aorta is 20 mm Infrarenal aorta is 18 mm Aorta above the bifurcation: 15 mm Iliac Arteries: Severe plaque is present bilaterally. No dissection, aneurysm is seen. 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 This extends into the external iliac artery. The deep iliac artery is thrombosed. Flow-limiting stenosis is seen over a short segment of the proximal right commoniliac artery. The remainder is atherosclerotic but patent without flow-limiting stenosis. Heavy atherosclerotic plaque is shown at the right deep iliac artery and there is likely flow limitation there. Celiac: Circumferential plaque of the origin is 50-69% stenosis. SMA: Mild plaque. No stenosis. WHITLEY : Patent. Right Renal: Patent Left Renal: Patent Lower Extremity Runoff (Bilateral): Common Femoral Arteries: Short segment atherosclerotic plaque bilaterally is 50-69% stenotic. Superficial Femoral Arteries: Irregular plaque is shown along the length of the superficial femoral arteries bilaterally. Short segment stenosis in the left proximal thigh is likely flow-limiting a few cm beyond the takeoff of the profunda. Profunda Femoris Arteries: Patent in the proximal thigh. The more distal portions are not well seen. Popliteal Arteries: Atherosclerosis without stenosis. Tibial and Peroneal Arteries: Atherosclerotic plaque. Small caliber but patent. Distal Runoff: Very small caliber. Extravascular Findings: Gastric pull-through. In the liver, adrenals, pancreas, kidneys are unremarkable. Complex cyst involving the spleen is 2.3 x 2.1 cm and benign. No free fluid, free air or mass. Bowel loops are not dilated. Urinary bladder is unremarkable. Prostate is unremarkable. CT/CTA Abd w/Runoff W/WO Contrast IMPRESSION: 1. Advanced atherosclerotic plaque. 50-69% stenosis celiac axis 2. Complete thrombosis left common iliac, left external iliac, left deep iliac. Likely flow-limiting stenosis right deep iliac. 50-69% stenosis common femoral arteries bilaterally. 3. Short segment stenosis proximal thigh superficial femoral artery Reading Location: [id number] CC: NAZ Almanzar; No Primary Care Physician ~ Service Center Assistant: Signed [facility] 10-23-2024 Evaluation note Diagnosis Onset Date Resolution Claudication acute October 23, 2024 8:55am PAD (peripheral artery disease) acute October 23 8:55am [facility] Work Phone: 1(751) 117-347708-19-2025 Evaluation note* Diagnosis Onset Date Resolution Status Admit Date Claudication acute October 23, 2024 8:55am PAD (peripheral artery disease) acute October 23 8:55am Claudication acute November 212024 3:13pm PAD (peripheral artery disease) acute November 21, 2024 3:13pm [facility] Work Phone: 1(484) 194-731608-14-2025 Radiology Diagnostic study note [facility] Imaging Services [address] [place], [place] [address] Venous Duplex Imag/Limited/Uni MR#: [id number] Acct: [id number] Name: ERIC VELA Rep #: [id number] : 1955 M 68 From: [facility] karely Bearden MD PCP: Care Physician,No Primary Status: PRE ER Study:Venous Duplex Imag/Limited/Uni Date of Exam: 10/18/24 Exam# [id number] Ordering Dr: Reilly Velasquez MD PROCEDURE: LEFT LOWER EXTREMITY VENOUS DUPLEX IMAG/LIMITED/UNI 10/18/2024 REASON FOR EXAM: Left leg pain/swelling TECHNIQUE: Venous Doppler ultrasound of the left lower extremity. COMPARISON: None. FINDINGS: No intraluminal echogenicity to suggest the presence of a deep venous thrombosis. Appropriate respiratory variation, augmentation and venous compression is noted. US/Venous Duplex Imag/Limited/Uni IMPRESSION: No evidence for DVT in the left lower extremity. Reading Location: [id number] CC: Dr. Silvia Velasquez MD; No Primary Care Physician ~ Service Center Assistant: Signed [facility]05-02-2025 Evaluation note* Diagnosis Onset Date Resolution Status Admit Date Atherosclerosis acute July 06, 2024 10:16am [facility] Work Phone: 1(431) 507-934403-24-2025 Evaluation note* Diagnosis Onset Date Resolution Status Admit Date Gastroesophageal cancer chronic M arch 2024 8:50am [facility] Work Phone: 1(257) 558-826303-24-2025 Evaluation note* Diagnosis Onset Date Resolution Status Admit Date Gastroesophageal cancer chronic M arch 2024 8:50am Atherosclerosis acute July 06, 2024 10:16am [facility] Work Phone: [phone] Radiology Diagnostic study note [facility] Imaging Services [address] [place] [address] CT Chest AND Abd W/ Contrast MR#: [id number] Acct: [id number] Name: ERIC VELA Rep #: [id number] : 1955 M 68 From: Capri Hutchison MD PCP: Dr. Alina Choi MD Status: REG CLI Study:CT Chest AND Abd W/ Contrast Date of Ex am: 05/21/24 Exam# [id number] Ordering Dr: Bienvenido Combs MD PROCEDURE: CT CHEST AND ABDOMEN WITH CONTRAST REASON FOR EXAM: MONITOR-HX OF ESOPHAGEAL CA. TECHNIQUE: Contiguous axial scans of 2.5 mm slice thicknesses. Sagittal and coronal reconstruction images wereobtained. One or more dose reduction techniques were used (e.g., automated exposure control, adjustment of mAand/or kv according to patient size, use of iterative reconstruction technique). CONTRAST: ISOVUE-300 AMOUNT INJECTED: 99 ML. COMPARISON: CT CHEST AND ABDOMEN DATED 05/23/2023. FINDINGS: CT CHEST: Mediastinum: Postoperative findings are noted related to gastric pull-through procedure. Lymph nodes: No mediastinal, hilar, or axillary lymphadenopathy. Heart and Vasculature: Normal heart size. No pericardial effusion. Thoracic aorta and pulmonary arteries are unremarkable. Lungs and Airways: Centrilobular emphysematous changes are redemonstrated. Pleura: No pleural effusion. No pneumothorax. CT ABDOMEN: Liver: Small subcentimeter hypodense nodules are scattered throughout the liver. Gallbladder: Unremarkable. Spleen: Hypodense areas are redemonstrated in the spleen. Pancreas: Unremarkable. Adrenals: Unremarkable. Kidneys: Unremarkable. Bowel: Visualized loops of bowel in the upper abdomen are unremarkable. Lymph nodes: No suspicious lymph node enlargement at the upper abdomen. Vasculature: Severe atherosclerotic calcific disease of the aortoiliac arteries. Peritoneum / Retroperitoneum: No ascites or free air at the upper abdomen. Anterior abdominal wall: Unremarkable. Bones: Multilevel spondylosis. Multilevel degenerative disc disease. CT/CT Chest AND Abd W/ Contrast IMPRESSION: 1. Status post gastric pull-through procedure is redemonstrated and is stable. 2. Centrilobular emphysematous changes are redemonstrated. 3. Subcentimeter nodules in the liver most likely cysts. 4. Hypodense areas in the spleen, cysts or hemangiomas. 5. Other nonacute findings detailed above. Reading Location: [facility] CC: Dr. Alina Choi MD; Dr. Mark Combs MD ~ Service Center Assistant: Signed [facility]01-10-2025 NoteHNO ID: [id number] Author: MICHAEL ROGERS PA Service: ? Author Type: Physician Logistics Manager Type: Progress Notes Filed: 03/16/2024 14:35 Note Text: This note was created using Emunamedicariter. Subjective [place]ela is a 68 year old male. HPI 68-year-old male presents for concern for dental infection. Patient states he has a broken front tooth which he broke about a month ago. He states it has had increased pain for the past 3 days. He states several weeks ago he took amoxicillin and started hurting and the pain resolved, but now it has returned. He does have a dental appointment next week. He states that he has no drainage from the area. It is difficult to eat due to pain. No fevers. No difficulty swallowing or breathing. No other complaint. 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 MEDICATIONS amoxicillin-clavulanic acid (AUGMENTIN) 400-57 mg/5 mL suspension Take 11 mL by mouth two times a day for 5 days. albuterol HFA (PROVENTIL HFA, VENTOLIN HFA) 90 mcg/actuation inhaler Inhale 2 Puffs as instructed every 4 hours as needed for wheezing/shortness of breath. (Patient not taking: Reported on 03/16/2024) albuterol HFA (PROVENTIL HFA, VENTOLIN HFA) 90 mcg/actuation inhaler Inhale 2 Puffs as instructed every 6 hours as needed for wheezing/shortness of breath. (Patient not taking: Reported on 03/16/2024) ytuucy-mvapevjz-gjosaid (CREON) 36,000-114,000- 180,000 unit delayed release capsule Take 1 capsule by mouth with meals and at bedtime. (Patient not taking: Reported on 12/13/2022) megestrol (MEGACE) 40 mg tablet TAKE 1/2 (ONE-HALF) OF A TABLET TWICE DAILY (Patient not taking: Reported on 12/13/2022) lisinopril (ZESTRIL, PRINIVIL) 5 mg tablet Take 5 mg by mouth once daily. (Patient not taking: Reported on 05/24/2022) dronabinol (MARINOL) 5 mg capsule Take 1 capsule by mouth twice daily before meals for 90 days. (Patient not taking: Reported on 02/25/2021) docusate sodium (COLACE) 100 mg capsule Take 100 mg by mouth once daily. (Patient not taking: Reported on 05/24/2022) lidocaine-prilocaine (EMLA) 2.5-2.5 % cream Apply to affected area. (Patient not taking: Reported on 05/24/2022) ondansetron orally disintegrating (ZOFRAN ODT) 8 mg disintegrating tablet Take 8 mg by mouth every 8 hours as needed for nausea/vomiting. (Patient not taking: Reported on 05/24/2022) pantoprazole DR (PROTONIX) 40 mg tablet Take 40 mg by mouth once daily. (Patient not taking: Reported on 05/24/2022) atorvastatin (LIPITOR) 40 mg tablet Take 40 mg by mouth once daily. (Patient not taking: Reported on 05/24/2022) clopidogrel (PLAVIX) 75 mg tablet Take 75 mg by mouth once daily. (Patient not taking: Reported on 05/24/2022) FAMILY HISTORY Problem Relation Age of Onset Hypertension Mother Heart disease Mother heart ablations Cancer Father Skin cancer Heart disease Father Emphysema Father Social History Tobacco Use Smoking status: Every Day Current packs/day: 0.25 Average packs/day: 0.3 packs/day for 40.0 years (10.0 ttl pk-yrs) Types: Cigarettes Start date: 07/05/2021 Smokeless tobacco: Never Vaping Use Vaping status: Never Used Substance Use Topics Alcohol use: Not Currently Alcohol/week: 6.0 standard drinks of alcohol Types: 6 Cans of Beer (12oz) per week Comment: Hasn't drank for over a month 07/13/2020 Drug use: Not Currently Frequency: 7.0 times per week Types: Marijuana Comment: last use yesterday Review of Systems Constitutional: Negative for chills and fever. HENT: Positive for dental problem. Negative for congestion and sore throat. Respiratory: Negative for cough and shortness of breath. Gastrointestinal: Negative for diarrhea and vomiting. Objective BP 165/90 Pulse 100 Temp 36.9 ?C (98.5 ?F) Resp 22 Wt 53.8 kg (118 lb 9.7 oz) SpO2 98% BMI 17.02 kg/m? Physical Exam Vitals and nursing note reviewed. Constitutional: General: He is not in acute distress. Appearance: Normal appearance. He is not toxic-appearing. HENT: Nose: Nose normal. Mouth/Throat: Mouth: Mucous membranes are moist. Dentition: Abnormal dentition. Dental tenderness and dental caries present. No dental abscesses. Comments: Patient has many missing teeth. Remaining teeth have decay and abnormal (more content not included)...[facility]01-10-2025 History of Present illness Narrative* Michael Rogers PA - 03/16/2024 2:32 PM EST This note was created using NoteWriter. Subjective Eric Vela is a 68 year old male. HPI 68-year-old male presents for concern for dental infection. Patient states he has a broken front tooth which he broke about a month ago. He states it has had increased pain for the past 3 days. He states several weeks ago he took amoxicillin and started hurting and the pain resolved, but now ithas returned. He does have a dental appointment next week. He states that he has no drainage from the area. It is difficult to eat due to pain. No fevers. No difficulty swallowing or breathing. No other complaint. 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 MEDICATIONS amoxicillin-clavulanic acid (AUGMENTIN) 400-57 mg/5 mL suspension Take 11 mL by mouth two times a day for 5 days. albuterol HFA (PROVENTIL HFA, VENTOLIN HFA) 90 mcg/actuation inhaler Inhale 2 Puffs as instructed every 4 hours as needed for wheezing/shortness of breath. (Patient not taking: Reported on 03/16/2024) albuterol HFA (PROVENTIL HFA, VENTOLIN HFA) 90 mcg/actuation inhaler Inhale 2 Puffs as instructed every 6 hours as needed for wheezing/shortness of breath. (Patient not taking: Reported on 03/16/2024) yenjqu-fbvwvqzj-bosrtpo (CREON) 36,000-114,000- 180,000 unit delayed release capsule Take 1 capsuleby mouth with meals and at bedtime. (Patient not taking: Reported on 12/13/2022) megestrol (MEGACE) 40 mg tablet TAKE 1/2 (ONE-HALF) OF A TABLET TWICE DAILY (Patient not taking: Reported on 12/13/2022) lisinopril (ZESTRIL, PRINIVIL) 5 mg tablet Take 5 mg by mouth once daily. (Patient not taking: Reported on 05/24/2022) dronabinol (MARINOL) 5 mg capsule Take 1 capsule by mouth twice daily before meals for 90 days. (Patient not taking: Reported on 02/25/2021) docusate sodium (COLACE) 100 mg capsule Take 100 mg by mouth once daily. (Patient not taking: Reported on 05/24/2022) lidocaine-prilocaine (EMLA) 2.5-2.5 % cream Apply to affected area. (Patient not taking: Reported on 05/24/2022) ondansetron orally disintegrating (ZOFRAN ODT) 8 mg disintegrating tablet Take 8 mg by mouth every 8 hours as needed for nausea/vomiting. (Patient not taking: Reported on 05/24/2022) pantoprazole DR (PROTONIX) 40 mg tablet Take 40 mg by mouth once daily. (Patient not taking: Reported on 05/24/2022) atorvastatin (LIPITOR) 40 mg tablet Take 40 mg by mouth once daily. (Patient not taking: Reported on 05/24/2022) clopidogrel (PLAVIX) 75 mg tablet Take 75 mg by mouth once daily. (Patient not taking: Reported on 05/24/2022) FAMILY HISTORY Problem Relation Age of Onset Hypertension Mother Heart disease Mother heart ablations Cancer Father Skin cancer Heart disease Father Emphysema Father Social History Tobacco Use Smoking status: Every Day Current packs/day: 0.25 Average packs/day: 0.3 packs/day for 40.0 years (10.0 ttl pk-yrs) Types: Cigarettes Start date: 07/05/2021 Smokeless tobacco: Never Vaping Use Vaping status: Never Used Substance Use Topics Alcohol use: Not Currently Alcohol/week: 6.0 standard drinks of alcohol Types: 6 Cans of Beer (12oz) per week Comment: Hasn't drank for over a month 07/13/2020 Drug use: Not Currently Frequency: 7.0 times per week Types: Marijuana Comment: last use yesterday Review of Systems Constitutional: Negative for chills and fever. HENT: Positive for dental problem. Negative for congestion and sore throat. Respiratory: Negative for cough and shortness of breath. Gastrointestinal: Negative for diarrhea and vomiting. Objective BP 165/90 Pulse 100 Temp 36.9 C (98.5 F) Resp 22 Wt 53.8 kg (118 lb 9.7 oz) SpO2 98% BMI 17.02 kg/m Physical Exam Vitals and nursing note reviewed. Constitutional: General: He is not in acute distress. Appearance: Normal appearance. He is not toxic-appearing. HENT: Nose: Nose normal. Mouth/Throat: Mouth: Mucous membranes are moist. Dentition: Abnormal dentition. Dental tenderness and dental caries present. No dental abscesses. Comments: Patient has many missing teeth. Remaining teeth have decay and abnormal dentition. Tooth #23 is broken with decay. Surrounding gingival erythema. No drainable abscess. Tender to touch. No tongue or floor mouth swelling. No trismus. Eyes: Conjunctiva/sclera: Conjunctivae normal. Cardiovascular: Rate and Rhythm: Normal rate and regular rhythm. Pulmonary: Effort: Pulmonary effort is normal. Breath sounds: Normal breath sounds. Skin: General: Skin is warm and dry. Neurological: Mental Status: He is alert. Assessment and Plan ASSESSMENT/PLAN: 1. Dental infection - ICD9: 522.4, ICD10: K04.7 -Rx for Augmentin. Patient prefers liquid, unable to swallow pills due to history of esophageal cancer -Follow-up with dentist this week as scheduled Diagnosis and treatment plan were discussed and questions were answered to the patient's satisfaction. Pt acknowledged understanding of concepts and follow up plan. Specific signs and symptoms that would indicate the need for higher level of care were discussed in detail warranting prompt ER evaluation. NAZ Vital [facility] Instructions* Patient Instructions* Liz Pritchett APRN.CNP - 05/11/2023 12:27 PM EST PLEASE FOLLOW UP RELATED TO THE ABNORMAL XRAY FINDINGS documented in this encounterOhio[facility] History of Present illness Narrative* Linda Jones RT(R) - 05/11/2023 11:50 AM EST Radiology Service Progress Note PATIENT NAME: Eric Vela DATE OF SERVICE: May 11, 2023 TIME: 12:00 PM PATIENT IDENTITY VERIFICATION COMPLETED USING TWO (2) IDENTIFIERS: Name and Date of confirmedby patient verbally. FALL SCREENING: Has the patient had 2 falls in the last year or 1 fall with injury or currently using an Ambulatory Assistive Device (Walker, Cane, Wheelchair, Crutches, etc.)? No PATIENT GENDER DATA: Male PATIENT RELEVANT IMPLANT DATA REVIEWED: Not Applicable PATIENT PRESENTS WITH AN IMPLANTABLE OR ATTACHED WELDING MACHINE TENDER: No RADIOLOGY DEPARTMENT: General X-ray: Exam(s) Completed: Chest X-Ray PERIPHERAL IV DATA: Not applicable SIGNED BY: RT Roselyn(R) May 11, 2023 12:00 PM documented in this encounterOhio[facility]24 NoteHNO ID: [id number] Author: LINDA JONES RT(R) Service: Radiology Author Type: Technologist Type: Progress Notes Filed: 05/11/2023 12:05 Note Text: Radiology Service Progress Note PATIENT NAME: Eric Vela DATE OF SERVICE: May 11, 2023 TIME: 12:00 PM PATIENT IDENTITY VERIFICATION COMPLETED USING TWO (2) IDENTIFIERS: Name and Date of confirmed by patient verbally. FALL SCREENING: Has the patient had 2 falls in the last year or 1 fall with injury or currently using an Ambulatory Assistive Device (Walker, Cane, Wheelchair, Crutches, etc.)? No PATIENT GENDER DATA: Male PATIENT RELEVANT IMPLANT DATA REVIEWED: Not Applicable PATIENT PRESENTS WITH AN IMPLANTABLE OR ATTACHED WELDING MACHINE TENDER: No RADIOLOGY DEPARTMENT: General X-ray: Exam(s) Completed: Chest X-Ray PERIPHERAL IV DATA: Not applicable SIGNED BY: RT Roselyn(R) May 11, 2023 12:00 [facility]03-06-2024 NoteHNO ID: [id number] Author: LIZ PRITCHETT APRN.DRAFTING DETAILER Service: ? Author Type: Nurse Practitioner Type: Progress Notes Filed: 05/11/2023 12:37 Note Text: This note was created using NoteWriter. Subjective Eric Vela is a 67 year old male. 67 year old male with HTN, GERD, esophageal CA (3 years remission), asthma/COPD presents for illness. Acute onset 2 weeks ago + cough +productive +green sputum +chest congestion +headache + fever Denies hemoptysis Denies CP Denies feelings of dizziness and lightheaded +tobacco usage +cannabis usage Has home albuterol He is scheduled for CT imaging next week related to his history of esophageal carcinoma. The history is provided by the patient. 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 Cough This is a new problem. The current episode started more than 1 week ago. The problem occurs constantly. The problem has been gradually worsening. The cough is Productive of sputum. There has been no fever. Associated symptoms include chills, rhinorrhea, shortness of breath and wheezing. Pertinent negatives include no chest pain, no sweats, no weight loss, no ear congestion, no ear pain, no headaches, no sore throat, no myalgias and no eye redness. He has tried nothing for the symptoms. The treatment provided no relief. He is a smoker. His past medical history is significant for COPD and asthma. His past medical history does not include bronchitis, pneumonia, bronchiectasis or emphysema. PAST MEDICAL HISTORY Diagnosis Date COPD (chronic obstructive pulmonary disease) (HCC) DVT of popliteal vein (HCC) 2018 Essential hypertension GERD (gastroesophageal reflux disease) Hyperlipemia Malignant neoplasm of overlapping sites of esophagus (HCC) PAST SURGICAL HISTORY Procedure Laterality Date COLONOSCOPY GEN ANES 2020 X2 2018 AND 2020 EGD - BALLOON DILATION <30MM 01/22/2021 EGD W/O BRSH SPEC VARICIES INJ 2020 PAST SURGICAL HISTORY OF 07/2020 Laparoscopic jejunostomy tube placement with mediport PAST SURGICAL HISTORY OF 11/2020 ESOPHAGECTOMY REVISE MEDIAN N/CARPAL TUNNEL SURG Left IN EARLY 1999' TONSILLECTOMY AND ADENOIDECTOMY A CHILD ALLERGIES Patient has no known allergies. MEDICATIONS prednisoLONE sodium phosphate (ORAPRED) 15 mg/5 mL (3 mg/mL) oral liquid Take 18.2 mL by mouth once daily for 5 days. azithromycin (ZITHROMAX) 200 mg/5 mL suspension Take 12.5 mL by mouth once daily for 1 day, THEN 6.8 mL once daily for 4 days. albuterol HFA (PROVENTIL HFA, VENTOLIN HFA) 90 mcg/actuation inhaler Inhale 2 Puffs as instructed every 4 hours as needed for wheezing/shortness of breath. Inhalational Spacing Device 1 Device one time only for 1 dose. albuterol HFA (PROVENTIL HFA, VENTOLIN HFA) 90 mcg/actuation inhaler Inhale 2 Puffs as instructed every 6 hours as needed for wheezing/shortness of breath. wpfafi-gkenjokm-gldaixc (CREON) 36,000-114,000- 180,000 unit delayed release capsule Take 1 capsule by mouth with meals and at bedtime. (Patient not taking: Reported on 12/13/2022) megestrol (MEGACE) 40 mg tablet TAKE 1/2 (ONE-HALF) OF A TABLET TWICE DAILY (Patient not taking: Reported on 12/13/2022) lisinopril (ZESTRIL, PRINIVIL) 5 mg tablet Take 5 mg by mouth once daily. (Patient not taking: Reported on 05/24/2022) dronabinol (MARINOL) 5 mg capsule Take 1 capsule by mouth twice daily before meals for 90 days. (Patient not taking: Reported on 02/25/2021) docusate sodium (COLACE) 100 mg capsule Take 100 mg by mouth once daily. (Patient not taking: Reported on 05/24/2022) lidocaine-prilocaine (EMLA) 2.5-2.5 % cream Apply to affected area. (Patient not taking: Reported on 05/24/2022) ondansetron orally disintegrating (ZOFRAN ODT) 8 mg disintegrating tablet Take 8 mg by mouth every 8 hours as needed for nausea/vomiting. (Patient not taking: Reported on 05/24/2022) pantoprazole DR (PROTONIX) 40 mg tablet Take 40 mg by mouth once daily. (Patient not taking: Reported on 05/24/2022) atorvastatin (LIPITOR) 40 mg tablet Take 40 mg by mouth once daily. (Patient not taking: Reported on 05/24/2022) clopidogrel (PLAVIX) 75 mg tablet Take 75 mg by mouth once daily. (Patient not taking: Reported on 05/24/2022) FAMILY HISTORY Problem Relation Age of Onset Hypertension Mother Heart disease Mother heart ablations Cancer Father Skin cancer Heart disease Father Emphysema Father Social History Tobacco Use Smoking status: Every Day Packs/day: 0.25 Years: 40.00 Additional pack years: 0.00 Total pack years: 10.00 Types: Cigarettes Start date: 07/05/2021 Smokeless tobacco: Never Vaping Use Vaping Use: Never used Substance Use Topics Alcohol use: Not Currently Alcohol/week: 6.0 standard drinks of alcohol Types: 6 Cans of Beer (12oz) per week Comment: Hasn't drank for over a month 07/13/2020 Drug use: Not Currently Frequency: 7.0 times per week Types: Marijuana Comment: last use yesterday Review of Systems (more content not included)...[facility] 05-11-2023 History of Present illness Narrative* Liz Pritchett APRN.DRAFTING DETAILER - 05/11/2023 11:40 AM EST This note was created using Emunamedicariter. Subjective Eric Vela is a 67 year old male. 67 year old male with HTN, GERD, esophageal CA (3 years remission), asthma/COPD presents for illness. Acute onset 2 weeks ago + cough +productive +green sputum +chest congestion +headache + fever Denies hemoptysis Denies CP Denies feelings of dizziness and lightheaded +tobacco usage +cannabis usage Has home albuterol He is scheduled for CT imaging next week related to his history of esophageal carcinoma. The history is provided by the patient. 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 Cough This is a new problem. The current episode started more than 1 week ago. The problem occurs constantly. The problem has been gradually worsening. The cough is Productive of sputum. There has been no fever. Associated symptoms include chills, rhinorrhea, shortness of breath and wheezing. Pertinent negatives include no chest pain, no sweats, no weight loss, no ear congestion, no ear pain, no headaches, no sore throat, no myalgias and no eye redness. He has tried nothing for the symptoms. The treatment provided no relief. He is a smoker. His past medical history is significant for COPD and asthma. His past medical history does not include bronchitis, pneumonia, bronchiectasis or emphysema. 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 MEDICATIONS prednisoLONE sodium phosphate (ORAPRED) 15 mg/5 mL (3 mg/mL) oral liquid Take 18.2 mL by mouth oncedaily for 5 days. azithromycin (ZITHROMAX) 200 mg/5 mL suspension Take 12.5 mL by mouth once daily for 1 day, THEN 6.8 mL once daily for 4 days. albuterol HFA (PROVENTIL HFA, VENTOLIN HFA) 90 mcg/actuation inhaler Inhale 2 Puffs as instructed every 4 hours as needed for wheezing/shortness of breath. Inhalational Spacing Device 1 Device one time only for 1 dose. albuterol HFA (PROVENTIL HFA, VENTOLIN HFA) 90 mcg/actuation inhaler Inhale 2 Puffs as instructed every 6 hours as needed for wheezing/shortness of breath. ltlwxe-pvqaawsq-ekftaib (CREON) 36,000-114,000- 180,000 unit delayed release capsule Take 1 capsuleby mouth with meals and at bedtime. (Patient not taking: Reported on 12/13/2022) megestrol (MEGACE) 40 mg tablet TAKE 1/2 (ONE-HALF) OF A TABLET TWICE DAILY (Patient not taking: Reported on 12/13/2022) lisinopril (ZESTRIL, PRINIVIL) 5 mg tablet Take 5 mg by mouth once daily. (Patient not taking: Reported on 05/24/2022) dronabinol (MARINOL) 5 mg capsule Take 1 capsule by mouth twice daily before meals for 90 days. (Patient not taking: Reported on 02/25/2021) docusate sodium (COLACE) 100 mg capsule Take 100 mg by mouth once daily. (Patient not taking: Reported on 05/24/2022) lidocaine-prilocaine (EMLA) 2.5-2.5 % cream Apply to affected area. (Patient not taking: Reported on 05/24/2022) ondansetron orally disintegrating (ZOFRAN ODT) 8 mg disintegrating tablet Take 8 mg by mouth every 8 hours as needed for nausea/vomiting. (Patient not taking: Reported on 05/24/2022) pantoprazole DR (PROTONIX) 40 mg tablet Take 40 mg by mouth once daily. (Patient not taking: Reported on 05/24/2022) atorvastatin (LIPITOR) 40 mg tablet Take 40 mg by mouth once daily. (Patient not taking: Reported on 05/24/2022) clopidogrel (PLAVIX) 75 mg tablet Take 75 mg by mouth once daily. (Patient not taking: Reported on 05/24/2022) FAMILY HISTORY Problem Relation Age of Onset Hypertension Mother Heart disease Mother heart ablations Cancer Father Skin cancer Heart disease Father Emphysema Father Social History Tobacco Use Smoking status: Every Day Packs/day: 0.25 Years: 40.00 Additional pack years: 0.00 Total pack years: 10.00 Types: Cigarettes Start date: 07/05/2021 Smokeless tobacco: Never Vaping Use Vaping Use: Never used Substance Use Topics Alcohol use: Not Currently Alcohol/week: 6.0 standard drinks of alcohol Types: 6 Cans of Beer (12oz) per week Comment: Hasn't drank for over a month 07/13/2020 Drug use: Not Currently Frequency: 7.0 times per week Types: Marijuana Comment: last use yesterday Review of Systems Constitutional: Positive for chills. Negative for weight loss. HENT: Positive for congestion and rhinorrhea. Negative for ear pain and sore throat. Eyes: Negative for redness. Respiratory: Positive for cough, chest tightness, shortness of breath and wheezing. Cardiovascular: Negative for chest pain. Gastrointestinal: Negative for abdominal pain, diarrhea, nausea and vomiting. Musculoskeletal: Negative for myalgias. Skin: Negative for color change, pallor, rash and wound. Allergic/Immunologic: Negative for environmental allergies, food allergies and immunocompromised state. Neurological: Negative for headaches. Hematological: Negative for adenopathy. Does not bruise/bleed easily. Psychiatric/Behavioral: Negative for agitation and behavioral problems. Objective BP 122/78 Pulse 85 Temp 36.2 C (97.2 F) (Tympanic) Resp 18 Wt 54.6 kg (120 lb 6.4 oz) SpO2 98% BMI 17.28 kg/m Physical Exam Vitals and nursing note reviewed. Constitutional: General: He is not in acute distress. Appearance: Normal appearance. He is not ill-appearing, toxic-appearing or diaphoretic. Comments: Elderly, chronic ill appearing Non toxic HENT: Head: Normocephalic and atraumatic. Right Ear: External ear normal. Left Ear: External ear normal. Nose: Congestion present. No rhinorrhea. Mouth/Throat: Mouth: Mucous membranes are moist. Pharynx: Oropharynx is clear. Posterior oropharyngeal erythema present. No oropharyngeal exudate. Eyes: General: Right eye: No discharge. Left eye: No discharge. Extraocular Movements: Extraocular movements intact. Conjunctiva/sclera: Conjunctivae normal. Pupils: Pupils are equal, round, and reactive to light. Cardiovascular: Rate and Rhythm: Normal rate and regular rhythm. Pulses: Normal pulses. Heart sounds: Normal heart sounds. No murmur heard. No friction rub. No gallop. Pulmonary: Effort: Pulmonary effort is normal. No respiratory distress. Breath sounds: No stridor. Wheezing and rhonchi present. No rales. Chest: Chest wall: No tenderness. Abdominal: General: Abdomen is flat. There is no distension. Palpations: Abdomen is soft. There is no mass. Tenderness: There is no abdominal tenderness. There is no guarding or rebound. Hernia: No hernia is present. Musculoskeletal: General: No swelling, tenderness, deformity or signs of injury. Normal range of motion. Cervical back: Normal range of motion and neck supple. No rigidity or tenderness. Right lower leg: No edema. Left lower leg: No edema. Lymphadenopathy: Cervical: No cervical adenopathy. Skin: General: Skin is warm and dry. Capillary Refill: Capillary refill takes less than 2 seconds. Coloration: Skin is not jaundiced or pale. Findings: No bruising, lesion or rash. Neurological: General: No focal deficit present. Mental Status: He is alert and oriented to person, place, and time. Cranial Nerves: No cranial nerve deficit. Sensory: No sensory deficit. Motor: No weakness. Coordination: Coordination normal. Gait: Gait normal. Deep Tendon Reflexes: Reflexes normal. Psychiatric: Mood and Affect: Mood normal. Behavior: Behavior normal. Thought Content: Thought content normal. Assessment and Plan ASSESSMENT/PLAN: 1. Acute cough - ICD9: 786.2, ICD10: R05.1 (primary diagnosis) X 2 weeks Worsening Has albuterol, but declines history of formal COPD diagnosis RX ZIthromax RX Orapred (Patient can only take liquid form) - XR CHEST 2V FRONTAL/LAT 2. Abnormal finding on chest xray - ICD9: 793.2, ICD10: R93.89 CXR reveals Chronic and nonspecific parenchymal changes in the lung bases and predominantly on the left. A follow-up exam is recommended. Discussed findings with patient and son at bedside, especially given his history of esophageal CA with tobacco usage. 3. URI, acute - ICD9: 465.9, ICD10: J06.9 - Symptomatic treatment with prn analgesia - Supportive care with fluids and rest - The patient may also use OTC cough and cold meds as needed, warm salt water gargles, throat lozenges and/or OTC throat spray as needed, and nasal saline gtts and suction prn. Liz Pritchett APRN.DAYAN documented in this encounterOhiohealth [facility]10-09-2023 History and physical note * Mamta Jimenez APRN.CNP - 12/13/2022 8:00 AM EDT HISTORY AND PHYSICAL EXAMINATION SERVICE DATE: 12/13/2022 SERVICE TIME: 7:38 AM PRIMARY CARE PHYSICIAN: Alina Choi MD REASON FOR VISIT: Eric Vela is a 66 year old male who is scheduled for EGD at the request of Dr. Call for routine H&P. The reason for this visit is to perform a comprehensive review of the patient's pastmedical history, assess their current health status and obtain any additional testing required based on anesthesia guidelines. We will also identify any potential anesthesia problems or contraindications to the planned procedure. The patient has the following: ACTIVE PROBLEM LIST Hypertension Hyperlipidemia Gastroesophageal Reflux Disease With Esophagitis Chronic Deep Vein Thrombosis (Dvt) of Proximal Vein of Lower Extremity (Hcc) Esophageal Cancer (Hcc) Nicotine use disorder, F17.2 Esophageal Adenocarcinoma (Hcc) Malnutrition of Moderate Degree (Hcc) Hiatal Hernia Subjective CHIEF COMPLAINT: Dysphagia HPI: Patient is a 66 year old male who presents to [facility] for the above procedure. Pt complaint of difficulty swallowing solids and liquids. His last EGD was 1 year ago with dilation. He has a H/O esophageal cancer. Denies abdominal pain, Nausea, vomiting, constipation, diarrhea, hemtochezia at this time. Patient agrees to proceed with procedure. PAST MEDICAL HISTORY Diagnosis Date COPD (chronic obstructive pulmonary disease) (HCC) DVT of popliteal vein (HCC) 2018 Essential hypertension GERD (gastroesophageal reflux disease) Hyperlipemia Malignant neoplasm of overlapping sites of esophagus (HCC) PAST SURGICAL HISTORY Procedure Laterality Date COLONOSCOPY GEN ANES 2020 X2 2017 AND 2020 EGD - BALLOON DILATION <30MM 01/22/2021 EGD W/O BRSH SPEC VARICIES INJ 2020 PAST SURGICAL HISTORY OF 07/2020 Laparoscopic jejunostomy tube placement with mediport PAST SURGICAL HISTORY OF 11/2020 ESOPHAGECTOMY REVISE MEDIAN N/CARPAL TUNNEL SURG Left IN EARLY TONSILLECTOMY & ADENOIDECTOMY <AGE 14 A CHILD FAMILY HISTORY Problem Relation Age of Onset Hypertension Mother Heart disease Mother heart ablations Cancer Father Skin cancer Heart disease Father Emphysema Father SOCIAL HISTORY: Social History Tobacco Use Smoking status: Every Day Packs/day: 0.25 Years: 40.00 Additional pack years: 0.00 Total pack years: 10.00 Types: Cigarettes Start date: 07/05/2021 Smokeless tobacco: Never Substance Use Topics Alcohol use: Not Currently Alcohol/week: 15.0 standard drinks of alcohol Types: 6 Cans of Beer (12oz) per week Comment: Hasn't drank for over a month 07/13/2020 Drug use: Not Currently Types: Marijuana Comment: not for a month Prior to Admission medications as of 12/13/22 0738 Medication Sig Last Dose Taking albuterol HFA (PROVENTIL HFA, VENTOLIN HFA) 90 mcg/actuation inhaler Inhale 2 Puffs as instructed every 6 hours as needed for wheezing/shortness of breath. ebribp-twonmnjr-uefjepc (CREON) 36,000-114,000- 180,000 unit delayed release capsule Take 1 capsuleby mouth with meals and at bedtime. Patient not taking: Reported on 12/13/2022 Not Taking megestrol (MEGACE) 40 mg tablet TAKE 1/2 (ONE-HALF) OF A TABLET TWICE DAILY Patient not taking: Reported on 12/13/2022 Not Taking lisinopril (ZESTRIL, PRINIVIL) 5 mg tablet Take 5 mg by mouth once daily. Patient not taking: Reported on 05/24/2022 dronabinol (MARINOL) 5 mg capsule Take 1 capsule by mouth twice daily before meals for 90 days. Patient not taking: Reported on 02/25/2021 docusate sodium (COLACE) 100 mg capsule Take 100 mg by mouth once daily. Patient not taking: Reported on 05/24/2022 lidocaine-prilocaine (EMLA) 2.5-2.5 % cream Apply to affected area. Patient not taking: Reported on 05/24/2022 ondansetron orally disintegrating (ZOFRAN ODT) 8 mg disintegrating tablet Take 8 mg by mouth every 8 hours as needed for nausea/vomiting. Patient not taking: Reported on 05/24/[address] (PROTONIX) 40 mg tablet Take 40 mg by mouth once daily. Patient not taking: Reported on 05/24/2022 atorvastatin (LIPITOR) 40 mg tablet Take 40 mg by mouth once daily. Patient not taking: Reported on 05/24/2022 clopidogrel (PLAVIX) 75 mg tablet Take 75 mg by mouth once daily. Patient not taking: Reported on 05/24/2022 No medication comments found. ALLERGIES No Known Allergies REVIEW OF SYSTEMS: PAIN ASSESSMENT: Pain Pain Level: 0 Pain Assessment: Assessment Tool: Verbal (Numeric Rating or Visual Analog Scale) General: Denies fever, chills, and unexpected weight change. Neuro: Denies dizziness and headaches. Respiratory: SOB/exertion or productive cough. +COPD, +smoker Cardiovascular: Denies CP and palpitations. +HTN, +HLD GI: see HPI : Denies dysuria. Endocrine: No history of diabetes or thyroid conditions. Hematology: Denies history of bleeding or clotting disorder. No known autoimmune disorders. H/O blood clot Musculoskeletal: +Degenerative disc disease Skin: Denies open sores and rashes. Objective PHYSICAL EXAM: VITALS: BP 145/83 Pulse 48 Temp (Src) 98.1 (Temporal) Resp 15 Ht 5' 10 (1.78m) Wt 124 lb (56.2kg) SpO2 100% BMI 17.79 kg/(m^2). O2 Therapy: Room Air General: NAD. Cooperative. Skin: Skin is warm, no rashes, and no open sores. HEENT: Normocephalic. Cardiovascular: Normal S1 & S2. RRR, No murmur. Lungs: CTA Bilaterally. No respiratory distress. Abdomen: Soft, nontender, non-distended. Bowel sounds normal in all four quadrants. Extremities: No edema. Neurological: Alert and oriented to person, place, and time. Pulses: radial pulses +2 Diagnostic tests reviewed for today's visit: Lab Value Units Date High Low HB No results within date range. HCT No results within date range. WBC No results within date range. PLT No results within date range. NA No results within date range. K No results within date range. GLUC No results within date range. BUN No results within date range. CREAT No results within date range. PTSEC No results within date range. INR No results within date range. APTT No results within date range. ALT No results within date range. AST No results within date range. TBILI No results within date range. TSH No results within date range. Lab Value Units Date High Low HCGQT No results within date range. UHCG No results within date range. HCG, BODY* No results within date range. Lab Value Units Date High Low ABORHD No results within date range. ABSCREEN No results within date range. Assessment/Plan ANESTHESIA FINDINGS: Significant Anesthesia Considerations: None Patient has the following medical conditions which may affect selin-operative course Problem List Items Addressed This Visit Cardiovascular Hypertension Current Assessment & Plan Pt stopped taking medications a year ago BP 145/83 Continue to f/u with PCP Hyperlipidemia Current Assessment & Plan Diet controlled Gastrointestinal Gastroesophageal reflux disease with esophagitis Current Assessment & Plan Diet controlled Other Nicotine use disorder, F17.2 Current Assessment & Plan 40 pack years Preop examination Other Visit Diagnoses Esophageal dysphagia Relevant Orders EGD - THERAPEUTIC, EUS, OR TUBE INTERVENTIONS PLAN Procedure Diagnosis: Esophageal dysphagia [R13.19] Planned Procedure: EGD Planned Anesthetic: MAC I spent a total of 20 minutes on the date of the service which included preparing to see the patient, arej-ah-wpzl patient care, completing clinical documentation, obtaining and/or reviewing separately obtained history, and performing a medically appropriate examination. SIGNATURE: Mamta Jimenez APRN.CNP PATIENT NAME: Eric Vela DATE: December 13, 2022 TIME: 7:38 AM PAGER/CONTACT #: documented in this encounterOhiohealth Marion [facility] Hospital09-28-2023 NoteHNO ID: [id number] Author: Edis Call MD Service: ? Author Type: Physician Type: Progress Notes Filed: 12/02/2022 8:51 AM Note Text: Edis Call M.D. Surgical Oncology [address] [facility], [address] [place] [address] TELEPHONE VISIT NOTE SUBJECTIVE Eric Vela is a 66 year old male . Presenting for follow-up of esophageal adenocarcinoma. Patient underwent a transhiatal esophagectomy in November 2020. He did have some dysphagia and stenosis at his anastomosis which was dilated in January 2021. More recently, patient reports that he is experiencing dysphagia again. He reports that this feels similar to the way it did a couple of years ago. He also notes excess phlegm. He is underweight but is relatively stable at this time. He feels that he can eat more and potentially gaining weight if he can swallow better. He has no other systemic symptoms and reports that he otherwise feels quite well. He recently underwent surveillance CT scans. The ROS, medical, surgical, family, and social history were reviewed by Edis Call MD Plan 66-year-old man status post a transhiatal esophagectomy approximately 2 years ago. Patient is doing well. I reviewed his CT scans and do not see any obvious signs of recurrent disease. We will await the final report on his CT abdomen. I did advise patient that we can have him scheduled for a EGD with possible balloon dilation as soon as it is convenient for him. Answered all the patient's questions to his satisfaction and he is agreeable to this plan. Total time of telephone encounter: 15 minutes Edis Call MD 12/02/2022 8:44 [facility]03-20-2023 History of Present illness Narrative* Kenna Moreno, RT(R) - 05/24/2022 9:20 AM EDT Radiology Service Progress Note PATIENT NAME: Eric Vela DATE OF SERVICE: May 24, 2022 TIME: 9:14 AM PATIENT IDENTITY VERIFICATION COMPLETED USING TWO (2) IDENTIFIERS: Name and Date of confirmedby patient verbally. FALL SCREENING: Has the patient had 2 falls in the last year or 1 fall with injury or currently using an Ambulatory Assistive Device (Walker, Cane, Wheelchair, Crutches, etc.)? No PATIENT GENDER DATA: Male PATIENT RELEVANT IMPLANT DATA REVIEWED: Yes RADIOLOGY DEPARTMENT: General X-ray: Exam(s) Completed: Chest X-Ray PERIPHERAL IV DATA: Not applicable SIGNED BY: RT Randall(R) May 24, 2022 9:14 AM documented in this encounterOhiohealth Marion [facility] Hospital02-20-2023 Miscellaneous Notes* Telephone Encounter - Deirdre Enciso APRN.CNP - 04/26/2022 9:41 AM EST Rx for liquid medication sent to pharmacy. Patient identified by name and date of and advised. Deirdre Enciso APRN.CNP * Telephone Encounter - Nafisa Larkin LPN - 04/26/2022 9:06 AM EST Patient calling he was diagnosed with pneumonia at [facility] and put on Augmentin rx. Patient has esophageal cancer and has very difficult time swallowing large pills. He has 10 pills left and said his throat is so irritated. Patient is asking if could have rx for liquid antibiotic please. Patient uses [facility] for his pharmacy. Please advise documented in this encounterOhiohealth [facility]02-17-2023 Instructions* Patient Instructions* Deirdre Enciso APRN.CNP - 04/23/2022 1:33 PM EST ASSESSMENT/PLAN: 1. Acute cough - ICD9: 786.2, ICD10: R05.1 - XR CHEST 2V FRONTAL/LAT Radiologist IMPRESSION: There is a small opacity overlying the lower thoracic spine on the lateral radiograph, which may represent a combination of atelectasis or scarring or pneumonia. Service Center Assistant: PSCB Transcribe Date/Time: Apr 23 2022 1:24P Dictated by : PASHA ROSA MD - will treat as pneumonia based on clinical presentation. - recommend follow up with PCP in a month to recheck xray, sooner if symptoms not improving. - Discussed red flags and need for immediate medical evaluation if any occur. - Discussed supportive care treatment with fluids, rest and analgesia. - Discussed expected course of illness Deirdre Enciso APRN.[facility] C[facility] PATIENT INFO PNEUMONIA OVERVIEW Pneumonia is an infection of the lungs. It is a serious illness that can affect people of any age, although it is most serious in the very young, people over the age of 65, and those with underlying medical problems such as congestive heart disease, diabetes, and chronic lung disease. It is most common during the winter months, and occurs more often in smokers and men. This article will focus on community-acquired pneumonia (CAP), which refers to pneumonia that develops in people in the community, rather than in a hospital, alf, or assisted-living facility. About four million cases of CAP occur each year in the [place], and approximately 20 percentof people require hospitalization. LUNG FUNCTION As we breathe, air is inhaled through the nose and mouth, and travels through the trachea and the bronchi to the bronchioles. At the end of the bronchioles, there are tiny air sacs, called alveoli. Alveoli have thin, porous lopez that contain capillaries. The mouth and respiratory tract are constantly exposed to microorganisms as air is inhaled through the nose and mouth. However, the body's defenses are usually able prevent microorganisms from entering and infecting the lungs. These defenses include the immune system, the specialized shape of the nose and pharynx, the ability to cough, and fine hair-like structures called cilia located on the bronchi. Pneumonia can develop if your defenses are not adequate or the microorganism is particularly strong. As microorganisms multiply, the alveoli become inflamed and accumulate fluid. These changes lead tothe symptoms of pneumonia. HIGH-RISK GROUPS Some groups of adults are at a greater risk of developing pneumonia. These include people who: Are greater than 65 years old Are cigarette smokers Are malnourished due to health conditions or lack of access to food Have underlying lung disease, including cystic fibrosis, asthma, or chronic obstructive pulmonary disease (emphysema) Have other underlying medical problems, including diabetes or heart disease Have a weakened immune system due to HIV, organ transplant, chemotherapy, or chronic steroid use Have difficulty coughing due to stroke, sedating drugs or alcohol, or limited mobility Have had a recent viral upper respiratory tract infection including influenza PNEUMONIA CAUSES Pneumonia can be caused by a variety of microorganisms, including viruses, bacteria, and less commonly, fungi. The most common cause of pneumonia in the [place] is the bacterium Streptococcus pneumoniae, or pneumococcus. Viruses are estimated to be the cause of adult CAP in at least 20 percent of cases. Fungi rarely cause pneumonia in people who are generally healthy; people with a weakened immune system (those with HIV, organ transplant patients, or those on chemotherapy) are at higher risk of fungal infection. Other organisms, such as Mycoplasma, are a common cause of mild pneumonia but can occasionally cause serious disease. PNEUMONIA SYMPTOMS Common symptoms of pneumonia include shortness of breath, pain with breathing, a rapid heart and breathing rate, nausea, vomiting, diarrhea, and a cough that often produces green or yellow sputum; occasionally the sputum is rust colored. Most people have a fever (temperature greater than 100.5 F or38 C), although elderly people have fever less often. Shaking chills (called rigors) and a change in mental status (confusion, unclear thinking) can occur. The characteristics of pneumonia are different than those of a more common infection, acute viral bronchitis, which does not usually cause fever and does not require treatment with an antibiotic. PNEUMONIA DIAGNOSIS Pneumonia is usually diagnosed with a medical history and physical examination, and sometimes a chest x-ray. The need for further testing depends upon the severity of the illness and the person's risk of complications. Blood oxygen measurement -- Pneumonia can decrease the amount of oxygen available in the blood. As a result, a blood oxygen level is often measured by attaching a small clip to the finger or ear thatuses infrared light. In those who are sicker, the oxygen level may be measured by withdrawing a sample of blood from an artery. PNEUMONIA TREATMENT The goal of treatment for patients with CAP is to treat the infection and prevent complications. Initial treatment of CAP is based upon the organism that is likely to be causing pneumonia (called empiric treatment). Most patients improve with empiric treatment. Hospital versus home care -- Most patients are treated for CAP at home with oral antibiotics. People who are seriously ill or are at increased risk for complications may be hospitalized. Hospital monitoring usually includes measurement of heart and breathing rate, temperature, and oxygen levels. Hos pitalized patients are usually given intravenous (IV) antibiotics initially. The number of days spent in the hospital is variable, and depends upon how a person responds to treatment and if there areunderlying medical problems. Some patients, including people with previous lung damage or disease, a weakened immune system, or infection in more than one lobe of the lungs (called multilobar pneumonia), may be slow to recover and require a longer hospitalization. Antibiotic choice -- A number of antibiotic treatment regimens exist for treatment of CAP. The choice of which antibiotic to use is based upon several factors, including the person's underlying medical problems and the likelihood of being infected with a bacteria that is resistant to specific drugs. People with certain underlying medical problems and those who have used antibiotics in the past three months have a higher risk of infection with drug resistant bacteria. For all antibiotic regimens,it is important to finish the entire course of medication and take it exactly as directed. EXPECTED RECOVERY FROM PNEUMONIA A person with pneumonia usually begins to improve after three to five days of antibiotic treatment.Improvement may be defined as feeling better or having fewer symptoms, such as cough and fever. Fatigue and a persistent, but milder, cough can last for up to one month, although most people are ableto resume their usual activities within seven days. Patients treated in the hospital may require three weeks or more to resume normal activities. All patients, whether treated at home or in the hospital, should take special care of themselves during the recovery period. This includes getting adequate rest at night and taking naps during the day if needed. Patients should drink fluids to avoid becoming dehydrated; there is no specific amount of fluid recommended, but thirst is a good indicator of the need to drink more fluids. Patients should be sure to finish all of their antibiotic medication, even if they feel better after a few days. WHEN TO SEEK HELP Anyone who suspects that they have pneumonia should seek medical care as soon as possible. Pneumonia is a serious illness that can be life-threatening if not treated, especially for people who are older than 65 years, alcoholic, have underlying medical problems, or a weakened immune system. People with the following symptoms should see their healthcare provider promptly: Fever and cough with phlegm that does not improve or worsens New shortness of breath with normal daily activities Chest pain with breathing Feeling suddenly worse after a cold or the flu PREVENTION The pneumococcal vaccine is one of the most effective ways to prevent pneumonia. Smoking cessation is another important way to prevent pneumonia. Infection control -- Infection control measures can help to prevent the spread of any type of infection, including pneumonia. Infection control is most commonly practiced in healthcare settings, but is useful in the community as well. Simple practices such as frequent hand washing with soap and water or alcohol-based hand rubs can be effective. Because pneumonia is spread by contact with infected respiratory secretions, people with pneumonia should limit usea-te-oryi contact with uninfected family and friends. The mouth and nose should be covered while coughing or sneezing, and tissues should be disposed of immediately. Sneezing/coughing into the sleeve of one's clothing (at the inner elbow) is another means of containing sprays of saliva and secretions and has the advantage of not contaminating the hands. documented in this encounterOhiohealth [facility] Hospital02-17-2023 History of Present illness Narrative* Kenna Moreno RT(R) - 04/23/2022 12:50 PM EST Radiology Service Progress Note PATIENT NAME: Eric Vela DATE OF SERVICE: April 23, 2022 TIME: 12:45 PM PATIENT IDENTITY VERIFICATION COMPLETED USING TWO (2) IDENTIFIERS: Name and Date of confirmedby patient verbally. FALL SCREENING: Has the patient had 2 falls in the last year or 1 fall with injury or currently using an Ambulatory Assistive Device (Walker, Cane, Wheelchair, Crutches, etc.)? No PATIENT GENDER DATA: Male PATIENT RELEVANT IMPLANT DATA REVIEWED: Yes RADIOLOGY DEPARTMENT: General X-ray: Exam(s) Completed: Chest X-Ray PERIPHERAL IV DATA: Not applicable SIGNED BY: RT Randall(R) April 23, 2022 12:45 PM documented in this encounterOhiohealth Marion [facility] Hospital02-17-2023 History of Present illness Narrative* Deirdre Enciso APRN.CNP - 04/23/2022 12:24 PM EST Subjective Cough Associated symptoms include weight loss and shortness of breath. Pertinent negatives include no chills, no ear pain, no headaches, no sore throat and no myalgias. Eric Vela is a 66 year old male who presents with cough, chest congestion, shortness of breath for the past 10 days. He has had productive cough and has been feeling tired and has a decreased appetite. He has had some night sweats. He took a COVID test at home and it was negative. He has not had a fever. He has not taken any medication at home for his symptoms. No recent sick contacts. Review of Systems Constitutional: Positive for diaphoresis (night sweats), malaise/fatigue and weight loss. Negative for chills and fever. HENT: Negative for congestion, ear pain and sore throat. Respiratory: Positive for cough, sputum production and shortness of breath. Negative for hemoptysis. Cardiovascular: Negative. Gastrointestinal: Negative for diarrhea, nausea and vomiting. Musculoskeletal: Negative for myalgias. Neurological: Negative for headaches. BP 120/84 Pulse 100 Temp 36.2 C (97.2 F) Resp 20 Wt 54.3 kg (119 lb 12.8 oz) SpO2 98% BMI 17.19 kg/m PAST MEDICAL HISTORY Diagnosis Date COPD (chronic obstructive pulmonary disease) (HCC) DVT of popliteal vein (HCC) 2018 Essential hypertension GERD (gastroesophageal reflux disease) Hyperlipemia Malignant neoplasm of overlapping sites of esophagus (HCC) PAST SURGICAL HISTORY Procedure Laterality Date COLONOSCOPY GEN ANES 2020 X2 2018 AND 2020 EGD - BALLOON DILATION <30MM 01/22/2021 EGD W/O BRSH SPEC VARICIES INJ 2020 PAST SURGICAL HISTORY OF 07/2020 Laparoscopic jejunostomy tube placement with mediport PAST SURGICAL HISTORY OF 11/2020 ESOPHAGECTOMY REVISE MEDIAN N/CARPAL TUNNEL SURG Left IN EARLY 1999' TONSILLECTOMY & ADENOIDECTOMY <AGE 14 A CHILD ALLERGIES Patient has no known allergies. MEDICATIONS nhsgmu-igvgnxbb-tobhjmv (CREON) 36,000-114,000- 180,000 unit delayed release capsule Take 1 capsuleby mouth with meals and at bedtime. megestrol (MEGACE) 40 mg tablet TAKE 1/2 (ONE-HALF) OF A TABLET TWICE DAILY lisinopril (ZESTRIL, PRINIVIL) 5 mg tablet Take 5 mg by mouth once daily. dronabinol (MARINOL) 5 mg capsule Take 1 capsule by mouth twice daily before meals for 90 days. (Patient not taking: Reported on 02/25/2021) albuterol HFA (PROVENTIL HFA, VENTOLIN HFA) 90 mcg/actuation inhaler inhale 2 (TWO) puffs EVERY 6 HOURS NEEDED (Patient not taking: No sig reported) docusate sodium (COLACE) 100 mg capsule Take 100 mg by mouth once daily. lidocaine-prilocaine (EMLA) 2.5-2.5 % cream Apply to affected area. ondansetron orally disintegrating (ZOFRAN ODT) 8 mg disintegrating tablet Take 8 mg by mouth every 8 hours as needed for nausea/vomiting. pantoprazole DR (PROTONIX) 40 mg tablet Take 40 mg by mouth once daily. atorvastatin (LIPITOR) 40 mg tablet Take 40 mg by mouth once daily. clopidogrel (PLAVIX) 75 mg tablet Take 75 mg by mouth once daily. FAMILY HISTORY Problem Relation Age of Onset Hypertension Mother Heart disease Mother heart ablations Cancer Father Skin cancer Heart disease Father Emphysema Father Social History Tobacco Use Smoking status: Every Day Packs/day: 0.25 Years: 40.00 Pack years: 10.00 Types: Cigarettes Start date: 07/05/2021 Smokeless tobacco: Never Substance Use Topics Alcohol use: Not Currently Alcohol/week: 15.0 standard drinks Types: 6 Cans of Beer (12oz) per week Comment: Hasn't drank for over a month 07/13/2020 Drug use: Not Currently Types: Marijuana Comment: not for a month Objective Physical Exam Vitals and nursing note reviewed. Constitutional: Appearance: Normal appearance. HENT: Right Ear: Tympanic membrane, ear canal and external ear normal. Left Ear: Tympanic membrane, ear canal and external ear normal. Nose: Nose normal. Mouth/Throat: Pharynx: Uvula midline. No oropharyngeal exudate or posterior oropharyngeal erythema. Cardiovascular: Rate and Rhythm: Normal rate and regular rhythm. Heart sounds: Normal heart sounds. Pulmonary: Effort: Pulmonary effort is normal. No respiratory distress. Breath sounds: Examination of the left-lower field reveals rales. Rales present. No wheezing. Musculoskeletal: Cervical back: Neck supple. Lymphadenopathy: Cervical: No cervical adenopathy. Skin: General: Skin is warm and dry. Findings: No erythema or rash. Neurological: Mental Status: He is alert. ASSESSMENT/PLAN: 1. Acute cough - ICD9: 786.2, ICD10: R05.1 - XR CHEST 2V FRONTAL/LAT Radiologist IMPRESSION: There is a small opacity overlying the lower thoracic spine on the lateral radiograph, which may represent a combination of atelectasis or scarring or pneumonia. Service Center Assistant: SHANE Transcribe Date/Time: Apr 23 2022 1:24P Dictated by : PASHA ROSA MD - will treat as pneumonia based on clinical presentation. - recommend follow up with PCP in a month to recheck xray, sooner if symptoms not improving. - Discussed red flags and need for immediate medical evaluation if any occur. - Discussed supportive care treatment with fluids, rest and analgesia. - Discussed expected course of illness Deirdre Enciso APRN.DRAFTING DETAILER documented in this encounterOhio[facility] History of Present illness Narrative* Anirudh Yee MD - 11/05/2021 1:25 PM EDT Patient referred by: Dr. Mark Combs Patient presents with: Post Op: S/p ex lap, hernia repair HPI: This is a post operative visit. Mr. Vela is a 64 y/o male with h/o distal esophageal adenocarcinoma for which he underwent definitive neoadjuvant chemoradiation and subsequently underwent a robotic transhiatal esophagectomy. His postop recovery was uneventful and he was discharged home. He has since developed some worsening dysphagia. This was evaluated by modified barium swallow which didnot show any signs of leak or obstruction. He recently underwent an endoscopic evaluation with Dr. Edis Call where he required dilation of the cervical esophagojejunostomy anastomosis. His mostrecent imaging includes a CT chest which shows a large left sided diaphragmatic hernic containing aloop of the transverse colon within it. While this had initially showed no evidence of obstruction or strangulation, he recently presented to our emergency room with acute incarceration of a large amount of small bowel within this diaphragmatic hernia with some concern for volvulus. He underwent an emergent laparotomy, reduction of small bowel hernia/volvulus and repair of the diaphragmatic defect with a bio a mesh. His postoperative recovery was uneventful. He presents today for follow-up. He no longer complains of any pain. He is able to swallow food without any issues. No fevers or chills. No nausea vomiting. He still struggles to gain weight. He has been smoking. PAST MEDICAL HISTORY Diagnosis Date COPD (chronic obstructive pulmonary disease) (HCC) DVT of popliteal vein (HCC) 2018 Essential hypertension GERD (gastroesophageal reflux disease) Hyperlipemia Malignant neoplasm of overlapping sites of esophagus (HCC) PAST SURGICAL HISTORY Procedure Laterality Date COLONOSCOPY GEN ANES 2020 X2 2017 AND 2020 EGD - BALLOON DILATION <30MM 01/22/2021 EGD W/O BRSH SPEC VARICIES INJ 2020 PAST SURGICAL HISTORY OF 07/2020 Laparoscopic jejunostomy tube placement with mediport PAST SURGICAL HISTORY OF 11/2020 ESOPHAGECTOMY REVISE MEDIAN N/CARPAL TUNNEL SURG Left IN EARLY TONSILLECTOMY & ADENOIDECTOMY <AGE 12 A CHILD FAMILY HISTORY Problem Relation Age of Onset Hypertension Mother Heart disease Mother heart ablations Cancer Father Skin cancer Heart disease Father Emphysema Father Social History Tobacco Use Smoking status: Every Day Packs/day: 0.25 Years: 40.00 Pack years: 10.00 Types: Cigarettes Start date: 07/05/2021 Smokeless tobacco: Never Substance Use Topics Alcohol use: Not Currently Alcohol/week: 15.0 standard drinks Types: 6 Cans of Beer (12oz) per week Comment: Hasn't drank for over a month 07/13/2020 Drug use: Not Currently Types: Marijuana Comment: not for a month Current Outpatient Medications Medication Sig lidocaine-prilocaine (EMLA) 2.5-2.5 % cream Apply to affected area. qtrauj-nrjzluks-rnwjetj (CREON) 36,000-114,000- 180,000 unit delayed release capsule Take 1 capsuleby mouth with meals and at bedtime. megestrol (MEGACE) 40 mg tablet TAKE 1/2 (ONE-HALF) OF A TABLET TWICE DAILY lisinopril (ZESTRIL, PRINIVIL) 5 mg tablet Take 5 mg by mouth once daily. dronabinol (MARINOL) 5 mg capsule Take 1 capsule by mouth twice daily before meals for 90 days. (Patient not taking: Reported on 02/25/2021) albuterol HFA (PROVENTIL HFA, VENTOLIN HFA) 90 mcg/actuation inhaler inhale 2 (TWO) puffs EVERY 6 HOURS NEEDED (Patient not taking: No sig reported) docusate sodium (COLACE) 100 mg capsule Take 100 mg by mouth once daily. ondansetron orally disintegrating (ZOFRAN ODT) 8 mg disintegrating tablet Take 8 mg by mouth every 8 hours as needed for nausea/vomiting. pantoprazole DR (PROTONIX) 40 mg tablet Take 40 mg by mouth once daily. atorvastatin (LIPITOR) 40 mg tablet Take 40 mg by mouth once daily. clopidogrel (PLAVIX) 75 mg tablet Take 75 mg by mouth once daily. No current facility-administered medications for this visit. ALLERGIES No Known Allergies REVIEW OF SYSTEMS: Review of Systems Constitutional: Negative for chills, fever, malaise/fatigue and weight loss. Respiratory: Negative for cough, shortness of breath and wheezing. Cardiovascular: Negative for chest pain, orthopnea and leg swelling. Gastrointestinal: Negative for abdominal pain, blood in stool, constipation, diarrhea, heartburn, melena, nausea and vomiting. Genitourinary: Negative for dysuria and frequency. Musculoskeletal: Negative for falls and myalgias. Skin: Negative for rash. Neurological: Negative for dizziness, tingling, tremors and weakness. Endo/Heme/Allergies: Does not bruise/bleed easily. Psychiatric/Behavioral: Negative for depression, substance abuse and suicidal ideas. The patient isnot nervous/anxious and does not have insomnia. PHYSICAL EXAM: Ht 5' 10 (1.78m) Wt 122 lb 12.8 oz (55.7kg) BMI 17.62 kg/(m^2). Last 2 Encounter Wt Readings: Date: Wt: 11/05/2021 55.7 kg (122 lb 12.8 oz) 10/08/2021 59.7 kg (131 lb 9.8 oz) Physical Exam Vitals reviewed. Constitutional: General: He is not in acute distress. Appearance: He is not diaphoretic. HENT: Head: Normocephalic. Eyes: General: No scleral icterus. Conjunctiva/sclera: Conjunctivae normal. Pupils: Pupils are equal, round, and reactive to light. Neck: Thyroid: No thyromegaly. Trachea: No tracheal deviation. Comments: Neck incision is well-healed. Cardiovascular: Rate and Rhythm: Regular rhythm. Pulmonary: Effort: Pulmonary effort is normal. No respiratory distress. Breath sounds: No wheezing. Chest: Chest wall: No tenderness. Abdominal: General: There is no distension. Palpations: There is no mass. Tenderness: There is no abdominal tenderness. There is no guarding or rebound. Hernia: No hernia is present. Comments: Prior incisions are all well-healed without any signs of infection or hernia. Musculoskeletal: General: No tenderness or deformity. Normal range of motion. Cervical back: Normal range of motion and neck supple. Lymphadenopathy: Cervical: No cervical adenopathy. Skin: General: Skin is warm and dry. Coloration: Skin is not pale. Findings: No erythema or rash. Neurological: Mental Status: He is alert and oriented to person, place, and time. Coordination: Coordination normal. Psychiatric: Mood and Affect: Mood and affect normal. DATA: Diagnostic tests reviewed for today's visit: Most recent labs Most recent imaging Greater than 50% of the direct patient contact time was spent in counseling or coordination of care. ASSESSMENT / PLAN Problem List Items Addressed This Visit Gastrointestinal Esophageal adenocarcinoma (HCC) Other Visit Diagnoses Status post repair of paraesophageal diaphragmatic hernia - Primary In summary, this is a 64 y/o male with h/o distal esophageal adenocarcinoma for which he underwent definitive neoadjuvant chemoradiation and subsequently underwent a robotic transhiatal esophagectomy. His postop recovery was uneventful and he was discharged home. He has since developed some worsening dysphagia. This was evaluated by modified barium swallow which did not show any signs of leak or obstruction. He recently underwent an endoscopic evaluation with Dr. Edis Call where he required dilation of the cervical esophagojejunostomy anastomosis. His most recent imaging includes a CT chest which shows a large left sided diaphragmatic hernic containing a loop of the transverse colon within it. While this had initially showed no evidence of obstruction or strangulation, he recently presented to our emergency room with acute incarceration of a large amount of small bowel within thisdiaphragmatic hernia with some concern for volvulus. He underwent an emergent laparotomy, reduction of small bowel hernia/volvulus and repair of the diaphragmatic defect with a bio a mesh. His postoperative recovery was uneventful. I am very happy withhow well he is recovered. We spoke at length about the risk factors that would predispose him to a recurrent diaphragmatic hernia. We spoke about tobacco cessation. He is going to continue to follow-up with Dr. Combs for cancer surveillance. He will call me if anything clinically changes. Anirudh Yee MD documented in this encounterOhio[facility]09-01-2022 Instructions* Patient Instructions* Anirudh Yee MD - 11/05/2021 1:20 PM EDT Please do not hesitate to call my office for any questions or concerns. documented in this encounterOhiohealth [facility]08-22-2022 History of Present illness Narrative* MATI Groves - 10/26/2021 1:53 PM EDT Patient and caregiver arrived for nurse. No c/o pain or discomfort. Appetite fair, bowels normal. Wound vac removed, malik intact. Applied steri-strips and patient given wound care instructions. Scheduled to see Dr. Yee for his post op appointment on 11/05/21. Patient voiced understanding and has no questions or concerns at this time. Lora PARMAR documented in this encounterOhio[facility]04-30-2022 Instructions* Patient Instructions* Anirudh Yee MD - 07/04/2021 6:41 AM EDT Please do not hesitate to call my office for any questions or concerns. documented in this encounterOhio[facility]04-28-2022 History of Present illness Narrative* Anirudh Yee MD - 07/02/2021 10:30 AM EDT AMBULATORY TELEPHONE VISIT Eric Vela has consented to this telephone encounter. Persons Present: patient Chief Complaint/Reason: Diaphragmatic henira HPI: Mr. Vela is a 64 y/o male with h/o distal esophageal adenocarcinoma for which he underwent definitive neoadjuvant chemoradiation and subsequently underwent a robotic transhiatal esophagectomy.His postop recovery was uneventful and he was discharged home. He has since developed some worsening dysphagia. This was evaluated by modified barium swallow which did not show any signs of leak or obstruction. He recently underwent an endoscopic evaluation with Dr. Edis Call where he required dilation of the cervical esophagojejunostomy anastomosis. His most recent imaging includes a CT chest which shows a large left sided diaphragmatic hernic containing a loop of the transverse colon within it. He also underwent a CT of the abdomen pelvis which showed a large diaphragmatic hernia without any evidence of obstruction of the colon. He is doing well at this point without any obstructive issues. Bowel movements are normal. No abdominal distension. No nausea/vomiting. Eating solid foods without issues. Data Reviewed: Most recent labs and imaging results. Assessment: (K44.9) Diaphragmatic hernia without obstruction or gangrene (primary encounter diagnosis) (C15.9) Esophageal adenocarcinoma (HCC) (Z98.890, Z90.49) H/O esophagectomy Plan: Observation for the diaphragmatic hernia. He will call us if anything changes. Total Time Spent: 20 minutes Anirudh Yee MD documented in this encounterOhiohealth [facility]04-26-2022 History of Present illness Narrative* Aliza Kareem Denny, RT(R) - 06/30/2021 2:00 PM EDT Radiology Service Progress Note DATE OF SERVICE: June 30, 2021 TIME: 3:35 PM Radiology Service Progress Note DATE OF SERVICE: June 30, 2021 TIME: 3:37 PM PATIENT IDENTITY VERIFICATION COMPLETED USING TWO (2) STANDARD IDENTIFIERS: Name and Date of confirmed by patient verbally. FALL SCREENING: Has the patient had 2 falls in the last year or 1 fall with injury or currently using an Ambulatory Assistive Device (Walker, Cane, Wheelchair, Crutches, etc.)? No PATIENT GENDER DATA: Male PATIENT RELEVANT IMPLANT DATA REVIEWED: Yes ALLERGIES: Reviewed and unchanged CONTRAST ALLERGY: NO. EXAM: CT -CONTRAST INDUCED NEPHROPATHY RISK FACTORS: Patient age > 60 years CREATININE: Creatinine Date Value Ref Range Status 06/30/2021 0.95 0.73 - 1.22 mg/dL Final 11/21/2020 0.73 0.73 - 1.22 mg/dL Final 11/20/2020 0.78 0.73 - 1.22 mg/dL Final Estimated Glomerular Filtration Rate Date Value Ref Range Status 06/30/2021 90 >=60 mL/min/1.73m Final Comment: Estimated Glomerular Filtration Rate (eGFR) is calculated using the 2020 CKD-EPI creatinine equation. This equation utilizes serum creatinine, sex, and age as parameters. The creatinine assay has traceable calibration to isotope dilution- mass spectrometry. Refer to KDIGO guidelines for clinical interpretation. In patients with unstable renal function, e.g. those with acute kidney injury, the eGFRmay not accurately reflect actual GFR. eGFR- Date Value Ref Range Status 11/21/2020 >60 Final P.O.C.T. RESULTS: POC done: Yes, See Lab Tab June 30, 2021 TREATMENT: N/A PERIPHERAL IV DATA: Ambulatory: power port RADIOLOGY DEPARTMENT: CT; Exam(s) Completed: Abdomen/Pelvis SIGNATURE: RT Kalina(R) PATIENT NAME: Eric Vela DATE: June 30, 2021 TIME: 3:37 PM PATIENT IDENTITY VERIFICATION COMPLETED USING TWO (2) STANDARD IDENTIFIERS: Name and Date of confirmed by patient verbally. FALL SCREENING: Has the patient had 2 falls in the last year or 1 fall with injury or currently using an Ambulatory Assistive Device (Walker, Cane, Wheelchair, Crutches, etc.)? No PATIENT GENDER DATA: Male PATIENT RELEVANT IMPLANT DATA REVIEWED: Yes ALLERGIES: Reviewed and unchanged CONTRAST ALLERGY: NO. EXAM: CT -CONTRAST INDUCED NEPHROPATHY RISK FACTORS: Patient age > 60 years CREATININE: Creatinine Date Value Ref Range Status 06/30/2021 0.95 0.73 - 1.22 mg/dL Final 11/21/2020 0.73 0.73 - 1.22 mg/dL Final 11/20/2020 0.78 0.73 - 1.22 mg/dL Final Estimated Glomerular Filtration Rate Date Value Ref Range Status 06/30/2021 90 >=60 mL/min/1.73m Final Comment: Estimated Glomerular Filtration Rate (eGFR) is calculated using the 2020 CKD-EPI creatinine equation. This equation utilizes serum creatinine, sex, and age as parameters. The creatinine assay has traceable calibration to isotope dilution- mass spectrometry. Refer to KDIGO guidelines for clinical interpretation. In patients with unstable renal function, e.g. those with acute kidney injury, the eGFRmay not accurately reflect actual GFR. eGFR- Date Value Ref Range Status 11/21/2020 >60 Final P.O.C.T. RESULTS: POC done: Yes, See Lab Tab June 30, 2021 TREATMENT: N/A PERIPHERAL IV DATA: power port accessed by hemoc RADIOLOGY DEPARTMENT: CT; Exam(s) Completed: Abdomen/Pelvis SIGNATURE: RT Kalina(R) PATIENT NAME: Eric Vela DATE: June 30, 2021 TIME: 3:35 PM documented in this encounterOhiohealth [facility]04-26-2022 History of Present illness Narrative* Angelique Boyer RN - 06/30/2021 12:53 PM EDT Patient is here for IVAD port flush/blood draw per [facility] protocol. IVAD is located in left upper chest. Site cleansed with Chloraprep IVAD accessed with a #20 gauge 3/4 non-coring Gripper needle Flush with 5cc's Normal Saline. Blood Return: Good. 10 cc's blood aspirated and discarded. Blood drawn for BMP. Flushed with: 20 ml Normal Saline. Non-coring needle left intact for further therapy. Opsite applied to puncture site. Site negative for redness, edema or tenderness. Patient tolerated procedure well. documented in this encounterOhiohealth [facility]04-25-2022 Miscellaneous Notes* Telephone Encounter - Diana Yap - 06/29/2021 12:08 PM EDT Spoke with patient and scheduled. Diana Yap * Telephone Encounter - MATI Dela Cruz - 06/29/2021 11:43 AM EDT Pt would like to use port for appt on 06/30/21 @ 1:00pm prep 2:00 drink Please call pt to let them know what time please documented in this encounterOhiohealth [facility]04-21-2022 Instructions* Patient Instructions* Anirudh Yee MD - 06/25/2021 8:56 AM EDT Please do not hesitate to call my office for any questions or concerns. documented in this encounterOhiohealth [facility]04-21-2022 History of Present illness Narrative* Anirudh Yee MD - 06/25/2021 8:45 AM EDT AMBULATORY TELEPHONE VISIT Eric Vela has consented to this telephone encounter. Persons Present: patient Chief Complaint/Reason: Diaphragmatic hernia HPI: Mr. Vela is a 64 y/o male with h/o distal esophageal adenocarcinoma for which he underwent definitive neoadjuvant chemoradiation and subsequently underwent a robotic transhiatal esophagectomy.His postop recovery was uneventful and he was discharged home. He has since developed some worsening dysphagia. This was evaluated by modified barium swallow which did not show any signs of leak or obstruction. He recently underwent an endoscopic evaluation with Dr. Edis Call where he required dilation of the cervical esophagojejunostomy anastomosis. His most recent imaging includes a CT chest which shows a large left sided diaphragmatic hernic containing a loop of the transverse colon within it. At this point in time, he is doing rather well. He has maintained his weight. No fevers or chills. He is swallowing well and eating 4 meals a day. His bowel movements are normal. No history of diarrhea. No obstipation. No abdominal distention. Data Reviewed: Most recent labs and imaging results. Assessment: (K44.9) Diaphragmatic hernia without obstruction or gangrene (primary encounter diagnosis) (C15.9) Esophageal adenocarcinoma (HCC) (Z98.890, Z90.49) H/O esophagectomy Plan: I am going to evaluate this further with a CT of the abdomen pelvis. At this point in time he does not have any obstructive signs or symptoms. I discussed with him all the signs symptoms to watch outfor and to seek medical attention for. I am hoping we are able to take care of this nonoperatively.However if things change or his repeat imaging shows any signs of obstruction, this may warrant a repair. He showed good understanding and agreed proceed. Total Time Spent: 30 minutes Anirudh Yee MD [facility]* Diagnosis Diaphragmatic hernia without obstruction or gangrene- Primary Diaphragmatic hernia without mention of obstruction or gangrene Esophageal adenocarcinoma (HCC) Malignant neoplasm of esophagus, unspecified site H/O esophagectomy Personal history of surgery to other organs documented in this encounter [facility] note* Diagnosis Esophageal adenocarcinoma (HCC) Malignant neoplasm of esophagus, unspecified site H/O esophagectomy Personal history of surgery to other organs Diaphragmatic hernia without obstruction or gangrene Diaphragmatic hernia without mention of obstruction or gangrene documented in this encounter [facility] note* Diagnosis Esophageal adenocarcinoma (HCC) Malignant neoplasm of esophagus, unspecified site H/O esophagectomy Personal history of surgery to other organs Diaphragmatic hernia without obstruction or gangrene Diaphragmatic hernia without mention of obstruction or gangrene documented in this encounter [facility] note* Diagnosis Diaphragmatic hernia without obstruction or gangrene- Primary Diaphragmatic hernia without mention of obstruction or gangrene Esophageal adenocarcinoma (HCC) Malignant neoplasm of esophagus, unspecified site H/O esophagectomy Personal history of surgery to other organs documented in this encounter [facility] noteNo assessment information availableWAshtabula General Hospital Work Phone: Evaluation note* Diagnosis S/P hernia repair- Primary Other postprocedural status documented in this encounter [facility] note* Diagnosis Status post repair of paraesophageal diaphragmatic hernia- Primary Other postprocedural status Esophageal adenocarcinoma (HCC) Malignant neoplasm of esophagus, unspecified site documented in this encounter [facility] note* Diagnosis Acute cough- Primary documented in this encounter 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 note* Diagnosis Esophageal dysphagia Dysphagia, pharyngoesophageal phase Hypertension, unspecified type Hyperlipidemia, unspecified hyperlipidemia type Gastroesophageal reflux disease with esophagitis, unspecified whether hemorrhage Nicotine use disorder, F17.2 Tobacco use disorder Preop examination Preoperative examination, unspecified * Assessment & Plan Note - Mamta Jimenez APRN.CNP - 12/13/2022 7:57 AM EDT Associated Problem(s): Nicotine use disorder, F17.2 40 pack years * Assessment & Plan Note - Mamta Jimenez APRN.CNP - 12/13/2022 7:56 AM EDT Associated Problem(s): Gastroesophageal reflux disease with esophagitis Diet controlled * Assessment & Plan Note - Mamta Jimenez APRN.CNP - 12/13/2022 7:56 AM EDT Associated Problem(s): Hyperlipidemia Diet controlled * Assessment & Plan Note - Mamta Jimenez APRN.CNP - 12/13/2022 7:55 AM EDT Associated Problem(s): Hypertension Pt stopped taking medications a year ago BP 145/83 Continue to f/u with PCP documented [facility] this encounter [facility]* Diagnosis Acute cough- Primary Abnormal finding on chest xray Other nonspecific abnormal finding of lung field URI, acute Acute upper respiratory infections of unspecified site [facility] [facility] HospitalEvaluation note* Diagnosis Onset Date Resolution Status Opacity of lung on imaging study acute Gastroesophageal cancer 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 Leukopenia chronic Opacity of lung on imaging study acute Gastroesophageal cancer 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 note* Diagnosis Acute cough Esophageal dysphagia Dysphagia, pharyngoesophageal phase Hypertension, unspecified type Hyperlipidemia, unspecified hyperlipidemia type Gastroesophageal reflux disease with esophagitis, unspecified whether hemorrhage Nicotine use disorder, F17.2 Tobacco use disorder Preop examination Preoperative examination, unspecified documented in this encounter [facility] note* Diagnosis Acute cough Esophageal dysphagia Dysphagia, pharyngoesophageal phase Hypertension, unspecified type Hyperlipidemia, unspecified hyperlipidemia type Gastroesophageal reflux disease with esophagitis, unspecified whether hemorrhage Nicotine use disorder, F17.2 Tobacco use disorder Preop examination Preoperative examination, unspecified documented in this encounter [facility] note* Diagnosis Esophageal dysphagia Dysphagia, pharyngoesophageal phase Hypertension, unspecified type Hyperlipidemia, unspecified hyperlipidemia type Gastroesophageal reflux disease with esophagitis, unspecified whether hemorrhage Nicotine use disorder, F17.2 Tobacco use disorder Preop examination Preoperative examination, unspecified Dental infection- Primary Acute apical periodontitis of pulpal origin documented in this encounter [facility] Discharge instructionsAdditional Instructions Call your vascular surgeon tomorrow to see if they have any available appointments. Your evaluation in the Emergency Department did not reveal any acute reason for admission. However, I want to emphasize that you may be early in the course of a disease process or illness even if it is not present. For this reason you should follow-up within 24 hours for reevaluation with either your primary care physician or if necessary back here in the Emergency Department. You should return to the Emergency Department immediately if your symptoms worsen or new symptoms develop.[facility] Work Phone: Reason for referral (narrative)* Outpatient Procedure (Routine) - Closed Specialty Diagnoses / Procedures Referred By Naheed t Referred To Contact [facility] Diagnoses Esophageal dysphagia Procedures EGD - THERAPEUTIC, EUS, OR TUBE INTERVENTIONS EGD DILATION GASTRIC/DUODENAL STRICTURE Edis Call MD [address] [facility] [address] [facility] [address] [place] [address] Referral ID Status Reason Start Date Expiration Date V isits Requested Visits Authorized [id number] Closed Auto-Generate d Referral 12/08/2022 12/09/2023 1 1 [facility]ative[facility]No reason for referral information availableWAshtab[facility] Work Phone: Reason for visit Narrative* Outpatient Procedure (Routine) - Closed Specialty Diagnoses / Procedures Referred By Contac t Referred To Contact [facility] Diagnoses Esophageal dysphagia Procedures EGD - THERAPEUTIC, EUS, OR TUBE INTERVENTIONS EGD DILATION GASTRIC/DUODENAL STRICTURE Edis Call MD 1 [place] [address] [facility] [address] [place] [id number] Referral ID Status Reason Start Date Expiration Date V isits Requested Visits Authorized [id number] Closed Auto-Generate d Referral 12/08/2022 12/09/2023 1 1 [facility] Reason for Referral Specialty Diagnoses / Procedures Referred By Contac t Referred To Contact CT IMAGING Diagnoses Esophageal adenocarcinoma (HCC) H/O esophagectomy Diaphragmatic hernia without obstruction or gangrene Procedures CT ABD/PEL W IVCON CT ABD & PELVIS W/CONTRAST Anirudh Yee MD [address] [facility] [address] [place] [address] Ct Imaging Referral ID Status Reason Start Date Expiration Date Visits Requested Visits Authorized [id number] Authorized Auto-Generat ed Referral 06/25/2021 07/25/2022 1 1 Referral ID Status Reason Start Date Expiration Date V isits Requested Visits Authorized [id number] Closed Auto-Generate d Referral 06/25/2021 07/25/2022 1 1 Specialty Diagnoses / Procedures Referred By Contac t Referred To Contact CT IMAGING Diagnoses Esophageal adenocarcinoma (HCC) Status post repair of paraesophageal diaphragmatic hernia H/O esophagectomy Procedures CT CHEST W IVCON DIAGNOSTIC COMPUTED TOMOGRAPHY THORAX W/CONTRAST Edis Call MD [address] [place] [address] [place] [address] Referral ID Status Reason Start Date Expiration Date Visits Requested Visits Authorized [id number] Pending Review Auto-Generat ed Referral 11/17/2022 12/17/2023 1 1 Specialty Diagnoses / Procedures Referred By Naheed nino Referred To Contact CT IMAGING Diagnoses Esophageal adenocarcinoma (HCC) Status post repair of paraesophageal diaphragmatic hernia H/O esophagectomy Procedures CT ABD/PEL W IVCON CT ABD & PELVIS W/CONTRAST Edis Call MD 1 [place] [address] [place] [address] Referral ID Status Reason Start Date Expiration Date Visits Requested Visits Authorized [id number] Pending Review Auto-Generat ed Referral 11/17/2022 12/17/2023 1 1 Advance Directives No Advanced Directives Records FoundDocuments on File Type Date Recorded 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 Advance Directive(s) 02/26/2021 6:16 AM Advance Directive(s) 01/22/2021 9:11 AM Advance Directive(s) 11/06/2020 6:49 AM Advance Directive(s) 07/23/2020 3:42 PM Documents on File Type Date Recorded 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 No September 15, 2020 9:27am Advance Directives No September 15 9:27am Advance Directive Response Recorded Date/ Time Advance Directives on File No September 15, 2020 9:27am Living Will No September 15, 2020 9:27am Do you have a Healthcare Power of Field Naturalist? No September 15, 2020 9:27am Advance Directives No September 15 9:27am Do you have a Healthcare Power of Field Naturalist? No October 18, 2024 6:45pm Chief Complaint and Reason for Visit Chief Complaint MED ONC ABD PAIN, NAUSEA Chief Complaint ESPHOGEAL CA 6MO LABS REVIEW CT MED ONC Reason for Visit Gastroesophageal can cer Leukopenia Chief Complaint MED ONC MONITOR ESOPHAGEAL CANCER Chief Complaint ACUTE-ABNORMAL CXR MED ONC MALIGNANT NEOPLASM OF THIRD ESOPHAGUS 1WK LABS PRIOR REVIEW CT Reason for Visit Opacity of lung on i maging study Gastroesophageal cancer Leukopenia Opacity of lung on imaging study Gastroesophageal cancer Leukopenia Chief Complaint Admit Date MONITER-HX OF ESOPHAGEAL CA-IV ONLY Syed h 2024 7:56am MED ONC May 21, 2024 8:3 0am 1YR LABS (DONE) REVIEW CT May 28 8:50am Reason for Visit Admit Date Gastroesophageal cancer May 28, 2024 8:50am Chief Complaint Admit Date MONITER-HX OF ESOPHAGEAL CA-IV ONLY Syed h 2024 7:56am 1YR LABS (DONE) REVIEW CT May 28 8:50am MED ONC July 04, 2024 8:1 5am EST (SELF) July 06, 2024 10:16a m ANTINEOPLASTIC CHEMO July 12, 2024 6:42a m Reason for Visit Admit Date Gastroesophageal cancer May 28, 2024 8:50am Atherosclerosis July 06, 2024 10:16a m Chief Complaint Admit Date EST (SELF) July 06, 2024 10:16a m ANTINEOPLASTIC CHEMO July 12, 2024 6:42a m MED ONC September 26, 2024 8:00 am leg pain October 18, 2024 6: 26pm Reason for Visit Admit Date Atherosclerosis July 06, 2024 10:16a m Chief Complaint Admit Date EST (SELF) July 06, 2024 10:16a m ANTINEOPLASTIC CHEMO July 12, 2024 6:42a m MED ONC September 26, 2024 8:00 am leg pain October 18, 2024 6: 26pm Left Leg Pain - Dr. Egan Pt October 8:55am Chief Complaint Admit Date ANTINEOPLASTIC CHEMO July 12, 2024 6:42a m leg pain October 18, 2024 6: 26pm Left Leg Pain - Dr. Egan Pt October 8:55am CLAUDICATION November 02, 2024 10 :47am MED ONC November 07, 2024 8:00am Reason for Visit Admit Date Claudication October 23, 2024 8: 55am PAD (peripheral artery disease) October 052024 8:55am Chief Complaint Admit Date leg pain October 18, 2024 6: 26pm Left Leg Pain - Dr. Egan Pt October 8:55am CLAUDICATION November 02, 2024 10 :47am MED ONC November 07, 2024 8:00am 6-8 WK FU November 21, 2024 3:13pm Chief Complaint Admit Date leg pain October 18, 2024 6: 26pm Left Leg Pain - Dr. Egan Pt October 8:55am CLAUDICATION November 02, 2024 10 :47am 6-8 WK FU November 21, 2024 3:13pm I73.9 Peripheral vascular disease, unspe cified December 10, 2024 2:17pm MED ONC December 21, 2024 8 :30am Reason for Visit Admit Date Claudication October 23, 2024 8: 55am PAD (peripheral artery disease) October 052024 8:55am Claudication November 21, 2024 3:13pm PAD (peripheral artery disease) [facility] 2024 3:13pm Medications Administered Section Inactive Administered Medications - up to 3 most recent administrations Medication Order MAR Action Action Date Dose Rate Site heparin 100 unit/mL 200-500 Units injection 200-500 Units, INTRAVENOUS, ONCE, 1 dose, On Tue12/13/22 at 0930, Recovery or Phase I (only) Given 12/13/2022 9:11 AM EDT 500 Units lactated ringers iv infusion 30 mL/hr, INTRAVENOUS, CONTINUOUS, Starting on Tue12/13/22 at 0730, Until Tue12/13/22 at 0912, Preprocedure New Bag/Syringe/Bottle 12/13/2022 7:30 AM EDT 30 mL/hr 30 mL/hr Summary Purpose Family History Relationship Condition Age at Onset Recorded Date/T monica father Cardiac disease Unknown Chronic obstructive pulmonary disease Unk nown mother Cardiac disease Unknown No Family History Records Found Additional Source Comments Source Comments (unrecognize d section and content) In the event this informatio n is protected by the Federal Confidentiality of Alcohol and Drug Abuse Patient Records regulations: The Federal rules restrict any use of the information to criminally investigate or prosecute any alcohol or drug abuse patient.[facility] the event this information is protected by the Federal Confidentiality of Alcohol and Drug Abuse Patient Records regulations: The Federal rules restrict any use of the information to criminally investigate or prosecute any alcohol or drug abuse patient.[facility] Hospital[facility] the event this information is protected by the Federal Confidentiality of Alcohol and Drug Abuse Patient Records regulations: The Federal rules restrict any use of the information to criminally investigate or prosecute any alcohol or drug abuse patient.[facility] Hospital[facility] the event this information is protected by the Federal Confidentiality of Alcohol and Drug Abuse Patient Records regulations: The Federal rules restrict any use of the information to criminally investigate or prosecute any alcohol or drug abuse patient.[facility] Hospital[facility] the event this information is protected by the Federal Confidentiality of Alcohol and Drug Abuse Patient Records regulations: The Federal rules restrict any use of the information to criminally investigate or prosecute any alcohol or drug abuse patient.[facility] HospitalIn the event this information is protected by the Federal Confidentiality of Alcohol and Drug Abuse Patient Records regulations: The Federal rules restrict any use of the information to criminally investigate or prosecute any alcohol or drug abuse patient.[facility] HospitalIn the event this information is protected by the Federal Confidentiality of Alcohol and Drug Abuse Patient Records regulations: The Federal rules restrict any use of the information to criminally investigate or prosecute any alcohol or drug abuse patient.[facility] Hospital[facility] the event this information is protected by the Federal Confidentiality of Alcohol and Drug Abuse Patient Records regulations: The Federal rules restrict any use of the information to criminally investigate or prosecute any alcohol or drug abuse patient.[facility] HospitalIn the event this information is protected by the Federal Confidentiality of Alcohol and Drug Abuse Patient Records regulations: The Federal rules restrict any use of the information to criminally investigate or prosecute any alcohol or drug abuse patient.[facility] HospitalIn the event this information is protected by the Federal Confidentiality of Alcohol and Drug Abuse Patient Records regulations: The Federal rules restrict any use of the information to criminally investigate or prosecute any alcohol or drug abuse patient.[facility] HospitalIn the event this information is protected by the Federal Confidentiality of Alcohol and Drug Abuse Patient Records regulations: The Federal rules restrict any use of the information to criminally investigate or prosecute any alcohol or drug abuse patient.[facility] HospitalIn the event this information is protected by the Federal Confidentiality of Alcohol and Drug Abuse Patient Records regulations: The Federal rules restrict any use of the information to criminally investigate or prosecute any alcohol or drug abuse patient.[facility] HospitalIn the event this information is protected by the Federal Confidentiality of Alcohol and Drug Abuse Patient Records regulations: The Federal rules restrict any use of the information to criminally investigate or prosecute any alcohol or drug abuse patient.[facility] HospitalIn the event this information is protected by the Federal Confidentiality of Alcohol and Drug Abuse Patient Records regulations: The Federal rules restrict any use of the information to criminally investigate or prosecute any alcohol or drug abuse patient.[facility] HospitalIn the event this information is protected by the Federal Confidentiality of Alcohol and Drug Abuse Patient Records regulations: The Federal rules restrict any use of the information to criminally investigate or prosecute any alcohol or drug abuse patient.[facility] HospitalIn the event this information is protected by the Federal Confidentiality of Alcohol and Drug Abuse Patient Records regulations: The Federal rules restrict any use of the information to criminally investigate or prosecute any alcohol or drug abuse patient.[facility] HospitalIn the event this information is protected by the Federal Confidentiality of Alcohol and Drug Abuse Patient Records regulations: The Federal rules restrict any use of the information to criminally investigate or prosecute any alcohol or drug abuse patient.[facility] Reason for Visit (unrecogniz ed section and content) Reason Comments Radiology CT Specialty Diagnoses / Procedures Referred By Contac t Referred To Contact CT IMAGING Diagnoses Esophageal adenocarcinoma (HCC) H/O esophagectomy Diaphragmatic hernia without obstruction or gangrene Procedures CT ABD/PEL W IVCON CT ABD & PELVIS W/CONTRAST Anirudh Yee MD [address] [address] [address] Imaging Referral ID Status Reason Start Date Expiration Date V isits Requested Visits Authorized [id number] Closed Auto-Generate d Referral 06/25/2021 07/25/2022 1 1 Reason Comments Results Reason Comments Appointment Reason Comments Results Reason Comments Nurse Visit Wound vac removal Reason Comments Post Op S/p ex lap, hernia r epair Reason Comments Cough Productive cough, ch est congestion, SOB x10 days Reason Comments Medication Problem Reason Comments Cough Cough, chest congest ion, LEWIS and fever x 2 weeks Reason Comments Dental Problem Broken front tooth, painful x 3 daysUnable to sleep Care Teams (unrecognized sec tion and content) Team Status: Active Member Role Status Dates No Primary Care Physician Primary Care Provider Active Team Status: Inactive Member Role Status Dates Dr. Alina Choi MD Primary Care Provider Active Start: May 21, 2024 End: May 21, 2024 Dr. Mark Combs MD Attending Provider Active S tart: May 21, 2024 End: May 21, 2024 Dr. Mark Combs MD Referring Provider Active S tart: May 21, 2024 End: May 21, 2024 Team Status: Inactive Member Role Status Dates Dr. Alina Choi MD Primary Care Provider Active Start: May 28, 2024 End: May 28, 2024 Dr. Alina Choi MD Referring Provider Active Start: May 28, 2024 End: May 28, 2024 Dr. Mark Combs MD Attending Provider Active S tart: May 28, 2024 End: May 28, 2024 Team Status: Active Member Role Status Dates Dr. Alina Choi MD Primary Care Provider Active Start: July 04, 2024 Dr. Tony Bynum DO Attending Provider Active Start: July 04, 2024 Dr. Tony Bynum DO Referring Provider Active Start: July 04, 2024 Team Status: Inactive Member Role Status Dates Dr. Alina Choi MD Referring Provider Active Start: July 06, 2024 End: July 06, 2024 Dr. Ric Lockhart MD Attending Provider Active S tart: July 06, 2024 End: July 06, 2024 No Primary Care Physician Primary Care Provider Active Start: July 06, 2024 End: July 06, 2024 Team Status: Inactive Member Role Status Dates No Primary Care Physician Primary Care Provider Active Start: July 12, 2024 End: July 12, 2024 Dr. Ric Lockhart MD Attending Provider Active S tart: July 12, 2024 End: July 12, 2024 Dr. Ric Lockhart MD Referring Provider Active S tart: July 12, 2024 End: July 12, 2024 Team Status: Active Member Role Status Dates No Primary Care Physician Primary Care Provider Active Start: July 12, 2024 Dr. Ric Lockhart MD Attending Provider Active S tart: July 12, 2024 Equine Intern Relationship Specialty Start Date End Date Alina Choi [address] [place] [address] PCP - General Family Practice 05/13/17 Anirudh Yee MD [address] [facility] [place] [address] General Surgery 07/23/20 Mark Combs MD [address] [place] [address] Oncology 06/09/21 Equine Intern Relationship Specialty Start Date End Date Alina Choi [address] [facility] [address] [place] [address] PCP - General Family Practice 05/13/17 Anirudh Yee MD [address] [facility] [place] [address] General Surgery 07/23/20 Mark Combs MD [address] [place] [address] Oncology 06/09/21 Equine Intern Relationship Specialty Start Date End Date Alina Choi [address] [facility] [address] [place] [address] PCP - General Family Practice 05/13/17 Anirudh Yee MD [address] [facility] [place] [address] General Surgery 07/23/20 Mark Combs MD [address] [place] [address] Oncology 06/09/21 Equine Intern Relationship Specialty Start Date End Date Alina Choi [address] [facility] [address] [place] [address] PCP - General Family Practice 05/13/17 Anirudh Yee MD [address] [facility] [place] [address] General Surgery 07/23/20 Mark Combs MD [address] [place] [address] Oncology 06/09/21 Equine Intern Relationship Specialty Start Date End Date Alina Choi [address] [facility] [address] [place] [address] PCP - General Family Practice 05/13/17 Anirudh Yee MD [address] [place] [address] General Surgery 07/23/20 Mark Combs MD [address] [place] [address] Oncology 06/09/21 Equine Intern Relationship Specialty Start Date End Date Alina Choi [address] [facility] [address] [place] [address] PCP - General Family Practice 05/13/17 Anirudh Yee MD [address] [place] [address] General Surgery 07/23/20 Mark Combs MD [address] [place] [address] Oncology 06/09/21 Equine Intern Relationship Specialty Start Date End Date Alina Choi [address] [facility] [address] [place] [address] PCP - General Family Practice 05/13/17 Anirudh Yee MD [address] [place] [address] General Surgery 07/23/20 Mark Combs MD [address] [place] [address] Oncology 06/09/21 Equine Intern Relationship Specialty Start Date End Date Alina Choi [address] [facility] [address] [place], [place] [address] PCP - General Family Medicine 05/13/17 Anirudh Yee MD [address] [place], [place] [id number] General Surgery 07/23/20 Mark Combs MD [address] [place] [place] [address] Oncology 06/09/21 Team Status: Active Member Role Status Dates Dr. Alina Choi MD Family Provider Active Dr. Alina Choi MD Primary Care Provider Active Team Status: Inactive Member Role Status Dates Dr. Alina Choi MD Primary Care Provider, Referrin g Provider Active Dr. Mark Combs MD Attending Provider Active Team Status: Active Member Role Status Dates Dr. Alina Choi MD Primary Care Provider Active Dr. Tony Bynum DO Attending Provider, Referring P rich Active Team Status: Inactive Member Role Status Dates Dr. Alina Choi MD Primary Care Provider Active Dr. Mark Combs MD Attending Provider Active Equine Intern Relationship Specialty Start Date End Date Alina Choi [address] [facility] [facility] [address] [place] [address] PCP - General Family Medicine 05/13/17 Anirudh Yee MD [address] [place], [place] [id number] General Surgery 07/23/20 Mark Combs MD [address] [place] [phone] Oncology 06/09/21 Team Status: Inactive Member Role Status Dates Dr. Alina Choi MD Primary Care Provider Active Dr. Mark Combs MD Attending Provider, Referring Pro vider Active Equine Intern Relationship Specialty Start Date End Date Alina Choi [address] [place] [address] PCP - General Family Medicine 05/13/17 Anirudh Yee MD [address] [place], [place] [id number] General Surgery 07/23/20 Mark Combs MD [address] [place] [phone] Oncology 06/09/21 Equine Intern Relationship Specialty Start Date End Date Alina Choi [address] [facility] [address] [place] [address] PCP - General Family Medicine 05/13/17 Anirudh Yee MD [address] [facility] [id number] General Surgery 07/23/20 Mark Combs MD [address] [place] [phone] Oncology 06/09/21 Equine Intern Relationship Specialty Start Date End Date Alina Choi [address] [place], [place] [address] PCP - General Family Medicine 05/13/17 Anirudh Yee MD [address] [facility] [id number] General Surgery 07/23/20 Mark Combs MD [address] [place] [place] [address] Oncology 06/09/21 Equine Intern Relationship Specialty Start Date End Date Alina Choi [address] [facility] [address] [place], [place] [address] PCP - General Family Medicine 05/13/17 Anirudh Yee MD [address] [place], [place] [id number] General Surgery 07/23/20 Mark Combs MD [address] [address] [place] [phone] Oncology 06/09/21 Equine Intern Relationship Specialty Start Date End Date Alina Choi [address] [facility] [address] [place] [address] PCP - General Family Medicine 05/13/17 Anirudh Yee MD [address] [place], [place] [id number] General Surgery 07/23/20 Mark Combs MD [address] [place] [place] [address] Oncology 06/09/21 Equine Intern Relationship Specialty Start Date End Date Alina Choi [address] [facility] [address] [place], [place] [address] PCP - General Family Medicine 05/13/17 Anirudh Yee MD [address] [place], [place] [id number] General Surgery 07/23/20 Mark Combs MD Joanna [place] [id number] Oncology 06/09/21 Team Status: Active Member Role Status Dates Dr. Alina Choi MD Primary Care Provider Active Team Status: Active Member Role Status Dates Dr. Alina Choi MD Primary Care Provider Active Start: May 21, 2024 Dr. Tony Bynum DO Attending Provider Active Start: May 21, 2024 Dr. Tony Bynum DO Referring Provider Active Start: May 21, 2024 Team Status: Active Member Role/Relationship Status Dates No Primary Care Physician Primary Care Provider Active Team Status: Inactive Member Role/Relationship Status Dates Dr. Alina Choi MD Referring Provider Active Start: July 06, 2024 End: July 06, 2024 Dr. Ric Lockhart MD Attending Provider Active S tart: July 06, 2024 End: July 06, 2024 No Primary Care Physician Primary Care Provider Active Start: July 06, 2024 End: July 06, 2024 Team Status: Inactive Member Role/Relationship Status Dates No Primary Care Physician Primary Care Provider Active Start: July 12, 2024 End: July 12, 2024 Dr. Ric Lockhart MD Attending Provider Active S tart: July 12, 2024 End: July 12, 2024 Dr. Ric Lockhart MD Referring Provider Active S tart: July 12, 2024 End: July 12, 2024 Team Status: Active Member Role/Relationship Status Dates No Primary Care Physician Primary Care Provider Active Start: July 12, 2024 Dr. Ric Lockhart MD Attending Provider Active S tart: July 12, 2024 Team Status: Active Member Role/Relationship Status Dates Dr. Alina Choi MD Primary Care Provider Active Start: September 26, 2024 Dr. Tony Bynum DO Attending Provider Active Start: September 26, 2024 Dr. Tony Bynum DO Referring Provider Active Start: September 26, 2024 Team Status: Inactive Member Role/Relationship Status Dates No Primary Care Physician Primary Care Provider Active Start: October 18, 2024 End: October 18, 2024 Dr. Silvia Velasquez MD Emergency Provider Active S tart: October 18, 2024 End: October 18, 2024 Team Status: Inactive Member Role/Relationship Status Dates No Primary Care Physician Primary Care Provider Active Start: October 23, 2024 End: October 23, 2024 No Primary Care Physician Referring Provider Active Start: October 23, 2024 End: October 23, 2024 NAZ Almanzar Attending Provider Active Star t: October 23, 2024 End: October 23, 2024 Team Status: Inactive Member Role/Relationship Status Dates No Primary Care Physician Primary Care Provider Active Start: July 12, 2024 End: July 12, 2024 Dr. Ric Lockhart MD Attending Provider Active S tart: July 12, 2024 End: July 12, 2024 Dr. Ric Lockhart MD Referring Provider Active S tart: July 12, 2024 End: July 12, 2024 Team Status: Active Member Role/Relationship Status Dates No Primary Care Physician Primary Care Provider Active Start: July 12, 2024 Dr. Ric Lockhart MD Attending Provider Active S tart: July 12, 2024 Team Status: Inactive Member Role/Relationship Status Dates No Primary Care Physician Primary Care Provider Active Start: October 18, 2024 End: October 18, 2024 Dr. Silvia Velasquez MD Attending Provider Active S tart: October 18, 2024 End: October 18, 2024 Dr. Silvia Velasquez MD Emergency Provider Active S tart: October 18, 2024 End: October 18, 2024 Team Status: Inactive Member Role/Relationship Status Dates No Primary Care Physician Primary Care Provider Active Start: October 23, 2024 End: October 23, 2024 No Primary Care Physician Referring Provider Active Start: October 23, 2024 End: October 23, 2024 NAZ Almanzar Attending Provider Active Star t: October 23, 2024 End: October 23, 2024 Team Status: Inactive Member Role/Relationship Status Dates No Primary Care Physician Primary Care Provider Active Start: November 02, 2024 End: November 02, 2024 NAZ Almanzar Attending Provider Active Star t: November 02, 2024 End: November 02, 2024 NAZ Almanzar Referring Provider Active Star t: November 02, 2024 End: November 02, 2024 Team Status: Active Member Role/Relationship Status Dates No Primary Care Physician Primary Care Provider Active Start: November 02, 2024 Dr. Joon Koch MD Attending Provider Active S tart: November 02, 2024 Team Status: Active Member Role/Relationship Status Dates Dr. Alina Choi MD Primary Care Provider Active Start: November 07, 2024 Dr. Tony Bynum DO Attending Provider Active Start: November 07, 2024 Dr. Tony Bynum DO Referring Provider Active Start: November 07, 2024 Team Status: Inactive Member Role/Relationship Status Dates No Primary Care Physician Primary care physician Activ e Start: October 18, 2024 End: October 18, 2024 Dr. Silvia Velasquez MD Attending physician Active Start: October 18, 2024 End: October 18, 2024 Dr. Silvia [facility]quez [facility] Active Start: October 18, 2024 End: October 18, 2024 Team Status: Inactive Member Role/Relationship Status Dates No Primary Care Physician Primary care physician Activ e Start: October 23, 2024 End: October 23, 2024 No Primary Care Physician Referring Provider Active Start: October 23, 2024 End: October 23, 2024 NAZ Almanzar Attending physician Active Sta rt: October 23, 2024 End: October 23, 2024 Team Status: Inactive Member Role/Relationship Status Dates No Primary Care Physician Primary care physician Activ e Start: November 02, 2024 End: November 02, 2024 NAZ Almanzar Attending physician Active Sta rt: November 02, 2024 End: November 02, 2024 NAZ Almanzar Referring Provider Active Star t: November 02, 2024 End: November 02, 2024 Team Status: Active Member Role/Relationship Status Dates No Primary Care Physician Primary care physician Activ e Start: November 02, 2024 Dr. Joon Koch MD Attending physician Active Start: November 02, 2024 Team Status: Active Member Role/Relationship Status Dates Dr. Alina Choi MD Primary care physician Active Start: November 07, 2024 Dr. Tony Bynum DO Attending physician Active Start: November 07, 2024 Dr. Tony Bynum DO Referring Provider Active Start: November 07, 2024 Team Status: Inactive Member Role/Relationship Status Dates No Primary Care Physician Referring Provider Active Start: November 21, 2024 End: November 21, 2024 NAZ Almanzar Attending physician Active Sta rt: November 21, 2024 End: November 21, 2024 Team Status: Active Member Role/Relationship Status Dates No Primary Care Physician Primary care physician Activ e Team Status: Inactive Member Role/Relationship Status Dates No Primary Care Physician Primary care physician Activ e Start: October 18, 2024 End: October 18, 2024 Dr. Silvia Velasquez MD Attending physician Active Start: October 18, 2024 End: October 18, 2024 Dr. Silvia Velasquez MD Emergency [facility] t Physician Active Start: October 18, 2024 End: October 18, 2024 Team Status: Inactive Member Role/Relationship Status Dates No Primary Care Physician Primary care physician Activ e Start: October 23, 2024 End: October 23, 2024 No Primary Care Physician Referring Provider Active Start: October 23, 2024 End: October 23, 2024 NAZ Almanzar Attending physician Active Sta rt: October 23, 2024 End: October 23, 2024 Team Status: Inactive Member Role/Relationship Status Dates No Primary Care Physician Primary care physician Activ e Start: November 02, 2024 End: November 02, 2024 NAZ Almanzar Attending physician Active Sta rt: November 02, 2024 End: November 02, 2024 NAZ Almanzar Referring Provider Active Star t: November 02, 2024 End: November 02, 2024 Team Status: Active Member Role/Relationship Status Dates No Primary Care Physician Primary care physician Activ e Start: November 02, 2024 Dr. Joon Koch MD Attending physician Active Start: November 02, 2024 NAZ Almanzar Referring Provider Active Star t: November 02, 2024 Team Status: Inactive Member Role/Relationship Status Dates NAZ Almanzar Attending physician Active Sta rt: December 10, 2024 End: December 10, 2024 NAZ Almanzar Referring Provider Active Star t: December 10, 2024 End: December 10, 2024 No Primary Care Physician Primary care physician Activ e Start: December 10, 2024 End: December 10, 2024 Team Status: Active Member Role/Relationship Status Dates Dr. Alina Choi MD Primary care physician Active Start: December 21, 2024 Dr. Tony Bynum DO Attending physician Active Start: December 21, 2024 Dr. Tony Bynum DO Referring Provider Active Start: December 21, 2024 Goals (unrecognized section and content) Goals may be documented in a n alternate sectionGoals may be documented in an alternate sectionGoals may be documented in an alternate sectionGoals may be documented in an alternate sectionGoals may be documented in an alternate sectionGoals may be documented in an alternate sectionGoals may be documented in an alternate sectionGoals may be documented in an alternate sectionGoals may be documented in an alternate sectionGoals may be documented in an alternate sectionGoals may be documented in an alternate sectionGoals may be documented in an alternate section (unrecognized sect ion and content) No Status Records FoundNo Status Records FoundNo Status Records Found INFORMATION SOURCE (unrecogn ized section and content) DATE CREATED AUTHOR 12/14/2022 [facility] DATE CREATED AUTHOR AUTHOR'S ORGANIZ ATION 03/21/2024 [facility] DATE CREATED AUTHOR AUTHOR'S ORGANIZ ATION 01/14/2025 [facility] FOR RECORDS PERTAINING TO PATIENTS WHO ARE OR HAVE BEEN ENROLLED IN A CHEMICAL DEPENDENCY/SUBSTANCEABUSE PROGRAM, SOME INFORMATION MAY BE OMITTED. This clinical summary was aggregated from multiple sources. Caution should be exercised in using it in the provision of clinical care. This summary normalizes information from multiple sources, and as a consequence, information in this document may materially change the coding, format and clinical context of patient data. In addition, data may be omitted in some cases. CLINICAL DECISIONS SHOULD BE BASED ON THE PRIMARY CLINICAL RECORDS. [employer] provides no warranty or guarantee of the accuracy or completeness of information in this document.
--- NOTE | 2025-02-25 06:30 | RAD_ITS ---
PROCEDURE: FLUOROSCOPY 1 HR OR LESS 02/25/2025 REASON FOR EXAM: Right femoral iliac stent placement. TECHNIQUE: Procedure Code: RADFL Modality: DX Procedure: FLUOROSCOPY 1 HR OR LESS COMPARISON: No relevant prior. FINDINGS: An angiographic marker catheter apparently inserted from a right common femoral approach is documented. Contrast material opacifies the distal aorta, right common, external, and internal iliac arteries. Placement of a right common iliac wall stent. The left common iliac artery is occluded at its origin with collateral vessels noted. RAD/Fluoroscopy 1 Hr or Less IMPRESSION: Images obtained during an angiographic procedure performed in the operating [place]. Fluoroscopy: Time: 226.5 seconds. Dose: 35.21 mGy. Reading Location: [place] [id number]
[2025-02-25] MEDS: Lactated Ringers 1,000 ML 15 ML IV (06:47)
--- NOTE | 2025-02-25 06:47 | PCM.PRE.AN2 ---
ASA Classification* ASA Classification ASA Classification: 3 Assessment & Plan Anesthesia* Anesthesia Assessment Anesthesia Assessment: Discussed sedation and/or anesthesia options, risks, benefits, and alternatives with patient/parents/legal guardian/POA. Questions invited. The patient/parents/legal guardian/POA seems to understand and agrees to proceed with anesthesia plan. Reviewed the physical assessment, medical history, allergy history and patient home medications list prior to surgery/procedure/anesthetic and documented any changes. Performed airway and anesthesia risk assessments. Anesthesia Type Anesthesia Type: General (Boley ) Anesthesia Focused Assessment* Temperature: 97.9 F Pulse Rate: 58 Blood Pressure: 144/83 Respiratory Rate: 18 Pulse Ox: 100 Airway Assessment Mouth opens: >3 cm Mallampati Score: II Labs Anesthesia Preop lab: CBC WBC, (4.4-11.0) 5.6 K/mm3 02/15/25, 07:27 RBC, (4.6-6.2) 5.15 M/mm3 02/15/25, 07:27 Hgb, (13.0-16.5) 14.6 g/dL 02/15/25, 07:27 Hct, (40-54) 45.7 % 02/15/25, 07:27 Plt Count, (150-450) 258 K/mm3 02/15/25, 07:27 CHEMISTRY Potassium, (3.3-5.1) 4.1 mmol/L 02/15/25, 07:27 Sodium, (133-145) 142 mmol/L 02/15/25, 07:27 Magnesium, (1.6-2.6) 1.8 mg/dL 09/15/20, 08:10 BUN, (4-19) 14 mg/dL 02/15/25, 07:27 Creatinine, (0.70-1.20) 0.99 mg/dL 02/15/25, 07:27 Glucose, (70-99) 141 mg/dL H 02/15/25, 07:27 COAG PT, (11.7-14.9) 13.6 SECONDS 02/15/25, 07:26 Pre-Assessment Diagnosis/Proposed Procedure Planned Operative Procedure(s): (R) Right Iliac Stent, Right Femoral - Femoral Bypass Bilateral Sartorius Flaps Anesthesia History Anesthesia History - outdoor adventure guides: Anesthesia History - outdoor adventure guides Hx Hospitalization No 02/11/25 08:22 Any Problems With Anesthesia No 02/11/25 08:22 Cholinesterase deficiency No 02/11/25 08:22 You/Your Family Experience No 02/11/25 08:22 fever (hyperthermia) with Relationship Recent Exposure to Contagious No 02/25/25 06:00 Disease Does patient have nerve No 02/11/25 08:22 stimulator Patient instructed to have device shut off --Does patient have Pacemaker No 02/25/25 06:00 or ICD? When Was Last Pacemaker Check QUESTION #4 FULL TEXT: You/Your Family Experience fever (hyperthermia) with Anesthesia Last Oral Intake Last Oral intake: Last Oral Intake NPO since 20:00 02/25/25 06:00 Meds taken in AM with sips of No 02/25/25 06:00 water? Meds patient instructed to take am of surgery PONV PONV - outdoor adventure guides: PONV - outdoor adventure guides Female No 02/11/25 08:22 HX of Motion Sickness No 02/11/25 08:22 HX of N/V After Surgery No 02/11/25 08:22 Non-Smoker No 02/11/25 08:22 Duration of Surgery greater Yes 02/11/25 08:22 than 60 minutes Number of Risk Factors 1 02/11/25 08:22 PONV Score Low Risk 02/11/25 08:22 Height & Weight Height & Weight: Anesthesia: Height & Weight Height 5 ft 10 in 02/25/25 06:00 Weight: 53.8 kg 02/25/25 06:00 Body Mass Index (BMI) 17.0 02/25/25 06:00 Respiratory Assessment Respiratory Assessment - outdoor adventure guides: Respiratory Tract Infection Hx - outdoor adventure guides Hx Respiratory Tract Infection No 02/11/25 08:22 STOP Sleep Apnea STOP Sleep Apnea - outdoor adventure guides: STOP Sleep Apnea - outdoor adventure guides Hx Hypertension Yes: H/O, NO MEDS NOW, 02/11/25 08:22 CONTROLLED Hx Sleep Apnea No 02/11/25 08:22 CPAP No 02/11/25 08:22 BIPAP Do you snore loudly (louder No 02/11/25 08:22 than talking or can be heard Do you often feel tired/ No 02/11/25 08:22 fatigued/ sleepy during daytime? Has anyone observed you stop No 02/11/25 08:22 breathing during sleep? STOP Results Negative 02/11/25 08:22 QUESTION #5 FULL TEXT : Do you snore loudly (louder than talking or can be heard through closed doors)? 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 Specify any problems Hx of Preganancy in last 3 N/A 02/11/25 08:22 Months Nurse Filling Out Transfusion MGRIFFITH 02/11/25 08:22 & Questions: Date: 02/11/25 02/11/25 08:22 Time: 08:26 02/11/25 08:22 Patient unable to answer at this time (ie. confused, unrespo /Reproduction History /Reproductive History - outdoor adventure guides: /Reproductive Hx- outdoor adventure guides Hx Now Gestational Age (in weeks): EDC: Hx Hx Para Hx Section SAB Does the father of the baby or his family experience fever w Father of the baby Malignant Hypertension history comment Active Medications Active Medications: Current Medications Generic Name Dose Route Start Last Admin Trade Name Freq PRN Reason Stop Dose Admin Cefazolin Sodium 2 gm/ Sodium 110 mls @ 200 mls/hr 02/25/25 07:30 Chloride IV 02/25/25 08:02 INTRAOP ONE Lactated Ringer's 1,000 mls @ 15 mls/hr 02/25/25 05:45 02/25/25 06:47 IV 15 mls/hr .Q48H ROMY Administration Sodium Chloride 10 - 40 ml 02/25/25 06:23 0.9% Saline Lock 10 Ml Syringe IV UD PRN Port-a-Cath (VAD)/R Port Flush Sodium Chloride 10 - 40 ml 02/25/25 06:23 0.9 % Nacl (Sterile) Posiflush 10 Ml IV UD PRN Port access or dressing change [facility] Medical History Wears glasses Wears dentures Marijuana use Easy bruising Back pain Difficulty swallowing History of ulceration Smoker Shortness of breath on exertion Leg cramps History of stress test History of echocardiogram Cardiology follow-up encounter Chronic deep vein thrombosis (DVT) PVD (peripheral vascular disease) Opacity of lung on imaging study Leukopenia Hernia, diaphragmatic Stage 1 mild COPD by GOLD classification Weight loss SOB (shortness of breath) Encounter for chemotherapy management Gastroesophageal cancer Primary adenocarcinoma of distal third of esophagus Alcoholism Orthostatic hypotension GERD (gastroesophageal reflux disease) Hyperlipidemia Hypertension Home Medications ?Medication ?Instructions ?Recorded ?Last Taken ?Type clopidogrel 75 mg tablet (Plavix) 75 mg PO DAILY BLOOD THINNER #90 01/16/25 02/24/25 Rx tabs Allergy/AdvReac Type Severity Reaction Status Date / Time No Known Allergies Allergy Verified 02/25/25 05:58 Family History Father Heart disease COPD (chronic obstructive pulmonary disease) Mother Heart disease Surgical History History of colonoscopy History of surgery History of carpal tunnel surgery Hx of hernia repair History of esophagectomy History of angioplasty of peripheral vessel History of tonsillectomy Social History adopted: No household members: spouse number of children: 5 current occupational status: retired and disabled current occupational exposures/hazards: No Smoking Status: Heavy Smoker (>10/day) Tobacco: How many years used: 40 how long ago did patient quit smokin WEEKS alcohol intake: former details: HEAVY DRINKER OFF AND ON substance use type: marijuana do you feel safe at home: Yes Review of Systems (Anesthesia) ROS Narrative System reviewed and no additional complaints, except as documented.
[2025-02-25] MEDS: Midazolam 2 MG/2 ML Syringe IV (07:15)
--- NOTE | 2025-02-25 07:30 | PLAQ_PTH ---
PATIENT: ERIC KRAUSE LOC: ICU U#:[id number] AGE/SX: 69/M ROOM: ICU03 RE02/25/[address]: Dr. Joon Koch MD : 1955 BED: 1 DIS: 02/27/2025 SPEC #: [id number] RECD: 02/25/25 16:10 STATUS: DARON REQ #: [id number] ARELIS: 02/25/25 07:[address]: Joon Koch DEPT: SURGICAL PATHOLOGY RECD BY: Shine Moreau ENTERED: 02/26/25 09:59 SP TYPE: PLAQUE HEATHER DR: No Primary Care Phys Tissues: A - PLAQUE Procedures: Decalcification bone/plaque Surgery Specimen Level III HEADER OPERATION: Atherosclerosis of [place] arteries of extremities with intermittent claudication PRE-OP DIAGNOSIS: Atherosclerosis of [place] arteries of extremities with intermittent claudication TISSUE SUBMITTED: A. Bilateral femoral plaque MICROSCOPIC DIAGNOSIS A. 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 GROSS DESCRIPTION A. Received in formalin labeled with the patient's name and date of . Designated as bilateral femoral plaque is a 4.1 x 2.8 x 1.2 cm aggregate of a avila-yellow calcified, plaque fragments. It Service Manager sections are submitted in 1 cassette, following decalcification. CO 02/26/2025 CPT:07399, 83965
--- NOTE | 2025-02-25 07:34 | PCM.HP.STD ---
HPI - General General Date of Admission: 02/25/25 HPI Narrative ERIC KRAUSE, is a 69 M who presents left lower extremity claudication, limits daily activities. CTA showed left iliac occlusion, right iliac stenosis. 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 Weight loss SOB (shortness of breath) Encounter for chemotherapy management Gastroesophageal cancer Primary adenocarcinoma of distal third of esophagus Alcoholism Orthostatic hypotension GERD (gastroesophageal reflux disease) Hyperlipidemia Hypertension Home Medications ?Medication ?Instructions ?Recorded ?Last Taken ?Type clopidogrel 75 mg tablet (Plavix) 75 mg PO DAILY BLOOD THINNER #90 01/16/25 02/24/25 Rx tabs Allergy/AdvReac Type Severity Reaction Status Date / Time No Known Allergies Allergy Verified 02/25/25 05:58 Family History Father Heart disease COPD (chronic obstructive pulmonary disease) Mother Heart disease Surgical History History of colonoscopy History of surgery History of carpal tunnel surgery Hx of hernia repair History of esophagectomy History of angioplasty of peripheral vessel History of tonsillectomy Social History adopted: No household members: spouse number of children: 5 current occupational status: retired and disabled current occupational exposures/hazards: No Smoking Status: Heavy Smoker (>10/day) Tobacco: How many years used: 40 how long ago did patient quit smokin WEEKS alcohol intake: former details: HEAVY DRINKER OFF AND ON substance use type: marijuana do you feel safe at home: Yes Patient's Goals Of Care . What would you like to achieve or improve as a result of your hospital stay?: w Vital Signs Vital Signs Vital Signs: 02/25/25 06:00 02/25/25 06:00 02/25/25 06:00 Temperature 97.9 F Temperature Source Temporal Pulse Rate 58 L Respiratory Rate 18 Respiratory Pattern Normal Blood Pressure 144/83 H Blood Pressure Mean 103 Blood Pressure Source Monitor Blood Pressure Position Semi-Fowlers Blood Pressure Location Left Arm Baseline BP 144/83 Pulse Ox 100 Oxygen Delivery Method Room Air 02/25/25 06:48 Temperature 97.9 F Temperature Source Pulse Rate 58 L Respiratory Rate 18 Respiratory Pattern Blood Pressure 144/83 H Blood Pressure Mean Blood Pressure Source Blood Pressure Position Blood Pressure Location Baseline BP Pulse Ox 100 Oxygen Delivery Method Weight Weight: 118 lb 9.739 oz Body Mass Index (BMI) 17.0 Physical Exam Const alert, oriented x3, no apparent distress and healthy appearing General Appearance: cooperative; Negative for combative or lethargic Orientation / Consciousness: awake Exam Limitations: no limitations HEENT Head and Scalp: normocephalic and atraumatic Eyes EOMs intact bilaterally General Eye: normal appearance of both eyes Neck full ROM General: trachea midline; Negative for tenderness Lymph Lymphatic: Negative for no lymphadenopathy noted Resp normal respiratory effort and no use of accessory muscles Effort and Inspection: Negative for labored, stridor or audible wheezes Cardio regular rate and regular rhythm Back/Spine Cervical Spine: cervical ROM normal Extremity full ROM, normal capillary refill and no clubbing, cyanosis or edema Skin no rashes or lesions noted and no wounds Neuro oriented x3, CN's II-XII intact bilaterally, no focal motor deficits and no sensory deficits noted Psych thought process normal, cooperative, affect normal, speech normal and activity/motor behavior normal Results Lab / Micro Data 02/15/25 07:27 02/15/25 07:27 Assessment & Plan Assessment/Plan (1) Atherosclerosis of [place] arteries of extremities with intermittent claudication, left leg: PLAN: -right iliac stent -bilateral femoral endart -fem-fem with cadaver -bilateral sartorius flaps
[2025-02-25] MEDS: Lidocaine 1% (5 ml sdv) 5 ML Vial 6 ML IV (07:35)
[2025-02-25] MEDS: Mineral Oil, Light Sterile 10 ML Vial MC (09:13)
[2025-02-25] MEDS: Cefazolin 1 GM/5 ML Vial 3 GM IV (11:30)
[2025-02-25 12:00] LABS: ACT Activated Clotting Time 204 sec (74-137)
[2025-02-25 12:00] LABS: ACT Activated Clotting Time 209 sec (74-137)
[2025-02-25 12:00] LABS: ACT Activated Clotting Time 230 sec (74-137)
[2025-02-25 12:00] LABS: ACT Activated Clotting Time 132 sec (74-137)
[2025-02-25 12:00] LABS: ACT Activated Clotting Time 209 sec (74-137)
[2025-02-25] MEDS: fentaNYL 100 MCG/2 ML Ampul 300 MCG IV (12:20)
--- NOTE | 2025-02-25 13:31 | PCM.POST.ANE ---
Anesthesia: Postop Eval I Current Vital Signs Temperature: 97.1 F Pulse Rate: 70 Blood Pressure: 140/72 Respiratory Rate: 16 Pulse Ox: 100 Assessment Airway patent: Yes Spontaneous unlabored respirations: Yes nausea: No Vomiting: No Anesthesia Complication: No Fluid Hydration Crystalloid volume administer (ml): 2,500 Total IV fluid infused: 2,500 Progress Note Anesthesia document: Postop Eval 1 completed: Yes
--- NOTE | 2025-02-25 13:42 | POSTOPAN2_ITS ---
Anesthesia Postop Eval I Sum Postop Eval Completion status Anesthesia document: Postop Eval 1 completed: Yes Anesthesia Postop Eval I Summary Anesthesia Postop Eval I Summary: Anesthesia Postop Eval I: Assessment Summary Airway patent Yes 02/25/25 13:[address] [email or web address] Spontaneous unlabored Yes 02/25/25 13:[address] [email or web address] respirations Mental status nausea No 02/25/25 13:[address] [email or web address][address][email or web address] Vomiting No 02/25/25 13:[address] [email or web address] Anesthesia Postop Eval I: Fluid Summary Crystalloid volume administer 2,500 02/25/25 13:[address] [email or web address][address][email or web address] (ml) Colloids volume administered ( ml) Blood Product volume administered (ml) Total IV fluid infused 2,500 02/25/25 13:[address] [email or web address] Anesthesia Postop Eval I: Summary Notes Anesthesia Complication No 02/25/25 13:[address] [email or web address] Anesthesia Complication Comment: Post-operative progress note Anesthesia: Postop Eval II Evaluation Mental status: Awake Pain Level: 0 nausea: No Vomiting: No
--- NOTE | 2025-02-25 13:42 | PCM.POSTANE2 ---
Anesthesia Postop Eval I Sum Postop Eval Completion status Anesthesia document: Postop Eval 1 completed: Yes Anesthesia Postop Eval I Summary Anesthesia Postop Eval I Summary: Anesthesia Postop Eval I: Assessment Summary Airway patent Yes 02/25/25 13:31 MANAGER OF [email or web address] Spontaneous unlabored Yes 02/25/25 13:31 MANAGER OF [email or web address].TNES respirations Mental status nausea No 02/25/25 13:31 MANAGER OF [email or web address].TNES Vomiting No 02/25/25 13:31 MANAGER OF [email or web address].TNES Anesthesia Postop Eval I: Fluid Summary Crystalloid volume administer 2,500 02/25/25 13:31 MANAGER OF [email or web address].TNES (ml) Colloids volume administered ( ml) Blood Product volume administered (ml) Total IV fluid infused 2,500 02/25/25 13:31 MANAGER OF [email or web address] Anesthesia Postop Eval I: Summary Notes Anesthesia Complication No 02/25/25 13:31 MANAGER OF [email or web address] Anesthesia Complication Comment: Post-operative progress note Anesthesia: Postop Eval II Evaluation Mental status: Awake Pain Level: 0 nausea: No Vomiting: No
[2025-02-25 14:40] LABS: ACT Activated Clotting Time 214 sec (74-137)
--- NOTE | 2025-02-25 16:53 | OP.PCM_ITS ---
Operative Report (Standard) Operative Information Date of Procedure: 02/25/25 Pre-Operative Diagnosis: Atherosclerosis with claudication of the left lower extremity Post-Operative Diagnosis: Same Surgery/Procedure Performed: Right common and external iliac artery angioplasty and stent Right common femoral endarterectomy, left profundofemoral endarterectomy Right to left femoral to femoral bypass with cadaver femoropopliteal artery Bilateral sartorius flaps open hearth melter: Yes Community Educator: Michelle Shelton Tasks completed by occupational therapist's assistant: Opening, Closing, Opening & closing, Hemostasis: Tie, Hemostasis: Electrocautery and Retracting Type of Anesthesia: General RN Documented Start/Stop Times: Operation Date: 02/25/25 07:30 Case Time Into Pre-Op 02/25/25 05:41 Anesthesia Start 02/25/25 07:30 Into Room 02/25/25 07:30 Procedure Start 02/25/25 08:11 Procedure End 02/25/25 13:21 Anesthesia End 02/25/25 13:23 Out of Room 02/25/25 13:23 Into Recovery 02/25/25 13:27 Out of Recovery 02/25/25 14:40 Procedure Start Time: 08:10 Procedure Stop Time: 13:20 Select all DRAINS/GRAFTS/IMPLANTS that apply: Graft Graft details: Cadaver femoral-popliteal artery and Implanted device Implanted device details: 7 x 29 [place] Viabahn VBX 7 x 40 [place] [employer] Keisha Estimated Blood Loss: 300 Specimen collected: Yes Description of specimen(s) removed: Plaque Description of surgery: HPI: Patient is a 69-year-old male with lifestyle-limiting claudication of left lower extremity which is refractory to exercise and medical therapy. 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 He also had severe dense calcification atherosclerotic burden in the bilateral common femoral arteries and left profunda. He presents now for planned femoral to femoral bypass with cadaver with concurrent angioplasty and stent to optimize his inflow and bilateral sartorius flaps. Given the need for endarterectomy of the right common femoral artery and the left profunda a modifier 22 was applied given additional 1 hour of operative time required. Description of procedure: Upon obtaining informed consent and verification correct patient procedure site the patient was taken to the operating room where he was placed under general anesthesia. He was then positioned prepped and draped in usual sterile fashion time was performed. Oblique incision was made over the right common femoral artery and Bovie used to dissect down through the subcutaneous tissue. Self-retaining retractors were then put in position further dissection carried down to the femoral sheath which was then incised vertically exposing the femoral vessels. Sharp dissection was used to dissect free the proximal common femoral artery up to the inguinal ligament and distal external leg artery where the vessel was soft and able to be clamped. A right angle was used to place a vessel loop around the distal external iliac artery and individually around the lateral circumflex iliac artery. Next dissection was carried distally onto the proximal superficial femoral artery with the vessel soft and appropriate for clamp just beyond its origin. A right ankle was used to place a vessel loop at this location and next the profunda dissected free circumferentially to the distal portion of the primary trunk where the vessel was soft. A right angle was used to place Vesseloops this location and we then turned our attention to the left femoral vessels. Oblique incision was made over the left common femoral artery and Bovie used to dissect down through subcutaneous tissue. Self-retaining retractors were put in position and further dissection carried on femoral sheath which was incised vertically exposing the femoral vessels. Sharp dissection was used to dissect up to the mid common femoral artery with the vessel was soft and able to be clamped. A right angle was used to place a vessel at this location and then sharp dissection used to dissect free the superficial femoral artery to a location it was soft and able to be clamped for a right angle was used to place a vessel loop. Finally sharp dissection was used dissect free the secondary tertiary branches of the left profunda in order to find a segment that was soft and free of any significant calcium or atherosclerosis. It was obvious that the profunda required endarterectomy in order to optimize outflow. Next a Carmel tunneler was used to tunnel from the right to the left femoral incision in the subcutaneous space. The patient was then heparinized and allowed to circulate for 3 minutes. The right femoral vessels were then occluded with Vesseloops and longitudinal arteriotomy created with 11 blade extended with Riggins scissors. The plaque extended into the origin of the right profunda so we applied a DeBakey clamp for more distal and extended our arteriotomy onto the proximal segment of the profunda. We then performed our endarterectomy with a freer elevator with satisfactory endpoint distally onto the profunda and the origin of the superficial femoral artery. Distal endpoints were then tacked with 7-0 Prolene interrupted sutures. A bovine pericardial patch was then brought in the field and secured in position with a 5-0 Prolene in a running fashion. Prior to completing the suture line the vessels were backbled and after completing suture line clamps removed and satisfactory hemostasis was observed. Next a micropunct ure needle and wire were used to access the mid portion of the patch in retrograde fashion. The needle was then exchanged for a micropuncture sheath through which a hand-injection subtraction angiography was performed revealing satisfactory position with no extravasation or dissection. Through the micropuncture sheath a Sk[employer] wire was advanced navigating the more proximal areas of stenosis and into the abdominal aorta. The micropuncture sheath then exchanged for 7 [place] sheath which was advanced and positioned below the distal aspect of the stenosis. A marker pigtail catheter was then advanced over the wire and oblique subtraction angiography performed confirming the origin of the internal iliac artery which was small in caliber but patent. Next a [place] Viabahn VBX 7 x 29 balloon expandable covered stent was advanced into position with satisfactory coverage of the common iliac artery segment of the stenosis. This was then inflated to nominal deploying the stent position and then deflated and withdrawn. Next a [place] [employer] Keisha 7 x 40 self-expanding stent was advanced in position with satisfactory overlap into the VBX. This was then deployed into the liver system withdrawn. The external iliac component was then postdilated with a 6 mm x 40 angioplasty balloon inflated nominal and then deflated withdrawn. Finally an 8 x 40 angioplasty balloon was advanced into the common iliac artery and inflated to burst which correlated with 8.6 mm caliber and then deflated withdrawn. Completion angiography revealed satisfactory resolution of the areas of stenosis in the common and external iliac artery with preserved internal iliac artery flow. There was no significant residual stenosis and no extravasation or dissection. The wires and sheath were then withdrawn and the common femoral artery clamped proximal and distal. The puncture site was then extended with Riggins scissors to act as our arteriotomy for proximal anastomosis. The cadaver femoral-popliteal artery had been thawed per addictions counselor assistant's instructions. This was then flushed and sidebranch ligation status evaluated and felt to be adequate. The cadaver was then beveled to match the proximal arteriotomy and anastomosis performed with a 6-0 Prolene in a running fashion. After completing the suture line the vessels are back flush into the graft and then flow reestablished into the right lower extremity. The graft was then again assessed for hemostasis at the sidebranches and felt to be adequate. The cadaver was then marked to maintain orientation and secured to the tunneler and pulled through to the left femoral surgical field. The left femoral vessels were then occluded with Vesseloops and a longitudinal arteriotomy created with 11 blade on the mid common femoral artery and extended onto the dominant secondary branch of the profunda beyond the area of plaque. We then performed endarterectomy of the distal common femoral artery and profunda with satisfactory endpoint distally on the profunda and into the profunda branches as well as the origin of the superficial femoral artery. Distal endpoints were then tacked with 7-0 Prolene interrupted sutures. The proximal section of the incision on the common femoral artery which led retrograde to the occluded iliac artery was then repaired with 6-0 Prolene in running fashion longitudinally. Next the graft was cut to length and beveled to match the remaining arteriotomy and anastomosis performed with a 6-0 Prolene in a running fashion. Prior to completing suture line the vessels in the graft were backbled and after completing suture line clamps removed and satisfactory stasis was observed. There is a palpable pulse in the graft as well as in the outflow superficial femoral artery and profundofemoral artery. Heparin was reversed with protamine and the incision inspected for hemostasis. Hemoblast and Surgicel topical hemostatic were then applied to areas of bleeding that were not in need of repair suture. We then turned our attention to the sartorius muscles. Dissection with Bovie was carried lateral to the femoral vessels to the fascia overlying the sartorius which was then incised vertically and extended towards the ASIS. The sartorius muscle was then mobilized circumferentially up to its insertion in the iliac spine and then divided in reflected medially to cover the femoral vessels and the graft. It was then secured in position with 2-0 Vicryl interrupted sutures. Next Bovie was used to dissect lateral to the right femoral vessels to the fascia overlying the sartorius which was then incised vertically and extended up toward the ASIS. The sartorius muscle was mobilized circumferentially and attachment divided at the ASIS and the muscle reflected medially covering the femoral vessels and the graft. This also was secured in position with 2-0 Vicryl interrupted sutures. Incision was then closed with 3-0 Vicryl, 4-0 Monocryl and Prineo for the skin followed by a Prevena incisional wound VAC. The patient was then awake from anesthesia taken the recovery room with dissipated mission to the intensive care and for hemodynamic and neurologic monitoring. Surgical Findings: Palpable left posterior tibial pulse Complications Complications: No
[2025-02-26] VITALS (25 sets, daily range): BP systolic 80–136; BP diastolic 50–91; PULSE 43–104; RESP 10–23; TEMP 36.4–37.7; O2SAT 96–100; BMI 17.8
[2025-02-26 05:51] LABS: Hematocrit 36.9 % (40-54); Hemoglobin 12.4 g/dL (13.0-16.5); Immature Granulocytes Count 0.040 X10^3/uL (0.0-0.0); Mean Corp Hgb Conc 33.6 g/dL (32-36); Mean Corpuscular Volume 85.4 fL (80-94); Mean Platelet Vol. 9.2 fl (6.2-12.0); NRBC Flagged by Analyzer 0 % (0-5); Platelet Count 236 K/mm3 (150-450); RBC Distribution Width CV 13.8 % (11.6-14.6); RBC Distribution Width SD 43.4 fl (35.1-43.9); Red Blood Count 4.32 M/mm3 (4.6-6.2); White Blood Count 10.7 K/mm3 (4.4-11.0)
[2025-02-26 06:21] LABS: Anion Gap 8 (7-18); BUN 12 mg/dL (4-19); BUN/Creat Ratio 14.9 RATIO (10-20); Calcium,Total 8.9 mg/dL (7.6-11.0); Carbon Dioxide 25.2 mmol/L (20.0-29.0); Chloride 105 mmol/L (96-106); Estimated Creatinine Clearance 68.90 ml/min (50-250); Glucose 103 mg/dL (70-99); Potassium 4.0 mmol/L (3.5-5.1)
--- NOTE | 2025-02-26 07:47 | PN.SURG_ITS ---
Subjective Subjective I saw Mr. Vela this morning, he was resting in bed. He reports pain at the groin incision sites, particularly on the right but otherwise no new pain down his legs. He did not have rest pain prior, just very short distance claudication so he is not yet sure how much this has improved as he has not been OOB. He reports no other concerns. He has been tolerating a liquid diet. He does have swallowing difficulties due to prior esophageal surgeries, but reports he will self-select what he can eat on a regular menu, does not need all soft diet ordered. Prince was removed earlier this morning, he has been able to urinate a small amount since then, no significant urge. He has been bradycardic and with some low pressures, in discussion with nursing this is when he is sleeping and art line is positional as well. When he is awake, his HR increases to WNL and BP tends to increase as well. Objective Data Objective Data Vital Signs: Vital Signs Temp Pulse Resp BP Pulse Ox O2 Del Method 97.9 F 47 L 10 L 91/73 98 Room Air 02/26/25 06:00 02/26/25 07:00 02/26/25 07:00 02/26/25 07:00 02/26/25 07:00 02/26/25 07:00 Oxygen Delivery Method Room Air Weight: 124 lb 5.451 oz Body Mass Index (BMI) 17.8 Intake & Output: Intake and Output for Last 24 Hours 02/24/25 02/25/25 02/26/25 23:59 23:59 23:59 Intake Total 496 / 496 Output Total 1825 / 1825 350 / 350 Balance -1329 / -1329 -350 / -350 Lab / Micro Data 02/26/25 05:35 02/26/25 05:35 Labs: Laboratory Results - last 24 hr 02/25/25 08:46: Activated Clotting Time 132 02/25/25 10:23: Activated Clotting Time 214 H 02/25/25 10:59: Activated Clotting Time 204 H 02/25/25 11:38: Activated Clotting Time 209 H 02/25/25 12:16: Activated Clotting Time 209 H 02/25/25 12:54: Activated Clotting Time 230 H 02/26/25 05:35: WBC 10.7, RBC 4.32 L, Hgb 12.4 L, Hct 36.9 L, MCV 85.4, MCH 28.7, MCHC 33.6, RDW Std Deviation 43.4, RDW Coeff of [place] 13.8, Plt Count 236, MPV 9.2, Immature Gran % (Auto) 0.400, Neut % (Auto) 74.6 H, Lymph % (Auto) 14.4 L, [place] % (Auto) 10.4 H, Eos % (Auto) 0.1, Baso % (Auto) 0.1, Absolute Neuts (auto) 8.0 H, Absolute Lymphs (auto) 1.55, Nucleated RBC % 0, Sodium 138, Potassium 4.0, Chloride 105, Carbon Dioxide 25.2, Anion Gap 8, BUN 12, Creatinine 0.83, Estim Creat Clear Calc 68.90, Est GFR (MDRD) Non-Af 96, BUN/Creatinine Ratio 14.9, Glucose 103 H, Calcium 8.9 Physical Exam Const oriented x3 and no apparent distress Resp normal respiratory effort Cardio regular rate Extremity Extremity Narrative: Bilateral groin incision sites with Prevena vac dressings in place, no drainage, soft to palpation, no significant ecchymosis/erythema. Bilateral DP and PT doppler signals are strong, mono/biphasic Bilateral feet appropriately warm and pink Assessment & Plan Assessment/Plan (1) Atherosclerosis of [place] arteries of extremities with intermittent claudication, left leg: (2) PAD (peripheral artery disease): PLAN: Plan He is POD#1 from R NEVAEH/EIA stent, R femoral endarterectomy, L profundofemoral endarterectomy, and Right to left fem-fem bypass. Incision sites are satisfactory in appearance, well-healing. Bilateral pedal doppler signals satisfactory. Hgb decreased from pre-op but not requiring transfusion at 12.4 this morning. OK to d/c arterial line. OK for normal diet. Plan for him to get to the bedside chair and ambulate with nursing or PT later today. Possible d/c this afternoon at the earliest pending how he does with ambulation. Charges/Coding Procedures Integumentary [id number]: [id number] Global Visit
--- NOTE | 2025-02-26 09:46 | CASEMGMT ---
MARLEEN GALE Assessment Face to Face with patient for initial transition planning/care coordination assessment. MARLEEN GALE introduced self and role at [facility], pt voices understanding. Pt is A&Ox4 and is resting comfortably in bed and is calm. Care providers, pharmacy, and demographics verified. Admitting dx: Atherosclerosis of [place] arteries of extremities with intermittent claudication, left leg LACE Strata: 2 PCP: No PCP. Encouraged establishment. However, pt declines and states that his oncologist is enough Specialists: Lauryn (Oncology/ Hematology) Preferred Pharmacy: [facility] [place] Insurance: [facility] Prescription Benefit: Yes LNOK: Salome ( - Pt states that she is handicapped), Mark (Son) Living Arrangements: Pt lives with his in a 2 story home with a flight of 12 steps to enter the home. Pt states that he is indep at baseline. Pt states that his son plans to help him with the steps once he gets home. Pt aware that PT is ordered and can see how the pt does with the steps before DC. ADLs/IADLs: see above. Transportation: Self, son DME: Access to pt's 's cane, FWW, W/C, and grab bars HHC/SNF: Reports HH hx about 4 years ago but cannot recall the name of the agency. Denies SNF Pt?s goal: Home Plan: Home with family support, anticipate DC today vs tomorrow. 6-Click score is 20. Follow PT/ OT evals. Discussed wound vac care with the pt. Pt states that he was given education on how to care for these at home and the pt denies concerns. Pt plans to follow up with vacular as an OP. Pt denies the need for HH at this time (also would be difficult to set up with no PCP to follow the orders). Pt states that he feels safe going home once medically ready and states that his son will drive him and help him up his 12 steps. Pt denies further questions or concerns. Mac Vasquez RN, CM
[2025-02-26] MEDS: 0.9% Normal Saline (1000mL) 1,000 ML 200 ML IV (21:49)
[2025-02-26] MEDS: 0.9% Saline Lock 10 ML Syringe IV (21:49)
[2025-02-27] VITALS (16 sets, daily range): BP systolic 77–116; BP diastolic 51–77; PULSE 50–82; RESP 10–18; TEMP 36.6–36.9; O2SAT 97–100; BMI 17.9
[2025-02-27] MEDS: 0.9% Normal Saline (1000mL) 1,000 ML 200 ML IV (02:43)
[2025-02-27] MEDS: 0.9% Saline Lock 10 ML Syringe IV (06:16)
--- NOTE | 2025-02-27 08:15 | PN.SURG_ITS ---
Subjective Subjective I saw Mr. Vela at bedside this morning, he was sitting up comfortably in bed enjoying breakfast. He reports that he has noticed improvement in his groin pain today, at least while at rest, he has not been out of bed yet this morning. He is very motivated to go home today. He has no other complaints. He had some lower BPs overnight, which he had lower BPs when sleeping yesterday as well. MAPs remained within satisfactory range overall and he was otherwise asymptomatic, no pressor therapy required. Objective Data Objective Data Vital Signs: Vital Signs Temp Pulse Resp BP Pulse Ox O2 Del Method 97.8 F 55 L 12 112/60 98 Room Air 02/27/25 04:00 02/27/25 06:00 02/27/25 06:00 02/27/25 06:00 02/27/25 06:40 02/27/25 06:40 Oxygen Delivery Method Room Air Weight: 124 lb 12.506 oz Body Mass Index (BMI) 17.9 Intake & Output: Intake and Output for Last 24 Hours 02/25/25 02/26/25 02/27/25 23:59 23:59 23:59 Intake Total 496 / 496 1036.67 / 1036.67 Output Total 1825 / 1825 1050 / 1050 575 / 575 Balance -1329 / -1329 -1050 / -1050 461.67 / 461.67 Lab / Micro Data 02/26/25 05:35 02/26/25 05:35 Physical Exam Const oriented x3 and no apparent distress HEENT Head and Scalp: normal to inspection and normocephalic Nose: external nose normal External Ear: external ears normal Eyes General Eye: normal appearance of both eyes Neck General: normal visual inspection Resp normal respiratory effort Cardio regular rate Extremity Extremity Narrative: Bilateral groin incision sites with Prevena vac dressings in place, no drainage, soft to palpation, no significant ecchymosis/erythema. Bilateral DP and PT doppler signals are strong, mono/biphasic Bilateral feet appropriately warm and pink Skin no rashes or lesions noted Neuro oriented x3, moves all extremities and no focal motor deficits Psych mental status grossly normal Appearance: grossly normal Attitude: calm and engaged Activity / Motor Behavior: appropriate eye contact Speech: normal speech Mood & Affect: euthymic mood Judgement: judgement good Assessment & Plan Assessment/Plan (1) Atherosclerosis of [place] arteries of extremities with intermittent claudication, left leg: (2) PAD (peripheral artery disease): PLAN: Plan He is POD#2 from R NEVAEH/EIA stent, R femoral endarterectomy, L profundofemoral endarterectomy, and Right to left fem-fem bypass. Incision sites are satisfactory in appearance, well-healing. Bilateral pedal doppler signals satisfactory. Will repeat CBC today given lower BPs overnight. BPs are improved this morning. As long as Hgb stable, expect this is likely usual for him during sleep. Plan for him to ambulate with nursing/PT this morning and as long as he does better with this today and feels safe to do so, expect discharge later this morning/early afternoon. Charges/Coding Procedures Integumentary [id number]: [id number] Global Visit
--- NOTE | 2025-02-27 08:36 | PCM.DC.SUM ---
Providers Date of Admission: 02/25/25 Primary Care Physician: No Primary Care Phys Reason For Visit: Right Iliac Stent, Right Femoral - Femoral Bypass Diagnosis Discharge Diagnosis (1) Atherosclerosis of [place] arteries of extremities with intermittent claudication, left leg: Status: Chronic Code(s): I70.212 - Atherosclerosis of [place] arteries of extremities with intermittent claudication, left leg (2) PAD (peripheral artery disease): Status: Acute Code(s): I73.9 - Peripheral vascular disease, unspecified Plan He is POD#2 from R NEVAEH/EIA stent, R femoral endarterectomy, L profundofemoral endarterectomy, and Right to left fem-fem bypass. Incision sites are satisfactory in appearance, well-healing. Bilateral pedal doppler signals satisfactory. Will repeat CBC today given lower BPs overnight. BPs are improved this morning. As long as Hgb stable, expect this is likely usual for him during sleep. Plan for him to ambulate with nursing/PT this morning and as long as he does better with this today and feels safe to do so, expect discharge later this morning/early afternoon. Medications at Discharge Home Medications clopidogrel 75 mg tablet (Plavix) 75 mg PO DAILY BLOOD THINNER #90 tabs 01/16/25 lidocaine-prilocaine 2.5 %-2.5 % topical cream 1 applic topical ONCE PRN port access 30 days #30 grams 02/25/25 acetaminophen 500 mg tablet 1,000 mg (2 x 500 mg) PO Q8 #0 tabs 02/27/25 oxycodone 5 mg tablet 5 mg PO Q6H PRN PRN Pain Score 4-10 5 days #20 tabs 02/27/25 Hospital Course Summary of Care Provided Hospital Course: Mr. Juan C Vela is a 69 y/o male who underwent planned R NEVAEH/EIA stent, R femoral endarterectomy, L profundofemoral endarterectomy, and Right to left fem-fem bypass on 02/25/25. He tolerated surgery well and it was without complication. Postoperatively, he was routinely admitted to the ICU for ongoing hemodynamic monitoring and close monitoring of his vascular status. He has remained hemodynamically stable, noted to have lower blood pressures when sleeping and at rest but otherwise asymptomatic and BP/HR improves when he is awake and active. Incision sites have been satisfactory in appearance without hematoma; bilateral groin incisions are covered with Prevena vac dressings which have been maintaining good seal. His bilateral pedal doppler signals have been strong and satisfactory post-operatively. His pain is well controlled. He is discharged home today with family available for support and with planned outpatient follow-up in 2 weeks. Physical Exam Const oriented x3 and no apparent distress HEENT Head and Scalp: normal to inspection and normocephalic Nose: external nose normal External Ear: external ears normal Eyes General Eye: normal appearance of both eyes Neck General: normal visual inspection Resp normal respiratory effort Cardio regular rate Extremity Extremity Narrative: Bilateral groin incision sites with Prevena vac dressings in place, no drainage, soft to palpation, no significant ecchymosis/erythema. Bilateral DP and PT doppler signals are strong, mono/biphasic Bilateral feet appropriately warm and pink Skin no rashes or lesions noted Neuro oriented x3, moves all extremities and no focal motor deficits Psych mental status grossly normal Appearance: grossly normal Attitude: calm and engaged Activity / Motor Behavior: appropriate eye contact Speech: normal speech Mood & Affect: euthymic mood Judgement: judgement good Weight / BMI Weight Weight: 124 lb 12.506 oz Body Mass Index (BMI) 17.9 ABG / Lab / Microbiology Data 02/27/25 09:00 02/26/25 05:35 Laboratory: Laboratory Results - last 24 hr 02/27/25 09:00: WBC 9.2, RBC 3.97 L, Hgb 11.3 L, Hct 35.0 L, MCV 88.2, MCH 28.5, MCHC 32.3, RDW Std Deviation 45.4 H, RDW Coeff of [place] 14.1, Plt Count 199, MPV 9.6, Immature Gran % (Auto) 0.400, Neut % (Auto) 83.1 H, Lymph % (Auto) 9.7 L, [place] % (Auto) 6.0, Eos % (Auto) 0.7, Baso % (Auto) 0.1, Absolute Neuts (auto) 7.7, Absolute Lymphs (auto) 0.89, Nucleated RBC % 0 D/C Instructions May shower in (days): 1 Weight Bearing Status: Weight bearing as tolerated Lifting Restricted to (Lbs): 20 Lifting Restrictions: Do not lift greater than 20 pounds for 3 weeks Call your doctor if your incision/area has: Sudden Increased Bleeding, Increased Pain/ Swelling and Foul Smelling Discharge Call your doctor if you observe: Fever of 101 or Higher and Uncontrolled pain Remove Dressing in: 5 days DC O2, CPAP, BIPAP Needs Home O2 Discharge instructions: No Additional Instructions: Your bilateral groin incision sites are currently covered with Prevena Vacuum Dressings which help reduce swelling. As long as the device continues to work well, we want these to remain in place for 1 week post-operatively. These can be removed on 03/04/2025. You can remove these at home following these instructions: (1) Hold down the power button on the device until it beeps and the lights turn off (2) Follow the tubing to find the white connectors and twist these apart (3) You should notice the purple foam on the dressings puff up and feel the pressure release (4) At this point, you can gently peel off the adhesive dressing (5) Throw everything away in your garbage at home. The groin incisions themselves were closed with skin glue. This will remain in place once the vacuum dressing above has been removed. The skin glue will remain in place for a few weeks and continue to protect your incisions while they heal. Please do not pick at the glue, it will peel/flake away on its own with time. Otherwise, just take care to keep the area of the incisions clean. You may shower. Soap and water can rinse over the insicions, just be sure to pat to dry well. Do not take a bath or otherwise submerge the incisions (such as going in a hot tub or swimming pool) for at least 3 weeks or until the incisions are fully healed. Do not lift greater than 20 pounds for 3 weeks. Otherwise, you may proceed with activity as tolerated and walking is encouraged. You are scheduled for follow-up in the office on 03/13/2024. Please Follow Up With: Navya Chaudhari PA When: 03/13/2024 Meaningful Use Info Meaningful Use Meaningful Use Diagnoses (Choose all that apply): None applicable Discharge Plan Admission Admit Date/Time: 02/25/25 13:00 Attending Provider: Joon Koch Primary Care Provider: Care Physician,No Primary Instructions Additional Instructions / Restrictions: Your bilateral groin incision sites are currently covered with Prevena Vacuum Dressings which help reduce swelling. As long as the device continues to work well, we want these to remain in place for 1 week post-operatively. These can be removed on 03/04/2025. You can remove these at home following these instructions: (1) Hold down the power button on the device until it beeps and the lights turn off (2) Follow the tubing to find the white connectors and twist these apart (3) You should notice the purple foam on the dressings puff up and feel the pressure release (4) At this point, you can gently peel off the adhesive dressing (5) Throw everything away in your garbage at home. The groin incisions themselves were closed with skin glue. This will remain in place once the vacuum dressing above has been removed. The skin glue will remain in place for a few weeks and continue to protect your incisions while they heal. Please do not pick at the glue, it will peel/flake away on its own with time. Otherwise, just take care to keep the area of the incisions clean. You may shower. Soap and water can rinse over the insicions, just be sure to pat to dry well. Do not take a bath or otherwise submerge the incisions (such as going in a hot tub or swimming pool) for at least 3 weeks or until the incisions are fully healed. Do not lift greater than 20 pounds for 3 weeks. Otherwise, you may proceed with activity as tolerated and walking is encouraged. You are scheduled for follow-up in the office on 03/13/2024. Discharge Orders/Prescriptions Prescriptions: New acetaminophen 500 mg Tablet 1,000 mg PO Q8 Qty: 0 0RF oxycodone 5 mg Tablet 5 mg PO Q6H PRN PRN (Reason: Pain Score 4-10) 5 Days Qty: 20 0RF Continued clopidogrel [Plavix] 75 mg tablet 75 mg PO DAILY Qty: 90 1RF lidocaine-prilocaine 2.5-2.5 % cream 1 applic topical ONCE PRN (Reason: port access) 30 Days Qty: 30 2RF Referrals / Follow Up: Sylvia Linton NP-C [Non-Staff, Family Practice] Disposition Disposition (needs filled in before D/C Order can be placed): Home, Self Care
[2025-02-27 09:07] LABS: Hematocrit 35.0 % (40-54); Hemoglobin 11.3 g/dL (13.0-16.5); Immature Granulocytes Count 0.040 X10^3/uL (0.0-0.0); Mean Corp Hgb Conc 32.3 g/dL (32-36); Mean Corpuscular Volume 88.2 fL (80-94); Mean Platelet Vol. 9.6 fl (6.2-12.0); NRBC Flagged by Analyzer 0 % (0-5); Platelet Count 199 K/mm3 (150-450); RBC Distribution Width CV 14.1 % (11.6-14.6); RBC Distribution Width SD 45.4 fl (35.1-43.9); Red Blood Count 3.97 M/mm3 (4.6-6.2); White Blood Count 9.2 K/mm3 (4.4-11.0)
--- NOTE | 2025-02-27 11:07 | CASEMGMT ---
Pt again states that he feels safe returning home today and was able to simulate his steps with therapy, see note. PT is not recommending additional therapy. Pt states that he feels safe caring for his wound vacs at home and that he still plans to follow up with vascular as an OP. Pt denies further DC needs. Pt's RN updated.
== END 2025-02-27 12:00 | disposition home or self-care (01) | DRG 253 ==
PROVIDERS: Anesthesiology; Physician Assistant; Admitting Provider Surgery Trauma Surgery; Referring Provider Surgery Trauma Surgery; Visit Provider Surgery Trauma Surgery
PROC: 047C0DZ Dilation of Right Common Iliac Artery with Intraluminal Device, Open Approach (ICD-10-PCS; principal; 2025-02-25 07:00)
DX: I70.212 Atherosclerosis of native arteries of extremities with intermittent claudication, left leg (principal); Z68.1 Body mass index [BMI] 19.9 or less, adult; F17.210 Nicotine dependence, cigarettes, uncomplicated; J44.9 Chronic obstructive pulmonary disease, unspecified; R00.1 Bradycardia, unspecified; R03.1 Nonspecific low blood-pressure reading; R63.6 Underweight; Z79.02 Long term (current) use of antithrombotics/antiplatelets; Z86.718 Personal history of other venous thrombosis and embolism
CPT/HCPCS: 76000; 80048; 80076; 85025; 85027; 85347; 85610; 85730; 86850; 86900; 86901; 88304; 88311; 93005; 94668; 94762; 97162; 97165; 97530; 97802; 99252; 99406; A4648; C1769; C1874; C1894; A4216; C1725; G0463; J2405